=== PATIENT | male | born 1935 | race Caucasian/White ===

== ENCOUNTER 2016-04-10 18:32 | Emergency (ER) | payer OTHER ==
[~2016-04-10 18:32] MED LIST: ALBU1AER9 INH; ASPEC81 PO; CLR10 PO; CRG25 PO; FLUT0.15 NAE; GLC/500 PO; GLIP1TAB91 PO; ISOS30TA3 PO; LOSA1TAB38 PO; LPT/40 PO; LSX/40 PO; NTRGSL/4 UT; NXM/40 PO; SYMIN/8045 INH; TERA1CAP63 PO
[2016-04-10 18:41] VITALS: TEMP 36.8; Ht 167.6 cm
[2016-04-10] MEDS ORDERED: IBUP-1050 PO (19:49)
--- NOTE | 2016-04-10 20:19 | DIAGNOSTIC IMAGING REPORT ---
CT SCAN OF THE BRAIN WITHOUT IV CONTRAST CLINICAL HISTORY: Fall with head injury. COMPARISON STUDY: No priors TECHNIQUE: Unenhanced axial CT scan of the brain is performed from the vertex to the skull base. CT DOSE: 1112.23 mGy.cm FINDINGS: Brain parenchyma: There are age-related involutional changes noting mild subcortical and periventricular microangiopathic change. There is no hemorrhage, mass effect, or evidence of acute territorial ischemia by CT criteria. Brar-white matter is preserved. No extra-axial fluid collection is seen. Ventricles, sulci, cisterns: Prominent secondary to involutional change. Intracranial vasculature: There is atherosclerotic calcification of the cavernous carotid and vertebral arteries. Calvarium: The skeletal structures are osteopenic. There is no depressed calvarial fracture. Sinuses and mastoids: The visualized paranasal sinuses are clear. The mastoid air cells are well pneumatized. Orbits: The bony orbits are grossly intact. IMPRESSION: There is no hemorrhage, mass effect, or evidence of acute territorial ischemia by CT criteria. Electronically signed by: Johny Barton M.D. 04/10/2016 8:17 PM
--- NOTE | 2016-04-10 20:22 | DIAGNOSTIC IMAGING REPORT ---
CT SCAN OF THE CERVICAL SPINE CLINICAL HISTORY: Trauma. Fall. COMPARISON STUDY: No priors. TECHNIQUE: CT scan of the cervical spine is performed from the skull base to the upper thoracic spine. Images are reviewed in the axial, sagittal, and coronal planes. IV contrast was not administered for this examination. CT DOSE: Reported separately and the concurrently performed CT scan of the brain. FINDINGS: Skeletal structures: The skeletal structures are osteopenic. There is no evidence of fracture or subluxation involving the cervical spine. Vertebral body height and alignment are maintained. There is straightening of cervical lordosis. The odontoid process and lateral masses are intact. The atlantoaxial articulation is preserved noting advanced productive degenerative change with bony overgrowth, sclerosis, narrowing of the interval. The spinous processes appear intact. Anterior osteophytes are seen throughout. There is advanced multilevel cervical spondylosis. Uncovertebral and facet arthropathy contribute to neural foraminal stenosis at most levels. Intervertebral discs: There is moderate degenerative disc space narrowing at C6-C7 and C7-T1. Mild narrowing is seen at the remaining cervical levels. Central canal: Posterior disc osteophyte complexes at C6-C7 and C7-T1 likely contribute to mild acquired compromise of the central canal. Soft tissues: The prevertebral and paraspinous soft tissues are within normal limits. There is atherosclerotic calcification of the carotid bulbs. Calvarium: The visualized calvarium at the skull base appears intact. Brain parenchyma: Partially visualized brain parenchyma the skull base is within normal limits. Sinuses and mastoids: Trace mucosal thickening is seen within the sphenoid sinuses. There is a small right mastoid effusion. The left mastoid air cells are well pneumatized. Lung apices: Clear as visualized. IMPRESSION: 1. There is no evidence of fracture or subluxation involving the cervical spine. 2. Osteopenia and multilevel cervical spondylosis as detailed above. Electronically signed by: Johny Barton M.D. 04/10/2016 8:20 PM
--- NOTE | 2016-04-10 21:26 | DIAGNOSTIC IMAGING REPORT ---
RIGHT HIP 2 VIEWS CLINICAL HISTORY: Fall with right hip pain. FINDINGS: AP and frog-leg views of the right hip are compared to study dated 12/06/2014. The skeletal structures are osteopenic. No fracture is seen in the right hip or the visualized right hemipelvis. Minimal arthritic change is noted in the hip. The overlying soft tissues are within normal limits. IMPRESSION: Osteopenia with no radiographic evidence of right hip fracture. Electronically signed by: Johny Barton M.D. 04/10/2016 9:24 PM
--- NOTE | 2016-04-10 21:28 | DIAGNOSTIC IMAGING REPORT ---
RIGHT TIBIA AND FIBULA 2 VIEWS CLINICAL HISTORY: Fall with right leg pain. FINDINGS: AP and lateral views of the right tibia and fibula are obtained. No prior studies are available for comparison at the time of dictation. The skeletal structures are osteopenic. No tibial or fibular fracture is seen. The knee and ankle joints appear maintained noting arthritic change. There are large dorsal and plantar calcaneal enthesophytes. There is mild pretibial soft tissue swelling. IMPRESSION: Mild pretibial soft tissue edema. No fracture is identified in the right tibia or fibula. Electronically signed by: Johny Barton M.D. 04/10/2016 9:26 PM
--- NOTE | 2016-04-10 21:29 | DIAGNOSTIC IMAGING REPORT ---
RIGHT KNEE 3 VIEWS CLINICAL HISTORY: Fall with right knee pain. FINDINGS: AP, crosstable lateral, and sunrise views of the right knee are obtained. No prior studies are available for comparison at the time of dictation. The skeletal structures are osteopenic. No fracture is seen. There is advanced degenerative joint space narrowing in the medial and patellofemoral compartments. Mild narrowing is seen in the lateral compartment. There are large marginal osteophytes and patellar enthesophytes. Chondrocalcinosis is seen in the medial and lateral compartments. There is mild prepatellar soft tissue edema. A small joint effusion is suspected. IMPRESSION: 1. Small joint effusion and overlying soft tissue edema. No fracture is seen. 2. Osteopenia with arthritic change and chondrocalcinosis as above. Electronically signed by: Johny Barton M.D. 04/10/2016 9:27 PM
--- NOTE | 2016-04-10 21:38 | EMERGENCY ROOM VISIT NOTE ---
ED Visit Note First contact with patient: 19:11 The patient was seen and examined with Aditya Barragan PA-C. I agree with the history, physical and findings. Please see the note for disposition and details.
--- NOTE | 2016-04-10 21:59 | EMERGENCY ROOM VISIT NOTE ---
History First contact with patient: 19:11 Chief Complaint: HIP PAIN Stated Complaint: FELL OUTSIDE HOME, HIP, KNEE, HEAD RIGHT SIDE History of Present Illness The patient is a 81 year old male who presents to the Emergency Room via private vehicle accompanied by 2 daughters with complaints of "fell outside home , hip, knee, head right side". Patient states that he fell earlier today around 5:15 PM while at home. He notes that he went out of his house to go talk with somebody near the cars outside and when he was near the first car he stepped on ice and then fell back against the car and slid to the ground. He points to the right temporal region, his right hip and right knee as a locations of the pain. He states that he struck his head off of the car when he fell down. The daughter states it was witnessed and appeared that he fell backwards into the car slightly and slid down the edge of the car. He did not strike his head off the ground. He states that his right hip is just sore and denies any pain. He feels that his right knee is stiff. At baseline he relates with a cane. He denies any headache, nausea, vomiting, chest pain, shortness of breath, vision changes, striking his face, loss of consciousness, back pain. The patient did ambulate after the event. He is on aspirin. Review of Systems A complete 10-point Review of Systems was discussed with the patient, with pertinent positives and negatives listed in the History of Present Illness. All remaining Review of Systems questions can be considered negative unless otherwise specified. Past Medical/Surgical History Medical Problems: (1) CHF (congestive heart failure) (2) Coronary artery bypass grafts x 3 (3) Diabetes (4) Heart disease (5) Hypersomnia with sleep apnea Family History Cancer Diabetes mellitus Gallbladder disease Heart disease Hypertension Social History Smoking Status: Never Smoker Alcohol Use: none Drug Use: none Marital Status: Housing Status: lives with family Occupation Status: retired Current/Historical Medications Scheduled Aspirin (Aspirin EC Low Dose), 81 MG PO QAM Atorvastatin (Lipitor), 40 MG PO QPM Budesonide/Formoterol Fumarate (Symbicort 80/4.5 Inhaler), 2 PUFFS INH BID Carvedilol (Carvedilol), 25 MG PO BID Fluticasone Propionate (Nasal) (Flonase Allergy Relief), 1 SPRAY ANDRAE QAM Furosemide (Lasix), 40 MG PO QAM Glipizide Xl (Glucotrol Xl), 5 MG PO QAM Ibuprofen (Advil), 400 MG PO DAILY Isosorbide Mononitrate Ext Rel (Imdur Ext Rel), 30 MG PO QAM Loratadine (Claritin), 10 MG PO QAM Losartan Potassium (Cozaar), 100 MG PO QAM Metformin Hcl (Glucophage), 500 MG PO QAM Terazosin Hcl (Hytrin), 10 MG PO QPM Scheduled PRN Albuterol (Proair Hfa), 1-2 PUFFS INH Q4 PRN for Shortness of Breath Esomeprazole Magnesium (Nexium), 40 MG PO DAILY PRN for Indigestion Nitroglycerin (Nitrostat), 0.4 MG UT UD PRN for Chest Pain Allergies Coded Allergies: Lisinopril (Verified Adverse Reaction, Unknown, cough, 04/10/16) Physical Exam Vital Signs Date Time Temp Pulse Resp B/P Pulse Ox O2 Delivery O2 Flow Rate FiO2 04/10/16 22:11 72 20 145/80 99 04/10/16 18:41 36.8 71 16 148/64 95 Room Air Physical Exam VITAL SIGNS - Vital signs and nursing notes were reviewed. Patient is afebrile , slightly hypertensive at 148/64, he is not tachycardic, respiratory rate is normal, and he is saturating well on room air 95%. GENERAL -81-year-old male appearing his stated age who is in no acute distress. Communicates well with provider and answers questions appropriately. SKIN - Without rashes. No evidence of trauma to the skin. The skin is intact. HEAD - NC/AT. No palpable step-off deformities. There are no lacerations or abrasions or contusions noted. EYES - PERRL with EOMI bilaterally. Sclera anicteric. Palpebral conjunctiva pink and moist with no injection noted. EARS - No deformities of external structures noted on gross examination bilaterally. No hemotympanum External auditory canals without discharge or otorrhea. Tympanic membranes pearly brar without retraction or bulging. No fluid or purulent material visualized behind the TM. Handle of malleus, umbo, cone of light, pars tensa/flaccid all easily visualized. NOSE - Midline and without cyanosis. No epistaxis or purulent drainage noted. Septum midline without deviation or septal hematoma noted. MOUTH/OROPHARYNX - Without perioral cyanosis. Buccal mucosa pink and moist and without leukoplakia. Tongue midline with equal elevation of palate bilaterally. No tonsillar hypertrophy, erythema, or exudates noted. Good dentition noted. NECK - Neck with FROM. Supple to palpation. No lymphadenopathy noted. No nuchal rigidity. No C-spine tenderness. There is no tenderness to the thoracic or lumbar spine. LUNGS - Chest wall symmetric without accessory muscle use, intercostals retractions, or central cyanosis. Normal vesicular breath sounds CTA B/L. No wheezes, rales, or rhonchi appreciated. CARDIAC - RRR with S1/S2. No murmur, rubs, or gallops appreciated. ABDOMEN - Abdominal contour without pulsations or visible masses. BS normoactive all four quadrants. No tenderness, palpable masses, hepatosplenomegaly, or ascites noted. MUSCULOSKELETAL: There is minimal tenderness of the right hip, right knee and right joiner region. Patient with near full range of motion of these regions. No leg shortening or over rotation. EXTREMITIES - No clubbing or peripheral cyanosis. No pretibial edema present. + 5/5 strength noted in UE/LE bilaterally. NEUROLOGIC - Cranial nerves II through XII grossly intact. Sensory intact to light touch throughout. PSYCH - A&Ox3 and cooperates fully with examiner. Pt is very pleasant and interacts well with examiner. Medical Decision & Procedures ER Provider Diagnostic Interpretation: CT SCAN OF THE BRAIN WITHOUT IV CONTRAST CLINICAL HISTORY: Fall with head injury. COMPARISON STUDY: No priors TECHNIQUE: Unenhanced axial CT scan of the brain is performed from the vertex to the skull base. CT DOSE: 1112.23 mGy.cm FINDINGS: Brain parenchyma: There are age-related involutional changes noting mild subcortical and periventricular microangiopathic change. There is no hemorrhage, mass effect, or evidence of acute territorial ischemia by CT criteria. Brar-white matter is preserved. No extra-axial fluid collection is seen. Ventricles, sulci, cisterns: Prominent secondary to involutional change. Intracranial vasculature: There is atherosclerotic calcification of the cavernous carotid and vertebral arteries. Calvarium: The skeletal structures are osteopenic. There is no depressed calvarial fracture. Sinuses and mastoids: The visualized paranasal sinuses are clear. The mastoid air cells are well pneumatized. Orbits: The bony orbits are grossly intact. IMPRESSION: There is no hemorrhage, mass effect, or evidence of acute territorial ischemia by CT criteria. Electronically signed by: Johny Barton M.D. 04/10/2016 8:[address] SCAN OF THE CERVICAL SPINE CLINICAL HISTORY: Trauma. Fall. COMPARISON STUDY: No priors. TECHNIQUE: CT scan of the cervical spine is performed from the skull base to the upper thoracic spine. Images are reviewed in the axial, sagittal, and coronal planes. IV contrast was not administered for this examination. CT DOSE: Reported separately and the concurrently performed CT scan of the brain. FINDINGS: Skeletal structures: The skeletal structures are osteopenic. There is no evidence of fracture or subluxation involving the cervical spine. Vertebral body height and alignment are maintained. There is straightening of cervical lordosis. The odontoid process and lateral masses are intact. The atlantoaxial articulation is preserved noting advanced productive degenerative change with bony overgrowth, sclerosis, narrowing of the interval. The spinous processes appear intact. Anterior osteophytes are seen throughout. There is advanced multilevel cervical spondylosis. Uncovertebral and facet arthropathy contribute to neural foraminal stenosis at most levels. Intervertebral discs: There is moderate degenerative disc space narrowing at C6-C7 and C7-T1. Mild narrowing is seen at the remaining cervical levels. Central canal: Posterior disc osteophyte complexes at C6-C7 and C7-T1 likely contribute to mild acquired compromise of the central canal. Soft tissues: The prevertebral and paraspinous soft tissues are within normal limits. There is atherosclerotic calcification of the carotid bulbs. Calvarium: The visualized calvarium at the skull base appears intact. Brain parenchyma: Partially visualized brain parenchyma the skull base is within normal limits. Sinuses and mastoids: Trace mucosal thickening is seen within the sphenoid sinuses. There is a small right mastoid effusion. The left mastoid air cells are well pneumatized. Lung apices: Clear as visualized. IMPRESSION: 1. There is no evidence of fracture or subluxation involving the cervical spine. 2. Osteopenia and multilevel cervical spondylosis as detailed above. Electronically signed by: Johny Barton M.D. 04/10/2016 8:20 PM RIGHT HIP 2 VIEWS CLINICAL HISTORY: Fall with right hip pain. FINDINGS: AP and frog-leg views of the right hip are compared to study dated 12/06/2014. The skeletal structures are osteopenic. No fracture is seen in the right hip or the visualized right hemipelvis. Minimal arthritic change is noted in the hip. The overlying soft tissues are within normal limits. IMPRESSION: Osteopenia with no radiographic evidence of right hip fracture. Electronically signed by: Johny Barton M.D. 04/10/2016 9:24 PM RIGHT KNEE 3 VIEWS CLINICAL HISTORY: Fall with right knee pain. FINDINGS: AP, crosstable lateral, and sunrise views of the right knee are obtained. No prior studies are available for comparison at the time of dictation. The skeletal structures are osteopenic. No fracture is seen. There is advanced degenerative joint space narrowing in the medial and patellofemoral compartments. Mild narrowing is seen in the lateral compartment. There are large marginal osteophytes and patellar enthesophytes. Chondrocalcinosis is seen in the medial and lateral compartments. There is mild prepatellar soft tissue edema. A small joint effusion is suspected. IMPRESSION: 1. Small joint effusion and overlying soft tissue edema. No fracture is seen. 2. Osteopenia with arthritic change and chondrocalcinosis as above. Electronically signed by: Johny Barton M.D. 04/10/2016 9:27 PM RIGHT TIBIA AND FIBULA 2 VIEWS CLINICAL HISTORY: Fall with right leg pain. FINDINGS: AP and lateral views of the right tibia and fibula are obtained. No prior studies are available for comparison at the time of dictation. The skeletal structures are osteopenic. No tibial or fibular fracture is seen. The knee and ankle joints appear maintained noting arthritic change. There are large dorsal and plantar calcaneal enthesophytes. There is mild pretibial soft tissue swelling. IMPRESSION: Mild pretibial soft tissue edema. No fracture is identified in the right tibia or fibula. Electronically signed by: Johny Barton M.D. 04/10/2016 9:26 PM Medical Decision Patient was seen and evaluated as above. The patient looks well and nontoxic upon my exam. I do not suspect any fractures however did elect to perform the above workup. Results of all the imaging were discussed with the patient denied with radiologist's finding. There are no acute abnormalities noted other than the slight knee effusion. Patient was informed upon the atherosclerotic plaque. He does not want any for pain. He has a known history of spinal stenosis. The patient ambulates with a cane at baseline, therefore I felt that additional crutches or knee immobilizer would be a hindrance. Family was in agreement that the cane would be beneficial and that the crutches may be a problem. He was fitted with a Angel wrap on the right knee and instructed to follow-up with his orthopedic doctor regarding today's fall. He is also to follow up with his family doctor regarding atherosclerotic plaque identified on CT scan of the head and neck. His family indicated that he has a follow-up appointment regarding the carotids in the near future. I do not suspect any emergent or surgical nature to the patient's symptoms at this time. I be the patient can be managed in the outpatient setting with close follow-up. They were educated up on worrisome symptoms in which to return, had questions answered prior to discharge and was discharged home in good condition. In the evaluation and treatment of this patient, the following differential diagnoses were considered: Concussion, Contrecoup Injury, Brain Tumor, Depression, Encephalitis, Hypothyroidism, Meningitis, CVA, TIA, Migraine, Cluster Headache, Intracranial Abnormality, Intracranial Hemorrhage, Subdural Hematoma, Subarachnoid Hemorrhage, Hydrocephalus, skull fracture, neck fracture , hip fracture, knee fracture, knee sprain, contusion all sites, among others. Impression Primary Impression: Fall Additional Impressions: Contusion of multiple sites, Right hip pain, Right knee pain Departure Information Dispostion Home / Self-Care Condition GOOD Referrals Ben Blanco M.D. (PCP) Sergey Chaves M.D. Patient Instructions A Signature Page, My [facility] Additional Instructions You have been treated in the Emergency Department for a Closed Head Injury and fall with right lower extremity pain. CT Scan of your head/brain demonstrated no acute bleeding. This does not completely rule out the risk for future damage to the brain. As we discussed there is atherosclerotic plaque within the carotid and vertebral arteries of the neck and head. Please discuss this with the family doctor as soon as possible. For pain control, you can use the following [id number]-twaterl medicines (if >12 yo): - Regular strength (325mg/tab) Tylenol (acetaminophen) 2 tabs every 4-6 hours as needed. Do not exceed 12 tablets in a 24 hour period. Avoid taking more than 4 grams (4000 mg) of Tylenol per day. This includes any other sources of acetaminophen you may take on a regular basis. You should relax in a quiet, dark place for the rest of the day. Avoid any possible triggers including: cigarette smoke, caffeine, nicotine, chocolate, wine, beer, loud noises or music, or bright lights. Please call your established orthopedic doctor, Dr. Chaves, to schedule follow- up from today's visit as soon as possible. Please use your cane for ambulation assistance to help keep a little bit of the weight off of your right leg. Please wear the Angel wrap for support. Return to the Emergency Department if your current symptoms worsen despite treatment course outlined above, or if you develop any of the following symptoms : intractable pain despite aforementioned treatment course, visual disturbances , loss of vision, unilateral weakness or facial drooping, slurring of speech, loss of coordination, or loss of consciousness. Please return to emergency department with any new/concerning symptoms.
[2016-04-10 22:11] VITALS: BP 145/80; PULSE 72; O2SAT 99
== END 2016-04-10 22:12 | disposition home or self-care (01) ==
LOC: C.EDB 18:37 → C.EDD 22:12
DX: T14.8 Other injury of unspecified body region (principal); M25.561 Pain in right knee; W19.XXXA Unspecified fall, initial encounter; Z95.1 Presence of aortocoronary bypass graft; E11.9 Type 2 diabetes mellitus without complications; I51.9 Heart disease, unspecified; Z79.82 Long term (current) use of aspirin

== ENCOUNTER 2016-06-19 09:16 | Emergency (ER) | payer OTHER ==
[~2016-06-19] VITALS: Ht 167.6 cm; Wt 85.4 kg
[~2016-06-19 09:16] MED LIST changes: +IBUP-1050 PO
[2016-06-19 09:23] VITALS: TEMP 36.5; Ht 167.6 cm; Wt 85.4 kg
[2016-06-19] MEDS ORDERED: ALBUT/IPRATROP 3MG/0.5MG NEB 3 ML VIAL INH STA (09:45)
[2016-06-19 10:03] VITALS: O2SAT 94
[2016-06-19 10:22] LABS: BASO % 0.2 %; BASO ABS # 0.02 K/uL (0-0.2); COMPLETE YES; EOS % 6.9 %; HEMATOCRIT 38.3 % (42-52); IG% 0.1 %; LYMPH % 26.5 %; LYMPH ABS # 2.14 K/uL (1.2-3.4); MEAN CORPUSCULAR HEMOGLOBIN 29.4 pg (25-34); MEAN CORPUSCULAR HGB CONC 33.4 g/dl (32-36); MEAN PLATELET VOLUME 10.1 fL (7.4-10.4); MONO % 8.5 %; NEUT % 57.8 %; PLATELET COUNT 157 K/uL (130-400); RED BLOOD COUNT 4.35 M/uL (4.7-6.1); WHITE BLOOD COUNT 8.09 K/uL (4.8-10.8)
--- NOTE | 2016-06-19 10:22 | DIAGNOSTIC IMAGING REPORT ---
TWO VIEW CHEST CLINICAL HISTORY: Cough. FINDINGS: PA and lateral chest radiographs are compared to study dated 07/17/2014. The patient is status post midline sternotomy. The heart is enlarged and there is atherosclerotic calcification of the thoracic aorta. The pulmonary vasculature is noncongested. Chronic interstitial thickening is unchanged. There is bibasilar atelectasis. No airspace consolidation or large pleural effusion is identified. Apical scarring is observed. There is no pneumothorax. The skeletal structures are osteopenic. Degenerative change is noted in the left shoulder and thoracic spine. Cholecystectomy clips are noted. IMPRESSION: Cardiomegaly with no active disease in the chest. Electronically signed by: Johny Barton M.D. 06/19/2016 10:21 AM Dictated Date/Time: 06/19/2016 10:20 AM
[2016-06-19] MEDS ORDERED: ALBU18002 INH (10:35)
[2016-06-19 10:38] LABS: BUN/CREATININE RATIO 15.8 (10-20); CALCIUM 8.7 mg/dl (8.5-10.1); CREATININE 1.2 mg/dl (0.60-1.40)
--- NOTE | 2016-06-19 10:43 | EMERGENCY ROOM VISIT NOTE ---
ED Visit Note First contact with patient: 09:33 I have personally seen and evaluated the patient with the physician accounting manager assistant controller. I agree with the diagnostic/management decisions and have personally been involved in these decisions and agree with the diagnosis.
[2016-06-19] MEDS ORDERED: AZITTAB PO (10:51)
--- NOTE | 2016-06-19 10:53 | EMERGENCY ROOM VISIT NOTE ---
History First contact with patient: 09:33 Chief Complaint: SHORTNESS OF BREATH Stated Complaint: CONGESTION,SOB Nursing Triage Summary: Triage Note: pt reports shortness of breath, cough with yellow sputum, sinus congestion. pt denies any pain. pt daughter reports pt was seen by pcp last week and started on cough medication. History of Present Illness The patient is a 81 year old male who presents to the Emergency Room with complaints of head congestion and pressure for one week. He states over the past few days he thinks it is going into his chest. He is coughing up some yellow sputum. He denies any chest pain or shortness of breath. He denies any fever, ear pain or sore throat. The patient was seen at his PCP on Monday and was given Tussen DM for the cough which she has been taking every 6 hours. The patient also has a history of COPD for which she is on spell review of twice daily and has albuterol to use on an as-needed basis. The patient states he used it twice yesterday. He took his previously yesterday but has not taken it yet this morning. Review of Systems 10 system review was performed and was negative unless stated otherwise history of present illness. Past Medical/Surgical History Medical Problems: (1) CHF (congestive heart failure) (2) Coronary artery bypass grafts x 3 (3) Diabetes (4) Heart disease (5) Hypersomnia with sleep apnea Family History Cancer Diabetes mellitus Gallbladder disease Heart disease Hypertension Social History Smoking Status: Never Smoker Alcohol Use: none Drug Use: none Marital Status: Housing Status: lives with family Occupation Status: retired Current/Historical Medications Scheduled Aspirin (Aspirin EC Low Dose), 81 MG PO QAM Atorvastatin (Lipitor), 40 MG PO QPM Budesonide/Formoterol Fumarate (Symbicort 80/4.5 Inhaler), 1 PUFFS INH BID Carvedilol (Carvedilol), 25 MG PO BID Fluticasone Propionate (Nasal) (Flonase Allergy Relief), 1 SPRAY ANDRAE QAM Furosemide (Lasix), 40 MG PO QAM Glipizide Xl (Glucotrol Xl), 5 MG PO QAM Ibuprofen (Advil), 400 MG PO DAILY Isosorbide Mononitrate Ext Rel (Imdur Ext Rel), 30 MG PO QAM Loratadine (Claritin), 10 MG PO QAM Losartan Potassium (Cozaar), 100 MG PO QAM Metformin Hcl (Glucophage), 500 MG PO QAM Terazosin Hcl (Hytrin), 10 MG PO QPM Scheduled PRN Albuterol Sulfate (Proair Respiclick), 1-2 PUFFS INH Q4 PRN for SOB/Wheezing Esomeprazole Magnesium (Nexium), 40 MG PO DAILY PRN for Indigestion Nitroglycerin (Nitrostat), 0.4 MG UT UD PRN for Chest Pain Allergies Coded Allergies: Lisinopril (Verified Adverse Reaction, Unknown, cough, 06/19/16) Physical Exam Vital Signs Date Time Temp Pulse Resp B/P Pulse Ox O2 Delivery O2 Flow Rate FiO2 06/19/16 10:04 60 20 124/66 94 Room Air 06/19/16 10:03 94 Room Air 06/19/16 09:33 63 06/19/16 09:24 93 Room Air 06/19/16 09:23 36.5 91 20 132/69 93 Room Air Physical Exam PHYSICAL EXAM: Vital Signs were reviewed: Temperature 36.5, blood pressure 132/ 69 pulse rate 91 respirations 20 Reviewed Nurse's notes and agree. Oxygen saturation is 93 % on room air which is normal . GENERAL: 81-year-old male appears in no acute distress. MENTAL STATUS: Alert, oriented, coherent. EARS: Canals clear. TMs good light reflex, no erythema or fluid level noted. NOSE: Nasal mucosa with moderate erythema engorgement. PHARYNX: No erythema, no edema noted. No exudate noted. Airway is adequate. SINUSES: Both maxillary and frontal sinuses are tender to percussion. NECK: Supple, non-tender. No lymphadenopathy noted. LUNGS: Fair air exchange noted. The patient has scattered rhonchi throughout both lung kessler with only partial clearing with cough. No wheezing noted.. CARDIAC: Regular rate and rhythm with occasional missed beats. No murmur. SKIN: No rashes noted. LOWER EXTREMITIES: Calves nontender. No cyanosis or edema noted. Medical Decision & Procedures ER Provider Diagnostic Interpretation: TWO VIEW CHEST CLINICAL HISTORY: Cough. FINDINGS: PA and lateral chest radiographs are compared to study dated 07/17/2014. The patient is status post midline sternotomy. The heart is enlarged and there is atherosclerotic calcification of the thoracic aorta. The pulmonary vasculature is noncongested. Chronic interstitial thickening is unchanged. There is bibasilar atelectasis. No airspace consolidation or large pleural effusion is identified. Apical scarring is observed. There is no pneumothorax. The skeletal structures are osteopenic. Degenerative change is noted in the left shoulder and thoracic spine. Cholecystectomy clips are noted. IMPRESSION: Cardiomegaly with no active disease in the chest. Electronically signed by: Johny Barton M.D. 06/19/2016 10:21 AM Laboratory Results 06/19/16 09:40 Red Blood Count 4.35, Mean Corpuscular Volume 88.0, Mean Corpuscular Hemoglobin 29.4, Mean Corpuscular Hemoglobin Concent 33.4, Mean Platelet Volume 10.1, Neutrophils (%) (Auto) 57.8, Lymphocytes (%) (Auto) 26.5, Monocytes (%) (Auto) 8.5, Eosinophils (%) (Auto) 6.9, Basophils (%) (Auto) 0.2, Neutrophils # (Auto) 4.67, Lymphocytes # (Auto) 2.14, Monocytes # (Auto) 0.69, Eosinophils # (Auto) 0.56, Basophils # (Auto) 0.02 06/19/16 09:40 Test 06/19/16 09:40 White Blood Count 8.09 K/uL (4.8-10.8) Red Blood Count 4.35 M/uL (4.7-6.1) Hemoglobin 12.8 g/dL (14.0-18.0) Hematocrit 38.3 % (42-52) Mean Corpuscular Volume 88.0 fL (80-100) Mean Corpuscular Hemoglobin 29.4 pg (25-34) Mean Corpuscular Hemoglobin Concent 33.4 g/dl (32-36) Platelet Count 157 K/uL (130-400) Mean Platelet Volume 10.1 fL (7.4-10.4) Neutrophils (%) (Auto) 57.8 % Lymphocytes (%) (Auto) 26.5 % Monocytes (%) (Auto) 8.5 % Eosinophils (%) (Auto) 6.9 % Basophils (%) (Auto) 0.2 % Neutrophils # (Auto) 4.67 K/uL (1.4-6.5) Lymphocytes # (Auto) 2.14 K/uL (1.2-3.4) Monocytes # (Auto) 0.69 K/uL (0.11-0.59) Eosinophils # (Auto) 0.56 K/uL (0-0.5) Basophils # (Auto) 0.02 K/uL (0-0.2) RDW Standard Deviation 41.7 fL (36.4-46.3) RDW Coefficient of Variation 12.9 % (11.5-14.5) Immature Granulocyte % (Auto) 0.1 % Immature Granulocyte # (Auto) 0.01 K/uL (0.00-0.02) Anion Gap 8.0 mmol/L (3-11) Est Creatinine Clear Calc Drug Dose 50.3 ml/min Estimated GFR () 65.8 Estimated GFR (Non- 56.8 BUN/Creatinine Ratio 15.8 (10-20) Calcium Level 8.7 mg/dl (8.5-10.1) Medications Administered Medications (Trade) Dose Ordered Sig/Spike Route Start Time Stop Time Status Last Admin Dose Admin Albuterol/ Ipratropium (Duoneb) 3 ml NOW STAT INH 06/19/16 09:45 06/19/16 09:46 DC 06/19/16 09:49 3 ML ED Course The patient was evaluated. Chest x-ray was ordered and interpreted by the radiologist and myself as above without any evidence of pneumonia. Did reveal some atelectasis. CBC and differential, renal profile was ordered. The patient was given a DuoNeb. After the DuoNeb the patient states that he felt much better. Labs are reviewed and were unremarkable. The patient's white count was normal. The patient's BUN was elevated but actually is lower than baseline. The patient was informed of all findings. The patient was independently evaluated by Dr. Silva who agrees with treatment plan. Medical Decision Differential diagnosis include pneumonia, bronchitis, URI Impression Primary Impression: Acute bronchitis Additional Impression: Acute sinusitis Departure Information Dispostion Home / Self-Care Condition GOOD Prescriptions Azithromycin (ZITHROMAX Z-CHANDLER) 250 Mg Tab 0 PO UD, #1 PKT Prov: Estela Waggoner PA-C 06/19/16 Referrals Ben Blanco M.D. (PCP) Forms HOME CARE DOCUMENTATION FORM, IMPORTANT VISIT INFORMATION Patient Instructions ED Sinusitis Abx Tx, My [facility] Additional Instructions Take Z-Chandler as prescribed. Recommend using your pro-air 2 puffs every 4 hours for 5 days. Use your spirometer 4 times a day for 5 days. Also recommend over- the-counter Mucinex( guaifenesin) as directed on the label for 5 days. Only use the cough suppressant that was prescribed to you at bedtime. Sleep with your head elevated. If symptoms persist or worsen, follow-up with your family doctor. Problem Qualifiers Primary Impression: Acute bronchitis Bronchitis organism: unspecified organism Qualified Codes: J20.9 - Acute bronchitis, unspecified Additional Impression: Acute sinusitis Sinusitis location: pansinusitis Recurrence: not specified as recurrent Qualified Codes: J01.40 - Acute pansinusitis, unspecified
[2016-06-19 11:01] VITALS: BP 124/75; PULSE 57; O2SAT 95
== END 2016-06-19 11:12 | disposition home or self-care (01) ==
LOC: C.EDB 09:17
DX: J20.9 Acute bronchitis, unspecified (principal); J01.90 Acute sinusitis, unspecified; R06.02 Shortness of breath; E11.9 Type 2 diabetes mellitus without complications; I10 Essential (primary) hypertension; I50.9 Heart failure, unspecified; G47.30 Sleep apnea, unspecified

== ENCOUNTER 2016-06-22 12:20 | Inpatient (IN) | payer OTHER ==
[2016-06-22] VITALS (10 sets, daily range): BP systolic 153–190; BP diastolic 64–86; PULSE 61–78; TEMP 36.7–37; O2SAT 91–99; Ht 167.6 cm; Wt 83.0 kg
[~2016-06-22] VITALS: Ht 167.6 cm; Wt 83.0 kg
[~2016-06-22 12:20] MED LIST changes: +ALBU18002 INH; -ALBU1AER9 INH; +AZITTAB PO
[2016-06-22] MEDS ORDERED: PSEU60TA80 PO (12:36)
[2016-06-22] MEDS ORDERED: DEXTLIQ PO (12:36)
[2016-06-22] MEDS ORDERED: VNTHFA/IN INH (12:37)
[2016-06-22] MEDS ORDERED: GUAI1TAB75 PO (12:38)
[2016-06-22 12:57] LABS: BASO % 0.1 %; BASO ABS # 0.01 K/uL (0-0.2); COMPLETE YES; EOS % 5.1 %; IG% 0.3 %; LYMPH % 34.5 %; LYMPH ABS # 2.37 K/uL (1.2-3.4); MEAN CELL VOLUME 85.7 fL (80-100); MEAN CORPUSCULAR HEMOGLOBIN 29.5 pg (25-34); MEAN CORPUSCULAR HGB CONC 34.4 g/dl (32-36); MEAN PLATELET VOLUME 9.7 fL (7.4-10.4); MONO % 10.8 %; NEUT % 49.2 %; PLATELET COUNT 158 K/uL (130-400); WHITE BLOOD COUNT 6.87 K/uL (4.8-10.8)
--- NOTE | 2016-06-22 13:07 | DIAGNOSTIC IMAGING REPORT ---
CHEST ONE VIEW PORTABLE CLINICAL HISTORY: a03 shortness of breath dyspnea COMPARISON STUDY: 06/19/2016 FINDINGS: Mild stable cardiomegaly. Findings of a prior median sternotomy. Diaphragms smooth. Lungs are clear. IMPRESSION: Mild stable cardiomegaly. No acute process. Electronically signed by: Anshu Waggoner M.D. 06/22/2016 1:06 PM Dictated Date/Time: 06/22/2016 1:05 PM
[2016-06-22] MEDS ORDERED: PIPERACILLIN/TAZOBACTAM 4.5 GM/100ML D5W IV STA (13:08)
[2016-06-22 13:13] LABS: PROTHROMBIN TIME (PATIENT) 11.2 SECONDS (9.0-12.0)
[2016-06-22 13:17] LABS: BUN/CREATININE RATIO 18.6 (10-20); CALCIUM 8.7 mg/dl (8.5-10.1); CREATININE 1.2 mg/dl (0.60-1.40); POTASSIUM 3.8 mmol/L (3.5-5.1)
[2016-06-22 13:20] LABS: ALB/GLOB RATIO 1.1 (0.9-2)
[2016-06-22] MEDS ORDERED: BUDESONIDE 0.5 MG/2 ML VIAL (PULMICORT) INH ONE (13:43)
[2016-06-22] MEDS ORDERED: ZOLPIDEM TARTRATE 5 MG TAB PO PRN (13:45)
[2016-06-22] MEDS ORDERED: ONDANSETRON INJ 2 MG/ML 2 ML VIAL IV PRN (13:45)
[2016-06-22] MEDS ORDERED: ACETAMINOPHEN 325 MG TAB PO PRN (13:45)
[2016-06-22] MEDS ORDERED: NITROGLYCERIN 0.4 MG SL PER TAB CHARGE SL PRN (13:45)
[2016-06-22] MEDS ORDERED: GLUCOSE 40% GEL 15 GM TUBE PO PRN (14:00)
[2016-06-22] MEDS ORDERED: DEXTROSE 50% 50 ML SYR IV PRN (14:00)
[2016-06-22] MEDS ORDERED: GLUCAGON FOR INJ 1 MG VIAL SQ PRN (14:00)
[2016-06-22] MEDS ORDERED: GLUCOSE 10 TABS/TUBE PO PRN (14:00)
[2016-06-22] MEDS ORDERED: PIPERACILL/TAZOBAC CONSULT ACTIVE PRN (14:15)
[2016-06-22 14:20] LABS: MAGNESIUM 1.9 mg/dl (1.8-2.4)
--- NOTE | 2016-06-22 14:30 | EMERGENCY ROOM VISIT NOTE ---
History Report prepared by Bonita: Delores Otto Under the Supervision of: Dr. Johny Solis M.D. First contact with patient: 13:02 Chief Complaint: SHORTNESS OF BREATH Stated Complaint: RESPIRATORY Nursing Triage Summary: Pt presents to room A03 via ALS. Pt reports he is having increased shortness of breath since approx 0700 today. pt has cough with green sputum. EMS reports pt was found to have initial pulse ox of 83% on room air. Pt recieved 125mg solumedrol and duo neb in route to emergency department. Pt denies any pain. pt reports he was seen in ed on monday. pt reports he is currently on a z-pack. pt reports hx of copd. History of Present Illness The patient is a 81 year old male who presents to the Emergency Room via ambulance with complaints of worsened shortness of breath that began this morning about 6 hours ago. The patient notes that he has had cold-like symptoms including sinus drainage and a productive cough for about a week. He was in the emergency room 3 days ago for these symptoms and was diagnosed with acute bronchitis. He was discharged feeling much better after a DuoNeb treatment. He was also put on a Z-Chandler and Mucinex. Since then, he has been coughing up clear sputum. This morning, he started to develop some difficulty breathing. En route , his saturations were in the low 80s. He was given 125 mg of Solu-Medrol and 2 DuoNeb treatments and is now feeling better. He has been using his inhaler without relief. He has not been on any steroids. Past medical history includes asthma and COPD. He had a flu shot this year. He has a history of CABG. Denies fever, chest pain, vomiting, diarrhea, or other complaints. Source of History: patient Onset: 6 hours ago Position: other (respiratory) Symptom Intensity: O2 saturation low 80s on room air Timing: worsening Modifying Factors (Relieving): other (solu-medrol, DuoNeb) Associated Symptoms: + cough, No chest pain, No diarrhea, No fevers, No vomiting Review of Systems See HPI for pertinent positives & negatives. A total of 10 systems reviewed and were otherwise negative. Past Medical & Surgical Medical Problems: (1) Asthma (2) CHF (congestive heart failure) (3) COPD (chronic obstructive pulmonary disease) (4) Coronary artery bypass grafts x 3 (5) Diabetes (6) Heart disease (7) Hypersomnia with sleep apnea Family History Cancer Diabetes mellitus Gallbladder disease Heart disease Hypertension Social History Smoking Status: Never Smoker Alcohol Use: none Drug Use: none Marital Status: Housing Status: lives with family Occupation Status: retired Current/Historical Medications Scheduled Albuterol Hfa (Ventolin Hfa), 2 PUFFS INH Q4H Aspirin (Aspirin EC Low Dose), 81 MG PO QAM Atorvastatin (Lipitor), 40 MG PO QPM Azithromycin (Zithromax Z-Chanlder), 0 PO UD Budesonide/Formoterol Fumarate (Symbicort 80/4.5 Inhaler), 1 PUFFS INH BID Carvedilol (Carvedilol), 25 MG PO BID Dextromethorphan-Guaifenesin (Tussin Dm), 10 ML PO QPM Fluticasone Propionate (Nasal) (Flonase Allergy Relief), 1 SPRAY ANDRAE QAM Furosemide (Lasix), 40 MG PO QAM Glipizide Xl (Glucotrol Xl), 5 MG PO QAM Guaifenesin La (Guaifenesin Er), 600 MG PO DAILY Ibuprofen (Advil), 400 MG PO DAILY Isosorbide Mononitrate Ext Rel (Imdur Ext Rel), 30 MG PO QAM Loratadine (Claritin), 10 MG PO QAM Losartan Potassium (Cozaar), 100 MG PO QAM Metformin Hcl (Glucophage), 500 MG PO QAM Terazosin Hcl (Hytrin), 10 MG PO QPM Scheduled PRN Esomeprazole Magnesium (Nexium), 40 MG PO DAILY PRN for Indigestion Nitroglycerin (Nitrostat), 0.4 MG UT UD PRN for Chest Pain Allergies Coded Allergies: Lisinopril (Verified Adverse Reaction, Unknown, cough, 06/19/16) Physical Exam Vital Signs Date Time Temp Pulse Resp B/P Pulse Ox O2 Delivery O2 Flow Rate FiO2 06/22/16 12:35 68 06/22/16 12:33 94 Room Air 06/22/16 12:33 37.0 60 20 169/60 93 Room Air 06/22/16 12:33 94 Room Air Physical Exam GENERAL: Patient is in no acute distress. HEENT: No acute trauma, normocephalic atraumatic, mucous membranes moist, no nasal congestion, no scleral icterus. NECK: No stridor, no adenopathy, no meningismus, trachea is midline. LUNGS: Moist cough noted, decreased breath sounds bilaterally, breath sounds are equal, wheezing and rhonchi bilaterally. HEART: Irregular with no murmurs and a normal rate. . ABDOMEN: Soft, nontender, bowel sounds positive, no hernias, no peritonitis. EXTREMITIES: No cyanosis, mild bilateral pedal edema, full range of motion of all the joints without pain or difficulty, no signs for acute trauma. NEUROLOGIC: Oriented x 3, no acute motor or sensory deficits, no focal weakness. SKIN: No rash, no jaundice, no diaphoresis. Medical Decision & Procedures ER Provider Diagnostic Interpretation: Radiology results and stated below per my review and radiologist interpretation: CHEST ONE VIEW PORTABLE CLINICAL HISTORY: a03 shortness of breath dyspnea COMPARISON STUDY: 06/19/2016 FINDINGS: Mild stable cardiomegaly. Findings of a prior median sternotomy. Diaphragms smooth. Lungs are clear. IMPRESSION: Mild stable cardiomegaly. No acute process. Electronically signed by: nAshu Waggoner M.D. 06/22/2016 1:06 PM Dictated Date/Time: 06/22/2016 1:05 PM Laboratory Results 06/22/16 11:30 Red Blood Count 4.20, Mean Corpuscular Volume 85.7, Mean Corpuscular Hemoglobin 29.5, Mean Corpuscular Hemoglobin Concent 34.4, Mean Platelet Volume 9.7, Neutrophils (%) (Auto) 49.2, Lymphocytes (%) (Auto) 34.5, Monocytes (%) (Auto) 10.8, Eosinophils (%) (Auto) 5.1, Basophils (%) (Auto) 0.1, Neutrophils # (Auto ) 3.38, Lymphocytes # (Auto) 2.37, Monocytes # (Auto) 0.74, Eosinophils # (Auto ) 0.35, Basophils # (Auto) 0.01 06/22/16 11:30 Test 06/22/16 11:30 White Blood Count 6.87 K/uL (4.8-10.8) Red Blood Count 4.20 M/uL (4.7-6.1) Hemoglobin 12.4 g/dL (14.0-18.0) Hematocrit 36.0 % (42-52) Mean Corpuscular Volume 85.7 fL (80-100) Mean Corpuscular Hemoglobin 29.5 pg (25-34) Mean Corpuscular Hemoglobin Concent 34.4 g/dl (32-36) Platelet Count 158 K/uL (130-400) Mean Platelet Volume 9.7 fL (7.4-10.4) Neutrophils (%) (Auto) 49.2 % Lymphocytes (%) (Auto) 34.5 % Monocytes (%) (Auto) 10.8 % Eosinophils (%) (Auto) 5.1 % Basophils (%) (Auto) 0.1 % Neutrophils # (Auto) 3.38 K/uL (1.4-6.5) Lymphocytes # (Auto) 2.37 K/uL (1.2-3.4) Monocytes # (Auto) 0.74 K/uL (0.11-0.59) Eosinophils # (Auto) 0.35 K/uL (0-0.5) Basophils # (Auto) 0.01 K/uL (0-0.2) RDW Standard Deviation 40.3 fL (36.4-46.3) RDW Coefficient of Variation 12.9 % (11.5-14.5) Immature Granulocyte % (Auto) 0.3 % Immature Granulocyte # (Auto) 0.02 K/uL (0.00-0.02) Prothrombin Time 11.2 SECONDS (9.0-12.0) Prothromb Time International Ratio 1.0 (0.9-1.1) Activated Partial Thromboplast Time 26.3 SECONDS (21.0-31.0) Partial Thromboplastin Ratio 1.0 Anion Gap 7.0 mmol/L (3-11) Est Creatinine Clear Calc Drug Dose 50.8 ml/min Estimated GFR () 65.8 Estimated GFR (Non- 56.8 BUN/Creatinine Ratio 18.6 (10-20) Calcium Level 8.7 mg/dl (8.5-10.1) Magnesium Level 1.9 mg/dl (1.8-2.4) Total Bilirubin 0.6 mg/dl (0.2-1) Aspartate Amino Transf (AST/SGOT) 16 U/L (15-37) Alanine Aminotransferase (ALT/SGPT) 25 U/L (12-78) Alkaline Phosphatase 154 U/L (45-117) Troponin I 0.038 ng/ml (0-0.045) Total Protein 6.4 gm/dl (6.4-8.2) Albumin 3.4 gm/dl (3.4-5.0) Globulin 3.0 gm/dl (2.5-4.0) Albumin/Globulin Ratio 1.1 (0.9-2) Laboratory results reviewed by me. ECG Indication: SOB/dyspnea Rate (beats per minute): 59 Rhythm: sinus bradycardia Findings: 1st degree AV block, PAC, PVC, RBBB, no acute ischemic change, other (LVH) ED Course 1306: The patient was evaluated in room A3. A complete history and physical exam was performed. 1308: Ordered Zosyn 4.5 gm IV. 1327: I discussed the case with Dr. Gipson - [facility] [place] Hospitalist. The patient will be evaluated for further management. 1340: Upon reexamination the patient is resting comfortably. I discussed results and treatment plan with the patient. He verbalizes agreement and understanding. The patient will be evaluated for further management. Medical Decision Differential includes but is not limited to bronchitis, pneumonia, CHF , influenza, exacerbation of COPD, failed outpatient treatment , anemia, cardiac ischemia. There is no leukocytosis or concerning anemia. No significant electrolyte abnormality, kidney failure or hepatitis. There was no coagulopathy. EKG shows a sinus bradycardia with PACs and PVCs, a right bundle branch block was present. No acute ischemia. Cardiac enzyme testing 1 is not suggestive of acute cardiac injury. Chest x-ray does not show pneumonia or CHF. The patient presents with increasing dyspnea despite inhalers. He was in the ER once already and given Zithromax. Things are not better at home and he was recorded hypoxic earlier today by the paramedics. The patient received 2 DuoNeb 's and IV Solu-Medrol in route to the ER and he feels somewhat improved. He still was wheezing with rhonchi on exam. The patient has an acute bronchitis which has failed outpatient treatment. He is suffering also from an exacerbation of COPD. With the hypoxia, admission/ observation is warranted. The patient was given IV Zosyn. He is currently resting comfortably. I did speak with the patient and with the patient's family. I spoke with case management. The on-call hospitalist was consulted. Consults Time Called: 1316 Consulting Physician: Dr. Gipson - [facility] [place] Hospitalist Returned Call: [phone] I discussed the case with her. The patient will be evaluated for further management. Impression Primary Impression: Hypoxia Additional Impressions: Acute bronchitis COPD exacerbation Failure of outpatient treatment Scribe Attestation The scribe's documentation has been prepared under my direction and personally reviewed by me in its entirety. I confirm that the note above accurately reflects all work, treatment, procedures, and medical decision making performed by me. Departure Information Dispostion Being Evaluated By Hospitalist Referrals Ben Blanco M.D. (PCP) Patient Instructions [facility] Problem Qualifiers
[2016-06-22] MEDS ORDERED: LEVALBUTEROL/IPRATROPIUM NEB INH SCH (15:00)
[2016-06-22] MEDS ORDERED: PIPERACILL/TAZOBAC IV 4.5 GM in DEXTROSE 5% 100ML IV ONE (15:30)
[2016-06-22] MEDS: INSULIN ASPART 100 UNITS/ML 3 ML PEN SC SCH ×3 (16:30→21:32)
[2016-06-22] MEDS: IPRATROPIUM BROMIDE NEB SOLN 0.02% 2.5 ML VIAL INH SCH ×2 (16:34→20:05)
[2016-06-22] MEDS: LEVALBUTEROL 1.25MG/0.5ML NEB INH SCH ×2 (16:34→20:05)
[2016-06-22] MEDS: LEVOFLOXACIN / D5W 500 MG in PREMIXED IN D5W 100 ML IV SCH (18:52)
[2016-06-22] MEDS: BUDESONIDE 0.5 MG/2 ML VIAL (PULMICORT) INH SCH (20:05)
--- NOTE | 2016-06-22 20:58 | History and Physical ---
History & Physical Date & Time of Service: Jun 22, 2016 at 20:44 Chief Complaint: Copd Exacerbation, Hypoxia Primary Care Physician: Ben Blanco M.D. History of Present Illness Source: patient, family The patient is an 81-year-old male who is seen 2 days ago in the emergency department and started on azithromycin orally for a lung infection. Since that time he's been having increased shortness of breath with a cough productive of green sputum and when seen by EMS today he had a pulse ox of 83% on room air at home. He was given methylprednisolone 125 milligrams IV and a DuoNeb en route to the emergency department, which he reports has helped a little bit. Past Medical/Surgical History Medical Problems: (1) Asthma Status: Chronic (2) CHF (congestive heart failure) Status: Chronic (3) COPD (chronic obstructive pulmonary disease) Status: Chronic (4) Coronary artery bypass grafts x 3 Status: Resolved (5) Diabetes Status: Chronic (6) Heart disease Status: Chronic (7) Hypersomnia with sleep apnea Status: Chronic Family History Cancer Diabetes mellitus Gallbladder disease Heart disease Hypertension Social History Smoking Status: Never Smoker Smokeless Tobacco Use: No Alcohol Use: none Drug Use: none Marital Status: Housing status: lives with family Occupational Status: retired Immunizations History of Influenza Vaccine: Yes Influenza Vaccine Date: Jan 08, 2010 History of Tetanus Vaccine?: No History of Pneumococcal: Yes Pneumococcal Date: Nov 04, 2010 History of Hepatitis B Vaccine: No Multi-Drug Resistant Organisms History of MDRO: No Allergies Coded Allergies: Lisinopril (Verified Adverse Reaction, Unknown, cough, 06/19/16) Home Medications Scheduled Albuterol Hfa (Ventolin Hfa), 2 PUFFS INH Q4H Aspirin (Aspirin EC Low Dose), 81 MG PO QAM Atorvastatin (Lipitor), 40 MG PO QPM Azithromycin (Zithromax Z-Chandler), 0 PO UD Budesonide/Formoterol Fumarate (Symbicort 80/4.5 Inhaler), 1 PUFFS INH BID Carvedilol (Carvedilol), 25 MG PO BID Dextromethorphan-Guaifenesin (Tussin Dm), 10 ML PO QPM Fluticasone Propionate (Nasal) (Flonase Allergy Relief), 1 SPRAY ANDRAE QAM Furosemide (Lasix), 40 MG PO QAM Glipizide Xl (Glucotrol Xl), 5 MG PO QAM Guaifenesin La (Guaifenesin Er), 600 MG PO DAILY Ibuprofen (Advil), 400 MG PO DAILY Isosorbide Mononitrate Ext Rel (Imdur Ext Rel), 30 MG PO QAM Loratadine (Claritin), 10 MG PO QAM Losartan Potassium (Cozaar), 100 MG PO QAM Metformin Hcl (Glucophage), 500 MG PO QAM Terazosin Hcl (Hytrin), 10 MG PO QPM Scheduled PRN Esomeprazole Magnesium (Nexium), 40 MG PO DAILY PRN for Indigestion Nitroglycerin (Nitrostat), 0.4 MG UT UD PRN for Chest Pain Review of Systems The patient denies lower extremity swelling, vision change, hearing change, sore throat, fevers, chills, sweats, nausea, vomiting, abdominal pain, pelvic pain, blood in urine or stool, dysuria, urinary frequency or urgency, lightheadedness, dizziness, headache, rash, abnormal bruising or bleeding, imbalance, focal or generalized weakness, numbness or tingling in arms or legs, arthralgias or myalgias, back or neck pain, night sweats. The review of systems is otherwise negative other than for that already noted above, and at least 10 systems have been reviewed. Physical Exam Vital Signs Date Time Temp Pulse Resp B/P Pulse Ox O2 Delivery O2 Flow Rate FiO2 06/22/16 20:05 78 16 99 Room Air 06/22/16 19:39 36.7 65 18 179/71 94 Room Air 06/22/16 19:01 165/67 06/22/16 17:10 94 Room Air 06/22/16 16:30 36.7 71 20 185/72 94 Room Air 06/22/16 16:13 67 23 158/71 94 06/22/16 16:00 37.0 67 20 153/64 91 Room Air 06/22/16 13:48 60 20 153/64 91 Room Air 06/22/16 12:35 68 06/22/16 12:33 94 Room Air 06/22/16 12:33 37.0 60 20 169/60 93 Room Air 06/22/16 12:33 94 Room Air The patient is awake, well-developed and adequately nourished, alert and oriented 3, normocephalic and atraumatic, lying in bed and in no acute distress. HEENT--PERRL, EOMI, mucous membranes and oropharynx moist. Neck--supple, no JVD or bruits, thyroid normal, trachea midline, no adenopathy. Heart--normal S1 and S2, no extra beats, no murmurs, rubs or gallops. Lungs--scattered rhonchi and wheezes bilaterally, no respiratory distress, no accessory muscle use. Abdomen--normal bowel sounds and soft, nontender and nondistended, no hernias or masses, no organomegaly. Extremities--no cyanosis, clubbing or edema. There are good distal pulses b/l. Dermatologic--normal skin turgor, normal color, warm and dry, no abnormal lymph nodes, no rash. Neurologic--cranial nerves II through XII grossly intact, motor and sensory examination normal. Rheumatologic--normal range of motion, nontender, muscles and joints. Psychiatric--normal affect. Diagnostics Laboratory Results Results Past 24 Hours Test 06/22/16 11:30 06/22/16 17:56 06/22/16 19:55 Range/Units White Blood Count 6.87 4.8-10.8 K/uL Red Blood Count 4.20 4.7-6.1 M/uL Hemoglobin 12.4 14.0-18.0 g/dL Hematocrit 36.0 42-52 % Mean Corpuscular Volume 85.7 80-100 fL Mean Corpuscular Hemoglobin 29.5 25-34 pg Mean Corpuscular Hemoglobin Concent 34.4 32-36 g/dl Platelet Count 158 130-400 K/uL Mean Platelet Volume 9.7 7.4-10.4 fL Neutrophils (%) (Auto) 49.2 % Lymphocytes (%) (Auto) 34.5 % Monocytes (%) (Auto) 10.8 % Eosinophils (%) (Auto) 5.1 % Basophils (%) (Auto) 0.1 % Neutrophils # (Auto) 3.38 1.4-6.5 K/uL Lymphocytes # (Auto) 2.37 1.2-3.4 K/uL Monocytes # (Auto) 0.74 0.11-0.59 K/uL Eosinophils # (Auto) 0.35 0-0.5 K/uL Basophils # (Auto) 0.01 0-0.2 K/uL RDW Standard Deviation 40.3 36.4-46.3 fL RDW Coefficient of Variation 12.9 11.5-14.5 % Immature Granulocyte % (Auto) 0.3 % Immature Granulocyte # (Auto) 0.02 0.00-0.02 K/uL Prothrombin Time 11.2 9.0-12.0 SECONDS Prothromb Time International Ratio 1.0 0.9-1.1 Activated Partial Thromboplast Time 26.3 21.0-31.0 SECONDS Partial Thromboplastin Ratio 1.0 Sodium Level 139 136-145 mmol/L Potassium Level 3.8 3.5-5.1 mmol/L Chloride Level 101 98-107 mmol/L Carbon Dioxide Level 31 21-32 mmol/L Anion Gap 7.0 3-11 mmol/L Blood Urea Nitrogen 22 7-18 mg/dl Creatinine 1.20 0.60-1.40 mg/dl Est Creatinine Clear Calc Drug Dose 50.8 ml/min Estimated GFR () 65.8 Estimated GFR (Non- 56.8 BUN/Creatinine Ratio 18.6 10-20 Random Glucose 92 70-99 mg/dl Calcium Level 8.7 8.5-10.1 mg/dl Magnesium Level 1.9 1.8-2.4 mg/dl Total Bilirubin 0.6 0.2-1 mg/dl Aspartate Amino Transf (AST/SGOT) 16 15-37 U/L Alanine Aminotransferase (ALT/SGPT) 25 12-78 U/L Alkaline Phosphatase 154 45-117 U/L Troponin I 0.038 0-0.045 ng/ml Total Protein 6.4 6.4-8.2 gm/dl Albumin 3.4 3.4-5.0 gm/dl Globulin 3.0 2.5-4.0 gm/dl Albumin/Globulin Ratio 1.1 0.9-2 Bedside Glucose 268 271 70-99 mg/dl Microbiology Results 06/22/16 Blood Culture, Received Pending 06/22/16 Blood Culture, Received Pending Diagnostic Radiology Patient Name: HESHAM MEANS Unit Number: [id number] Dictated: 06/22/16 1305 Transcribed: 06/22/16 1305 MS Printed Date/Time: [~ rep prt dt]/[~ rep prt tm] [~ rep ct labl] - [~ rep ct ivnm] [facility] [place] [address] Dictated: 06/22/16 1305 Transcribed: 06/22/16 1305 MS Printed Date/Time: [~ rep prt dt]/[~ rep prt tm] [~ rep ct labl] - [~ rep ct ivnm] CHEST ONE VIEW PORTABLE CLINICAL HISTORY: a03 shortness of breath dyspnea COMPARISON STUDY: 06/19/2016 FINDINGS: Mild stable cardiomegaly. Findings of a prior median sternotomy. Diaphragms smooth. Lungs are clear. IMPRESSION: Mild stable cardiomegaly. No acute process. Electronically signed by: Anshu Waggoner M.D. 06/22/2016 1:06 PM Dictated Date/Time: 06/22/2016 1:05 PM The status of this report is Signed. Draft = Not yet reviewed or approved by Radiologist. Signed = Reviewed and approved by Radiologist. <AttendingPhy></AttendingPhy> <FamilyPhy>Ben Blanco M.D.</FamilyPhy> < PrimaryPhy>Ben Blanco M.D.</PrimaryPhy> <UnitNumber>[id number]</UnitNumber > <VisitNumber>[id number]</VisitNumber> <PatientName>MEANS,HESHAM Schmitt</ PatientName> <DateOfBirth>1935</DateOfBirth> <Location>[facility]</Location> < ServiceDate>06/22/16</ServiceDate> <MNE>ESINDI</MNE> <OrderingPhy>ED, PROTOCOL</ OrderingPhy> <OrderingPhyMNE>f rep ord dr pimentel</OrderingPhyMNE> <DictatingPhyMNE> f rep dict dr pimentel</DictatingPhyMNE> <CCListMNE>f rep ct margarito</CCListMNE> < AdmittingPhyMNE>f pt admit dr pimentel</AdmittingPhyMNE> <AttendingPhyMNE>f pt attend dr pimentel</AttendingPhyMNE> <ConsultingPhyMNE>f pt consult dr pimentel</ConsultingPhyMNE> <FamilyPhyMNE>f pt fam dr pimentel</FamilyPhyMNE> <OtherPhyMNE>f pt other dr pimentel</OtherPhyMNE> < PrimaryPhyMNE>f pt prim care dr pimentel</PrimaryPhyMNE> <ReferringPhyMNE>f pt referring dr pimentel</ReferringPhyMNE> EKG EKG shows sinus bradycardia at 59 bpm, PVCs, PACs, left axis deviation, right bundle branch block. Impression Assessment and Plan COPD exacerbation with hypoxia--admit to telemetry unit. Placed on Zosyn 3.375 mg IV every 12 hours, levofloxacin 500 mg IV every 24 hours, Pulmicort respules 0.5 mg inhaled twice a day, Xopenex with Atrovent nebulizers to use every 6 hours while awake and every 2 hours when necessary, and nasal cannula 2 L O2, to titrate and keep pulse ox greater than or equal to 92%. CAD/hypertension/CHF/status post status post CABG 3--continue aspirin 81 mg by mouth every morning, carvedilol 25 mg by mouth twice a day, furosemide 40 mg by mouth every morning, losartan 100 mg by mouth every morning, Imdur extended release 30 mg by mouth every morning. Follow on telemetry for cardiac rhythm monitoring. Diabetes mellitus--hold metformin 500 mg by mouth every morning and glipizide 5 mg by mouth every morning. Place on Accu-Cheks before meals and at bedtime with NovoLog coverage. Hypercholesterolemia--continue atorvastatin 40 mg by mouth every afternoon. BPH --continue terazosin 10 mg by mouth every afternoon. GERD--change Nexium 40 mg by mouth daily when necessary to pantoprazole 40 mg by mouth daily. Level of Care Telemetry Advanced Directives Existing Advance Directive: No Existing Living Will: No Existing Power of Loan Reviewer: No Resuscitation Status FULL RESUSCITATION VTE Prophylaxis VTE Risk Assessment Done? Y/N: Yes Risk Level: Moderate Given or contraindicated: SCD's
[2016-06-22] MEDS: GUAIFENESIN/DEXTROM SYRUP 200MG/20MG 10ML UDC PO SCH (21:28)
[2016-06-22] MEDS: CARVEDILOL 25 MG TAB PO SCH (21:29)
[2016-06-22] MEDS: ATORVASTATIN 40 MG TAB PO SCH (21:29)
[2016-06-22] MEDS: GUAIFENESIN 600 MG TABCR PO SCH (21:30)
[2016-06-22] MEDS: PIPERACILL/TAZOBAC IV 3.375 GM in DEXTROSE 5% 100ML 100 ML IV SCH (21:32)
[2016-06-23] VITALS (13 sets, daily range): BP systolic 124–186; BP diastolic 62–88; PULSE 63–80; TEMP 36.2–36.8; O2SAT 92–99
[2016-06-23 00:16] LABS: INFLUENZA A PCR Neg for Influ A (NEG)
[2016-06-23 00:17] LABS: INFLUENZA B PCR POS for Influ B (NEG)
[2016-06-23] MEDS ORDERED: OSELTAMIVIR PHOSPHATE 75 MG CAP PO STA (00:41)
[2016-06-23] MEDS: IPRATROPIUM BROMIDE NEB SOLN 0.02% 2.5 ML VIAL INH SCH ×4 (01:51→20:20)
[2016-06-23] MEDS: LEVALBUTEROL 1.25MG/0.5ML NEB INH SCH ×4 (01:51→20:20)
[2016-06-23] MEDS: PIPERACILL/TAZOBAC IV 3.375 GM in DEXTROSE 5% 100ML 100 ML IV SCH (05:46)
[2016-06-23] MEDS: INSULIN ASPART 100 UNITS/ML 3 ML PEN SC SCH ×4 (06:30→20:48)
[2016-06-23 07:01] LABS: COMPLETE YES; HEMATOCRIT 36.4 % (42-52); IG% 0.2 %; LYMPH % 14.2 %; LYMPH ABS # 1.27 K/uL (1.2-3.4); MEAN CELL VOLUME 84.3 fL (80-100); MEAN CORPUSCULAR HEMOGLOBIN 28.9 pg (25-34); MEAN CORPUSCULAR HGB CONC 34.3 g/dl (32-36); MEAN PLATELET VOLUME 9.4 fL (7.4-10.4); MONO % 3.3 %; NEUT % 82.3 %; PLATELET COUNT 157 K/uL (130-400); RED BLOOD COUNT 4.32 M/uL (4.7-6.1); WHITE BLOOD COUNT 8.92 K/uL (4.8-10.8)
[2016-06-23 07:32] LABS: BUN/CREATININE RATIO 17.3 (10-20); CREATININE 1.3 mg/dl (0.60-1.40); MAGNESIUM 2.1 mg/dl (1.8-2.4); POTASSIUM 3.8 mmol/L (3.5-5.1)
[2016-06-23] MEDS: BUDESONIDE 0.5 MG/2 ML VIAL (PULMICORT) INH SCH ×2 (07:35→20:20)
--- NOTE | 2016-06-23 07:44 | Clinical Documentation Query ---
MARSHA Mejia : CLINICAL DOCUMENTATION QUERY Patient is an 81 year old male admitted for the evaluation and treatment of a COPD exacerbation. Documentation includes CHF, not otherwise specified. He is treated with Carvedilol, Lasix, Losartan, and Imdur. Currently being monitored on telemetry with I/O, daily weights. Most recent echocardiogram (07/18/14) demonstrated "mildly reduced systolic function. EF 50%. Base to mid inferior and inferolateral darby appear hypokinetic. No LVH. Normal RV size with mildly reduced RV systolic function. The left atrium is mildly dilated. Trace AR". Please clarify as clinically able as this directly impacts DRG assignment. Thank you. In your clinical opinion is this patient being managed for: (x ) possible Chronic systolic congestive heart failure ( ) Other explanation of clinical findings (Please Explain) ( ) Unable to determine (Please Define) ( ) Need to Discuss ( ) Not Agree The medical record reflects the following clinical findings, treatment, and risk factors. Clinical Indicators: As above Treatment:He is treated with Carvedilol, Lasix, Losartan, and Imdur. Currently being monitored on telemetry with I/O, daily weights. Risk Factors: CAD, age, gender, DM, obesity. Please clarify and document your clinical opinion in the progress notes and discharge summary. Terms such as "probable", "suspected", "likely", "questionable", "possible", or "still to be ruled out" are acceptable. IF IN AGREEMENT, YOU MUST DOCUMENT ABOVE DIAGNOSTIC STATEMENT IN DAILY PROGRESS NOTES AND DISCHARGE SUMMARY. This document is not part of the patient's record. Thank You, Paul Davey RN [phone]
--- NOTE | 2016-06-23 07:59 | Hospitalist Progress Note ---
Hospitalist Progress Note Date of Service Jun 23, 2016. Subjective Pt evaluation today including: conversation w/ patient, physical exam, chart review, lab review, review of studies, review of inpatient medication list Voiding: no voiding problems, no incontinence Patient states he is feeling much improved since admission. +nonproductive cough. He is eating and drinking OK. SOB has improved. Patient denies any fever , chills, sweats, lightheadedness, dizziness, vision changes, CP, palpitations, edema, wheezing, abdominal pain, nausea, vomiting, diarrhea, urinary symptoms, melena, numbness/tingling, weakness, muscle/joint pain, anxiety/depression, active bleeding, or new skin discoloration/changes. Medications Current Inpatient Medications Medications (Trade) Dose Ordered Sig/Spike Route Start Time Stop Time Status Last Admin Dose Admin Acetaminophen (Tylenol Tab) 650 mg Q4H PRN PO 06/22/16 13:45 07/22/16 13:44 Zolpidem Tartrate (Ambien Tab) 5 mg HSZ PRN PO 06/22/16 13:45 07/22/16 13:44 Nitroglycerin (Nitrostat Tab) 0.4 mg UD PRN SL 06/22/16 13:45 07/22/16 13:44 Aspirin (Ecotrin Tab) 81 mg QAM PO 06/23/16 09:00 07/23/16 08:59 06/23/16 08:24 81 MG Atorvastatin Calcium (Lipitor Tab) 40 mg QPM PO 06/22/16 21:00 07/22/16 20:59 06/22/16 21:29 40 MG Carvedilol (Coreg Tab) 25 mg BID PO 06/22/16 21:00 07/22/16 20:59 06/23/16 08:25 25 MG Fluticasone Propionate (Flonase Nasal [place]) 1 sprays QAM ANDRAE 06/23/16 09:00 07/23/16 08:59 06/23/16 08:24 1 SPRAYS Furosemide (Lasix Tab) 40 mg QAM PO 06/23/16 09:00 07/23/16 08:59 06/23/16 08:25 40 MG Guaifenesin (Mucinex Contr Rel Tab) 600 mg BID PO 06/22/16 21:00 07/22/16 20:59 06/23/16 08:25 600 MG Isosorbide Mononitrate (Imdur Ext Rel Tab) 30 mg QAM PO 06/23/16 09:00 07/23/16 08:59 06/23/16 08:25 30 MG Loratadine (Claritin Tab) 10 mg QAM PO 06/23/16 09:00 07/23/16 08:59 06/23/16 08:24 10 MG Losartan Potassium (coZAAR TAB) 100 mg QAM PO 06/23/16 09:00 07/23/16 08:59 06/23/16 08:25 100 MG Terazosin HCl (Hytrin Cap) 10 mg QPM PO 06/22/16 21:00 07/22/16 20:59 06/22/16 21:29 10 MG Guaifenesin/ Dextromethorphan (Robitussin-Dm Syrup) 10 ml QPM PO 06/22/16 21:00 07/22/16 20:59 06/22/16 21:28 10 ML Pantoprazole Sodium (Protonix Tab) 40 mg QAM PO 06/23/16 09:00 07/23/16 08:59 06/23/16 08:26 40 MG Ondansetron HCl 4 mg 4 mg Q6H PRN IV 06/22/16 13:45 07/22/16 13:44 Piperacillin Sod/ Tazobactam Sod 3.375 gm/Dextrose 115 ml @ 28.75 mls/ hr Q8H IV 06/22/16 22:00 06/29/16 13:59 06/23/16 05:46 28.75 MLS/HR Levofloxacin/Prmx (Levaquin / D5W/ Premixed D5W) 100 ml @ 100 mls/hr Q24H IV 06/22/16 17:00 06/29/16 13:44 06/22/16 18:52 100 MLS/HR Budesonide (Pulmicort Respules 0.5MG/ 2ML Neb Soln) 0.5 mg BIDR INH 06/22/16 20:00 07/22/16 19:59 06/23/16 07:35 0.5 MG Insulin Aspart (novoLOG ASPART) SLIDING SCALE If C... ACHS SC 06/22/16 16:00 07/22/16 15:59 06/23/16 06:30 7 UNITS Glucose (Glucose 40% Gel) UD PRN PO 06/22/16 14:00 07/22/16 13:59 Glucose (Glucose Chew Tab) 1 tabs UD PRN PO 06/22/16 14:00 07/22/16 13:59 Dextrose (Dextrose 50% 50ML Syringe) 50 ml UD PRN IV 06/22/16 14:00 07/22/16 13:59 Glucagon (Glucagon Inj) 1 mg UD PRN SQ 06/22/16 14:00 07/22/16 13:59 Ipratropium [place] (Atrovent 0.02% 0.5MG/2.5ML Neb) 0.5 mg Q6R INH 06/22/16 15:00 07/22/16 14:59 06/23/16 07:35 0.5 MG Levalbuterol (Xopenex 1.25MG/ 0.5ML Neb) 1.25 mg Q6R INH 06/22/16 15:00 07/22/16 14:59 06/23/16 07:35 1.25 MG Piperacillin Sod/ Tazobactam Sod (Consult) 1 ea UD PRN N/A 06/22/16 14:15 07/22/16 14:14 Oseltamivir Phosphate (Tamiflu Cap) 75 mg BID PO 06/23/16 09:00 06/28/16 08:59 06/23/16 08:26 75 MG Objective Vital Signs Date Time Temp Pulse Resp B/P Pulse Ox O2 Delivery O2 Flow Rate FiO2 06/23/16 07:36 80 16 97 Room Air 06/23/16 04:05 Room Air 06/23/16 03:37 36.8 72 18 178/88 92 Room Air 06/23/16 01:51 78 16 99 Room Air 06/23/16 00:00 Room Air 06/22/16 23:18 36.8 61 18 170/86 94 CPAP 06/22/16 23:17 99 06/22/16 21:26 78 190/76 06/22/16 20:05 78 16 99 Room Air 06/22/16 20:00 95 Room Air 06/22/16 19:39 36.7 65 18 179/71 94 Room Air 06/22/16 19:01 165/67 06/22/16 17:10 94 Room Air 06/22/16 16:30 36.7 71 20 185/72 94 Room Air 06/22/16 16:13 67 23 158/71 94 06/22/16 16:00 37.0 67 20 153/64 91 Room Air 06/22/16 13:48 60 20 153/64 91 Room Air 06/22/16 12:35 68 06/22/16 12:33 94 Room Air 06/22/16 12:33 37.0 60 20 169/60 93 Room Air 06/22/16 12:33 94 Room Air Physical Exam General Appearance: no apparent distress Eyes: normal inspection, PERRL ENT: hearing grossly normal Neck: supple Respiratory/Chest: no respiratory distress, no accessory muscle use, + decreased breath sounds (bilateral lung bases ), + wheezing (slight expiratory wheeze noted throughout all lung kessler ) Cardiovascular: regular rate, rhythm, + systolic murmur Abdomen: normal bowel sounds, non tender, soft Extremities: no pedal edema, no calf tenderness Neurologic/Psychiatric: alert, normal mood/affect, oriented x 3 Skin: normal color, warm/dry, no rash Laboratory Results Last 24 Hours Test 06/22/16 11:30 06/22/16 17:56 06/22/16 19:55 06/22/16 22:20 White Blood Count 6.87 K/uL Red Blood Count 4.20 M/uL Hemoglobin 12.4 g/dL Hematocrit 36.0 % Mean Corpuscular Volume 85.7 fL Mean Corpuscular Hemoglobin 29.5 pg Mean Corpuscular Hemoglobin Concent 34.4 g/dl Platelet Count 158 K/uL Mean Platelet Volume 9.7 fL Neutrophils (%) (Auto) 49.2 % Lymphocytes (%) (Auto) 34.5 % Monocytes (%) (Auto) 10.8 % Eosinophils (%) (Auto) 5.1 % Basophils (%) (Auto) 0.1 % Neutrophils # (Auto) 3.38 K/uL Lymphocytes # (Auto) 2.37 K/uL Monocytes # (Auto) 0.74 K/uL Eosinophils # (Auto) 0.35 K/uL Basophils # (Auto) 0.01 K/uL RDW Standard Deviation 40.3 fL RDW Coefficient of Variation 12.9 % Immature Granulocyte % (Auto) 0.3 % Immature Granulocyte # (Auto) 0.02 K/uL Prothrombin Time 11.2 SECONDS Prothromb Time International Ratio 1.0 Activated Partial Thromboplast Time 26.3 SECONDS Partial Thromboplastin Ratio 1.0 Sodium Level 139 mmol/L Potassium Level 3.8 mmol/L Chloride Level 101 mmol/L Carbon Dioxide Level 31 mmol/L Anion Gap 7.0 mmol/L Blood Urea Nitrogen 22 mg/dl Creatinine 1.20 mg/dl Est Creatinine Clear Calc Drug Dose 50.8 ml/min Estimated GFR () 65.8 Estimated GFR (Non- 56.8 BUN/Creatinine Ratio 18.6 Random Glucose 92 mg/dl Calcium Level 8.7 mg/dl Magnesium Level 1.9 mg/dl Total Bilirubin 0.6 mg/dl Aspartate Amino Transf (AST/SGOT) 16 U/L Alanine Aminotransferase (ALT/SGPT) 25 U/L Alkaline Phosphatase 154 U/L Troponin I 0.038 ng/ml Total Protein 6.4 gm/dl Albumin 3.4 gm/dl Globulin 3.0 gm/dl Albumin/Globulin Ratio 1.1 Bedside Glucose 268 mg/dl 271 mg/dl Influenza Type A (RT-PCR) Neg for Influ A Influenza Type B (RT-PCR) POS for Influ B Test 06/23/16 06:45 White Blood Count 8.92 K/uL Red Blood Count 4.32 M/uL Hemoglobin 12.5 g/dL Hematocrit 36.4 % Mean Corpuscular Volume 84.3 fL Mean Corpuscular Hemoglobin 28.9 pg Mean Corpuscular Hemoglobin Concent 34.3 g/dl Platelet Count 157 K/uL Mean Platelet Volume 9.4 fL Neutrophils (%) (Auto) 82.3 % Lymphocytes (%) (Auto) 14.2 % Monocytes (%) (Auto) 3.3 % Eosinophils (%) (Auto) 0.0 % Basophils (%) (Auto) 0.0 % Neutrophils # (Auto) 7.34 K/uL Lymphocytes # (Auto) 1.27 K/uL Monocytes # (Auto) 0.29 K/uL Eosinophils # (Auto) 0.00 K/uL Basophils # (Auto) 0.00 K/uL RDW Standard Deviation 38.7 fL RDW Coefficient of Variation 12.7 % Immature Granulocyte % (Auto) 0.2 % Immature Granulocyte # (Auto) 0.02 K/uL Sodium Level 137 mmol/L Potassium Level 3.8 mmol/L Chloride Level 100 mmol/L Carbon Dioxide Level 28 mmol/L Anion Gap 9.0 mmol/L Blood Urea Nitrogen 23 mg/dl Creatinine 1.30 mg/dl Est Creatinine Clear Calc Drug Dose 46.9 ml/min Estimated GFR () 59.7 Estimated GFR (Non- 51.5 BUN/Creatinine Ratio 17.3 Random Glucose 171 mg/dl Calcium Level 9.0 mg/dl Magnesium Level 2.1 mg/dl Assessment and Plan The patient is an 81-year-old male who is seen 2 days ago in the emergency department and started on Azithromycin orally for a lung infection. Since that time he's been having increased shortness of breath with a cough productive of green sputum and when seen by EMS today he had a pulse ox of 83% on room air at home. He was given methylprednisolone 125 milligrams IV and a DuoNeb en route to the emergency department, which he reports has helped a little bit. Acute on chronic COPD exacerbation with hypoxia: - Admit to telemetry unit for cardiac monitoring--> reviewed- SR, 1st degree AV block noted - Zosyn 3.375 mg IV BID x2 bags, Levofloxacin 500 mg IV q24 hrs (started 06/22) x7 days--> will convert to PO Levaquin at discharge - Pulmicort Respules 0.5 mg inhaled BID, Xopenex with Atrovent nebulizers QID and q2 hrs PRN - O2 protocol, wean as tolerated- does NOT wear O2 at home - Blood cultures pending Influenza B+: - Tamiflu 75 mg PO BID x10 days (started on 06/23) - Mucinex and Robitussin CHF/ CAD s/p CABG 3: - Continue ASA 81 mg PO daily, Carvedilol 25 mg PO BID, Furosemide 40 mg PO daily, Imdur extended release 30 mg PO QAM 1st degree AV block note on EKG: - Follows with Dr. Polk. Consult cardiology, appreciate recommendations HTN: Continue Losartan 100 mg PO daily Diabetes mellitus: - Hold Metformin 500 mg PO QAM and Glipizide 5 mg PO daily - BSG ACHS w/ sliding insulin scale Hypercholesterolemia-: Continue Atorvastatin 40 mg PO daily BPH: Continue Terazosin 10 mg PO daily Anemia, baseline hgb ~13.0- stable: Follow CBC GERD: Change Nexium 40 mg PO PRN to Pantoprazole 40 mg PO daily DVT prophylaxis: Lovenox 40 mg SQ q24 hrs, DOMINIK and SCDs Code Status: LEVEL I, FULL Dispo: From home, lives with daughter. No discharge needs anticipated
[2016-06-23] MEDS: ASPIRIN 81 MG ECTAB PO SCH (08:24)
[2016-06-23] MEDS: FLUTICASONE PROPIONATE NA SPR 16 GM BTL NAE SCH (08:24)
[2016-06-23] MEDS: LORATADINE 10 MG TAB PO SCH (08:24)
[2016-06-23] MEDS: CARVEDILOL 25 MG TAB PO SCH ×2 (08:25→20:51)
[2016-06-23] MEDS: GUAIFENESIN 600 MG TABCR PO SCH ×2 (08:25→20:50)
[2016-06-23] MEDS: ISOSORBIDE MONONITRATE 30 MG TABCR PO SCH (08:25)
[2016-06-23] MEDS: LOSARTAN POTASSIUM 50 MG TAB PO SCH (08:25)
[2016-06-23] MEDS: FUROSEMIDE 40 MG TAB PO SCH (08:25)
[2016-06-23] MEDS: OSELTAMIVIR PHOSPHATE 75 MG CAP PO SCH ×2 (08:26→20:49)
[2016-06-23] MEDS: PANTOprazole SOD 40 MG TAB PO SCH (08:26)
[2016-06-23] MEDS: LEVOFLOXACIN / D5W 500 MG in PREMIXED IN D5W 100 ML IV SCH (17:20)
--- NOTE | 2016-06-23 19:45 | CARDIOLOGY CONSULTATION ---
DATE OF CONSULTATION: 06/23/2016 DATE OF CONSULTATION: 06/23/2016. REFERRING PHYSICIAN: Dr. Juan A Gipson. CHIEF COMPLAINT: Dyspnea. HISTORY OF PRESENT ILLNESS: Mr. Patric Restrepo is an 81-year-old gentleman who is generally followed by Dr. Serge Polk in the cardiology department for an ischemic cardiomyopathy and coronary artery disease who reports the onset of some respiratory symptoms approximately 2 days ago. The patient was seen in the Emergency Room and at that time prescribed azithromycin for suspected upper respiratory infection; however, symptoms persisted and eventually returned to the Emergency Room today after being evaluated elsewhere. It appears that he had an element of hypoxemia and was admitted for presumed respiratory infection, possible congestive heart failure. The patient states that in general he had been performing his usual activity with the exception of the past few days. He is generally sedentary during the winter months, but does visit his local firehouse where he walks and goes up and down stairs without new or limiting symptoms. He appears to have done this approximately 1 week ago. In general, he does not describe significant orthopnea or paroxysmal nocturnal dyspnea. He has not noticed any weight gain recently and he has been taking his weights daily. He has not noticed the development of any palpitations or tachycardia. He measures his blood pressure at the local EMS facility and there he reports systolic pressures generally in the 130 range. He has not reporting any recent dietary indiscretion. He cooks for himself, has not eaten out in the recent past. At the time of the interview, the patient states that he feels much better. He states his breathing is almost back to normal and this is a big improvement from yesterday. PAST MEDICAL HISTORY: 1. Significant for reactive airway disease, ischemic cardiomyopathy with last ejection fraction in 2014 measured at 50%. Coronary artery disease status post coronary artery bypass grafting remotely, recent perfusion study in 2015 suggested an element of reversibility in the anterior wall. 2. Diabetes. 3. Obstructive sleep apnea. OUTPATIENT MEDICAL THERAPY: Includes aspirin, atorvastatin, Symbicort, carvedilol, Flonase, furosemide, glipizide, isosorbide mononitrate, losartan, metformin, and terazosin. MEDICAL ALLERGIES: INCLUDE LISINOPRIL WHICH PRODUCED A POSSIBLE COUGH. SOCIAL HISTORY: The patient is a lifelong nonsmoker. He denies significant alcohol use currently. 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 FAMILY HISTORY: Noncontributory based on his age. REVIEW OF SYSTEMS: A complete 10 system review of systems was performed and the pertinent positives are noted in the history of present illness. PHYSICAL EXAMINATION: GENERAL: The patient did appear to be in acute distress. He is a pleasant individual who is alert and oriented. His mood and affect appeared normal. VITAL SIGNS: Include blood pressure 124/74 with pulse of 73. Sclerae are anicteric. HEAD, EYES, EARS, NOSE, AND THROAT: Pupils equal, reactive to light and accommodation. Extraocular movements were intact. Palpation submandibular region did not reveal any significant lymphadenopathy. Carotids are palpable bilaterally. I did not appreciate any bruits on auscultation. There is no evidence of jugular venous distention. The thyroid is not enlarged. Auscultation both lungs kessler revealed some upper airway sounds and some mild expiratory wheezing but rare crackles at the bases bilaterally. He had normal respiratory effort without use of accessory muscles. CARDIAC EXAMINATION: Revealed him to be in regular rhythm with occasional ectopy. Cannot appreciate any murmurs on exam. S1, S2 appear to be normal. The PMI is not markedly displaced on palpation. ABDOMEN: Evaluation of his abdomen revealed it to be soft and nontender. EXTREMITIES: Evaluation of both wrists reveal radial pulses that were equal in intensity. There was no evidence of cyanosis or clubbing. Evaluation of lower extremities did not reveal any significant peripheral edema. There is no evidence of rashes on examination. Laboratory studies include a white cell count of 8.9, hemoglobin is 12.5, platelet count of 157. Sodium is 137, potassium is 3.8, BUN was 23, creatinine was 1.3. A 12-lead EKG was obtained at the time of admission which revealed the patient to be in normal sinus rhythm with first degree AV block, right bundle branch block and left anterior fascicular block. This was slightly different that that obtained as an outpatient in 2014. Single view chest x-ray was obtained at the time of admission which revealed mild cardiomegaly but no evidence of significant pulmonary vascular congestion or other parenchymal abnormality. ASSESSMENT AND PLAN: 1. Dyspnea. This is likely multifactorial. The patient does have some baseline pulmonary disease and perhaps even a pulmonary infection. He does have a known ischemic cardiomyopathy, but most recent evaluation of left ventricular function suggests only mild reduction in his ejection fraction. Curiously the patient did diurese a significant amount over the course of the evening and his symptoms have improved. He may have had an element of pulmonary vascular congestion; however, he did not affect a significant weight gain. He has been compliant with his medications and his x-ray did not suggest pulmonary vascular congestion. At this point, I think it would be most reasonable to simply continue his outpatient medical regimen for heart failure as this has been quite effective for him in the past. 2. 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 This represents significant cardiac conduction disease but currently does not seem to have produced any symptoms. He did not report symptoms of exertional intolerance to suggest chronotropic incompetence or development of higher third-degree heart block with exertion. He has not had any dizziness, lightheadedness or suffered a syncopal episode. There was some concern regarding continued beta lita therapy in this setting; however I think given his history of cardiomyopathy and ischemic heart disease in the absence of additional symptoms it would be reasonable to continue beta lita at this time.
[2016-06-23] MEDS: GUAIFENESIN/DEXTROM SYRUP 200MG/20MG 10ML UDC PO SCH (20:50)
[2016-06-23] MEDS: ATORVASTATIN 40 MG TAB PO SCH (20:50)
[2016-06-24] VITALS (8 sets, daily range): BP systolic 122–150; BP diastolic 61–72; PULSE 59–74; TEMP 36.4–36.9; O2SAT 94–96
[2016-06-24] MEDS: IPRATROPIUM BROMIDE NEB SOLN 0.02% 2.5 ML VIAL INH SCH ×2 (01:24→07:20)
[2016-06-24] MEDS: LEVALBUTEROL 1.25MG/0.5ML NEB INH SCH ×2 (01:24→07:20)
[2016-06-24 06:01] LABS: COMPLETE YES; EOS % 0.1 %; HEMATOCRIT 38.9 % (42-52); IG% 0.2 %; LYMPH % 21.7 %; LYMPH ABS # 2.02 K/uL (1.2-3.4); MEAN CELL VOLUME 86.4 fL (80-100); MEAN CORPUSCULAR HEMOGLOBIN 29.3 pg (25-34); MEAN CORPUSCULAR HGB CONC 33.9 g/dl (32-36); MEAN PLATELET VOLUME 9.7 fL (7.4-10.4); MONO % 11.1 %; NEUT % 66.9 %; PLATELET COUNT 152 K/uL (130-400); WHITE BLOOD COUNT 9.29 K/uL (4.8-10.8)
[2016-06-24] MEDS: INSULIN ASPART 100 UNITS/ML 3 ML PEN SC SCH ×2 (06:30→11:00)
[2016-06-24 06:32] LABS: ESTIMATED AVERAGE GLUCOSE 151 mg/dl; HA1C FLAG Normal (Normal)
[2016-06-24 06:37] LABS: BUN/CREATININE RATIO 22.6 (10-20); CALCIUM 8.8 mg/dl (8.5-10.1); CREATININE 1.3 mg/dl (0.60-1.40); MAGNESIUM 2.3 mg/dl (1.8-2.4); POTASSIUM 3.9 mmol/L (3.5-5.1)
[2016-06-24] MEDS: BUDESONIDE 0.5 MG/2 ML VIAL (PULMICORT) INH SCH (07:20)
[2016-06-24] MEDS: GUAIFENESIN 600 MG TABCR PO SCH (08:31)
[2016-06-24] MEDS: CARVEDILOL 25 MG TAB PO SCH (08:31)
[2016-06-24] MEDS: OSELTAMIVIR PHOSPHATE 75 MG CAP PO SCH (08:31)
[2016-06-24] MEDS: LORATADINE 10 MG TAB PO SCH (08:31)
[2016-06-24] MEDS: ISOSORBIDE MONONITRATE 30 MG TABCR PO SCH (08:31)
[2016-06-24] MEDS: FLUTICASONE PROPIONATE NA SPR 16 GM BTL NAE SCH (08:31)
[2016-06-24] MEDS: FUROSEMIDE 40 MG TAB PO SCH (08:32)
[2016-06-24] MEDS: LOSARTAN POTASSIUM 50 MG TAB PO SCH (08:32)
[2016-06-24] MEDS: ASPIRIN 81 MG ECTAB PO SCH (08:32)
[2016-06-24] MEDS: PANTOprazole SOD 40 MG TAB PO SCH (08:33)
[2016-06-24] MEDS ORDERED: LEVO-459 PO (08:50)
[2016-06-24] MEDS ORDERED: NF406 PO (08:50)
[2016-06-24] MEDS ORDERED: ENOXAPARIN 40 MG/0.4 ML SYR SQ SCH (09:00)
--- NOTE | 2016-06-24 09:40 | Discharge Instructions ---
Discharge Instructions Date of Service Jun 24, 2016. Admission Reason for Admission: Copd Exacerbation, Hypoxia Discharge Discharge Diagnosis / Problem: COPD exacerbation; Influenza B Discharge Goals Goal(s): Decrease discomfort, Improve function, Diagnostic testing, Therapeutic intervention, Prevent Disease Progression Activity Recommendations Activity Limitations: resume your previous activity . Instructions / Follow-Up Instructions / Follow-Up New/changed medications: 1. Tamiflu 75 mg by mouth twice per day until prescription is complete. BEGIN MEDICATION TONIGHT (06/24) This is to treat influenza (flu) 2. Levaquin 500 mg by mouth once daily until prescription is complete. BEGIN MEDICATION TODAY (06/24) This is to treat acute bronchitis Resume all other regular home mediations as prescribed to you Please log your blood pressures 1-2 times per day. Take this log to your next PCP appointment, they will further make adjustments to your medications as needed Please follow-up with your PCP within 5-7 days Please follow-up with Cardiology as instructed by them Please follow-up/keep all of your subspecialty appointments Current Hospital Diet Patient's current hospital diet: AHA Diet (Heart Healthy), Diabetes Type 2 Diet Discharge Diet Recommended Diet: AHA Diet (Heart Healthy), Diabetes Type 2 Diet Procedures Procedures Performed: 1. Chest x-ray Pending Studies Studies pending at discharge: no Laboratory Results Last 24 Hours Test 06/23/16 11:44 06/23/16 16:34 06/23/16 17:35 06/23/16 17:54 Bedside Glucose 263 mg/dl 71 mg/dl 73 mg/dl 120 mg/dl Test 06/23/16 20:33 06/24/16 05:38 06/24/16 07:28 Bedside Glucose 154 mg/dl 122 mg/dl White Blood Count 9.29 K/uL Red Blood Count 4.50 M/uL Hemoglobin 13.2 g/dL Hematocrit 38.9 % Mean Corpuscular Volume 86.4 fL Mean Corpuscular Hemoglobin 29.3 pg Mean Corpuscular Hemoglobin Concent 33.9 g/dl Platelet Count 152 K/uL Mean Platelet Volume 9.7 fL Neutrophils (%) (Auto) 66.9 % Lymphocytes (%) (Auto) 21.7 % Monocytes (%) (Auto) 11.1 % Eosinophils (%) (Auto) 0.1 % Basophils (%) (Auto) 0.0 % Neutrophils # (Auto) 6.21 K/uL Lymphocytes # (Auto) 2.02 K/uL Monocytes # (Auto) 1.03 K/uL Eosinophils # (Auto) 0.01 K/uL Basophils # (Auto) 0.00 K/uL RDW Standard Deviation 42.0 fL RDW Coefficient of Variation 13.2 % Immature Granulocyte % (Auto) 0.2 % Immature Granulocyte # (Auto) 0.02 K/uL Sodium Level 139 mmol/L Potassium Level 3.9 mmol/L Chloride Level 103 mmol/L Carbon Dioxide Level 30 mmol/L Anion Gap 6.0 mmol/L Blood Urea Nitrogen 29 mg/dl Creatinine 1.30 mg/dl Est Creatinine Clear Calc Drug Dose 45.8 ml/min Estimated GFR () 59.7 Estimated GFR (Non- 51.5 BUN/Creatinine Ratio 22.6 Random Glucose 129 mg/dl Estimated Average Glucose 151 mg/dl Hemoglobin A1c 6.9 % Calcium Level 8.8 mg/dl Magnesium Level 2.3 mg/dl Hemoglobin A1c Test 06/24/16 05:38 Range/Units Estimated Average Glucose 151 mg/dl Hemoglobin A1c 6.9 H 4.5-5.6 % Medical Emergencies . Who to Call and When: Medical Emergencies: If at any time you feel your situation is an emergency, please call 911 immediately. . Non-Emergent Contact Non-Emergency issues call your: Primary Care Provider . . "Provider Documentation" section prepared by Gypsy Mcdaniels. VTE Core Measure Inpt VTE Proph given/why not?: Enoxaparin (Lovenox)SQ, SCD's
--- NOTE | 2016-06-24 09:41 | Discharge Summary ---
Discharge Summary Date of Service Jun 24, 2016. Discharge Summary Admission Date: Jun 22, 2016 at 13:40 Discharge Date: Jun 24, 2016 Discharge Disposition: Home Principal Diagnosis: Influenza Problems/Secondary Diagnoses: 1. Acute on chronic COPD exacerbation with hypoxia 2. Acute bronchitis 3. Systolic CHF 4. CAD s/p CABG 3 5. 1st degree AV block 6. HTN 7. T2DM 8. Hypercholesterolemia 9. BPH 10. Anemia 11. GERD Immunizations: Have You Had Influenza Vaccine: Yes Influenza Vaccine Date: Jan 08, 2010 History of Tetanus Vaccine?: No History of Pneumococcal: Yes Pneumococcal Date: Nov 04, 2010 History of Hepatitis B Vaccine: No Procedures: CHEST ONE VIEW PORTABLE CLINICAL HISTORY: a03 shortness of breath dyspnea COMPARISON STUDY: 06/19/2016 FINDINGS: Mild stable cardiomegaly. Findings of a prior median sternotomy. Diaphragms smooth. Lungs are clear. IMPRESSION: Mild stable cardiomegaly. No acute process. Electronically signed by: Anshu Waggoner M.D. 06/22/2016 1:06 PM Dictated Date/Time: 06/22/2016 1:05 PM The status of this report is Signed. Draft = Not yet reviewed or approved by Radiologist. Signed = Reviewed and approved by Radiologist. Consultations: Cardiology- Dr. Elkins Medication Reconciliation New Medications: Levofloxacin (Levaquin) 500 Mg Tab 500 MG PO DAILY for 6 Days, #6 TABS Oseltamivir Phosphate (Tamiflu) 75 Mg Cap 75 MG PO BID for 4 Days, #8 CAP Continued Medications: Albuterol Hfa (Ventolin Hfa) 200 Puffs/10590 Mcg Aers 2 PUFFS INH Q4H Aspirin (Aspirin EC Low Dose) 81 Mg Ectab 81 MG PO QAM Atorvastatin (Lipitor) 40 Mg Tab 40 MG PO QPM Budesonide/Formoterol Fumarate (Symbicort 80/4.5 Inhaler) Aero 1 PUFFS INH BID, INHALER Carvedilol (Carvedilol) 25 Mg Tab 25 MG PO BID Dextromethorphan-Guaifenesin (Tussin Dm) 1 Liq Liq 10 ML PO QPM Esomeprazole Magnesium (Nexium) 40 Mg Capcr 40 MG PO DAILY PRN for Indigestion, CAP Fluticasone Propionate (Nasal) (Flonase Allergy Relief) 50 Mcg/Act Spr 1 SPRAY ANDRAE QAM Furosemide (Lasix) 40 Mg Tab 40 MG PO QAM Glipizide Xl (Glucotrol Xl) 5 Mg Tab 5 MG PO QAM Guaifenesin La (Guaifenesin Er) 600 Mg Tabcr 600 MG PO DAILY, TAB Ibuprofen (Advil) 200 Mg Tab 400 MG PO DAILY, TAB Isosorbide Mononitrate Ext Rel (Imdur Ext Rel) 30 Mg Ertab 30 MG PO QAM, 0 Refills Loratadine (Claritin) 10 Mg Tab 10 MG PO QAM, TAB Losartan Potassium (Cozaar) 100 Mg Tab 100 MG PO QAM Metformin Hcl (Glucophage) 500 Mg Tab 500 MG PO QAM Nitroglycerin (Nitrostat) 0.4 Mg Tab 0.4 MG UT UD PRN for Chest Pain NEEDED FOR CHEST PAIN : ONE TABLET UNDER THE TONGUE EVERY 5 MINUTES UP TO 3 DOSES. Terazosin Hcl (Hytrin) 10 Mg Cap 10 MG PO QPM, CAP Discontinued Medications: Azithromycin (Zithromax Z-Chandler) 250 Mg Tab 0 PO UD, #1 PKT Referrals At Discharge Follow up Referrals: Family Practice Referral - Within 1 Week with Ben Blanco M.D. Discharge Exam Review of Systems: Constitutional: No chills, No fatigue, No fever, No sweats, No weakness Respiratory: + cough, No hemoptysis, No shortness of breath, No sputum Cardiovascular: No chest pain, No edema, No palpitations Abdomen: No constipation, No diarrhea, No nausea, No pain, No vomiting Musculoskeletal: No calf pain, No joint pain, No muscle pain, No swelling Genitourinary - Male: No dysuria, No hematuria Neurologic: No numbness/tingling, No weakness Psychiatric: No anxiety, No depression symptoms Hematologic / Lymphatic: No abnormal bleeding/bruising Integumentary: No itch, No new/changing skin lesions, No rash Physical Exam: General Appearance: no apparent distress Eyes: normal inspection, PERRL ENT: hearing grossly normal Neck: supple Respiratory/Chest: + decreased breath sounds (bilateral lung bases ), + wheezing (slight expiratory wheeze throughout all lung kessler ) Cardiovascular: regular rate, rhythm, + systolic murmur Abdomen / GI: normal bowel sounds, non tender, soft Extremities: no calf tenderness, no pedal edema Neurologic/Psychiatric: alert, normal mood/affect, oriented x 3 Skin: normal color, warm/dry, no rash Hospital Course The patient is an 81-year-old male who is seen 2 days ago in the emergency department and started on Azithromycin orally for a lung infection. Since that time he's been having increased shortness of breath with a cough productive of green sputum and when seen by EMS today he had a pulse ox of 83% on room air at home. He was given methylprednisolone 125 milligrams IV and a DuoNeb en route to the emergency department, which he reports has helped a little bit. Acute on chronic COPD exacerbation with hypoxia/acute bronchitis: - Admit to telemetry unit for cardiac monitoring--> reviewed- SR, 1st degree AV block noted - Zosyn 3.375 mg IV BID x2 bags, Levofloxacin 500 mg IV q24 hrs (started 06/22) x7 days--> will convert to PO Levaquin at discharge - Pulmicort Respules 0.5 mg inhaled BID, Xopenex with Atrovent nebulizers QID and q2 hrs PRN - O2 protocol, wean as tolerated- does NOT wear O2 at home - Blood cultures NGTD * Discharged w/ Levaquin 500 mg PO daily to complete a 7 day course. Patient ambulated w/ nurse, O2 sats >90% --> not requiring O2 at rest/or with activity Influenza B+: - Tamiflu 75 mg PO BID x5 days (started on 06/23) - Mucinex and Robitussin * Discharged w/ Tamiflu 75 mg PO BID to complete 5 day course Systolic CHF/ CAD s/p CABG 3: - Continue ASA 81 mg PO daily, Carvedilol 25 mg PO BID, Furosemide 40 mg PO daily, Imdur extended release 30 mg PO QAM 1st degree AV block note on EKG: - Follows with Dr. Polk. Consult cardiology, appreciate recommendations * No adjustments--> f/u w/ cardiology as instructed by them HTN: - Continue Losartan 100 mg PO daily * Hypertensive episodes of SBPs 175-190. Recommended patient to log BPs 1-2x per day and f/u w/ PCP for additional medication adjustments as needed Diabetes mellitus: - Hold Metformin 500 mg PO QAM and Glipizide 5 mg PO daily - BSG ACHS w/ sliding insulin scale - Ha1c of 6.9% Hypercholesterolemia-: Continue Atorvastatin 40 mg PO daily BPH: Continue Terazosin 10 mg PO daily Anemia, baseline hgb ~13.0- stable: Follow CBC GERD: Change Nexium 40 mg PO PRN to Pantoprazole 40 mg PO daily * Resume Nexium at discharge DVT prophylaxis: Lovenox 40 mg SQ q24 hrs, DOMINIK and SCDs Code Status: LEVEL I, FULL Dispo: Discharge to home Total Time Spent: Greater than 30 minutes This includes examination of the patient, discharge planning, medication reconciliation, and communication with other providers. Discharge Instructions Please refer to the electronic Patient Visit Report (Discharge Instructions) for additional information. Follow-Up Please follow-up with your PCP within 5-7 days Please follow-up with Cardiology as instructed by them Please follow-up/keep all of your subspecialty appointments Additional Copies To Ben Blanco M.D.
== END 2016-06-24 12:36 | disposition home or self-care (01) | DRG 191 ==
LOC: ENRESERVTM → ENRESERVDT → EDBD 12:20 → C.EDA 12:21 → C.MED 13:40 → UNDOADMIN 13:40
PROVIDERS: ADMIT Hospitalist; ATTEND Hospitalist
DX: J44.1 Chronic obstructive pulmonary disease with (acute) exacerbation (principal); I50.22 Chronic systolic (congestive) heart failure; J44.0 Chronic obstructive pulmonary disease with (acute) lower respiratory infection; J11.1 Influenza due to unidentified influenza virus with other respiratory manifestations; J20.9 Acute bronchitis, unspecified; R09.02 Hypoxemia; I25.10 Atherosclerotic heart disease of native coronary artery without angina pectoris; N40.0 Benign prostatic hyperplasia without lower urinary tract symptoms; K21.9 Gastro-esophageal reflux disease without esophagitis; I25.5 Ischemic cardiomyopathy; E78.00 Pure hypercholesterolemia, unspecified; D64.9 Anemia, unspecified; G47.33 Obstructive sleep apnea (adult) (pediatric); J45.909 Unspecified asthma, uncomplicated; E11.9 Type 2 diabetes mellitus without complications; I11.0 Hypertensive heart disease with heart failure; I44.0 Atrioventricular block, first degree; G47.10 Hypersomnia, unspecified; Z79.82 Long term (current) use of aspirin; Z95.1 Presence of aortocoronary bypass graft; Z79.51 Long term (current) use of inhaled steroids; Z79.84 Long term (current) use of oral hypoglycemic drugs; Z79.1 Long term (current) use of non-steroidal anti-inflammatories (NSAID); R06.02 Shortness of breath

== ENCOUNTER → 2017-01-31 | Outpatient (CLI) | payer OTHER ==
[~2017-01-31] MED LIST changes: -ALBU18002 INH; -AZITTAB PO; +DEXTLIQ PO; +GUAI1TAB75 PO; +LEVO-459 PO; +VNTHFA/IN INH
[2017-01-31 12:21] LABS: BASO % 0.1 %; BASO ABS # 0.01 K/uL (0-0.2); COMPLETE YES; HEMATOCRIT 37.4 % (42-52); IG% 0.4 %; LYMPH % 25.6 %; LYMPH ABS # 1.89 K/uL (1.2-3.4); MEAN CELL VOLUME 87.6 fL (80-100); MEAN CORPUSCULAR HGB CONC 33.2 g/dl (32-36); MEAN PLATELET VOLUME 9.6 fL (7.4-10.4); MONO % 6.4 %; NEUT % 62.5 %; PLATELET COUNT 168 K/uL (130-400); RED BLOOD COUNT 4.27 M/uL (4.7-6.1); WHITE BLOOD COUNT 7.37 K/uL (4.8-10.8)
[2017-01-31 12:50] LABS: ALT/SGPT 25 U/L (12-78); AST/SGOT 16 U/L (15-37); BLOOD UREA NITROGEN 21 mg/dl (7-18); BUN/CREATININE RATIO 17.1 (10-20); CALCIUM 8.5 mg/dl (8.5-10.1); CARBON DIOXIDE 30 mmol/L (21-32); CHLORIDE 102 mmol/L (98-107); CREATININE 1.22 mg/dl (0.60-1.40); GLUCOSE 230 mg/dl (70-99); POTASSIUM 4.1 mmol/L (3.5-5.1); SODIUM 137 mmol/L (136-145)
[2017-01-31 13:01] LABS: ALB/GLOB RATIO 1.1 (0.9-2); ALKALINE PHOSPHATASE 140 U/L (45-117); CHOLESTEROL 82 mg/dl (0-200); CHOLESTEROL/HDL RATIO 2.6; HDL CHOLESTEROL 32 mg/dl; LDL CHOLESTEROL CALCULATED 23 mg/dl; TRIGLYCERIDES 135 mg/dl (0-150); VERY LOW DENSITY LIPOPROT CALC 27 mg/dl
[2017-01-31 13:44] LABS: ESTIMATED AVERAGE GLUCOSE 146 mg/dl; HA1C FLAG Normal (Normal)
== END | disposition home or self-care (01) ==
LOC: C.LABPBG 09:16
PROVIDERS: ATTEND Internal Medicine Geriatric Medicine
DX: I10 Essential (primary) hypertension (principal); E11.9 Type 2 diabetes mellitus without complications; E78.5 Hyperlipidemia, unspecified; G47.30 Sleep apnea, unspecified; D64.9 Anemia, unspecified; M48.00 Spinal stenosis, site unspecified; R74.8 Abnormal levels of other serum enzymes

== ENCOUNTER → 2017-05-03 | Outpatient (CLI) | payer OTHER ==
--- NOTE | 2017-05-03 18:39 | DIAGNOSTIC IMAGING REPORT ---
CHEST 2 VIEWS ROUTINE CLINICAL HISTORY: Abnormal lung sounds. Chest congestion. COMPARISON STUDY: Chest radiograph June 22, 2016. FINDINGS: Note is made of median sternotomy wires and clips from bypass grafting. Moderate cardiomegaly is unchanged. There is no evidence for pulmonary edema. No pneumothorax is noted. There may be trace bilateral pleural effusions. There is no consolidation to suggest pneumonia. Nipple shadows project over the lower chest. IMPRESSION: 1. Stable moderate cardiomegaly. No evidence of pulmonary edema. 2. Possible trace bilateral pleural effusions. 3. No consolidation to suggest pneumonia. Electronically signed by: Braulio Steve M.D. 05/03/2017 6:38 PM Dictated Date/Time: 05/03/2017 6:36 PM
== END | disposition home or self-care (01) ==
LOC: C.RAD 18:21
PROVIDERS: ATTEND Physician Assistant
DX: R09.89 Other specified symptoms and signs involving the circulatory and respiratory systems (principal); I51.7 Cardiomegaly

== ENCOUNTER → 2017-07-20 | Outpatient (CLI) | payer OTHER ==
[~2017-07-20] MED LIST changes: -ASPEC81 PO; +ASPI-320 PO
--- NOTE | 2017-07-20 15:25 | DIAGNOSTIC IMAGING REPORT ---
TWO VIEW CHEST CLINICAL HISTORY: Abnormal lung sounds on physical examination. FINDINGS: PA and lateral chest radiographs are compared to study dated 05/03/2017. The patient is status post midline sternotomy. The heart is enlarged and there is atherosclerotic calcification of the thoracic aorta. The pulmonary vasculature is noncongested. Chronic interstitial thickening is unchanged. There is mild bibasilar atelectasis. A trace left pleural effusion is suggested on the lateral projection. No airspace consolidation is identified. There is no pneumothorax. The skeletal structures are osteopenic. Degenerative change is noted in the left shoulder and thoracic spine. Cholecystectomy clips are noted. IMPRESSION: 1. Cardiomegaly without radiographic evidence of congestive failure. 2. A trace left pleural effusion is suggested on the lateral projection. No airspace consolidation is seen Electronically signed by: Johny Barton M.D. 07/20/2017 3:24 PM Dictated Date/Time: 07/20/2017 3:22 PM
== END | disposition home or self-care (01) ==
LOC: C.LABBC 15:10
PROVIDERS: ATTEND Nurse Practitioner Adult Health
DX: R09.89 Other specified symptoms and signs involving the circulatory and respiratory systems (principal); I51.7 Cardiomegaly; J90 Pleural effusion, not elsewhere classified

== ENCOUNTER → 2017-07-24 | Outpatient (CLI) | payer OTHER ==
[~2017-07-24] MED LIST changes: +IPRATROPIUM ALBUT INH
[2017-07-24 12:33] LABS: BASO % 0.1 %; BASO ABS # 0.01 K/uL (0-0.2); EOS % 0.5 %; EOS ABS # 0.06 K/uL (0-0.5); HEMATOCRIT 38.5 % (42-52); HEMOGLOBIN 12.8 g/dL (14.0-18.0); IG# 0.05 K/uL (0.00-0.02); LYMPH % 22.5 %; LYMPH ABS # 2.65 K/uL (1.2-3.4); MEAN CELL VOLUME 87.3 fL (80-100); MEAN CORPUSCULAR HGB CONC 33.2 g/dl (32-36); MEAN PLATELET VOLUME 9.8 fL (7.4-10.4); MONO % 9.9 %; MONO ABS # 1.17 K/uL (0.11-0.59); NEUT % 66.6 %; NEUT ABS # 7.84 K/uL (1.4-6.5); PLATELET COUNT 195 K/uL (130-400); RED CELL DISTRIBUTION WIDTH CV 13.6 % (11.5-14.5); RED CELL DISTRIBUTION WIDTH SD 43.4 fL (36.4-46.3); WHITE BLOOD COUNT 11.78 K/uL (4.8-10.8)
[2017-07-24 13:02] LABS: ALBUMIN 3.3 gm/dl (3.4-5.0); ALT/SGPT 25 U/L (12-78); AST/SGOT 13 U/L (15-37); BLOOD UREA NITROGEN 29 mg/dl (7-18); CALCIUM 8.5 mg/dl (8.5-10.1); CARBON DIOXIDE 30 mmol/L (21-32); CREATININE 1.21 mg/dl (0.60-1.40); GLUCOSE 227 mg/dl (70-99); POTASSIUM 3.7 mmol/L (3.5-5.1); SODIUM 138 mmol/L (136-145)
[2017-07-24 13:07] LABS: ALKALINE PHOSPHATASE 175 U/L (45-117)
== END | disposition home or self-care (01) ==
LOC: C.LABPBG 10:44
PROVIDERS: ATTEND Internal Medicine Geriatric Medicine
DX: I11.0 Hypertensive heart disease with heart failure (principal); E11.9 Type 2 diabetes mellitus without complications; G47.30 Sleep apnea, unspecified; E78.5 Hyperlipidemia, unspecified; D64.9 Anemia, unspecified; M48.00 Spinal stenosis, site unspecified; I25.10 Atherosclerotic heart disease of native coronary artery without angina pectoris; R74.8 Abnormal levels of other serum enzymes; I50.22 Chronic systolic (congestive) heart failure

== ENCOUNTER → 2017-08-30 | Day surgery (SDC) | payer OTHER ==
[2017-07-31 14:44] VITALS: Ht 167.6 cm; Wt 84.8 kg
--- NOTE | 2017-07-31 15:20 | PAT Medication Instructions ---
Service Date Jul 31, 2017. Current Home Medication List Albuterol Hfa (Ventolin Hfa), 2 PUFFS INH Q4H PRN for PRN Aspirin (Aspirin EC Low Dose), 81 MG PO QAM Atorvastatin (Lipitor), 40 MG PO QPM Budesonide/Formoterol Fumarate (Symbicort 80/4.5 Inhaler), 1 PUFFS INH BID Carvedilol (Carvedilol), 25 MG PO BID Esomeprazole Magnesium (Nexium), 40 MG PO DAILY PRN for Indigestion Fluticasone Propionate (Nasal) (Flonase Allergy Relief), 1 SPRAY ANDRAE QAM Furosemide (Lasix), 40 MG PO QAM Glipizide Xl (Glucotrol Xl), 5 MG PO QAM Ibuprofen (Advil), 200 MG PO DAILY PRN for PRN Isosorbide Mononitrate Ext Rel (Imdur Ext Rel), 30 MG PO QAM Loratadine (Claritin), 10 MG PO QPM Losartan Potassium (Cozaar), 100 MG PO QAM Metformin Hcl (Glucophage), 500 MG PO QAM Nitroglycerin (Nitrostat), 0.4 MG UT UD PRN for Chest Pain Terazosin Hcl (Hytrin), 10 MG PO QPM [Ipratropium Albut], 1 PUFF INH QID PRN for transverse abdominal muscle surgeon Instructions For Your Scheduled Surgery -Check with surgeon and avionics supervisor for instructions for: Aspirin (Aspirin EC Low Dose), 81 MG PO QAM -Check with surgeon for: Ibuprofen (Advil), 200 MG PO DAILY PRN for PRN -Continue as directed: Nitroglycerin (Nitrostat), 0.4 MG UT UD PRN for Chest Pain - Hold the following medications the morning of surgery: Furosemide (Lasix), 40 MG PO QAM Glipizide Xl (Glucotrol Xl), 5 MG PO QAM Metformin Hcl (Glucophage), 500 MG PO QAM - Take the following medications the morning of surgery with a sip of water: Albuterol Hfa (Ventolin Hfa), 2 PUFFS INH Q4H PRN for PRN (if needed, and bring it with you on the day of surgery) Budesonide/Formoterol Fumarate (Symbicort 80/4.5 Inhaler), 1 PUFFS INH BID Carvedilol (Carvedilol), 25 MG PO BID Esomeprazole Magnesium (Nexium), 40 MG PO DAILY PRN for Indigestion (if needed) Fluticasone Propionate (Nasal) (Flonase Allergy Relief), 1 SPRAY ANDRAE QAM Isosorbide Mononitrate Ext Rel (Imdur Ext Rel), 30 MG PO QAM Losartan Potassium (Cozaar), 100 MG PO QAM [Ipratropium Albut], 1 PUFF INH QID PRN (if needed) - Take the following medications as scheduled the night before surgery: Albuterol Hfa (Ventolin Hfa), 2 PUFFS INH Q4H PRN for PRN (if needed) Atorvastatin (Lipitor), 40 MG PO QPM Budesonide/Formoterol Fumarate (Symbicort 80/4.5 Inhaler), 1 PUFFS INH BID Carvedilol (Carvedilol), 25 MG PO BID Esomeprazole Magnesium (Nexium), 40 MG PO DAILY PRN for Indigestion (if needed) Loratadine (Claritin), 10 MG PO QPM Terazosin Hcl (Hytrin), 10 MG PO QPM [Ipratropium Albut], 1 PUFF INH QID PRN (if needed) If you have any questions please call us at [phone] or [phone] or [phone]
[2017-07-31 16:13] LABS: BASO % 0.1 %; BASO ABS # 0.01 K/uL (0-0.2); EOS % 4.7 %; EOS ABS # 0.38 K/uL (0-0.5); HEMATOCRIT 37.5 % (42-52); HEMOGLOBIN 12.3 g/dL (14.0-18.0); IG# 0.01 K/uL (0.00-0.02); LYMPH % 29.6 %; LYMPH ABS # 2.39 K/uL (1.2-3.4); MEAN CORPUSCULAR HEMOGLOBIN 28.9 pg (25-34); MEAN CORPUSCULAR HGB CONC 32.8 g/dl (32-36); MEAN PLATELET VOLUME 9.6 fL (7.4-10.4); MONO % 6.9 %; MONO ABS # 0.56 K/uL (0.11-0.59); NEUT % 58.6 %; NEUT ABS # 4.72 K/uL (1.4-6.5); PLATELET COUNT 149 K/uL (130-400); RED CELL DISTRIBUTION WIDTH CV 13.8 % (11.5-14.5); RED CELL DISTRIBUTION WIDTH SD 44.7 fL (36.4-46.3); WHITE BLOOD COUNT 8.07 K/uL (4.8-10.8)
[2017-07-31 16:34] LABS: CALCIUM 8.5 mg/dl (8.5-10.1); CREATININE 1.33 mg/dl (0.60-1.40); POTASSIUM 4.1 mmol/L (3.5-5.1)
[2017-08-01 06:23] LABS: HEMOGLOBIN A1C 7.9 % (4.5-5.6)
[~2017-08-30] VITALS: Ht 167.6 cm; Wt 84.8 kg
[~2017-08-30] MED LIST changes: +500ML BSS 0.3ML EPI 1:1000PF IRRIG ONE; +ACETAMINOPHEN 325 MG TAB PO PRN; +AMVISC PLUS 0.8ML SYRINGE INT OCU ONE; +ATROPINE SULFATE 0.1 MG/ML 5ML SYR IV PRN; +AcetaZOLAMIDE 250 MG TAB PO SCH; +BETAXOLOL HCL 0.25% OP SUSP PER DROP CHARGE OPL SCH; +BRIMONIDINE TART 0.2% OP SOLN PER DROP CHARGE ONE; +BSS FLUSH ONE; -DEXTLIQ PO; +ENDOCOAT 0.85ML SYRINGE INT OCU ONE; +EpHEDrine SULFATE INJ 50 MG/ML AMP IV PRN; +EpINEphrine INJ 1MG/ML AMP 1 MG/ML AMP ONE; -GUAI1TAB75 PO; +LACTATED RINGER'S 1000ML 500 ML IV SCH; -LEVO-459 PO; +LIDOCAINE 4% OP SOLN DROP CHARGE ONE; +LIDOCAINE 4% OP SOLN DROP CHARGE OPL SCH; +LIDOCAINE HCL 1% MPF 2 ML VIAL ONE; +MIDAZOLAM HCL 1 MG/ML 2ML VIAL ONE; +MIX: 4ML BSS 1ML EPI 1:1000 PF INSTIL ONE; +MOXIFLOXACIN OPH SOLN PER DROP CHARGE ONE; +OFLO0.3S OP; +POVIDONE-IODINE OP SOLN 30 ML BTL ONE; +PRED1SUS3 OPL; +PROPARACAINE 0.5% OP SOLN PER DROP CHARGE OPL SCH; +TOBRAMYCIN/DEXAMETHASONE OPH OINT PER APPLN CHARGE ONE
--- NOTE | 2017-08-30 08:25 | History & Physical Bridge - [place] ---
H&P Re-Evaluation Bridge Note: I have examined the patient, reviewed the History & Physical and in the interval since the performance of the History & Physical I have noted the following changes of clinical significance: No changes noted
[2017-08-30] MEDS: PHENYLEPHRINE HCL 2.5% OP SOLN PER DROP CHARGE OPL SCH ×2 (08:41→08:46)
[2017-08-30] MEDS: TROPICAMIDE 1% OP SOLN PER DROP CHARGE OPL SCH ×2 (08:42→08:47)
[2017-08-30] MEDS: CYCLOPENTOLATE HCL 1% OP SOLN PER DROP CHARGE OPL SCH ×2 (08:43→08:48)
[2017-08-30] MEDS: MOXIFLOXACIN OPH SOLN PER DROP CHARGE OPL SCH ×2 (08:45→08:57)
--- NOTE | 2017-08-30 09:34 | [facility] Operative Report ---
Operative Report Date of Service August 30, 2017. Operative Report 1. PREOPERATIVE DIAGNOSIS: Senile Cortical Cataract, left eye. 2. POSTOPERATIVE DIAGNOSIS: Senile Cortical Cataract, left eye. 3. PROCEDURE: Phacoemulsification of left cataract with posterior chamber lens implant, type [employer], model MX60E, power +20.5 diopters. ANESTHESIA: Local standby. SURGEON: Dr. Hernández. COMPLICATIONS: None. OPERATING TIME: 10 minutes. 4. OPERATION AND FINDINGS: DESCRIPTION OF PROCEDURE: The left pupil was dilated. The anesthetic was administered using a topical technique. The left eye was prepped and draped. A speculum was placed. A clear corneal incision was formed. The chamber was filled with Amvisc Plus and Endocoat. Epinephrine solution was used. A paracentesis was placed. A capsulorrhexis was performed. The nucleus was hydrodissected. The lens was removed with phacoemulsification. Time was 2.93 seconds. The aspiration unit was used to remove the cortex. The capsule was filled with Amvisc Plus. The lens implant was folded and placed into the capsule. The incision was hydrated. The Amvisc was aspirated. The wound was secure. The chamber was deep. The pupil was round. Brimonidine, TobraDex ointment and Vigamox solution were placed. The speculum was removed. The patient was returned to the Recovery Room in stable condition. I attest to the content of the Intraoperative Record and any orders documented therein. Any exceptions are noted below. The scribe's documentation has been prepared in my presence, under my direction and personally reviewed by me in its entirety. I confirm that the note above accurately reflects all work, treatment, procedures, and medical decision making performed by me. I personally scribed for Romero Hernández M.D. ([email or web address]) on 08/30/17 at 09:34. Electronically submitted by Mariela Morales ([email or web address]).
--- NOTE | 2017-08-30 09:36 | Discharge Instructions-SurgCtr ---
Discharge Instructions Date of Service August 30, 2017. Visit Reason for Visit: Left Cataract #827 Discharge Discharge Diagnosis / Problem: lens implant left eye Discharge Goals Goal(s): Improve function Medications Stopped Medications Name(s): 141 Activity Recommendations Activity Limitations: resume your previous activity Lifting Limitations: no more than 10 pounds Exercise/Sports Limitations: gradually increase as tolerated May Resume Sexual Activity: when tolerated Shower/Bathe: tomorrow Driving or Machine Use: resume 1 day after discharge Anesthesia . Post Anesthesia Instructions: If you have had General Anesthesia or IV Sedation: * Do not drive today. * Resume driving when surgeon permits. * Do not make important decisions or sign legal documents today. * Call surgeon for: 1. Temperature elevations greater than 101 degrees F. 2. Uncontrollable pain. 3. Excessive bleeding. 4. Persistent nausea and vomiting. 5. Medication intolerance (nausea, vomiting or rash). * For nausea and vomiting use only clear liquids such as: tea, soda, bouillon until nausea subsides, then gradually increase diet as tolerated. * If you have any concerns or questions, call your surgeon's office. If physician is unavailable and it is an emergency, call 911 or go to the nearest emergency room. . Instructions / Follow-Up Instructions / Follow-Up ACTIVITY RECOMMENDATIONS: * Light activities. * Mild irritation and blurred vision are common for the first few days. * You may walk outside, read, watch television. * Redness around the white part of the eye is common. MEDICATIONS: Resume previous medications unless instructed otherwise by your surgeon. * Take white Diamox (Acetazolamide) tablet at 1 pm today. Start all eye drops at 1 pm today: * Eye drops (today and tomorrow): Prednisone - one drop in operative eye every 3 hours while awake Ofloxacin - one drop in operative eye every 3 hours while awake SPECIAL CARE INSTRUCTIONS: * Tape plastic shield over eye to sleep at night. Call your doctor at with any concerns or problems. FOLLOW UP VISIT: Follow-up with Dr Hernández at [facility] office as scheduled. Diet Recommendations Home Diet: no limitations Procedures Procedures Performed: Left Cataract Phacoemulsification With Intraocular Lens Implant Pending Studies Studies pending at discharge: no Medical Emergencies . Who to Call and When: Medical Emergencies: If at any time you feel your situation is an emergency, please call 911 immediately. . Non-Emergent Contact Non-Emergency issues call your: Steward/Stewardess Call Non-Emergent contact if: your pain is not controlled [phone] . . "Provider Documentation" section prepared by Romero Hernández. .
[2017-08-30 09:38] VITALS: TEMP 36.5
[2017-08-30 09:58] VITALS: BP 154/81; PULSE 57; O2SAT 97
--- NOTE | 2017-08-30 10:11 | Anesthesiology Progress Note ---
Anesthesia Post Op Note Date & Time August 30, 2017 at 10:11 Vital Signs Pain Intensity: 0 Vital Signs Past 12 Hours Date Time Temp Pulse Resp B/P (MAP) Pulse Ox O2 Delivery O2 Flow Rate FiO2 08/30/17 09:58 57 16 154/81 (105) 97 Room Air 08/30/17 09:38 36.5 58 16 160/68 (98) 99 Room Air 08/30/17 08:30 36.4 58 16 183/66 (105) 96 Room Air Notes Mental Status: alert / awake / arousable, participated in evaluation Nausea / Vomiting: adequately controlled Pain: adequately controlled Airway Patency, RR, SpO2: stable & adequate BP & HR: stable & adequate Hydration State: stable & adequate Anesthetic Complications: no major complications apparent
== END | disposition home or self-care (01) ==
LOC: X.SURG 07:59
PROVIDERS: ATTEND Specialist
DX: H25.012 Cortical age-related cataract, left eye (principal); I11.0 Hypertensive heart disease with heart failure; I50.22 Chronic systolic (congestive) heart failure; I51.9 Heart disease, unspecified; J44.9 Chronic obstructive pulmonary disease, unspecified; D64.9 Anemia, unspecified; N40.0 Benign prostatic hyperplasia without lower urinary tract symptoms; E66.9 Obesity, unspecified; G47.33 Obstructive sleep apnea (adult) (pediatric); E11.9 Type 2 diabetes mellitus without complications; I25.10 Atherosclerotic heart disease of native coronary artery without angina pectoris; E78.5 Hyperlipidemia, unspecified; Z79.82 Long term (current) use of aspirin; Z79.899 Other long term (current) drug therapy; Z88.8 Allergy status to other drugs, medicaments and biological substances

== ENCOUNTER → 2017-11-24 | Outpatient (CLI) | payer OTHER ==
[~2017-11-24] MED LIST changes: -500ML BSS 0.3ML EPI 1:1000PF IRRIG ONE; -ACETAMINOPHEN 325 MG TAB PO PRN; +ALBU18002 INH; -AMVISC PLUS 0.8ML SYRINGE INT OCU ONE; -ATROPINE SULFATE 0.1 MG/ML 5ML SYR IV PRN; -AcetaZOLAMIDE 250 MG TAB PO SCH; -BETAXOLOL HCL 0.25% OP SUSP PER DROP CHARGE OPL SCH; -BRIMONIDINE TART 0.2% OP SOLN PER DROP CHARGE ONE; -BSS FLUSH ONE; +CLOB-77 TOP; -ENDOCOAT 0.85ML SYRINGE INT OCU ONE; -EpHEDrine SULFATE INJ 50 MG/ML AMP IV PRN; -EpINEphrine INJ 1MG/ML AMP 1 MG/ML AMP ONE; -IBUP-1050 PO; +IPRA-64 INH; +IPRA0.03 NAE; -IPRATROPIUM ALBUT INH; -LACTATED RINGER'S 1000ML 500 ML IV SCH; -LIDOCAINE 4% OP SOLN DROP CHARGE ONE; -LIDOCAINE 4% OP SOLN DROP CHARGE OPL SCH; -LIDOCAINE HCL 1% MPF 2 ML VIAL ONE; -MIDAZOLAM HCL 1 MG/ML 2ML VIAL ONE; -MIX: 4ML BSS 1ML EPI 1:1000 PF INSTIL ONE; -MOXIFLOXACIN OPH SOLN PER DROP CHARGE ONE; -OFLO0.3S OP; -POVIDONE-IODINE OP SOLN 30 ML BTL ONE; -PRED1SUS3 OPL; -PROPARACAINE 0.5% OP SOLN PER DROP CHARGE OPL SCH; +SORB70SO6 PO; -SYMIN/8045 INH; +SYMIN160 INH; -TOBRAMYCIN/DEXAMETHASONE OPH OINT PER APPLN CHARGE ONE; -VNTHFA/IN INH
== END | disposition home or self-care (01) ==
LOC: C.LABPBG 09:12
PROVIDERS: ATTEND Physician Assistant
DX: R06.02 Shortness of breath (principal)

== ENCOUNTER 2021-08-31 18:28 | Inpatient (IN) ==
[2021-08-31] MEDS ORDERED: ALBUT/IPRATROP 3MG/0.5MG NEB 3 ML VIAL INH STA (18:37)
[2021-08-31] MEDS ORDERED: dexAMETHasone**PF** 10 MG/ML VIAL IV ONE (18:37)
--- NOTE | 2021-08-31 18:42 | Emergency Department Note ---
Impression & Plan Hypoxia, SOB (shortness of breath), COPD exacerbation, COVID-19, Acute hyponatremia ED Provider Note NAME: HESHAM MEANS AGE: 86 SEX: M : 1935 ARRIVES VIA: Ambulance INFORMANT: [Patient][nursing] ED PROVIDER(S): [Johny Solis MD] CHIEF COMPLAINT: Short of breath HISTORY OF PRESENT ILLNESS: The patient is an 86-year-old male who presents to the ER with 2 days of shortness of breath. The patient does have underlying COPD. The patient coughs all the time, no increased cough. No fever or chills. No chest pain. No vomiting or diarrhea. The patient states that he was tested today for COVID and it came back positive. As the patient was short of breath, EMS was summoned. His O2 saturation was in the low 80s. He does not wear oxygen except for at nighttime. He needed supplemental O2 to increase his saturation. The patient believes he may have caught COVID from his granddaughter. She was recently ill. He lives with his daughter and granddaughter. Of note, the patient is vaccinated for COVID-19. REVIEW OF SYSTEMS: See HPI for pertinent positives and negatives. A total of ten systems were reviewed and were otherwise negative. PMHx/PSHx: See Below SOCIAL HISTORY: See Below. PHYSICAL EXAM: GENERAL: Patient is in mild respiratory distress. HEENT: No acute trauma, normocephalic atraumatic, mucous membranes dry, no nasal congestion, no scleral icterus. NECK: No stridor, no adenopathy, no meningismus, trachea is midline. LUNGS: Markedly diminished breath sounds bilaterally, increased respiratory rate, some very mild accessory muscle use noted. Scattered wheezes heard. Mild respiratory distress noted. HEART: Without murmurs gallops or rubs, regular rate and rhythm. ABDOMEN: Soft, nontender, bowel sounds positive, no hernias, no peritonitis. EXTREMITIES: No cyanosis, mild bilateral pedal edema, full range of motion of all the joints without pain or difficulty, no signs for acute trauma. NEUROLOGIC: Oriented x 3, no acute motor or sensory deficits, no focal weakness. SKIN: No rash, no jaundice, no diaphoresis. DIFFERENTIAL DIAGNOSIS: Reactive airway disease, COVID-19, influenza, pneumonia, pneumothorax, COPD, CHF, infection, cardiac ischemia, pulmonary embolism, bronchitis, musculo skeletal, gastrointestinal, as well as other pathologies. EMERGENCY DEPARTMENT COURSE/PROCEDURES: ECG: Indication was shortness of breath. The ECG shows what appears to be atrial fibrillation with significant baseline artifact. The rate is 82. There appears to be a right bundle branch block. No ST elevation. No PVCs. The QTc is 441. Compared to an ECG from 25 July 2021, I see no significant change. Continuous Cardiac Monitoring: An order was placed for continuous cardiac monitoring. The monitor shows a rate of 80 with atrial fibrillation. Critical Care Note: I have personally spent 52 minutes of critical care time in the direct management of this patient. This includes bedside care, interpretat ion of diagnostic studies, and testing, discussion with consultants, patient, and family members, and other required patient management activities. This 52 minutes is in excess of all separately billable procedures. MEDICAL DECISION MAKING: There is no leukocytosis. The patient is anemic but this appears baseline when looking back at previous testing. There is a normal platelet count. No worrisome coagulopathy. ABG does not show acidosis, CO2 retention or hypoxia. Sodium was low at 127. There was some dehydration suspected with a slight elevation to the creatinine. Lactic acid level was not elevated making severe sepsis less likely. Alk phos was mildly elevated, the remaining liver enzymes were unremarkable. Procalcitonin level was not elevated. COVID test returned positive. Influenza and RSV test returned negative. Chest x-ray shows some chronic change, no focal infiltrate, no CHF, no pneumothorax. On exam, the patient appeared short of breath, he had markedly diminished breath sounds. The patient received a DuoNeb, IV Decadron and IV saline, he is improved. The patient presents hypoxic. He has COVID-19 and this infection has flared up his underlying lung disease. He is hyponatremic and appears somewhat dehydrated. Hospitalization is warranted. I spoke with the patient and case management. The on-call hospitalist was consulted. 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) Hypertension Mitral valve insufficiency and aortic valve insufficiency Normocytic anemia Obstructive lung disease Obstructive sleep apnea Reactive airway disease Spinal stenosis Tubular adenoma of colon Surgical History S/P CABG (coronary artery bypass graft) S/P cardiac catheterization S/P cholecystectomy S/P shoulder surgery Family History Sister Hypertension Colon cancer Other Prostate cancer Stroke Denies family history of Osteoporosis Myocardial infarction Breast cancer Social History Smoking Status: Unknown if ever smoked Second Hand Exposure: No; Hx Alcohol Use: No Hx Substance Use: No Preferred Language: Mongolian Communication Ability: Effective Visual Impairment: No Limitations Hearing Ability: Normal Telecommunications Support Required: No Beliefs That Will Affect Care: None marital status: / Current Living Situation: Family current occupational status: retired Feels Safe at Home: Yes Childhood Exposure to Second-Hand Smoke: No caffeine: Yes (Tea and soda.) during the past year weight has: remained stable Dental Care, Regularly: No Physical Activity Frequency: Daily Seatbelt Use: always Sunscreen Use: No Allergies Allergies Allergy/AdvReac Type Severity Reaction Status Date / Time lisinopril AdvReac Intermediate cough Verified 08/31/21 21:18 Home Meds Home Medications Medication Instructions Recorded Confirmed esomeprazole magnesium 40 mg 40 mg PO DAILY PRN 07/15/18 08/31/21 capsule,delayed release (Nexium) loratadine 10 mg tablet (Claritin) 10 mg PO DAILY 07/15/18 08/31/21 fluticasone propionate 50 2 spray INTRANASAL DAILY PRN 11/16/18 08/31/21 mcg/actuation nasal spray,suspension nitroglycerin 0.4 mg sublingual 0.4 mg SL Q5M PRN #25 tab 11/16/18 08/31/21 tablet Previous Rx's Medication Instructions Recorded ipratropium bromide 21 mcg (0.03 2 spray INTRANASAL QAM #30 ml 01/08/19 %) nasal spray blood sugar diagnostic (OneTouch #100 ea 05/30/19 Ultra Blue Test Strip) nebulizer accessories #1 ea 08/16/19 betamethasone dipropionate 0.05 % 1 applic TOPICAL DAILY PRN #15 g 12/25/19 topical cream ipratropium 0.5 mg-albuterol 3 mg 3 ml INHALATION QID #120 vial 12/07/20 (2.5 mg base)/3 mL nebulization soln albuterol sulfate 90 mcg/actuation 1 - 2 puff INHALATION Q4H PRN #25 12/08/20 aerosol inhaler (ProAir HFA) gm aspirin 81 mg tablet,delayed 81 mg PO DAILY #90 tab 03/08/21 release atorvastatin 40 mg tablet 40 mg PO DAILY #90 tab 03/08/21 carvedilol 25 mg tablet 25 mg PO BID #180 tab 03/08/21 glipizide 5 mg tablet, extended 10 mg PO DAILY #180 tab 03/08/21 release 24 hr isosorbide mononitrate 30 mg 30 mg PO DAILY #90 tab 03/08/21 tablet,extended release 24 hr losartan 100 mg tablet 100 mg PO DAILY #90 tab 03/08/21 metformin 500 mg tablet,extended 500 mg PO DAILY #90 tab 03/08/21 release 24 hr terazosin 10 mg capsule 10 mg PO DAILY #90 cap 03/08/21 apixaban 5 mg tablet (Eliquis) 5 mg PO BID #180 tab 05/24/21 budesonide-formoterol HFA 160 2 puff INHALATION BID #10.2 gm 06/16/21 mcg-4.5 mcg/actuation aerosol inhaler (Symbicort) bumetanide 2 mg tablet 4 mg PO DAILY #60 tab 07/12/21 spironolactone 25 mg tablet 25 mg PO DAILY #30 tab 07/22/21 Results & Data (ED) Vital Signs Vital Signs - 24 hr 08/31/21 18:37 08/31/21 18:46 08/31/21 19:00 Temperature 36.9 C Temperature Source Oral Pulse Rate 80 96 H Pulse Rate from SpO2 Sensor 77 Respiratory Rate 22 21 Respiratory Effort / Characteristics Non-Labored Non-Labored Spontaneous Respiratory Depth Normal Normal Respiratory Pattern Regular Regular Blood Pressure 119/67 119/67 Blood Pressure Mean 84 84 Blood Pressure Position Lying Pulse Oximetry 98 99 Oxygen Delivery Method Nasal Cannula Oxygen Flow Rate 1 Sepsis Recent Fever Within 48 Hours No Sepsis New/Unexplained Change in Mental Status No Sepsis Action Taken by Nursing No Action Required Oxygen Flow Rate - Titration 1 Pulse Oximetry Post Tiitration 98 05/24/22 20:00 08/31/21 21:00 Temperature Temperature Source Pulse Rate 103 H 153 H Pulse Rate from SpO2 Sensor 84 85 Respiratory Rate 20 17 Respiratory Effort / Characteristics Respiratory Depth Respiratory Pattern Blood Pressure 119/67 119/67 Blood Pressure Mean 84 84 Blood Pressure Position Pulse Oximetry 99 99 Oxygen Delivery Method Oxygen Flow Rate Sepsis Recent Fever Within 48 Hours Sepsis New/Unexplained Change in Mental Status Sepsis Action Taken by Nursing Oxygen Flow Rate - Titration Pulse Oximetry Post Tiitration Home Medications Current Medication List: was personally reviewed by me Laboratory Data Attestation: I reviewed the patient's lab results. Result diagrams: 08/31/21 18:55 08/31/21 18:55 Lab Results 08/31/21 08/31/21 08/31/21 Range/Units 18:55 18:55 18:55 WBC 8.93 (4.8-10.8) K/uL RBC 3.90 L (4.7-6.1) M/uL Hgb 11.2 L (14.0-18.0) g/dL Hct 33.0 L (42-52) % MCV 84.6 (80-100) fL MCH 28.7 (25-34) pg MCHC 33.9 (32-36) g/dL RDW Std Deviation 40.7 (36.4-46.3) fL RDW Coeff of Roseann 13.3 (11.5-14.5) % Plt Count 202 (130-400) K/uL MPV 8.9 (7.4-10.4) fL Immature Gran % (Auto) 0.2 % Neut % (Auto) 68.1 % Lymph % (Auto) 14.3 % Mitchell % (Auto) 11.9 % Eos % (Auto) 5.4 % Baso % (Auto) 0.1 % Neut # (Auto) 6.08 (1.4-6.5) K/uL Lymph # (Auto) 1.28 (1.2-3.4) K/uL Mitchell # (Auto) 1.06 H (0.11-0.59) K/uL Eos # (Auto) 0.48 (0-0.5) K/uL Baso # (Auto) 0.01 (0-0.2) K/uL Immature Gran # (Auto) 0.02 (0.00-0.02) K/uL PT 11.8 (9.0-12.0) Seconds INR 1.1 (0.9-1.1) APTT 32.1 H (21.0-31.0) Seconds PTT Ratio 1.2 ABG pH (7.35-7.45) ABG pCO2 (35-46) mmHg ABG pO2 (80-95) mmHg ABG HCO3 (19-24) mmol/L ABG O2 Saturation (90-95) % ABG Base Excess (-9-1.8) mEq/L Willi Test (Pos) Barometric Pressure mm/Hg Oxygen Given Sodium 127 L (136-145) mmol/L Potassium 5.2 H (3.5-5.1) mmol/L Chloride 89 L (98-107) mmol/L Carbon Dioxide 31 (21-32) mmol/L Anion Gap 7 (3-11) BUN 53 H (6-23) mg/dl Creatinine 1.81 H (0.6-1.4) mg/dl Est Cr Clr Drug Dosing 31.3 ml/min Est GFR ( Amer) 38.6 ml/min Est GFR (Non-Af Amer) 33.3 ml/min BUN/Creatinine Ratio 29.3 H (10-20) Glucose 190 H (70-99(Fasting)) mg/dl Lactate (0.4-2.0) mmol/L Calcium 9.4 (8.5-10.1) mg/dl Magnesium 1.9 (1.7-2.4) mg/dl Total Bilirubin 0.7 (0.2-1.0) mg/dl AST 12 L (13-39) U/L ALT 13 (7-52) U/L Alkaline Phosphatase 146 H (34-104) U/L Troponin I High Sens 11.5 (0-20) pg/ml Total Protein 6.5 (6.0-8.3) gm/dl Albumin 3.7 (3.4-5.0) gm/dl Globulin 2.8 (2.5-4.0) gm/dl Albumin/Globulin Ratio 1.3 (0.9-2) Procalcitonin (0-0.5) ng/ml SARS-CoV-2 (PCR) (Negative) Influenza Type A (PCR) (Neg) Influenza Type B (PCR) (Neg) RSV (RT-PCR) (Neg) 08/31/21 08/31/21 08/31/21 Range/Units 18:55 18:55 19:30 WBC (4.8-10.8) K/uL RBC (4.7-6.1) M/uL Hgb (14.0-18.0) g/dL Hct (42-52) % MCV (80-100) fL MCH (25-34) pg MCHC (32-36) g/dL RDW Std Deviation (36.4-46.3) fL RDW Coeff of Roseann (11.5-14.5) % Plt Count (130-400) K/uL MPV (7.4-10.4) fL Immature Gran % (Auto) % Neut % (Auto) % Lymph % (Auto) % Mitchell % (Auto) % Eos % (Auto) % Baso % (Auto) % Neut # (Auto) (1.4-6.5) K/uL Lymph # (Auto) (1.2-3.4) K/uL Mitchell # (Auto) (0.11-0.59) K/uL Eos # (Auto) (0-0.5) K/uL Baso # (Auto) (0-0.2) K/uL Immature Gran # (Auto) (0.00-0.02) K/uL PT (9.0-12.0) Seconds INR (0.9-1.1) APTT (21.0-31.0) Seconds PTT Ratio ABG pH (7.35-7.45) ABG pCO2 (35-46) mmHg ABG pO2 (80-95) mmHg ABG HCO3 (19-24) mmol/L ABG O2 Saturation (90-95) % ABG Base Excess (-9-1.8) mEq/L Willi Test (Pos) Barometric Pressure mm/Hg Oxygen Given Sodium (136-145) mmol/L Potassium (3.5-5.1) mmol/L Chloride (98-107) mmol/L Carbon Dioxide (21-32) mmol/L Anion Gap (3-11) BUN (6-23) mg/dl Creatinine (0.6-1.4) mg/dl Est Cr Clr Drug Dosing ml/min Est GFR ( Amer) ml/min Est GFR (Non-Af Amer) ml/min BUN/Creatinine Ratio (10-20) Glucose (70-99(Fasting)) mg/dl Lactate 0.9 (0.4-2.0) mmol/L Calcium (8.5-10.1) mg/dl Magnesium (1.7-2.4) mg/dl Total Bilirubin (0.2-1.0) mg/dl AST (13-39) U/L ALT (7-52) U/L Alkaline Phosphatase (34-104) U/L Troponin I High Sens (0-20) pg/ml Total Protein (6.0-8.3) gm/dl Albumin (3.4-5.0) gm/dl Globulin (2.5-4.0) gm/dl Albumin/Globulin Ratio (0.9-2) Procalcitonin 0.05 (0-0.5) ng/ml SARS-CoV-2 (PCR) POSITIVE A* (Negative) Influenza Type A (PCR) Negative (Neg) Influenza Type B (PCR) Negative (Neg) RSV (RT-PCR) Negative (Neg) 08/31/21 Range/Units 19:37 WBC (4.8-10.8) K/uL RBC (4.7-6.1) M/uL Hgb (14.0-18.0) g/dL Hct (42-52) % MCV (80-100) fL MCH (25-34) pg MCHC (32-36) g/dL RDW Std Deviation (36.4-46.3) fL RDW Coeff of Roseann (11.5-14.5) % Plt Count (130-400) K/uL MPV (7.4-10.4) fL Immature Gran % (Auto) % Neut % (Auto) % Lymph % (Auto) % Mitchell % (Auto) % Eos % (Auto) % Baso % (Auto) % Neut # (Auto) (1.4-6.5) K/uL Lymph # (Auto) (1.2-3.4) K/uL Mitchell # (Auto) (0.11-0.59) K/uL Eos # (Auto) (0-0.5) K/uL Baso # (Auto) (0-0.2) K/uL Immature Gran # (Auto) (0.00-0.02) K/uL PT (9.0-12.0) Seconds INR (0.9-1.1) APTT (21.0-31.0) Seconds PTT Ratio ABG pH 7.43 (7.35-7.45) ABG pCO2 45 (35-46) mmHg ABG pO2 91 (80-95) mmHg ABG HCO3 29 H (19-24) mmol/L ABG O2 Saturation 97.2 H (90-95) % ABG Base Excess 4.0 H (-9-1.8) mEq/L Willi Test POS (Pos) Barometric Pressure 737.9 mm/Hg Oxygen Given 1L O2 Sodium (136-145) mmol/L Potassium (3.5-5.1) mmol/L Chloride (98-107) mmol/L Carbon Dioxide (21-32) mmol/L Anion Gap (3-11) BUN (6-23) mg/dl Creatinine (0.6-1.4) mg/dl Est Cr Clr Drug Dosing ml/min Est GFR ( Amer) ml/min Est GFR (Non-Af Amer) ml/min BUN/Creatinine Ratio (10-20) Glucose (70-99(Fasting)) mg/dl Lactate (0.4-2.0) mmol/L Calcium (8.5-10.1) mg/dl Magnesium (1.7-2.4) mg/dl Total Bilirubin (0.2-1.0) mg/dl AST (13-39) U/L ALT (7-52) U/L Alkaline Phosphatase (34-104) U/L Troponin I High Sens (0-20) pg/ml Total Protein (6.0-8.3) gm/dl Albumin (3.4-5.0) gm/dl Globulin (2.5-4.0) gm/dl Albumin/Globulin Ratio (0.9-2) Procalcitonin (0-0.5) ng/ml SARS-CoV-2 (PCR) (Negative) Influenza Type A (PCR) (Neg) Influenza Type B (PCR) (Neg) RSV (RT-PCR) (Neg) Administered Medications Discontinued Medications Albuterol (Albut/Ipratrop 3mg/0.5mg Neb 3 Ml Vial) 3 ml INH NOW STA Stop: 08/31/21 18:38 Last Admin: 08/31/21 19:42 Dose: 3 ml Documented by: [id number] Dexamethasone Sodium Phosphate (DexamethasonePf 10 Mg/Ml Vial) 6 mg IV NOW ONE Stop: 08/31/21 18:38 Last Admin: 08/31/21 19:42 Dose: 6 mg Documented by: [id number] Sodium Chloride (Nss 1000ml) 500 mls @ 999 mls/hr IV .Q31M ONE Stop: 08/31/21 20:19 Last Infusion: 08/31/21 20:42 Dose: 0 mls/hr Documented by: [id number] Admin: 08/31/21 20:11 Dose: 999 mls/hr Documented by: [id number] Imaging Data Radiologist's Impression: Chest X-Ray 08/31/21 18:37 XR chest 1V portable CLINICAL HISTORY: SOB. COMPARISON STUDY: 07/25/2021 TECHNIQUE: 1 view of the chest FINDINGS: Single frontal view of the chest demonstrates the heart to again be enlarged. The lungs are clear of alveolar opacities. There is no evidence for pleural effusion. There is no evidence for vascular congestion. There is no acute osseous pathology. IMPRESSION: 1. No acute cardiopulmonary disease. ACT 112: Negative or not required by law. Electronically signed by: Franklin Tobar M.D. 08/31/2021 7:16 PM Discharge Plan Visit Data Chief Complaint: Shortness of Breath/Dyspnea Stated Complaint: covid positive ED Provider: Johny Solis Discharge Problem: Hypoxia, SOB (shortness of breath), COPD exacerbation, COVID-19, Acute hyponatremia Patient Disposition: Admitted As Inpatient Condition: Fair Forms Stand Alone Forms: My [facility] [employer] Prescriptions Prescriptions: No Action ipratropium bromide 0.03 % spray,non-aerosol 2 spray INTRANASAL QAM Qty: 30 RF: 11 (DME) OneTouch Ultra Blue Test Strip Strip See Dose Instructions .ROUTE .MEDSUPPLY Qty: 100 RF: 6 (DME) nebulizer accessories Misc See Rx Instructions .ROUTE .MEDSUPPLY Qty: 1 RF: 0 ipratropium-albuterol 0.5 mg-3 mg(2.5 mg base)/3 mL solution for nebulization 3 ml INHALATION QID Qty: 120 RF: 5 albuterol sulfate [ProAir HFA] 90 mcg/actuation HFA aerosol inhaler 1 - 2 puff INHALATION Q4H PRN (Reason: Shortness Of Breath) Qty: 25 RF: 5 atorvastatin 40 mg tablet 40 mg PO DAILY Qty: 90 RF: 1 glipizide 5 mg tablet extended release 24hr 10 mg PO DAILY Qty: 180 RF: 1 aspirin 81 mg tablet,delayed release (DR/EC) 81 mg PO DAILY Qty: 90 RF: 1 metformin 500 mg tablet extended release 24 hr 500 mg PO DAILY Qty: 90 RF: 1 isosorbide mononitrate 30 mg tablet extended release 24 hr 30 mg PO DAILY Qty: 90 RF: 1 carvedilol 25 mg tablet 25 mg PO BID Qty: 180 RF: 1 terazosin 10 mg capsule 10 mg PO DAILY Qty: 90 RF: 1 losartan 100 mg tablet 100 mg PO DAILY Qty: 90 RF: 1 Eliquis 5 mg tablet 5 mg PO BID Qty: 180 RF: 1 Symbicort 160-4.5 mcg/actuation HFA aerosol inhaler 2 puff INHALATION BID Qty: 10.2 RF: 5 spironolactone 25 mg tablet 25 mg PO DAILY Qty: 30 RF: 2 betamethasone dipropionate 0.05 % cream 1 applic topical DAILY PRN (Reason: skin irritation) Qty: 15 RF: 5 bumetanide 2 mg tablet 4 mg PO DAILY Qty: 60 RF: 2 nitroglycerin 0.4 mg tablet, sublingual 0.4 mg SL Q5M PRN (Reason: Chest Pain) Qty: 25 RF: 0 esomeprazole magnesium [Nexium] 40 mg Capsule,Delayed Release(Dr/Ec) 40 mg PO DAILY PRN (Reason: Gi Upset) RF: 0 loratadine [Claritin] 10 mg Tablet 10 mg PO DAILY RF: 0 fluticasone propionate 50 mcg/actuation spray,suspension 2 spray INTRANASAL DAILY PRN (Reason: Congestion) RF: 0 Referrals Referrals: Ayo Lopez CRNP [Primary Care Provider] -
[2021-08-31 19:14] LABS: Basophils # (auto) 0.01 K/uL (0-0.2); Basophils % (auto) 0.1 %; Eosinophils # (auto) 0.48 K/uL (0-0.5); Eosinophils % (auto) 5.4 %; Hemoglobin 11.2 g/dL (14.0-18.0); Immature Granulocytes # (auto) 0.02 K/uL (0.00-0.02); Immature Granulocytes % (auto) 0.2 %; Lymphocytes # (auto) 1.28 K/uL (1.2-3.4); Lymphocytes % (auto) 14.3 %; Mean Corpuscular Hemoglobin 28.7 pg (25-34); Mean Corpuscular Hgb Conc 33.9 g/dL (32-36); Mean Corpuscular Volume 84.6 fL (80-100); Mean Platelet Volume 8.9 fL (7.4-10.4); Monocytes # (auto) 1.06 K/uL (0.11-0.59); Monocytes % (auto) 11.9 %; Neutrophils # (auto) 6.08 K/uL (1.4-6.5); Neutrophils % (auto) 68.1 %; Platelet Count 202 K/uL (130-400); RDW Coefficient of Variation 13.3 % (11.5-14.5); RDW Standard Deviation 40.7 fL (36.4-46.3); White Blood Count 8.93 K/uL (4.8-10.8)
--- NOTE | 2021-08-31 19:18 | XRay Report ---
XR chest 1V portable CLINICAL HISTORY: SOB. COMPARISON STUDY: 07/25/2021 TECHNIQUE: 1 view of the chest FINDINGS: Single frontal view of the chest demonstrates the heart to again be enlarged. The lungs are clear of alveolar opacities. There is no evidence for pleural effusion. There is no evidence for vascular bucky estion. There is no acute osseous pathology. IMPRESSION: 1. No acute cardiopulmonary disease. ACT 112: Negative or not required by law. Electronically signed by: Franklin Tobar M.D. 08/31/2021 7:16 PM
[2021-08-31 19:27] LABS: INR 1.1 (0.9-1.1); Partial Thromboplastin Ratio 1.2; Partial Thromboplastin Time 32.1 Seconds (21.0-31.0); Prothrombin Time 11.8 Seconds (9.0-12.0)
[2021-08-31 19:41] LABS: Albumin Globulin Ratio 1.3 (0.9-2); Albumin Level 3.7 gm/dl (3.4-5.0); BUN Creatinine Ratio 29.3 (10-20); Bilirubin,Total 0.7 mg/dl (0.2-1.0); Calcium 9.4 mg/dl (8.5-10.1); Creatinine Clr Calc Pharmacy 31.3 ml/min; Est GFR (African American) 38.6 ml/min; Est GFR (Non-African American) 33.3 ml/min; Globulin 2.8 gm/dl (2.5-4.0); Magnesium 1.9 mg/dl (1.7-2.4); Potassium 5.2 mmol/L (3.5-5.1); Total Protein 6.5 gm/dl (6.0-8.3)
[2021-08-31 19:43] LABS: Troponin I High Sensitivity 11.5 pg/ml (0-20)
[2021-08-31] MEDS ORDERED: SODIUM CHLORIDE 0.9% 1000ML 500 ML IV ONE (19:49)
[2021-08-31 19:59] LABS: Allen Test POS (Pos); HCO3 ABG 29 mmol/L (19-24); Oxygen Saturation ABG 97.2 % (90-95); PCO2 ABG 45 mmHg (35-46); PO2 ABG 91 mmHg (80-95); pH ABG 7.43 (7.35-7.45)
[2021-08-31 20:48] LABS: Influenza A virus by PCR Negative (Neg); Influenza B virus by PCR Negative (Neg); RSV by PCR Negative (Neg)
[2021-08-31 20:58] LABS: SARS CoV2 RNA(COVID-19) InHosp POSITIVE (Negative)
--- NOTE | 2021-08-31 21:39 | History & Physical Report ---
Date of Service August 31, 2021 Assessment & Plan (1) COVID-19: Plan: Patric Restrepo is an 86yo male with CAD s/p CABG, chronic HFpEF (EF 50-55% in 11/2018), a-fib (on Eliquis), T2DM (A1c 7.5 in 10/2020), COPD, YUE on CPAP, HTN, HLD, normocytic anemia, and GERD who presented to [facility] ED on 08/31 for cough, congestion and SOB x1 day - COVID-19 positive per home testing and PCR testing in ED. COVID-19; Shortness of Breath Reportedly hypoxic to low 80s in the field, although SpO2 has remained in high 90s without supplemental O2 while patient in ED. No wheezes or crackles on exam and no PNA per exam or imaging. Reassuring overall. - admit to med/tele, maintain isolation precautions - patient is not candidate for Remdesivir given lack of hypoxia - s/p Decadron 6mg in ED - will defer on further doses for now given no PNA or hypoxia - PRN Duonebs, scheduled Mucinex - note: patient is currently on day 1-2 of symptoms and may qualify for outpatient Paxlovid if he is discharged before day 5 of symptoms SUKI Cr 1.81 (normal baseline), BUN:Cr ratio >20:1. Suspect pre-renal injury in context of recent increase in Bumex as well as COVID-19 illness. - s/p NSS 500cc bolus - continue with NSS @100cc/hr x1L - cautious IVFs in this patient with HFpEF - hold home nephrotoxic medications - trend in AM Hyponatremia Serum osmols 286, although patient appears somewhat dry on exam. Suspect that in crease in Bumex has led to hyponatremia. - IVFs as stated above - trend in AM Obstructive Lung Disease; YUE Reportedly has been diagnosed with COPD but is a never smoker and reportedly never had spirometry or PFTs. - continue home CPAP QHS - continue home inhalers - recommend outpatient PFTs if not done already - defer to PCP Other Chronic Medical Conditions: Chronic HFpEF: EF 50-55% in 2019, will repeat TTE now. Hold home Bumex and Spironolactone. Continue home Carvedilol, Imdur. HTN/HLD: hold home Losartan. Continue Terazosin and statin. T2DM: A1c 7.5 in 10/2020. Repeat A1c in AM. Hold home meds, SSI while hospitalized A-fib; CAD: continue home Eliquis and baby Aspirin GERD: continue home Esomeprazole FEN/GI: heart-healthy/DM2 diet; NSS @100cc/hr x1L DVT Prophylaxis: Eliquis Code Status: full code Disposition: med/tele (2) SOB (shortness of breath): (3) SUKI (acute kidney injury): (4) Acute hyponatremia: (5) Atrial fibrillation, permanent: (6) S/P CABG (coronary artery bypass graft): (7) Chronic diastolic CHF (congestive heart failure): (8) Obstructive sleep apnea: (9) CAD (coronary artery disease): (10) Normocytic anemia: (11) Hyperlipidemia: (12) Diabetes mellitus, type II: (13) GERD (gastroesophageal reflux disease): (14) Hypertension: (15) Dyslipidemia: (16) Obstructive lung disease: History of Present Illness Chief Complaint: shortness of breath Primary Care Provider: AGNES Alvarez Patric Restrepo is an 86yo male with CAD s/p CABG, chronic HFpEF (EF 50-55% in 11/2018), a-fib (on Eliquis), T2DM (A1c 7.5 in 10/2020), COPD, YUE on CPAP, HTN, HLD, normocytic anemia, and GERD who presented to [facility] ED on 08/31 for cough, congestion and SOB x1 day, with positive home COVID-19 test yesterday. Patient is vaccinated for COVID-19 although he does report recent known COVID-19 positive family contacts. Of note patient had home Bumex dose doubled several weeks ago for increased LE edema - he has an upcoming appointment with [facility] clinic for further management of Bumex. He does report he was diagnosed with COPD but is a never smoker and reports that he never had PFT testing done before. Reportedly patient had hypoxia to low 80s when picked up by EMS although was not hypoxic in the ED - SpO2 has remained 98-99% on room air. Hemodynamically stable - of note there is a HR of 153 in chart although patient remained with HR 70s- 80s during my entire interview with him; unclear if he was truly tachycardic. Lab work-up significant for Hgb 11.2 (~baseline), ABG 7.43/45/91/29, Na 127, K 5.2, Cl 89, BUN 53/Cr 1.81. Procalcitonin negative. COVID-19 positive (PCR). CXR unremarkable. Patient was given Duoneb x1, Decadron 6mg IV x1, and NSS 500cc bolus. Allergies Allergy/AdvReac Type Severity Reaction Status Date / Time lisinopril AdvReac Intermediate cough Verified 08/31/21 21:18 Home Medications Medication Instructions Recorded Confirmed Type esomeprazole magnesium 40 mg 40 mg PO DAILY PRN 07/15/18 08/31/21 History capsule,delayed release (Nexium) loratadine 10 mg tablet (Claritin) 10 mg PO DAILY 07/15/18 08/31/21 History fluticasone propionate 50 2 spray INTRANASAL DAILY PRN 11/16/18 08/31/21 History mcg/actuation nasal spray,suspension nitroglycerin 0.4 mg sublingual 0.4 mg SL Q5M PRN #25 tab 11/16/18 08/31/21 History tablet ipratropium bromide 21 mcg (0.03 2 spray INTRANASAL QAM #30 ml 01/08/19 08/31/21 Rx %) nasal spray blood sugar diagnostic (OneTouch #100 ea 05/30/19 07/22/21 Rx Ultra Blue Test Strip) nebulizer accessories #1 ea 08/16/19 07/22/21 Rx betamethasone dipropionate 0.05 % 1 applic TOPICAL DAILY PRN #15 g 12/25/19 08/31/21 Rx topical cream albuterol sulfate 90 mcg/actuation 1 - 2 puff INHALATION Q4H PRN #25 12/08/20 08/31/21 Rx aerosol inhaler (ProAir HFA) gm aspirin 81 mg tablet,delayed 81 mg PO DAILY #90 tab 03/08/21 08/31/21 Rx release atorvastatin 40 mg tablet 40 mg PO DAILY #90 tab 03/08/21 08/31/21 Rx carvedilol 25 mg tablet 25 mg PO BID #180 tab 03/08/21 08/31/21 Rx glipizide 5 mg tablet, extended 10 mg PO DAILY #180 tab 03/08/21 08/31/21 Rx release 24 hr isosorbide mononitrate 30 mg 30 mg PO DAILY #90 tab 03/08/21 08/31/21 Rx tablet,extended release 24 hr losartan 100 mg tablet 100 mg PO DAILY #90 tab 03/08/21 08/31/21 Rx metformin 500 mg tablet,extended 500 mg PO DAILY #90 tab 03/08/21 08/31/21 Rx release 24 hr terazosin 10 mg capsule 10 mg PO DAILY #90 cap 03/08/21 08/31/21 Rx apixaban 5 mg tablet (Eliquis) 5 mg PO BID #180 tab 05/24/21 08/31/21 Rx budesonide-formoterol HFA 160 2 puff INHALATION BID #10.2 gm 06/16/21 08/31/21 Rx mcg-4.5 mcg/actuation aerosol inhaler (Symbicort) bumetanide 2 mg tablet 4 mg PO DAILY #60 tab 07/12/21 08/31/21 Rx spironolactone 25 mg tablet 25 mg PO DAILY #30 tab 07/22/21 08/31/21 Rx ipratropium 0.5 mg-albuterol 3 mg 3 ml INHALATION BID 08/31/21 08/31/21 History (2.5 mg base)/3 mL nebulization soln 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) Hypertension Mitral valve insufficiency and aortic valve insufficiency Normocytic anemia Obstructive lung disease Obstructive sleep apnea Reactive airway disease Spinal stenosis Tubular adenoma of colon Surgical History S/P CABG (coronary artery bypass graft) S/P cardiac catheterization S/P cholecystectomy S/P shoulder surgery Family History Sister Hypertension Colon cancer Other Prostate cancer Stroke Denies family history of Osteoporosis Myocardial infarction Breast cancer Social History Smoking Status: Never smoker Second Hand Exposure: No; Hx Alcohol Use: No Hx Substance Use: No Preferred Language: Mongolian Communication Ability: Effective Visual Impairment: No Limitations Hearing Ability: Normal Trousseau Consultant Required: No Beliefs That Will Affect Care: None marital status: / Current Living Situation: Family Current Living Situation Comment: Daughter and granddaughter current occupational status: retired Feels Safe at Home: Yes Safety Concerns: Feels Safe At This Time Childhood Exposure to Second-Hand Smoke: No caffeine: Yes (Tea and soda.) during the past year weight has: remained stable Dental Care, Regularly: No Physical Activity Frequency: Daily Seatbelt Use: always Sunscreen Use: No Assistive Devices: Cane, CPAP, Denture - Upper, Denture - Lower and Glasses Review of Systems Review of Systems: All systems reviewed & are unremarkable except as noted in HPI & below Physical Exam Physical Exam: General: A&Ox3. NAD. Cooperative. HEENT: Atraumatic, normocephalic. Pulm: CTAB A&P. -wheezes, -rales, -rhonchi. Symmetrical chest rise. No increase work of breathing. No respiratory distress. Cardiac: RRR, -mrg. Radial pulses intact and symmetrical. No JVD. Trace pedal edema bilaterally - chronic per patient. Abdominal: soft, non-tender, non-distended, BS x 4 Skin: warm, dry, no rash Results & Data Results & Data ([facility]) Vital Signs (Past 12 Hours) Vital Signs Temp Pulse Resp BP Pulse Ox 08/31/21 21:00 153 H 17 119/67 99 08/31/21 20:00 103 H 20 119/67 99 08/31/21 19:00 96 H 21 119/67 99 08/31/21 18:46 98 08/31/21 18:37 36.9 C 80 22 119/67 Code Status & VTE Plan Code Status full code - discussed with patient Supervising Physician Co-Signing Physician Notes Attending addendum: I have physically seen this patient, have supervised the medical residents activities, and agree with the H&P unless as otherwise noted. Assessment and Plan: Acute respiratory failure with hypoxia- Pulse ox reported to be in the low 80s in the prehospital setting Admit to monitored bed COVID-19 positivity, for which she received dexamethasone 6 mg IV from the ED Oxygenation significantly improved in ED, does not qualify for remdesivir Duonebs every 4 hours while awake and every 2 hours when necessary. Guaifenesin extended release 12 mg p.o. twice daily Vitamin D 5000 international units p.o. daily Zinc sulfate 200 mg p.o. daily Acute kidney injury/hyponatremia Creatinine 1.81 upon admission, with base 1.13 Holding Bumex, spironolactone and losartan for now Status post 500 cc normal saline in the ED. NSS@100 mils per hour x1 L Recheck laboratories in a.m. Remaining orders and notations as noted Resident Activity Tracking Resident Involvement: Resident Care Provided Care Provided: Adult Hospital Medicine
[2021-08-31] MEDS ORDERED: SODIUM CHLORIDE 0.9% 1000ML 1,000 ML IV SCH (22:45)
[2021-09-01] MEDS ORDERED: GLUCOSE 40% GEL 15 GM TUBE PO PRN (01:00)
[2021-09-01] MEDS ORDERED: CARBOHYDRATES FOR HYPOGLYCEMIA PO PRN (01:00)
[2021-09-01] MEDS ORDERED: GLUCOSE 10 TABS/TUBE PO PRN (01:00)
[2021-09-01] MEDS ORDERED: DEXTROSE 50% 50 ML SYRINGE IV PRN (01:00)
[2021-09-01] MEDS ORDERED: GLUCAGON FOR INJ 1 MG VIAL SQ PRN (01:00)
[2021-09-01] MEDS ORDERED: FLUTICASONE PROPIONATE NA SPR 16 GM BTL PRN (01:00)
[2021-09-01] MEDS ORDERED: ACETAMINOPHEN 325 MG TAB PO PRN (01:00)
[2021-09-01 07:01] LABS: Hematocrit (blood only) 31.5 % (42-52); Hemoglobin 10.6 g/dL (14.0-18.0); Immature Granulocytes # (auto) 0.01 K/uL (0.00-0.02); Immature Granulocytes % (auto) 0.2 %; Lymphocytes # (auto) 0.47 K/uL (1.2-3.4); Lymphocytes % (auto) 8.3 %; Mean Corpuscular Hemoglobin 28.6 pg (25-34); Mean Corpuscular Hgb Conc 33.7 g/dL (32-36); Mean Corpuscular Volume 85.1 fL (80-100); Monocytes # (auto) 0.14 K/uL (0.11-0.59); Monocytes % (auto) 2.5 %; Neutrophils # (auto) 5.03 K/uL (1.4-6.5); Platelet Count 194 K/uL (130-400); RDW Coefficient of Variation 13.4 % (11.5-14.5); RDW Standard Deviation 41.9 fL (36.4-46.3); White Blood Count 5.65 K/uL (4.8-10.8)
[2021-09-01 07:25] LABS: Estimated Average Glucose 214 mg/dl; Hemoglobin A1C 9.1 % (4.5-5.6)
[2021-09-01 07:27] LABS: BUN Creatinine Ratio 30.7 (10-20); Calcium 8.9 mg/dl (8.5-10.1); Creatinine Clr Calc Pharmacy 38.7 ml/min; Est GFR (African American) 47.4 ml/min; Est GFR (Non-African American) 40.9 ml/min; Magnesium 1.9 mg/dl (1.7-2.4); Phosphorus 3.8 mg/dl (2.5-4.9); Potassium 5.1 mmol/L (3.5-5.1)
[2021-09-01] MEDS: TERAZOSIN HCL 5 MG CAP PO SCH (08:23)
[2021-09-01] MEDS: carvediloL 25 MG TAB PO SCH ×2 (08:23→21:51)
[2021-09-01] MEDS: ISOSORBIDE MONO EXTENDED REL 30 MG TABCR PO SCH (08:23)
[2021-09-01] MEDS: APIXABAN 5 MG TABLET PO SCH ×2 (08:23→21:50)
[2021-09-01] MEDS: PANTOprazole 40 MG TAB PO PRN (08:23)
[2021-09-01] MEDS: ATORVASTATIN 40 MG TAB PO SCH (08:23)
[2021-09-01] MEDS: guaiFENesin 600 MG TABCR PO SCH ×2 (08:24→21:50)
[2021-09-01] MEDS: FLUTICASONE/VILANTEROL 200/25MCG 14 PUFFS/INHALER INH SCH (08:24)
[2021-09-01] MEDS: ASPIRIN 81 MG ECTAB PO SCH (08:24)
[2021-09-01] MEDS: INSULIN ASPART PER UNIT SC SCH ×4 (09:28→20:36)
--- NOTE | 2021-09-01 11:59 | Hospitalist Progress Note ---
Date of Service September 01, 2021 Assessment & Plan (1) COVID-19: Plan: Tested Positive for COVID 19 Currently saturating well on room air Not a candidate for Remdesivir Currently on Decadron 6mg daily (2) SUKI (acute kidney injury): Plan: No evidence of CKD, his kidney function was normal in July 2021 This is most likely pre renal due to dehydration will recheck BMP tomorrow (3) Atrial fibrillation, permanent: Plan: Rate controlled On Apixaban at home, will continue (4) S/P CABG (coronary artery bypass graft): Plan: On ASA and Statin (5) Chronic diastolic CHF (congestive heart failure): Plan: Appears compensated Continue home medications (6) Diabetes mellitus, type II: Plan: Blood glucose is under good control Continue insulin and sliding scale Plan: likely d/c home in the next 24 hrs Admission and Anticipated Discharge Date Admission Date: August 31, 2021 Results & Data Results & Data ([facility]) Vital Signs (Past 12 Hours) Vital Signs Temp Pulse Pulse Resp BP BP Pulse Ox 09/01/21 07:14 81 09/01/21 02:24 83 22 96 09/01/21 02:07 82 09/01/21 01:21 98.8 F 71 20 133/70 98 09/01/21 00:34 98.6 F 83 20 130/55 L 98 PG Care Time/CCT Total # of Minutes Spent Total Time Spent with Patient: Total time spent is greater than 50% in coordination of care (as documented) at patient's floor/unit and/or counseling patient: Coding Level of Care Code 93997 Subseq Hosp Care Lvl 2 Diagnoses SUKI (acute kidney injury) N17.9 COVID-19 U07.1 Atrial fibrillation, permanent I48.21 S/P CABG (coronary artery bypass graft) Z95.1 Chronic diastolic CHF (congestive heart failure) I50.32 Diabetes mellitus, type II E11.9 Time Spent (min) 35
--- NOTE | 2021-09-01 13:35 | Electrocardiogram Report ---
Test Reason : Blood Pressure : / mmHG Vent. Rate : 082 BPM Atrial Rate : 082 BPM P-R Int : 080 ms QRS Dur : 120 ms QT Int : 378 ms P-R-T Axes : 000 -66 120 degrees QTc Int : 441 ms Poor data quality, interpretation may be adversely affected Sinus rhythm with Premature supraventricular complexes Left axis deviation RSR' or QR pattern in V1 suggests right ventricular conduction delay Anterolateral infarct , age undetermined Abnormal ECG When compared with ECG of 25-JUL-2021 13:47, Significant changes have occurred Confirmed by Romero Boyd ([id number]) on 09/01/2021 1:35:07 PM Referred By: REFERRED SELF Confirmed By:Romero Boyd
--- NOTE | 2021-09-01 13:46 | Electrocardiogram Report ---
Test Reason : Blood Pressure : / mmHG Vent. Rate : 091 BPM Atrial Rate : 097 BPM P-R Int : 000 ms QRS Dur : 150 ms QT Int : 408 ms P-R-T Axes : 000 -62 093 degrees QTc Int : 501 ms Poor data quality, interpretation may be adversely affected Atrial fibrillation Right bundle branch block Left anterior fascicular block Bifascicular block Possible Lateral infarct (cited on or before 31-AUG-2021) Abnormal ECG When compared with ECG of 31-AUG-2021 19:41, (unconfirmed) (RBBB and left anterior fascicular block) is now Present Criteria for Inferior-posterior infarct are no longer Present Questionable change in initial forces of Anterolateral leads Confirmed by Romero Boyd ([id number]) on 09/01/2021 1:46:20 PM Referred By: REFERRED SELF Confirmed By:Romero Boyd
[2021-09-01] MEDS ORDERED: PHARMACY GLYCEMIC MGMT CONSULT PRN (18:20)
[2021-09-01] MEDS ORDERED: INSULIN GLARGINE SOLOSTAR 100 UNITS/ML 3 ML PEN SC ONE (19:00)
--- NOTE | 2021-09-01 20:03 | Pharmacy Report ---
Pharmacy Glycemic Short Note 2 - Date of Service September 01, 2021 - Glycemic Short BSG Results (Last 24 hours): 09/01/21 09/01/21 09/01/21 01:10 05:59 07:50 Glucose 296 H POC Glucose 287 H 296 H 09/01/21 09/01/21 12:15 16:57 Glucose POC Glucose 271 H 234 H OUTPATIENT ANTIDIABETIC REGIMEN: * Metformin 500 mg Daily, glipizide 10 mg daily * A1c 9.1% ASSESSMENT: * Patient admitted with COVID-19 infection, received a dose of dexamethasone yesterday PM but is not currently ordered additional doses, per provider note suspected discharge in 24 hours * Hyperglycemic, suspect steroid is playing a role but A1c is elevated outpatient. Will tighten current novolog parameters to weight based stress of 2 and correction factor between weight based stress of 2 and 3. Will give 1x lantus dose, suspect steroid will be wearing off and patients tend to trend down overnight. PLAN FOR INPATIENT GLYCEMIC CONTROL: * Hold outpatient oral diabetes medications * Basal insulin * Lantus 14 units SQ x1 * Bolus insulin * NovoLog per scale ACHS or Q6hrs while NPO * Goal Range: Low 110 mg/dL - High 140 mg/dL * Correction Factor: 25 mg/dL/unit * Nutritional / Prandial insulin per carb ratio of 1 unit per 10 grams CHO consumed
[2021-09-01] MEDS: ALBUT/IPRATROP 3MG/0.5MG NEB 3 ML VIAL NEB PRN (22:51)
--- NOTE | 2021-09-02 00:02 | Billing Data ---
Date of Service September 02, 2021 Coding Level of Care Code 79500 Initial Inpt Care Lvl 3
[2021-09-02] MEDS: INSULIN ASPART PER UNIT SC SCH ×6 (01:39→21:55)
[2021-09-02] MEDS: ALBUT/IPRATROP 3MG/0.5MG NEB 3 ML VIAL NEB PRN (07:41)
[2021-09-02] MEDS: guaiFENesin 600 MG TABCR PO SCH ×2 (08:34→21:53)
[2021-09-02] MEDS: PANTOprazole 40 MG TAB PO PRN (08:34)
[2021-09-02] MEDS: ISOSORBIDE MONO EXTENDED REL 30 MG TABCR PO SCH (08:35)
[2021-09-02] MEDS: APIXABAN 5 MG TABLET PO SCH ×2 (08:35→21:53)
[2021-09-02] MEDS: TERAZOSIN HCL 5 MG CAP PO SCH (08:35)
[2021-09-02] MEDS: ATORVASTATIN 40 MG TAB PO SCH (08:35)
[2021-09-02] MEDS: ASPIRIN 81 MG ECTAB PO SCH (08:35)
[2021-09-02] MEDS: FLUTICASONE/VILANTEROL 200/25MCG 14 PUFFS/INHALER INH SCH (08:36)
[2021-09-02] MEDS: carvediloL 25 MG TAB PO SCH ×2 (08:36→21:55)
[2021-09-02 11:23] LABS: BUN Creatinine Ratio 31.3 (10-20); Est GFR (African American) 44.9 ml/min; Est GFR (Non-African American) 38.7 ml/min; Potassium 5.1 mmol/L (3.5-5.1)
[2021-09-02] MEDS: SODIUM CHLORIDE 0.9% 500 ML IV SCH ×3 (12:14→23:26)
--- NOTE | 2021-09-02 13:20 | Hospitalist Progress Note ---
Date of Service September 02, 2021 Assessment & Plan (1) COVID-19: Plan: (1) COVID-19: Plan: Tested Positive for COVID 19 Currently saturating well on room air Not a candidate for Remdesivir Currently on Decadron 6mg daily (2) SUKI (acute kidney injury) on CKD 3: (2) SUKI (acute kidney injury): Plan: GFR hovering around 50-58 over the past several months SUKI is most likely pre renal due to recent diuretics, which have been held will start low gentle hydration recheck bmp tomorrow (3) Chronic diastolic CHF (congestive heart failure): Plan: (5) Chronic diastolic CHF (congestive heart failure): Plan: Appears compensated Last ECHO 2018 showed EF 55-60% Continue home medications (4) Atrial fibrillation, permanent: Plan: (3) Atrial fibrillation, permanent: Plan: Rate controlled On Apixaban at home, will continue (5) Diabetes mellitus, type II: Plan: (6) Diabetes mellitus, type II: Plan: Blood glucose is under good control Continue insulin and sliding scale Will need testing supplies at home (One touch Verio test strips, one touch delica lancets) Plan: likely d/c home in the next 24 hrs Admission and Anticipated Discharge Date Admission Date: August 31, 2021 Subjective patient seen and examined, denies SOB Review of Systems Review of Systems: All systems reviewed are negative, apart from the ones contained in the history. Physical Exam Physical Exam: The patient is awake, alert and oriented 3, well developed and well nourished, normocephalic and atraumatic, lying in bed and in no acute di stress. HEENT--PERRL, EOMI, mucous membranes and oropharynx mildly dry Neck--supple. No JVD. No bruits. Thyroid normal, trachea midline, no adenopathy. Heart--normal S1 and S2. No murmurs, rubs or gallops. Lungs--clear bilaterally, no respiratory distress, no accessory muscle use. Abdomen--normal bowel sounds and soft. Mild epigastric and left sided abdominal pain Extremities--no cyanosis or clubbing. No edema. Dermatologic--normal skin turgor, normal color, no abnormal lymph nodes, no rash. Neurologic--cranial nerves II through XII grossly intact. Rheumatologic--normal range of motion. Psychiatric--normal affect. Results & Data Results & Data ([facility]) Vital Signs (Past 12 Hours) Vital Signs Temp Pulse Resp BP Pulse Ox 09/02/21 07:41 78 16 96 09/02/21 06:06 98.4 F 63 18 146/69 H 95 09/02/21 04:00 98.1 F 61 18 125/74 91 PG Care Time/CCT Total # of Minutes Spent Total Time Spent with Patient: Total time spent is greater than 50% in coordination of care (as documented) at patient's floor/unit and/or counseling patient: Coding Level of Care Code 88330 Subseq Hosp Care Lvl 2 Medical Decision Making Moderate Complexity Diagnoses COVID-19 U07.1 SUKI (acute kidney injury) N17.9 Chronic diastolic CHF (congestive heart failure) I50.32 Atrial fibrillation, permanent I48.21 Diabetes mellitus, type II E11.9 Time Spent (min) 35
[2021-09-02] MEDS ORDERED: INSULIN GLARGINE SOLOSTAR 100 UNITS/ML 3 ML PEN SC SCH (21:00)
[2021-09-03] MEDS: ALBUT/IPRATROP 3MG/0.5MG NEB 3 ML VIAL NEB PRN ×2 (06:33→20:49)
[2021-09-03] MEDS: SODIUM CHLORIDE 0.9% 500 ML IV SCH ×3 (07:11→19:22)
[2021-09-03] MEDS: carvediloL 25 MG TAB PO SCH ×2 (08:08→20:34)
[2021-09-03] MEDS: ISOSORBIDE MONO EXTENDED REL 30 MG TABCR PO SCH (08:09)
[2021-09-03] MEDS: PANTOprazole 40 MG TAB PO PRN (08:09)
[2021-09-03] MEDS: APIXABAN 5 MG TABLET PO SCH ×2 (08:09→20:35)
[2021-09-03] MEDS: ASPIRIN 81 MG ECTAB PO SCH (08:09)
[2021-09-03] MEDS: TERAZOSIN HCL 5 MG CAP PO SCH (08:09)
[2021-09-03] MEDS: FLUTICASONE/VILANTEROL 200/25MCG 14 PUFFS/INHALER INH SCH (08:10)
[2021-09-03] MEDS: ATORVASTATIN 40 MG TAB PO SCH (08:10)
[2021-09-03] MEDS: guaiFENesin 600 MG TABCR PO SCH ×2 (08:10→20:34)
[2021-09-03] MEDS: INSULIN ASPART PER UNIT SC SCH ×4 (08:11→21:15)
[2021-09-03 10:05] LABS: BUN Creatinine Ratio 30.7 (10-20); Calcium 8.4 mg/dl (8.5-10.1); Creatinine Clr Calc Pharmacy 38.7 ml/min; Est GFR (African American) 47.4 ml/min; Est GFR (Non-African American) 40.9 ml/min; Potassium 5.1 mmol/L (3.5-5.1)
--- NOTE | 2021-09-03 11:15 | Hospitalist Progress Note ---
Date of Service September 03, 2021 Assessment & Plan (1) COVID-19: Plan: (1) COVID-19: Plan: Tested Positive for COVID 19 Currently saturating well on room air Not a candidate for Remdesivir Currently on Decadron 6mg daily (2) SUKI (acute kidney injury): Plan: SUKI (acute kidney injury) on CKD 3: GFR hovering around 50-58 over the past several months, although serum Cr has been wnl SUKI is most likely pre renal due to recent diuretics, which have been held Some improvement in renal function will continue gentle hydration in view of hx of CHF (he is currently compensated) recheck bmp tomorrow (3) Chronic diastolic CHF (congestive heart failure): Plan: (5) Chronic diastolic CHF (congestive heart failure): Plan: Appears compensated Last ECHO 2018 showed EF 55-60% chest x ray did not show evidence of vascular congestion Continue home medications (4) Atrial fibrillation, permanent: Plan: (3) Atrial fibrillation, permanent: Plan: Rate controlled On Apixaban at home, will continue (5) Diabetes mellitus, type II: Plan: (6) Diabetes mellitus, type II: Plan: Blood glucose is under good control Continue insulin and sliding scale Will need testing supplies at home (One touch Verio test strips, one touch delica lancets) Plan: likely d/c home in the next 24 hrs Admission and Anticipated Discharge Date Admission Date: August 31, 2021 Subjective patient seen and examined, denies SOB, sitting up in the chair Review of Systems Review of Systems: All systems reviewed are negative, apart from the ones contained in the history. Physical Exam Physical Exam: The patient is awake, alert and oriented 3, well developed and well nourished, normocephalic and atraumatic, lying in bed and in no acute distress. HEENT--PERRL, EOMI, mucous membranes and oropharynx mildly dry Neck--supple. No JVD. No bruits. Thyroid normal, trachea midline, no adenopathy. Heart--normal S1 and S2. No murmurs, rubs or gallops. Lungs--clear bilaterally, no respiratory distress, no accessory muscle use. Abdomen--normal bowel sounds and soft. Mild epigastric and left sided abdominal pain Extremities--no cyanosis or clubbing. No edema. Dermatologic--normal skin turgor, normal color, no abnormal lymph nodes, no rash. Neurologic--cranial nerves II through XII grossly intact. Rheumatologic--normal range of motion. Psychiatric--normal affect. Results & Data Results & Data ([facility]) Vital Signs (Past 12 Hours) Vital Signs Temp Pulse Resp BP Pulse Ox 09/03/21 06:34 16 95 09/03/21 04:20 98.1 F 87 20 116/65 94 PG Care Time/CCT Total # of Minutes Spent Total Time Spent with Patient: Total time spent is greater than 50% in coordination of care (as documented) at patient's floor/unit and/or counseling patient: Coding Level of Care Code 06680 Subseq Hosp Care Lvl 2 Diagnoses COVID-19 U07.1 SUKI (acute kidney injury) N17.9 Chronic diastolic CHF (congestive heart failure) I50.32 Atrial fibrillation, permanent I48.21 Diabetes mellitus, type II E11.9 Time Spent (min) 35
[2021-09-03] MEDS ORDERED: ONDANSETRON INJ 2 MG/ML 2 ML VIAL IV PRN (18:42)
[2021-09-04] MEDS: SODIUM CHLORIDE 0.9% 500 ML IV SCH ×4 (01:35→22:09)
[2021-09-04 08:08] LABS: Urea Nitrogen, Random Urine 735 mg/dL
[2021-09-04] MEDS: INSULIN ASPART PER UNIT SC SCH ×4 (08:37→21:18)
[2021-09-04] MEDS: guaiFENesin 600 MG TABCR PO SCH ×2 (08:38→20:37)
[2021-09-04] MEDS: carvediloL 25 MG TAB PO SCH ×2 (08:38→20:37)
[2021-09-04] MEDS: ATORVASTATIN 40 MG TAB PO SCH (08:38)
[2021-09-04] MEDS: PANTOprazole 40 MG TAB PO PRN (08:39)
[2021-09-04] MEDS: TERAZOSIN HCL 5 MG CAP PO SCH (08:39)
[2021-09-04] MEDS: ISOSORBIDE MONO EXTENDED REL 30 MG TABCR PO SCH (08:39)
[2021-09-04] MEDS: ASPIRIN 81 MG ECTAB PO SCH (08:39)
[2021-09-04] MEDS: APIXABAN 5 MG TABLET PO SCH ×2 (08:39→20:37)
[2021-09-04] MEDS: FLUTICASONE/VILANTEROL 200/25MCG 14 PUFFS/INHALER INH SCH (08:40)
[2021-09-04 10:13] LABS: BUN Creatinine Ratio 28.1 (10-20); Creatinine Clr Calc Pharmacy 46.3 ml/min; Est GFR (African American) 58.8 ml/min; Est GFR (Non-African American) 50.7 ml/min; Potassium 4.5 mmol/L (3.5-5.1)
[2021-09-04] MEDS: ALBUT/IPRATROP 3MG/0.5MG NEB 3 ML VIAL NEB PRN (12:27)
--- NOTE | 2021-09-04 13:14 | Hospitalist Progress Note ---
Date of Service September 04, 2021 Assessment & Plan (1) COVID-19: Plan: +COVID 19 diagnosis on 08/31/21 leading to hospital admission. CXR on day of admission was negative. Has remained afebrile >48 hours (last fever on 09/02) He was not a candidate for Remdesivir due to lack of hypoxia Received Decadron in the ER, held further doses. Mucinex 1200 mg BID; Duonebs q4hr prn. He remains stable on room air; does report mild increase in dypsnea at rest during exam this morning. (2) SUKI (acute kidney injury): Plan: Acute on chronic kidney disease, stage III. Cr level 1.8 at admission, now improved to 1.28. Holding home Bumex and Spironolactone. On IV fluids at 80 cc/hr. Does have slight increase in hyponatremia today (Na level 127) - will monitor urine osmo and sodium levels. (3) Acute hyponatremia: Plan: Has been hyponatremic, decreased to 127. Monitor urine sodium and urine osmo; consider serum osmo if necessary. NS at 80 cc/hr. (4) Chronic diastolic CHF (congestive heart failure): Plan: Most recent ECHO in 2019 showed EF of 55-60%. CXR neg for vascular congestion on admission. Monitor I/Os and daily weights - stable overall. Receiving NS at 80 cc/hr, monitor volume status closely. Continue home Imdur, Coreg as prescribed. Holding Bumex and Spironolactone. (5) Atrial fibrillation, permanent: Plan: Rate controlled, 60's on classroom monitor. Continue home Eliquis 5 mg BID. Of note, Metoprolol is listed on home medication listed but currently held as inpatient. (6) CAD (coronary artery disease): Plan: Continue home meds. (7) Hyperlipidemia: Plan: Continue home statin agent. (8) Diabetes mellitus, type II: Plan: A1C level 9.1 on 09/01/21. SSI ac/hs with gluc checks. Holding home Metformin and Glipizide. Will need testing supplies at home (One touch Verio test strips, one touch delica lancets) (9) Normocytic anemia: Plan: Baseline Hgb ~12 to 12.5 over the last 2 years. Decreased to 10.6 during this hospitalization, likely dilutional. Likely anemia of renal insufficiency but does not qualify for Retacrit injections. Plan: DVT ppx: Eliquis BID. PT/OT recommended return to home with his daughter at discharge. He can likely be discharged on 09/05 if Na level stable along with no evidence of worsening dypsnea. Admission and Anticipated Discharge Date Admission Date: August 31, 2021 Supervising Physician Co-Signing Physician Notes Attending Attestation - Chart reviewed in detail, care plan d/w PA Mariela Benjamin. I agree w/ the edwards components of her documentation. Juarez Mendoza MD Subjective Mr. Thurston is stable overall, does report slight increase in SOB this morning. He is attributing SOB to his room being warmer than usual. O2 saturation has been stable on room air. He does have a nonproductive cough. Na level decreased to 127, will obtain urine studies for further evaluation. Remains on NS at 80 cc/hr. Per PT/OT recs, he can be discharged to home with his daughter once he is medically stable. Review of Systems Review of Systems: Constitutional: Negative for weight loss, night sweats, or fever Eyes: Negative for event change of vision ENT: Negative for epistaxis, nasal discharge, sore throat, or deafness Cardiovascular: Negative for anginal type chest pain, palpitations, dizziness, diaphoresis Respiratory: +SOB at rest;Negative for new shortness of breath,hemoptysis, or purulent cough Gastrointestinal: Negative for diarrhea, hematemesis, melena, nausea, vomiting, or dyspepsia Integumentary (skin): Negative for rash or jaundice discoloration Genitourinary: Negative for urinary frequency, hematuria, or dysuria Neurological: Negative for weakness, seizure activity, headache, or dizziness Lymphatic/Hematologic: Negative for petechiae, bleeding or new adenopathy Musculoskeletal: Negative for new joint or back pain Allergic/Immunologic: Negative for unusual rash or pruritis Physical Exam Physical Exam: Constitutional: Pleasant male, no acute distress Respiratory: Lung sounds were generally clear bilaterally. Cardiovascular: Heart was RRR without significant murmur, gallops or rubs. Musculoskeletal System: The musculoskeletal system seemed concordant with age. Skin: +Ecchymosis noted on right hand due to prior IV site. Extremities: Negative for edema or erythema Results & Data Results & Data ([facility]) Vital Signs (Past 12 Hours) Vital Signs Temp Pulse Resp BP BP Pulse Ox 09/04/21 12:45 36.6 C 69 16 131/67 92 09/04/21 12:27 79 20 92 09/04/21 04:00 37.1 C 70 20 123/64 92 Laboratory Results 09/04/21 09/04/21 09/04/21 Range/Units 12:25 09:02 08:34 Sodium 127 L (136-145) mmol/L Potassium 4.5 (3.5-5.1) mmol/L Chloride 99 (98-107) mmol/L Carbon Dioxide 24 (21-32) mmol/L Anion Gap 4 (3-11) BUN 36 H (6-23) mg/dl Creatinine 1.28 (0.6-1.4) mg/dl Est Cr Clr Drug Dosing 46.3 ml/min Est GFR ( Amer) 58.8 ml/min Est GFR (Non-Af Amer) 50.7 ml/min BUN/Creatinine Ratio 28.1 H (10-20) Glucose 97 (70-99(Fasting)) mg/dl POC Glucose 191 H 98 (70-99) mg/dl Calcium 8.0 L (8.5-10.1) mg/dl Ur Random Urea Nitrogn mg/dL 09/03/21 09/03/21 09/02/21 Range/Units 20:33 17:00 21:45 Sodium (136-145) mmol/L Potassium (3.5-5.1) mmol/L Chloride (98-107) mmol/L Carbon Dioxide (21-32) mmol/L Anion Gap (3-11) BUN (6-23) mg/dl Creatinine (0.6-1.4) mg/dl Est Cr Clr Drug Dosing ml/min Est GFR ( Amer) ml/min Est GFR (Non-Af Amer) ml/min BUN/Creatinine Ratio (10-20) Glucose (70-99(Fasting)) mg/dl POC Glucose 145 H 148 H (70-99) mg/dl Calcium (8.5-10.1) mg/dl Ur Random Urea Nitrogn 735 mg/dL PG Care Time/CCT Total # of Minutes Spent Total Time Spent with Patient: Total time spent is greater than 50% in coordination of care (as documented) at patient's floor/unit and/or counseling patient: [place] [address] Subseq Hosp Care Lvl 2 Patient Type Established Diagnoses COVID-19 U07.1 SUKI (acute kidney injury) N17.9 Chronic diastolic CHF (congestive heart failure) I50.32 Atrial fibrillation, permanent I48.21 Diabetes mellitus, type II E11.9 Acute hyponatremia E87.1 CAD (coronary artery disease) I25.10 Normocytic anemia D64.9 Hyperlipidemia E78.5
[2021-09-04] MEDS ORDERED: SODIUM CHLORIDE 0.9% 1000ML 1,000 ML IV SCH (22:00)
[2021-09-05] MEDS: ALBUT/IPRATROP 3MG/0.5MG NEB 3 ML VIAL NEB PRN ×2 (03:29→19:17)
[2021-09-05] MEDS: TERAZOSIN HCL 5 MG CAP PO SCH (08:31)
[2021-09-05] MEDS: ATORVASTATIN 40 MG TAB PO SCH (08:32)
[2021-09-05] MEDS: ASPIRIN 81 MG ECTAB PO SCH (08:32)
[2021-09-05] MEDS: APIXABAN 5 MG TABLET PO SCH ×2 (08:32→21:30)
[2021-09-05] MEDS: guaiFENesin 600 MG TABCR PO SCH ×2 (08:32→21:30)
[2021-09-05] MEDS: ISOSORBIDE MONO EXTENDED REL 30 MG TABCR PO SCH (08:32)
[2021-09-05] MEDS: carvediloL 25 MG TAB PO SCH ×2 (08:32→21:30)
[2021-09-05] MEDS: PANTOprazole 40 MG TAB PO PRN (08:32)
[2021-09-05] MEDS: INSULIN ASPART PER UNIT SC SCH ×5 (08:33→20:48)
[2021-09-05] MEDS: FLUTICASONE/VILANTEROL 200/25MCG 14 PUFFS/INHALER INH SCH (08:33)
[2021-09-05 08:36] LABS: Hematocrit (blood only) 30.2 % (42-52); Hemoglobin 10.1 g/dL (14.0-18.0); Mean Corpuscular Hgb Conc 33.4 g/dL (32-36); Mean Corpuscular Volume 86.8 fL (80-100); Mean Platelet Volume 8.8 fL (7.4-10.4); Platelet Count 140 K/uL (130-400); RDW Coefficient of Variation 14.2 % (11.5-14.5); Red Blood Count 3.48 M/uL (4.7-6.1); White Blood Count 5.21 K/uL (4.8-10.8)
[2021-09-05 08:51] LABS: BUN Creatinine Ratio 22.5 (10-20); Calcium 7.9 mg/dl (8.5-10.1); Creatinine Clr Calc Pharmacy 49.4 ml/min; Est GFR (African American) 63.5 ml/min; Est GFR (Non-African American) 54.8 ml/min; Potassium 4.7 mmol/L (3.5-5.1)
[2021-09-05] MEDS ORDERED: CALCIUM CARBONATE 500 MG CHEWABLE TAB PO STA (08:54)
--- NOTE | 2021-09-05 09:11 | XCELERA ---
[id number]
--- NOTE | 2021-09-05 09:21 | XRay Report ---
SINGLE VIEW CHEST CLINICAL HISTORY: Covid. FINDINGS: An AP, portable, upright chest radiograph is compared to study dated 08/31/2021. The patient is status post midline sternotomy. The heart is enlarged noting atherosclerotic calcification of the thoracic aorta. The pulmonary vasculature is noncongested. Chronic interstitial thickening is simila r to previous. Linear opacities are present at both lung bases. No large pleural effusion or pneumoth orax is seen. The skeletal structures are osteopenic. The bony thorax is grossly intact. Advanced deg enerative change is noted in the shoulders and spine. IMPRESSION: 1. Cardiomegaly without radiographic evidence of congestive failure. 2. Linear opacities at both lung bases likely represent scarring/atelectasis. An infectious/inflammat ory pneumonitis is considered less likely and clinical correlation will be required. ACT 112: Negative or not required by law. Electronically signed by: Johny Barton M.D. 09/05/2021 9:20 AM
--- NOTE | 2021-09-05 14:10 | Pharmacy Report ---
Pharmacy Glycemic Short Note 2 - Date of Service September 05, 2021 - Glycemic Short BSG Results (Last 24 hours): 09/04/21 09/04/21 09/05/21 16:56 20:08 07:18 Glucose 149 H POC Glucose 145 H 232 H 09/05/21 09/05/21 08:01 12:01 Glucose POC Glucose 158 H 191 H OUTPATIENT ANTIDIABETIC REGIMEN: * Metformin 500 mg Daily * Glipizide 10 mg daily * A1c 9.1% ASSESSMENT: * BSGs have been stable with very little insulin use. * Patient received 4 units of insulin yesterday and none the day prior. * Carb ratio added to Novolog this morning, as BSGs appeared to trend up a bit yesterday. PLAN FOR INPATIENT GLYCEMIC CONTROL: * Hold outpatient oral diabetes medications * Basal insulin * none * Bolus insulin * NovoLog per scale ACHS or Q6hrs while NPO * Goal Range: Low 120 mg/dL - High 160 mg/dL * Correction Factor: 30 mg/dL/unit * Nutritional / Prandial insulin per carb ratio of 1 unit per 15 grams CHO consumed
[2021-09-05] MEDS ORDERED: FUROSEMIDE 40 MG/4 ML VIAL IV ONE (18:00)
--- NOTE | 2021-09-05 21:26 | Hospitalist Progress Note ---
Date of Service September 05, 2021 Assessment & Plan (1) COVID-19: Plan: +COVID 19 diagnosis on 08/31/21 leading to hospital admission. CXR today appears to show some evidence of congestive change. Particularly at the bases patient seems to have some edema. Patient is afebrile (last fever on 09/02) Patient is saturating well on room air. Not a candidate for remdesivir or systemic steroids Goal should be to maintain a negative fluid balance. Patient currently has 7 L positive Will hold IV fluids and began diuresis with 40 mg of furosemide tonight. We will then resume budesonide and Aldactone at home doses starting tomorrow morning Mucinex 1200 mg BID; Duonebs q4hr prn. Repeat chest x-ray in the morning to rule out developing multifocal infiltrates secondary to COVID-19 Check CRP with a.m. labs (2) SUKI (acute kidney injury): Plan: Acute on chronic kidney disease, stage III. Cr level has resolved and is now at baseline Resume home Bumex and Spironolactone tomorrow. Discontinue IV fluids. Does have slight increase in hyponatremia today (Na level 127 yesterday and now 128). Continue to monitor sodium levels. (3) Acute hyponatremia: Plan: Has been hyponatremic, decreased to 127. Slight improvement to 128 today Hold normal saline and begin diuresis Check repeat labs tomorrow (4) Chronic diastolic CHF (congestive heart failure): Plan: Most recent ECHO in 2019 showed EF of 55-60%. Patient with coarse crackles bilaterally 7 L positive so far this admission Continue home Imdur, Coreg as prescribed. Resume home doses of Bumex and Spironolactone. (5) Atrial fibrillation, permanent: Plan: Rate controlled, 60's on case monitor. Continue home Eliquis 5 mg BID. Of note, Metoprolol is listed on home medication listed but currently held as inpatient. (6) CAD (coronary artery disease): Plan: Continue home meds. (7) Hyperlipidemia: Plan: Continue home statin agent. (8) Diabetes mellitus, type II: Plan: A1C level 9.1 on 09/01/21. SSI ac/hs with gluc checks. Holding home Metformin and Glipizide. Will need testing supplies at home (One touch Verio test strips, one touch delica lancets) (9) Normocytic anemia: Plan: Baseline Hgb ~12 to 12.5 over the last 2 years. Decreased to 10.6 during this hospitalization, likely dilutional. Likely anemia of renal insufficiency but does not qualify for Retacrit injections. Plan: DVT ppx: Eliquis BID. PT/OT recommended return to home with his daughter at discharge. Continue inpatient stay for now. Reevaluate in the morning. Admission and Anticipated Discharge Date Admission Date: August 31, 2021 Supervising Physician Co-Signing Physician Notes Attending Attestation - Chart reviewed in detail, care plan d/w PA Johny Guy. I agree w/ the edwards components of his documentation. Juarez Mendoza MD Subjective Attending: Dr. Mendoza Patient seen and examined in room 251. He is sitting in bedside chair. He does have a what appears to be some labored breathing. Saturation is 95% on room air. He is borderline tachypneic with a respiratory rate between 17 and 18 breaths/min. Patient states that he feels better but still has some shortness of breath. He denies any fever or chills. No significant sputum production. He denies any chest pain. He denies any lower extremity pain. Discussed options regarding discharge planning. Although patient is anxious to be discharged home, he is agreeable to stay and continue to be treated. He reports that he lives with his family who have also been found to be positive for COVID. Chest x-ray findings discussed with the patient and he agrees to diuretics as well as positive air pressure treatment overnight tonight. Review of Systems Review of Systems: A total of 10 systems was reviewed and is negative other than as listed in the HPI Physical Exam Physical Exam: GENERAL : No acute distress although patient does appear to have some labored breathing and is borderline tachypneic EYES: No icterus, gaze conjugate NOSE: No evidence of epistaxis MOUTH: No lesions or candidiasis. Mucosa is moist NECK: Supple LUNGS: Patient with coarse Rales at bilateral bases HEART: Regular, rate controlled ABDOMEN: Soft, NT, ND, BS Present EXTREMITIES: Positive bilateral LE edema, pedal pulses intact and equal bilaterally NEURO: A&OX3 Results & Data Results & Data ([facility]) Vital Signs (Past 12 Hours) Vital Signs Temp Pulse Pulse Resp BP Pulse Ox 09/05/21 20:09 36.7 C 72 18 117/65 96 09/05/21 19:23 62 18 97 09/05/21 19:22 64 18 97 09/05/21 15:12 62 09/05/21 10:43 36.7 C 62 15 112/63 98 Critical Care Results & Data Vital Signs (Past 12 Hours) Vital Signs Temp Pulse Pulse Resp BP Pulse Ox 09/05/21 20:09 36.7 C 72 18 117/65 96 09/05/21 19:23 62 18 97 09/05/21 19:22 64 18 97 09/05/21 15:12 62 09/05/21 10:43 36.7 C 62 15 112/63 98 Lab & Micro Results (Past 24 Hours) No Data to Display No Data to Display No Data to Display Diagnostic Findings (Past 24 Hours) Chest X-Ray 09/05/21 08:47 SINGLE VIEW CHEST CLINICAL HISTORY: Covid. FINDINGS: An AP, portable, upright chest radiograph is compared to study dated 08/31/2021. The patient is status post midline sternotomy. The heart is enlarged noting atherosclerotic calcification of the thoracic aorta. The pulmonary vasculature is noncongested. Chronic interstitial thickening is similar to previous. Linear opacities are present at both lung bases. No large pleural effusion or pneumothorax is seen. The skeletal structures are osteopenic. The bony thorax is grossly intact. Advanced degenerative change is noted in the shoulders and spine. IMPRESSION: 1. Cardiomegaly without radiographic evidence of congestive failure. 2. Linear opacities at both lung bases likely represent scarring/atelectasis. An infectious/inflammatory pneumonitis is considered less likely and clinical correlation will be required. ACT 112: Negative or not required by law. Electronically signed by: Johny Barton M.D. 09/05/2021 9:20 AM I & O Totals 24 Hours 09/04/21 09/05/21 09/06/21 06:59 06:59 06:59 Intake Total 2254.000 / 2254.000 1740 / 1740 1000 / 1000 Output Total 700 / 700 Balance 2254.000 / 2254.000 1040 / 1040 1000 / 1000 Cumulative 08/31/21 18:17 thru 09/05/21 19:30 Intake Total 8366.000 Output Total 1300 Balance 7066.000 RT Ventilator Mngmt (Last Documented) Ventilator Ordered Settings Respiratory Rate 18 09/05/21 20:09 Fraction of Inspired Oxygen 09/01/21 02:24 Ventilator - PT Measurements Respiratory Rate 18 PG Care Time/CCT Total # of Minutes Spent Total Time Spent with Patient: Total time spent is greater than 50% in coordination of care (as documented) at patient's floor/unit and/or counseling patient: Coding Level of Care Code 91271 Subseq Hosp Care Lvl 3 Diagnoses COVID-19 U07.1 SUKI (acute kidney injury) N17.9 Acute hyponatremia E87.1 Chronic diastolic CHF (congestive heart failure) I50.32 Atrial fibrillation, permanent I48.21 CAD (coronary artery disease) I25.10 Hyperlipidemia E78.5 Diabetes mellitus, type II E11.9 Normocytic anemia D64.9 Time Spent (min) 30
[2021-09-06 07:17] LABS: Anion Gap 5 (3-11); BUN Creatinine Ratio 18.6 (10-20); Blood Urea Nitrogen 24 mg/dl (6-23); C Reactive Protein < 0.50 mg/dl (0-0.5); Calcium 8.3 mg/dl (8.5-10.1); Carbon Dioxide 26 mmol/L (21-32); Chloride 98 mmol/L (98-107); Est GFR (African American) 58.2 ml/min; Est GFR (Non-African American) 50.2 ml/min; Glucose 182 mg/dl (70-99(Fasting)); Potassium 4.5 mmol/L (3.5-5.1); Sodium 129 mmol/L (136-145)
--- NOTE | 2021-09-06 08:12 | XRay Report ---
XR chest 1V portable CLINICAL HISTORY: COVID-19 TECHNIQUE: Single frontal radiograph of the chest was obtained. Comparison: Comparison is made to chest radiograph 09/05/2021 FINDINGS: Median sternotomy wires are unchanged. Cardiomegaly is noted. The lungs are clear. No evidence of ple ural effusion or pneumothorax. IMPRESSION: Cardiomegaly without evidence of edema or pneumonia. ACT 112: Negative or not required by law. Electronically signed by: Bebeto Sosa M.D. 09/06/2021 8:11 AM
[2021-09-06] MEDS: INSULIN ASPART PER UNIT SC SCH ×4 (08:21→20:37)
[2021-09-06] MEDS: APIXABAN 5 MG TABLET PO SCH ×2 (08:34→21:27)
[2021-09-06] MEDS: guaiFENesin 600 MG TABCR PO SCH ×2 (08:35→21:27)
[2021-09-06] MEDS: ISOSORBIDE MONO EXTENDED REL 30 MG TABCR PO SCH (08:35)
[2021-09-06] MEDS: SPIRONOLACTONE 25 MG TAB PO SCH (08:36)
[2021-09-06] MEDS: carvediloL 25 MG TAB PO SCH ×2 (08:36→21:27)
[2021-09-06] MEDS: TERAZOSIN HCL 5 MG CAP PO SCH (08:36)
[2021-09-06] MEDS: BUMETANIDE 1 MG TAB PO SCH (08:36)
[2021-09-06] MEDS: FLUTICASONE/VILANTEROL 200/25MCG 14 PUFFS/INHALER INH SCH (08:37)
[2021-09-06] MEDS: ATORVASTATIN 40 MG TAB PO SCH (08:37)
[2021-09-06] MEDS: ASPIRIN 81 MG ECTAB PO SCH (08:38)
--- NOTE | 2021-09-06 09:59 | Hospitalist Progress Note ---
Date of Service September 06, 2021 Assessment & Plan (1) COVID-19: Plan: +COVID 19 diagnosis on 08/31/21 leading to hospital admission. Repeat CXR today shows clearing of the pulmonary edema. Diuresed 700 ml overnight Patient is afebrile (last fever on 09/02) Patient is saturating well on room air. Not a candidate for remdesivir or systemic steroids Goal should be to maintain a negative fluid balance. Patient currently has 7 L positive Held IV fluids yesterday and gave a single dose of IV Lasix last night Resume home dose of budesonide and Aldactone at home doses today Continue Mucinex 1200 mg BID; Duonebs q4hr prn. Repeat chest x-ray in the morning CRP <0.5 Hopeful that the patient can be discharged home tomorrow (2) SUKI (acute kidney injury): Plan: Acute on chronic kidney disease, stage III. Cr level has resolved and is now at baseline Resume home Bumex and Spironolactone today Strict I&Os Strict standing weights daily Does have slight increase in hyponatremia today (Na level 127 yesterday and now 128). Continue to monitor sodium levels. (3) Acute hyponatremia: Plan: Has been hyponatremic, decreased to 127. 129 today Follow serial labs as IV fluids have been held and we began diuresis. (4) Chronic diastolic CHF (congestive heart failure): Plan: Most recent ECHO in 2019 showed EF of 55-60%. Patient with coarse crackles bilaterally 7 L positive so far this admission Continue home Imdur, Coreg as prescribed. Resume home doses of Bumex and Spironolactone. Usual home dose of Bumex is 2 mg daily. Patient was started on 4 mg by the CHF clinic. We will keep patient on 4 mg for now and watch daily weights. Family to maintain daily log and when patient reaches dry weight they are to call the CHF clinic for further instructions on reducing dosage to avoid dehydration. We will continue patient's usual dose of 25 mg daily of spironolactone. (5) Atrial fibrillation, permanent: Plan: Rate controlled, 60's on court monitor. Continue home Eliquis 5 mg BID. Of note, Metoprolol was listed in the progress notes as a home medication listed but currently held as inpatient. I reviewed outpatient notes and it appears that the patient was on Carvidolol 25mg PO BID. Will continue Carvidolol as an inpatient and discharge on same. (6) CAD (coronary artery disease): Plan: Continue home meds. (7) Hyperlipidemia: Plan: Continue home statin agent. (8) Diabetes mellitus, type II: Plan: A1C level 9.1 on 09/01/21. SSI ac/hs with gluc checks. Holding home Metformin and Glipizide. Resume on discharge Will need testing supplies at home (One touch Verio test strips, one touch delica lancets) (9) Normocytic anemia: Plan: Baseline Hgb ~12 to 12.5 over the last 2 years. Decreased to 10.6 during this hospitalization, likely dilutional. Likely anemia of renal insufficiency but does not qualify for Retacrit injections. Plan: DVT ppx: Eliquis BID. PT/OT recommended return to home with his daughter at discharge. Discharge tomorrow Admission and Anticipated Discharge Date Admission Date: August 31, 2021 Supervising Physician Co-Signing Physician Notes Attending Attestation - Chart reviewed in detail, care plan d/w CELESTINO Guy. I agree w/ the edwards components of his documentation. Juarez Mendoza MD Subjective Dr. Mendoza Patient seen and examined in room 351. He is sitting in bedside chair. He is comfortable with no evidence of respiratory distress. He has no audible wheezes or evidence of any acute distress. Patient states that he diuresed well last night. He was given 40 mg of IV Lasix. This morning his lungs are clear but he is still 7 kg above dry weight at 87.4 kg. Patient is agreeable to 1 more day of admission for diuresis. Chest x-ray looks improved. Probable discharge tomorrow. Denies any fever, chills, sweats, rigors. He has no significant cough or sputum production. He does report persistent lower extremity edema. He states that left lower extremity is always more swollen than the right and that this is gone on for years. He has no calf pain, pleuritic pain, or awareness of tachyarrhythmia. He has no acute complaints. Review of Systems Review of Systems: A total of 10 systems was reviewed and is negative other than as listed in the HPI Physical Exam Physical Exam: GENERAL : No acute distress EYES: No icterus, gaze conjugate NOSE: No evidence of epistaxis MOUTH: No lesions or candidiasis NECK: Supple LUNGS: Lungs are now clear to auscultation. Inspirational effort is adequate. No cough with deep inspiration. HEART: Regular, rate controlled ABDOMEN: Soft, NT, ND, BS Present EXTREMITIES: Positive bilateral LE edema (left greater than right) pedal pulses intact and equal bilaterally. Red safety socks in place NEURO: A&OX3 Results & Data Results & Data ([facility]) Vital Signs (Past 12 Hours) Vital Signs Temp Pulse Pulse Resp BP Pulse Ox 09/06/21 07:22 81 09/06/21 07:16 36.9 C 76 18 129/72 97 09/06/21 03:03 36.8 C 71 18 149/67 H 95 09/05/21 23:18 84 09/05/21 23:13 36.3 C L 76 18 134/67 98 Critical Care Results & Data Vital Signs (Past 12 Hours) Vital Signs Temp Pulse Pulse Resp BP Pulse Ox 09/06/21 07:22 81 09/06/21 07:16 36.9 C 76 18 129/72 97 09/06/21 03:03 36.8 C 71 18 149/67 H 95 09/05/21 23:18 84 09/05/21 23:13 36.3 C L 76 18 134/67 98 Lab & Micro Results (Past 24 Hours) No Data to Display No Data to Display No Data to Display Microbiology 08/31/21 19:37 Aerobic Blood Culture - Final Blood No growth in Aerobic bottle after 5 days. Anaerobic Blood Culture - Final 08/31/21 18:55 Aerobic Blood Culture - Final Blood No growth in Aerobic bottle after 5 days. Anaerobic Blood Culture - Final No growth in Anaerobic bottle after 5 days. Diagnostic Findings (Past 24 Hours) Chest X-Ray 09/06/21 07:00 XR chest 1V portable CLINICAL HISTORY: COVID-19 TECHNIQUE: Single frontal radiograph of the chest was obtained. Comparison: Comparison is made to chest radiograph 09/05/2021 FINDINGS: Median sternotomy wires are unchanged. Cardiomegaly is noted. The lungs are clear. No evidence of pleural effusion or pneumothorax. IMPRESSION: Cardiomegaly without evidence of edema or pneumonia. ACT 112: Negative or not required by law. Electronically signed by: Bebeto Sosa M.D. 09/06/2021 8:11 AM I & O Totals 24 Hours 09/05/21 09/06/21 09/07/21 06:59 06:59 06:59 Intake Total 1740 / 1740 1480 / 1480 Output Total 700 / 700 Balance 1040 / 1040 1480 / 1480 Cumulative 08/31/21 18:17 thru 09/06/21 09:37 Intake Total 8846.000 Output Total 1300 Balance 7546.000 RT Ventilator Mngmt (Last Documented) Ventilator Ordered Settings Respiratory Rate 18 09/06/21 07:16 Fraction of Inspired Oxygen 21 09/01/21 02:24 Ventilator - PT Measurements Respiratory Rate 18 PG Care Time/CCT Total # of Minutes Spent Total Time Spent with Patient: Total time spent is greater than 50% in coordination of care (as documented) at patient's floor/unit and/or counseling patient: Prolonged Care Time 60 minutes was spent with this patient. 20 minutes was [id number]. The additional 40 minutes was spent doing medication reconciliation and with family discussion with the daughter Funmi Restrepo at [phone] Coding Level of Care Code 12812 Subseq Hosp Care Lvl 2 (25 - SIGNIFICANT, SEPARATELY IDENTIFIABLE ) Diagnoses COVID-19 U07.1 SUKI (acute kidney injury) N17.9 Acute hyponatremia E87.1 Chronic diastolic CHF (congestive heart failure) I50.32 Atrial fibrillation, permanent I48.21 CAD (coronary artery disease) I25.10 Hyperlipidemia E78.5 Diabetes mellitus, type II E11.9 Normocytic anemia D64.9 Time Spent (min) 60
[2021-09-06] MEDS: NYSTATIN POWDER 15GM BTL EXT SCH (23:55)
[2021-09-07] MEDS: INSULIN ASPART PER UNIT SC SCH ×4 (08:14→20:53)
[2021-09-07] MEDS: carvediloL 25 MG TAB PO SCH ×2 (08:19→20:51)
[2021-09-07] MEDS: APIXABAN 5 MG TABLET PO SCH ×2 (08:19→20:52)
[2021-09-07] MEDS: guaiFENesin 600 MG TABCR PO SCH ×2 (08:19→20:50)
[2021-09-07] MEDS: ATORVASTATIN 40 MG TAB PO SCH (08:21)
[2021-09-07] MEDS: ASPIRIN 81 MG ECTAB PO SCH (08:21)
[2021-09-07] MEDS: NYSTATIN POWDER 15GM BTL EXT SCH ×3 (08:21→20:53)
[2021-09-07] MEDS: FLUTICASONE/VILANTEROL 200/25MCG 14 PUFFS/INHALER INH SCH (08:21)
[2021-09-07] MEDS: BUMETANIDE 1 MG TAB PO SCH (08:21)
[2021-09-07] MEDS: TERAZOSIN HCL 5 MG CAP PO SCH (08:21)
[2021-09-07] MEDS: SPIRONOLACTONE 25 MG TAB PO SCH (08:21)
[2021-09-07] MEDS: ISOSORBIDE MONO EXTENDED REL 30 MG TABCR PO SCH (08:22)
[2021-09-07 09:44] LABS: Calcium 8.5 mg/dl (8.5-10.1); Creatinine Clr Calc Pharmacy 44.6 ml/min; Est GFR (African American) 56.1 ml/min; Est GFR (Non-African American) 48.4 ml/min; Potassium 4.7 mmol/L (3.5-5.1)
--- NOTE | 2021-09-07 11:57 | Hospitalist Progress Note ---
Date of Service September 07, 2021 Assessment & Plan (1) COVID-19: Plan: Although chest x-rays do not show obvious pneumonia, he has multiple pulmonary symptoms and on exam he is wheezing with rales. Some of his symptoms/signs could be from CHF, and some could be from COVID-19 pneumonia. Continue to diurese. Given his known asthma/COPD will start dexamethasone 6mg daily. This will help his pulmonary symptoms but may improve his appetite/fatigue. Flutter valve/incentive ordered. Add combivent 1 puff q6h. (2) SUKI (acute kidney injury): Plan: Peak Cr 1.8 Baseline Cr 1.2 Today 1.3 BMP in am given the ongoing diuresis (3) Acute hyponatremia: Plan: Has had such since admission. Lowest Na level 127. 129 today. Weights, exam, etc all suggest ongoing volume overload. Cont AM bumex 4mg daily. Give additional bumex 2mg x 1 late this afternoon. (4) Chronic diastolic CHF (congestive heart failure): Plan: ACUTE ON CHRONIC. Continues to examine volume overloaded. Receiving 4mg qam. Will give additional 2mg x 1 this afternoon. Continue aldactone 25mg daily. BMP in am. (5) Atrial fibrillation, permanent: Plan: Controlled. Cont coreg 25mg BID. Cont Eliquis 5mg BID. (6) CAD (coronary artery disease): Plan: Continue asa, statin, beta lita. No ischemic symptoms at this time. (7) Hyperlipidemia: Plan: Continue home statin agent. (8) Diabetes mellitus, type II: Plan: A1C level 9.1 on 09/01/21. Holding oral agents. With starting dexamethasone he will need additional insulin. Add lantus 10 units HS. Cont novolog SSI. Will need testing supplies at home (One touch Verio test strips, one touch delica lancets) (9) Normocytic anemia: Plan: Baseline Hgb ~12 to 12.5 over the last 2 years. Repeat cbc in am for stability. (10) Candidal diaper rash: Plan: Severe. Increase nystatin powder to TID dosing. (11) COPD exacerbation: Plan: uncertain if patient has asthma or COPD. he was not a smoker based on records. either way he has wheezing. wheezing could be due to obstructive lung disease or from pulmonary edema (or both). adding steroids. diuresing. (12) Chronic renal failure, stage 3a: Plan: CrCl mid 40s BMP am for stability Plan: DVT prophylaxis - Eliquis BID. Patient has not worked with PT in several days - will need to work with them again given his fatigue. Consult OT. Updated pt's daughter Funmi by phone today Discussed that due to low Na, ongoing fatigue/weakness, etc he would benefit from ongoing hospitalization Admission and Anticipated Discharge Date Admission Date: August 31, 2021 Subjective tele overnight with jenise during the visit he was sitting in the chair by the window he endorsed feeling tired and fatigued energy is poor appetite is poor he continues with cough, and does get short of breath with moving about in the room no dyspnea at rest he denies chest pain Review of Systems Review of Systems: gen - no fevers or chills cv - orthopnea but it is chronic; he sleeps in recliner at home, and is sleeping in the chair here pulm - cough/wheezing/dyspnea GI - no abd pain, no nausea or emesis skin - c/o uncomfortable, itchy rash in groin Physical Exam Physical Exam: gen - NAD, sitting in chair, looks very tired and weak neck - no JVD sitting at 90 degrees mouth - MMM heart - irregular, s1 s2 lungs - end-exp wheezes b/l, rales b/l bases, no increased work of breathing abd - soft NT ND BS+ ext - 1+ edema b/l, pulses 2+ b/l psych - a/o x 3 skin - candidal rash b/l groin - severe Results & Data Results & Data ([facility]) Vital Signs (Past 12 Hours) Vital Signs Temp Pulse Pulse Resp BP BP Pulse Ox 09/07/21 07:58 36.7 C 73 20 151/54 H 94 09/07/21 05:38 66 09/07/21 03:07 36.7 C 75 18 113/62 94 Laboratory Results Laboratory Results - last 24 hr 09/02/21 09/06/21 09/06/21 21:45 12:02 16:38 Sodium Potassium Chloride Carbon Dioxide Anion Gap BUN Creatinine Est Cr Clr Drug Dosing Est GFR ( Amer) Est GFR (Non-Af Amer) BUN/Creatinine Ratio Glucose POC Glucose 188 H 91 Calcium Miscellaneous Test REPORT 09/06/21 09/07/21 09/07/21 20:15 07:29 07:51 Sodium 129 L Potassium 4.7 Chloride 95 L Carbon Dioxide 26 Anion Gap 8 BUN 24 H Creatinine 1.33 Est Cr Clr Drug Dosing 44.6 Est GFR ( Amer) 56.1 Est GFR (Non-Af Amer) 48.4 BUN/Creatinine Ratio 18.0 Glucose 131 H POC Glucose 89 131 H Calcium 8.5 Miscellaneous Test PG Care Time/CCT Total # of Minutes Spent Total Time Spent with Patient: Total time spent is greater than 50% in coordination of care (as documented) at patient's floor/unit and/or counseling patient: Coding Level of Care Code 48024 Subseq Hosp Care Lvl 3 Diagnoses COVID-19 U07.1 SUKI (acute kidney injury) N17.9 Acute hyponatremia E87.1 Chronic diastolic CHF (congestive heart failure) I50.32 Atrial fibrillation, permanent I48.21 CAD (coronary artery disease) I25.10 Hyperlipidemia E78.5 Diabetes mellitus, type II E11.9 Normocytic anemia D64.9 Candidal diaper rash B37.2; L22 COPD exacerbation J44.1 Chronic renal failure, stage 3a N18.31
[2021-09-07] MEDS: dexAMETHasone 1 MG TAB PO SCH (12:55)
[2021-09-07] MEDS ORDERED: IPRATROPIUM BROMIDE/ALBUTEROL respimat INH INH SCH (13:00)
[2021-09-07] MEDS: IPRATROPIUM BROMIDE HFA INHALER INH SCH ×2 (15:15→20:00)
[2021-09-07] MEDS: ALBUTEROL HFA 8 GM INHALER INH SCH ×2 (15:15→20:00)
[2021-09-07] MEDS ORDERED: BUMETANIDE 2 MG in SYRINGE 0 ML IV ONE (16:00)
[2021-09-07] MEDS ORDERED: INSULIN GLARGINE SOLOSTAR 100 UNITS/ML 3 ML PEN SC SCH (22:10)
[2021-09-08 07:07] LABS: Hemoglobin 10.8 g/dL (14.0-18.0); Immature Granulocytes # (auto) 0.01 K/uL (0.00-0.02); Immature Granulocytes % (auto) 0.2 %; Lymphocytes % (auto) 17.8 %; Mean Corpuscular Hemoglobin 29.3 pg (25-34); Mean Corpuscular Hgb Conc 34.8 g/dL (32-36); Mean Platelet Volume 8.8 fL (7.4-10.4); Monocytes # (auto) 0.19 K/uL (0.11-0.59); Monocytes % (auto) 3.8 %; Neutrophils # (auto) 3.96 K/uL (1.4-6.5); Neutrophils % (auto) 78.2 %; Platelet Count 154 K/uL (130-400); RDW Coefficient of Variation 13.8 % (11.5-14.5); RDW Standard Deviation 42.4 fL (36.4-46.3); Red Blood Count 3.69 M/uL (4.7-6.1); White Blood Count 5.06 K/uL (4.8-10.8)
[2021-09-08] MEDS: ALBUTEROL HFA 8 GM INHALER INH SCH ×4 (07:29→19:37)
[2021-09-08] MEDS: IPRATROPIUM BROMIDE HFA INHALER INH SCH ×4 (07:29→19:37)
[2021-09-08 07:32] LABS: BUN Creatinine Ratio 18.9 (10-20); Calcium 8.5 mg/dl (8.5-10.1); Creatinine Clr Calc Pharmacy 41.5 ml/min; Est GFR (African American) 51.4 ml/min; Est GFR (Non-African American) 44.3 ml/min; Magnesium 1.7 mg/dl (1.7-2.4); Potassium 4.6 mmol/L (3.5-5.1)
[2021-09-08] MEDS ORDERED: INSULIN GLARGINE SOLOSTAR 100 UNITS/ML 3 ML PEN SC SCH (07:45)
[2021-09-08] MEDS: INSULIN ASPART PER UNIT SC SCH ×4 (09:20→23:04)
[2021-09-08] MEDS: APIXABAN 5 MG TABLET PO SCH ×2 (09:28→22:40)
[2021-09-08] MEDS: guaiFENesin 600 MG TABCR PO SCH ×2 (09:29→22:41)
[2021-09-08] MEDS: TERAZOSIN HCL 5 MG CAP PO SCH (09:29)
[2021-09-08] MEDS: SPIRONOLACTONE 25 MG TAB PO SCH (09:29)
[2021-09-08] MEDS: carvediloL 25 MG TAB PO SCH ×2 (09:29→22:41)
[2021-09-08] MEDS: ISOSORBIDE MONO EXTENDED REL 30 MG TABCR PO SCH (09:30)
[2021-09-08] MEDS: dexAMETHasone 1 MG TAB PO SCH (09:30)
[2021-09-08] MEDS: ATORVASTATIN 40 MG TAB PO SCH (09:30)
[2021-09-08] MEDS: BUMETANIDE 1 MG TAB PO SCH (09:30)
[2021-09-08] MEDS: FLUTICASONE/VILANTEROL 200/25MCG 14 PUFFS/INHALER INH SCH (09:30)
[2021-09-08] MEDS: ASPIRIN 81 MG ECTAB PO SCH (09:30)
[2021-09-08] MEDS: NYSTATIN POWDER 15GM BTL EXT SCH ×3 (09:31→23:05)
--- NOTE | 2021-09-08 09:45 | Hospitalist Progress Note ---
Date of Service September 08, 2021 Assessment & Plan (1) COVID-19: Plan: Chest x-rays does not show obvious pneumonia, he has clinical pulmonary symptoms with wheezing with rales. Given his known asthma/COPD dexamethasone 6mg daily. diuresis also Flutter valve/incentive ordered. combivent 1 puff q6h. (2) SUKI (acute kidney injury): Plan: Peak Cr 1.8 now resolved Baseline Cr 1.2 (3) Acute hyponatremia: Plan: maybe influenced by hyperglycemia, check urine sodium but will be influenced by diuretics fluid restrict maybe influenced by diuresis (4) Chronic diastolic CHF (congestive heart failure): Plan: ACUTE ON CHRONIC. Bumes 4mg qam. additional dosing is symptom based Continue aldactone 25mg daily. (5) Atrial fibrillation, permanent: Plan: rate Controlled. Cont coreg 25mg BID. Cont Eliquis 5mg BID. (6) CAD (coronary artery disease): Plan: Continue asa, statin, beta lita. No ischemic symptoms at this time. (7) Diabetes mellitus, type II: Plan: A1C level 9.1 on 09/01/21. Holding oral agents. With dexamethasone poor glucose control Added lantus 10 units HS. added nph 0.4 units per kg daily while on dexamethasone Cont novolog SSI. Will need testing supplies at home (One touch Verio test strips, one touch delica lancets) (8) Normocytic anemia: Plan: Baseline Hgb ~12 to 12.5 over the last 2 years. Repeat cbc in am for stability. (9) Candidal diaper rash: Plan: Severe. Increase nystatin powder to TID dosing. (10) COPD exacerbation: Plan: uncertain if patient has asthma or COPD. he was not a smoker based on records. either way he has wheezing. wheezing could be due to obstructive lung disease or from pulmonary edema (or both). adding steroids. diuresing. (11) Chronic renal failure, stage 3a: Plan: CrCl mid 40s BMP am for stability Plan: DVT prophylaxis - Eliquis BID. Patient has not worked with PT in several days - will need to work with them again given his fatigue. Consult OT. Discussed that due to low Na, ongoing fatigue/weakness, etc he would benefit from ongoing hospitalization Admission and Anticipated Discharge Date Admission Date: August 31, 2021 Subjective Patient states he feels improved from when he came in but not near his baseline. Biggest complaints are peripheral edema decreased energy and dyspnea on exertion Has had some improvement in appetite Review of Systems Review of Systems: Moderate distress and fatigue no headache, no visual changes no speech or swallowing issues no chest pain, pressure or palpitations Dyspnea on exertion no coughing no abdominal pain, nausea or vomiting, diarrhea or constipation no dysuria, hematuria or frequency no focal joint pain significant smelling swelling of bilateral lower extremities and also right hand the right hand might be traumatic from blood draw no back pain, CVA tenderness or radicular pain no bruising, bleeding or rashes no focal signs of weakness or numbness or altered sensation Physical Exam Physical Exam: The patient appeared chronically ill and moderately fluid overloaded third space fluid Vital signs as documented. Head exam is normocephalic atraumatic Neck is without significant JVD, thyromegaly, or carotid bruits. Lungs are diminished at the bases but clear Cardiac exam, Rhythm is regular.. No murmurs, rubs or gallops. Abdominal exam reveals normal bowel sounds, soft non tender, no masses Extremities are 1-2+ edematous and both dorsal feet are swollen Neurologic exam is alert and oriented, no focal loss of strength or sensation Skin is with just to his right hand Psychologically is without concerns for anxiety or depression.. Results & Data Results & Data ([facility]) Vital Signs (Past 12 Hours) Vital Signs Temp Pulse Pulse Resp BP Pulse Ox 09/08/21 07:48 63 09/08/21 07:34 71 18 94 09/08/21 06:35 97.5 F L 73 20 150/76 H 95 09/08/21 03:28 97.5 F L 68 20 125/63 93 09/08/21 00:00 78 09/07/21 22:10 98.1 F 84 20 113/67 94 PG Care Time/CCT Total # of Minutes Spent Total Time Spent with Patient: Total time spent is greater than 50% in coordination of care (as documented) at patient's floor/unit and/or counseling patient: Coding Level of Care Code 27104 Subseq Hosp Care Lvl 2 Diagnoses COVID-19 U07.1 SUKI (acute kidney injury) N17.9 Acute hyponatremia E87.1 Chronic diastolic CHF (congestive heart failure) I50.32 Atrial fibrillation, permanent I48.21 CAD (coronary artery disease) I25.10 Diabetes mellitus, type II E11.9 Normocytic anemia D64.9 Candidal diaper rash B37.2; L22 COPD exacerbation J44.1 Chronic renal failure, stage 3a N18.31
[2021-09-08] MEDS ORDERED: INSULIN HUMAN NPH SC SCH (10:00)
--- NOTE | 2021-09-08 14:39 | Pharmacy Report ---
Pharmacy Glycemic Short Note 2 - Date of Service September 08, 2021 - Glycemic Short BSG Results (Last 24 hours): 09/07/21 09/07/21 09/07/21 16:47 20:40 20:43 Glucose POC Glucose 193 H 244 H 261 H 09/08/21 09/08/21 09/08/21 06:52 08:02 08:04 Glucose 301 H* POC Glucose 312 H* 304 H* 09/08/21 11:27 Glucose POC Glucose 272 H OUTPATIENT ANTIDIABETIC REGIMEN: * Metformin 500 mg Daily * Glipizide 10 mg daily * A1c 9.1% ASSESSMENT: * Mr Restrepo was started on PO dexamethasone yesterday. Predictably, this has caused significant steroid-induced hyperglycemia. * Pt was re-initiated on basal insulin. Will dose cautiously as pt was very sensitive to Lantus earlier in admission and experienced some hypoglycemia. * Novolog parameters were tightened this morning as well. * Will continue to follow and adjust as indicated. PLAN FOR INPATIENT GLYCEMIC CONTROL: * Hold outpatient oral diabetes medications * Basal insulin * Lantus 10 units SQ BID * Bolus insulin * NovoLog per scale ACHS or Q6hrs while NPO * Goal Range: Low 120 mg/dL - High 160 mg/dL * Correction Factor: 30 mg/dL/unit * Nutritional / Prandial insulin per carb ratio of 1 unit per 9 grams CHO consumed
[2021-09-08] MEDS: INSULIN GLARGINE SOLOSTAR 100 UNITS/ML 3 ML PEN SC SCH (23:05)
[2021-09-09] MEDS: IPRATROPIUM BROMIDE HFA INHALER INH SCH ×4 (07:58→19:44)
[2021-09-09] MEDS: ALBUTEROL HFA 8 GM INHALER INH SCH ×4 (07:58→19:45)
[2021-09-09] MEDS: INSULIN ASPART PER UNIT SC SCH ×3 (08:52→17:24)
[2021-09-09] MEDS: INSULIN GLARGINE SOLOSTAR 100 UNITS/ML 3 ML PEN SC SCH (08:52)
[2021-09-09] MEDS: PANTOprazole 40 MG TAB PO PRN (09:01)
[2021-09-09] MEDS: guaiFENesin 600 MG TABCR PO SCH ×2 (09:01→21:12)
[2021-09-09] MEDS: TORSEMIDE 100 MG TAB PO SCH (09:01)
[2021-09-09] MEDS: ISOSORBIDE MONO EXTENDED REL 30 MG TABCR PO SCH (09:01)
[2021-09-09] MEDS: ATORVASTATIN 40 MG TAB PO SCH (09:02)
[2021-09-09] MEDS: carvediloL 25 MG TAB PO SCH ×2 (09:02→21:12)
[2021-09-09] MEDS: SPIRONOLACTONE 25 MG TAB PO SCH (09:02)
[2021-09-09] MEDS: TERAZOSIN HCL 5 MG CAP PO SCH (09:02)
[2021-09-09] MEDS: ASPIRIN 81 MG ECTAB PO SCH (09:02)
[2021-09-09] MEDS: FLUTICASONE/VILANTEROL 200/25MCG 14 PUFFS/INHALER INH SCH (09:02)
[2021-09-09] MEDS: dexAMETHasone 1 MG TAB PO SCH (09:02)
[2021-09-09] MEDS: APIXABAN 5 MG TABLET PO SCH ×2 (09:02→21:11)
[2021-09-09] MEDS: NYSTATIN POWDER 15GM BTL EXT SCH ×3 (09:03→21:11)
[2021-09-09 10:38] LABS: BUN Creatinine Ratio 25.9 (10-20); Calcium 8.4 mg/dl (8.5-10.1); Creatinine Clr Calc Pharmacy 41.5 ml/min; Est GFR (African American) 51.4 ml/min; Est GFR (Non-African American) 44.3 ml/min; Potassium 4.5 mmol/L (3.5-5.1)
--- NOTE | 2021-09-09 13:25 | Pharmacy Report ---
Pharmacy Glycemic Short Note 2 - Date of Service September 09, 2021 - Glycemic Short BSG Results (Last 24 hours): 09/08/21 09/08/21 09/08/21 16:40 20:17 20:19 Glucose POC Glucose 227 H 426 H* 296 H 09/08/21 09/09/21 09/09/21 20:46 07:29 09:50 Glucose 249 H POC Glucose 324 H* 218 H 09/09/21 11:28 Glucose POC Glucose 254 H OUTPATIENT ANTIDIABETIC REGIMEN: * Metformin 500 mg Daily * Glipizide 10 mg daily * A1c 9.1% ASSESSMENT: * BSGs yesterday were [phone] mg/dL. Fasting this morning was 218 mg/dL. * Patient received 48 units of insulin (20 units of basal and 28 units of bolus). * Continue Lantus 10 units BID with dexamethasone 6 mg PO daily. Fasting has decreased by almost 100 points which is appropriate. * Tighten CR with steroids. Background * Mr Restrepo was started on PO dexamethasone yesterday. Predictably, this has caused significant steroid-induced hyperglycemia. * Pt was re-initiated on basal insulin. Will dose cautiously as pt was very sensitive to Lantus earlier in admission and experienced some hypoglycemia. * Novolog parameters were tightened this morning as well. * Will continue to follow and adjust as indicated. PLAN FOR INPATIENT GLYCEMIC CONTROL: * Hold outpatient oral diabetes medications * Basal insulin * Lantus 10 units SQ BID * Bolus insulin * NovoLog per scale ACHS or Q6hrs while NPO * Goal Range: Low 110 mg/dL - High 140 mg/dL * Correction Factor: 30 mg/dL/unit * Nutritional / Prandial insulin per carb ratio of 1 unit per 7 grams CHO consumed
--- NOTE | 2021-09-09 15:43 | Hospitalist Progress Note ---
Date of Service September 09, 2021 Assessment & Plan (1) COVID-19: Plan: Chest x-rays does not show obvious pneumonia, he has clinical pulmonary symptoms with wheezing with rales. Given his known asthma/COPD dexamethasone 6mg daily. diuresis also Flutter valve/incentive ordered. combivent 1 puff q6h respiratory status is stable at this time . (2) SUKI (acute kidney injury): Plan: Peak Cr 1.8 now resolved Cr is 1.4 and will be followed (3) Acute hyponatremia: Plan: maybe influenced by hyperglycemia, eleated urine sodium secondary to diuretics fluid restrict maybe influenced by diuresis (4) Chronic diastolic CHF (congestive heart failure): Plan: ACUTE ON CHRONIC. will try toresemide and elevate legs (5) Atrial fibrillation, permanent: Plan: remains rate Controlled. Cont coreg 25mg BID. Cont Eliquis 5mg BID. (6) CAD (coronary artery disease): Plan: Continue asa, statin, beta lita. No ischemic symptoms at this time. (7) Diabetes mellitus, type II: Plan: A1C level 9.1 on 09/01/21. Holding oral agents. With dexamethasone poor glucose control Added lantus 10 units HS. added nph 0.4 units per kg daily while on dexamethasone Cont novolog SSI. Will need testing supplies at home (One touch Verio test strips, one touch delica lancets) (8) Normocytic anemia: Plan: Baseline Hgb ~12 to 12.5 over the last 2 years. Repeat cbc in am for stability. (9) Candidal diaper rash: Plan: Severe. Increase nystatin powder to TID dosing. (10) COPD exacerbation: Plan: uncertain if patient has asthma or COPD. he was not a smoker based on records. either way he has wheezing. wheezing could be due to obstructive lung disease or from pulmonary edema (or both). adding steroids. diuresing. (11) Chronic renal failure, stage 3a: Plan: CrCl mid 40s BMP am for stability Plan: DVT prophylaxis - Eliquis BID. Patient has not worked with PT in several days - will need to work with them again given his fatigue. Consult OT. Discussed that due to low Na, ongoing fatigue/weakness, etc he would benefit from ongoing hospitalization Admission and Anticipated Discharge Date Admission Date: August 31, 2021 Subjective Patient states he feels improved from when he came in but not near his baseline. Biggest complaints are peripheral edema decreased energy and dyspnea on exertion Has had some improvement in appetite Review of Systems Review of Systems: Moderate distress and fatigue no headache, no visual changes no speech or swallowing issues no chest pain, pressure or palpitations Dyspnea on exertion no coughing no abdominal pain, nausea or vomiting, diarrhea or constipation no dysuria, hematuria or frequency no focal joint pain significant smelling swelling of bilateral lower extremities no back pain, CVA tenderness or radicular pain no bruising, bleeding or rashes no focal signs of weakness or numbness or altered sensation Physical Exam Physical Exam: The patient appeared chronically ill and moderately fluid overloaded third space fluid Vital signs as documented. Head exam is normocephalic atraumatic Neck is without significant JVD, thyromegaly, or carotid bruits. Lungs are diminished at the bases but clear Cardiac exam, Rhythm is regular.. No murmurs, rubs or gallops. Abdominal exam reveals normal bowel sounds, soft non tender, no masses Extremities are 1-2+ edematous and both dorsal feet are swollen Neurologic exam is alert and oriented, no focal loss of strength or sensation Skin is with just to his right hand Psychologically is without concerns for anxiety or depression.. Results & Data Results & Data ([facility]) Vital Signs (Past 12 Hours) Vital Signs Temp Pulse Pulse Resp BP Pulse Ox 09/09/21 15:22 62 18 95 09/09/21 11:35 97.3 F L 59 L 18 108/62 92 09/09/21 11:14 65 18 92 09/09/21 07:58 64 18 94 09/09/21 07:38 98.1 F 56 L 16 145/79 H 94 09/09/21 07:16 60 09/09/21 03:46 64 PG Care Time/CCT Total # of Minutes Spent Total Time Spent with Patient: Total time spent is greater than 50% in coordination of care (as documented) at patient's floor/unit and/or counseling patient: Coding Diagnoses COVID-19 U07.1 SUKI (acute kidney injury) N17.9 Acute hyponatremia E87.1 Chronic diastolic CHF (congestive heart failure) I50.32 Atrial fibrillation, permanent I48.21 CAD (coronary artery disease) I25.10 Diabetes mellitus, type II E11.9 Normocytic anemia D64.9 Candidal diaper rash B37.2; L22 COPD exacerbation J44.1 Chronic renal failure, stage 3a N18.31
[2021-09-09] MEDS ORDERED: INSULIN HUMAN NPH SC ONE (15:50)
[2021-09-09] MEDS ORDERED: NovoLIN-N (NPH) PER UNIT CHARGE SQ ONE ×2 (16:15→16:30)
[2021-09-10] MEDS: INSULIN ASPART PER UNIT SC SCH ×5 (00:55→22:03)
[2021-09-10] MEDS: INSULIN GLARGINE SOLOSTAR 100 UNITS/ML 3 ML PEN SC SCH ×3 (00:56→22:03)
[2021-09-10] MEDS: ALBUTEROL HFA 8 GM INHALER INH SCH ×3 (07:30→16:15)
[2021-09-10] MEDS: IPRATROPIUM BROMIDE HFA INHALER INH SCH ×3 (07:30→16:15)
[2021-09-10] MEDS ORDERED: INSULIN HUMAN NPH SC SCH (09:00)
[2021-09-10] MEDS: TORSEMIDE 100 MG TAB PO SCH (09:03)
[2021-09-10] MEDS: PANTOprazole 40 MG TAB PO PRN (09:03)
[2021-09-10 09:04] LABS: BUN Creatinine Ratio 28.7 (10-20); Calcium 8.9 mg/dl (8.5-10.1); Creatinine Clr Calc Pharmacy 39.5 ml/min; Est GFR (African American) 48.5 ml/min; Est GFR (Non-African American) 41.9 ml/min; Potassium 4.3 mmol/L (3.5-5.1)
[2021-09-10] MEDS: ASPIRIN 81 MG ECTAB PO SCH (09:04)
[2021-09-10] MEDS: APIXABAN 5 MG TABLET PO SCH ×2 (09:04→21:32)
[2021-09-10] MEDS: SPIRONOLACTONE 25 MG TAB PO SCH (09:04)
[2021-09-10] MEDS: dexAMETHasone 1 MG TAB PO SCH (09:04)
[2021-09-10] MEDS: ATORVASTATIN 40 MG TAB PO SCH (09:04)
[2021-09-10] MEDS: TERAZOSIN HCL 5 MG CAP PO SCH (09:04)
[2021-09-10] MEDS: carvediloL 25 MG TAB PO SCH ×2 (09:04→21:32)
[2021-09-10] MEDS: ISOSORBIDE MONO EXTENDED REL 30 MG TABCR PO SCH (09:05)
[2021-09-10] MEDS: guaiFENesin 600 MG TABCR PO SCH ×2 (09:05→21:32)
[2021-09-10] MEDS: FLUTICASONE/VILANTEROL 200/25MCG 14 PUFFS/INHALER INH SCH (09:06)
[2021-09-10] MEDS: NYSTATIN POWDER 15GM BTL EXT SCH ×3 (09:06→21:35)
--- NOTE | 2021-09-10 13:30 | Pharmacy Report ---
Pharmacy Glycemic Short Note 2 - Date of Service September 10, 2021 - Glycemic Short BSG Results (Last 24 hours): 09/09/21 09/09/21 09/10/21 16:33 20:37 07:36 Glucose POC Glucose 234 H 174 H 203 H 09/10/21 09/10/21 07:54 11:27 Glucose 173 H POC Glucose 169 H OUTPATIENT ANTIDIABETIC REGIMEN: * Metformin 500 mg Daily * Glipizide 10 mg daily * A1c 9.1% ASSESSMENT: 09/10/21 * BSGs yesterday were [phone] mg/dL which was improved compared to the day previously. * Patient continues on dexamethasone 6 mg PO daily. * Patient received 53 units of insulin yesterday (20 units basal plus 33 units bolus). * Since BSGs remain > 200 mg/dL for much of the day, initiate NPH 26 units (0.2 units/kg). Will hold off on titrating Lantus since NPH ordered. * Continue tightened Novolog. 09/09/21 * BSGs yesterday were [phone] mg/dL. Fasting this morning was 218 mg/dL. * Patient received 48 units of insulin (20 units of basal and 28 units of bolus). * Continue Lantus 10 units BID with dexamethasone 6 mg PO daily. Fasting has decreased by almost 100 points which is appropriate. * Tighten CR with steroids. Background * Mr Restrepo was started on PO dexamethasone yesterday. Predictably, this has caused significant steroid-induced hyperglycemia. * Pt was re-initiated on basal insulin. Will dose cautiously as pt was very sensitive to Lantus earlier in admission and experienced some hypoglycemia. * Novolog parameters were tightened this morning as well. * Will continue to follow and adjust as indicated. PLAN FOR INPATIENT GLYCEMIC CONTROL: * Hold outpatient oral diabetes medications * Basal insulin * Lantus 10 units SQ BID * NPH 26 units daily with dexamethasone * Bolus insulin * NovoLog per scale ACHS or Q6hrs while NPO * Goal Range: Low 110 mg/dL - High 140 mg/dL * Correction Factor: 25 mg/dL/unit * Nutritional / Prandial insulin per carb ratio of 1 unit per 7 grams CHO consumed
[2021-09-10] MEDS ORDERED: ALBUTEROL HFA 8 GM INHALER INH PRN (15:32)
[2021-09-10] MEDS ORDERED: IPRATROPIUM BROMIDE HFA INHALER INH PRN (15:33)
--- NOTE | 2021-09-10 16:50 | Hospitalist Progress Note ---
Date of Service September 10, 2021 Assessment & Plan (1) COVID-19: Plan: Chest x-rays does not show obvious pneumonia, he has clinical pulmonary symptoms with wheezing with rales. Given his known asthma/COPD dexamethasone 6mg daily. diuresis also Flutter valve/incentive ordered. Combivent 1 puff q6h is stable will move to prn respiratory status is stable at this time . (2) USKI (acute kidney injury): Plan: Peak Cr 1.8 now resolved Cr is 1.4 and will be followed (3) Acute hyponatremia: Plan: maybe influenced by hyperglycemia, eleated urine sodium secondary to diuretics fluid restrict maybe influenced by diuresis (4) Chronic diastolic CHF (congestive heart failure): Plan: ACUTE ON CHRONIC. will try toresemide and elevate legs (5) Atrial fibrillation, permanent: Plan: remains rate Controlled. Cont coreg 25mg BID. Cont Eliquis 5mg BID. (6) CAD (coronary artery disease): Plan: Continue asa, statin, beta lita. No ischemic symptoms at this time. (7) Diabetes mellitus, type II: Plan: A1C level 9.1 on 09/01/21. Holding oral agents. With dexamethasone poor glucose control Added lantus 10 units HS. added nph 0.4 units per kg daily while on dexamethasone Cont novolog SSI. Will need testing supplies at home (One touch Verio test strips, one touch delica lancets) (8) Normocytic anemia: Plan: Baseline Hgb ~12 to 12.5 over the last 2 years. (9) Candidal diaper rash: Plan: Increase nystatin powder to TID dosing. (10) COPD exacerbation: Plan: uncertain if patient has asthma or COPD. improved as covid has resolved, and diuretic used inhalers moved to prn (11) Chronic renal failure, stage 3a: Plan: CrCl mid 40s BMP am for stability Plan: DVT prophylaxis - Eliquis BID. Admission and Anticipated Discharge Date Admission Date: August 31, 2021 Subjective pt is in much better spirits today, still with some swelling but is much better. did have some renal distress due is not significant no sob no cough no chest pain Review of Systems Review of Systems: Mild distress and fatigue no headache, no visual changes no speech or swallowing issues no chest pain, pressure or palpitations no shortness of breath, cough or wheezes no abdominal pain, nausea or vomiting, diarrhea or constipation no dysuria, hematuria or frequency does have b/l lower leg swelling, left > right no back pain, CVA tenderness or radicular pain no bruising, bleeding or rashes no focal signs of weakness or numbness or altered sensation no complaints of anxiety or depression.. Physical Exam Physical Exam: The patient appeared well nourished and normally developed. Vital signs as documented. Head exam is normocephalic atraumatic Neck is without JVD, thyromegaly, or carotid bruits. Lungs are clear to auscultation, no focal loss of breath sounds Cardiac exam, Rhythm is regular.. No murmurs, rubs or gallops. Abdominal exam reveals normal bowel sounds, soft non tender, no masses Extremities are nonedematous and both pedal pulses are present Neurologic exam is alert and oriented, no focal loss of strength or sensation Skin is without bruises or rashes Psychologically is without concerns for anxiety or depression.. Results & Data Results & Data ([facility]) Vital Signs (Past 12 Hours) Vital Signs Temp Pulse Pulse Resp BP Pulse Ox 09/10/21 11:44 76 18 95 09/10/21 10:41 54 L 09/10/21 08:21 97.5 F L 66 18 175/71 H 96 09/10/21 07:31 75 16 93 PG Care Time/CCT Total # of Minutes Spent Total Time Spent with Patient: Total time spent is greater than 50% in coordination of care (as documented) at patient's floor/unit and/or counseling patient: Coding Level of Care Code 79088 Subseq Hosp Care Lvl 2 Diagnoses COVID-19 U07.1 SUKI (acute kidney injury) N17.9 Acute hyponatremia E87.1 Chronic diastolic CHF (congestive heart failure) I50.32 Atrial fibrillation, permanent I48.21 CAD (coronary artery disease) I25.10 Diabetes mellitus, type II E11.9 Normocytic anemia D64.9 Candidal diaper rash B37.2; L22 COPD exacerbation J44.1 Chronic renal failure, stage 3a N18.31
[2021-09-11 06:13] LABS: Creatinine Clr Calc Pharmacy 35.1 ml/min; Est GFR (Non-African American) 36.2 ml/min; Potassium 4.7 mmol/L (3.5-5.1)
[2021-09-11] MEDS: INSULIN ASPART PER UNIT SC SCH ×2 (08:25→12:21)
[2021-09-11] MEDS: guaiFENesin 600 MG TABCR PO SCH (08:31)
[2021-09-11] MEDS: carvediloL 25 MG TAB PO SCH (08:31)
[2021-09-11] MEDS: TERAZOSIN HCL 5 MG CAP PO SCH (08:32)
[2021-09-11] MEDS: ISOSORBIDE MONO EXTENDED REL 30 MG TABCR PO SCH (08:32)
[2021-09-11] MEDS: ASPIRIN 81 MG ECTAB PO SCH (08:32)
[2021-09-11] MEDS: NYSTATIN POWDER 15GM BTL EXT SCH (08:33)
[2021-09-11] MEDS: ATORVASTATIN 40 MG TAB PO SCH (08:33)
[2021-09-11] MEDS: APIXABAN 5 MG TABLET PO SCH (08:33)
[2021-09-11] MEDS: INSULIN GLARGINE SOLOSTAR 100 UNITS/ML 3 ML PEN SC SCH (08:52)
[2021-09-11] MEDS: FLUTICASONE/VILANTEROL 200/25MCG 14 PUFFS/INHALER INH SCH (08:52)
[2021-09-11] MEDS ORDERED: TORSEMIDE 10 MG TAB PO SCH (09:00)
--- NOTE | 2021-09-11 11:54 | Discharge Summary ---
Date of Service September 11, 2021 Admission HPI Per Admitting Provider Patric Restrepo is an 86yo male with CAD s/p CABG, chronic HFpEF (EF 50-55% in 11/2018), a-fib (on Eliquis), T2DM (A1c 7.5 in 10/2020), COPD, YUE on CPAP, HTN, HLD, normocytic anemia, and GERD who presented to [facility] ED on 08/31 for cough, congestion and SOB x1 day, with positive home COVID-19 test yesterday. Patient is vaccinated for COVID-19 although he does report recent known COVID-19 positive family contacts. Of note patient had home Bumex dose doubled several weeks ago for increased LE edema - he has an upcoming appointment with [facility] for further management of Bumex. He does report he was diagnosed with COPD but is a never smoker and reports that he never had PFT testing done before. Reportedly patient had hypoxia to low 80s when picked up by EMS although was not hypoxic in the ED - SpO2 has remained 98-99% on room air. Hemodynamically stable - of note there is a HR of 153 in chart although patient remained with HR 70s- 80s during my entire interview with him; unclear if he was truly tachycardic. Lab work-up significant for Hgb 11.2 (~baseline), ABG 7.43/45/91/29, Na 127, K 5.2, Cl 89, BUN 53/Cr 1.81. Procalcitonin negative. COVID-19 positive (PCR). CXR unremarkable. Patient was given Duoneb x1, Decadron 6mg IV x1, and NSS 500cc bolus. Principal Diagnosis covid infection uncontrolled diabetes secondary to corticosteroids acute kidney injury with h/o CKD 3 chronic diastolic heart failure Discharge Exam The patient appeared stable Vital signs as documented. Lungs are managed bilaterally without rales Cardiac exam, Rhythm is regular.. No murmurs, rubs or gallops. Abdominal exam reveals normal bowel sounds, soft non tender, no masses Extremities are trace to 1+ edematous this is his chronic state Neurologic exam is alert and oriented, no focal loss of strength or sensation Discharge Data Allergies Allergy/AdvReac Type Severity Reaction Status Date / Time lisinopril AdvReac Intermediate cough Verified 08/31/21 21:18 Consultations 08/31/21 21:11 ED Decision to Admit Stat Hospital Course (1) COVID-19: Chest x-rays does not show obvious pneumonia, he has clinical pulmonary symptoms with wheezing with rales. Given his known asthma/COPD dexamethasone 6mg daily. diuresis also Flutter valve/incentive ordered. Combivent 1 puff Felman twice daily in addition to Symbicort respiratory status is stable at this time . (2) SUKI (acute kidney injury): Peak Cr 1.8 now resolved . It is risen with transition to torsemide will reduce dose of torsemide on 09/12 and hold dose on 09/11 this information was transferred to his family Will have outpatient chemistry checked with results to heart failure clinic Holding ARB at time of discharge (3) Acute hyponatremia: maybe influenced by hyperglycemia, eleated urine sodium secondary to diuretics Outpatient laboratory surveillance (4) Chronic diastolic CHF (congestive heart failure): ACUTE ON CHRONIC. Discharge on toresemide and elevate legs (5) Atrial fibrillation, permanent: remains rate Controlled. Cont coreg 25mg BID. Cont Eliquis 5mg BID. (6) CAD (coronary artery disease): Continue asa, statin, beta lita. No ischemic symptoms at this time. (7) Diabetes mellitus, type II: A1C level 9.1 on 09/01/21. Resume oral agents at time of discharge follow-up with PCP for further advice and consideration. One thought would be to use it SGLT agent to help both his diabetes and his heart failure (8) Normocytic anemia: Baseline Hgb ~12 to 12.5 over the last 2 years. (9) Candidal diaper rash: Increase nystatin powder to TID dosing. (10) COPD exacerbation: uncertain if patient has asthma or COPD. improved as covid has resolved, and diuretic used (11) Chronic renal failure, stage 3a: Total Time Total Time Spent Total Time Spent (In Minutes): It required greater than 30 minutes to prepare this patient for discharge Discharge Plan Discharge Items Patient Disposition: Home - Home Health Services Reason For Visit: SHORTNESS OF BREATH Discharge Diagnosis: COVID 19 Infection Condition on Discharge: Fair Activity: Resume your previous activity Non-emergency contact: Primary Care Provider Call non-emergency contact if: you have any medication questions Follow-up/Referrals: Ayo Lopez CRNP [Primary Care Provider] - 09/15/21 8:20 am Diet: Regular Ambulatory Orders: Basic Metabolic Panel (Routine) Timeframe: 3 Days Location: Determined by Patient Ordered By: Jorge Bailon Attending Provider Instructions: please make appointment to follow up with your regular PCP and Palak Swain in [facility] heart clinic. many medications have been adjusted during your discharge needs include some blood pressure medications that could affect her kidney function, your diuretics, and there was surveillance of your diabetes that may need further tight control. There is a medication that can be useful for both diabetes and heart failure this can be discussed with your PCP and also at heart failure clinic. Rest and recover watch her salt and fluid intake weigh her self daily as instructed below Call 911 and go to the Emergency Room if: * You have tightness or pain in your chest that does not go away with rest or Nitroglycerin * You are very short of breath even with rest Call your doctor if any of the following symptoms or problems start or get worse: * Shortness of breath or difficulty breathing * Wake up at night short of breath * Chest pain * Cough * Swelling of your hands, fee, or legs * More fatigued or tired with your normal activity * Palpitations - sudden fast heart beats WEIGHT * Weigh yourself every morning after using the bathroom. * Use the same scale. * Wear the same amount of clothing. * Write your weight down on your chart. * Call your doctor if you gain more than 2-3 pounds in 1-2 days. MEDICATIONS * Use this discharge instruction sheet for instructions. * Take your medications at the time your doctor ordered. * Do not skip a dose of your medicines. * If you miss a dose of medicine, take as soon as possible, but DO NOT DOUBLE A DOSE. * Read your medicine information when you get home. * Know all of the side effects of your medicine. * Call your doctor's office if you have any side effects. * Be sure all of your doctors know what medicine and herbs you take (including cold, flu, and herbal medicine). * Pain Medicine: If you do not get relief from your pain, please call your doctor for help. Take the following with you to your follow-up doctor appointments: * Weight Chart * Medication List * List of questions Do not drink excessive alcohol, beer or wine. Pending Studies at Discharge: No Stand-Alone Forms: [facility] [place] [place] [employer], Smoking Cessation Medications and DC Order Prescriptions: New Combivent Respimat 20-100 mcg/actuation mist 1 puff inhalation BID Qty: 4 RF: 0 torsemide 20 mg tablet 60 mg PO DAILY Qty: 90 RF: 0 Continued ipratropium bromide 0.03 % spray,non-aerosol 2 spray INTRANASAL QAM Qty: 30 RF: 11 (DME) OneTouch Ultra Blue Test Strip Strip See Dose Instructions .ROUTE .MEDSUPPLY Qty: 100 RF: 6 (DME) nebulizer accessories Misc See Rx Instructions .ROUTE .MEDSUPPLY Qty: 1 RF: 0 albuterol sulfate [ProAir HFA] 90 mcg/actuation HFA aerosol inhaler 1 - 2 puff INHALATION Q4H PRN (Reason: Shortness Of Breath) Qty: 25 RF: 5 Eliquis 5 mg tablet 5 mg PO BID Qty: 180 RF: 1 Symbicort 160-4.5 mcg/actuation HFA aerosol inhaler 2 puff INHALATION BID Qty: 10.2 RF: 5 aspirin 81 mg tablet,delayed release (DR/EC) 81 mg PO DAILY Qty: 90 RF: 1 metformin 500 mg tablet extended release 24 hr 500 mg PO DAILY Qty: 90 RF: 1 isosorbide mononitrate 30 mg tablet extended release 24 hr 30 mg PO DAILY Qty: 90 RF: 1 atorvastatin 40 mg tablet 40 mg PO DAILY Qty: 90 RF: 1 glipizide 5 mg tablet extended release 24 hr 10 mg PO DAILY Qty: 180 RF: 1 carvedilol 25 mg tablet 25 mg PO BID Qty: 180 RF: 1 betamethasone dipropionate 0.05 % cream 1 applic topical DAILY PRN (Reason: skin irritation) Qty: 15 RF: 5 nitroglycerin 0.4 mg tablet, sublingual 0.4 mg SL Q5M PRN (Reason: Chest Pain) Qty: 25 RF: 0 esomeprazole magnesium [Nexium] 40 mg Capsule,Delayed Release(Dr/Ec) 40 mg PO DAILY PRN (Reason: Gi Upset) RF: 0 loratadine [Claritin] 10 mg Tablet 10 mg PO DAILY RF: 0 fluticasone propionate 50 mcg/actuation spray,suspension 2 spray INTRANASAL DAILY PRN (Reason: Congestion) RF: 0 ipratropium-albuterol 0.5 mg-3 mg(2.5 mg base)/3 mL solution for nebulization 3 ml INHALATION BID RF: 0 Discontinued losartan 100 mg tablet 100 mg PO DAILY Qty: 90 RF: 1 terazosin 10 mg capsule 10 mg PO DAILY Qty: 90 RF: 1 spironolactone 25 mg tablet 25 mg PO DAILY Qty: 30 RF: 2 bumetanide 2 mg tablet 4 mg PO DAILY Qty: 60 RF: 2 Discharge Orders: Discharge Order (Routine); Ordered 09/11/21 Ordered By: Jorge Suresh/Other Patient Handouts: Managing Type 2 Diabetes Admission Data Admit Date/Time: 08/31/21 22:37 Attending Provider: Jorge Giron Admit Provider: Julian Valentine Primary Care Provider: Ayo Lopez Other Providers: [facility] Other Interventions: Discharge Summary Assessment (RN) Last Done: 09/11/21 12:02 Coding Level of Care Code D/C DAY MANAGEMENT >30 MINS Diagnoses COVID-19 U07.1 SUKI (acute kidney injury) N17.9 Acute hyponatremia E87.1 Chronic diastolic CHF (congestive heart failure) I50.32 Atrial fibrillation, permanent I48.21 CAD (coronary artery disease) I25.10 Diabetes mellitus, type II E11.9 Normocytic anemia D64.9 Candidal diaper rash B37.2; L22 COPD exacerbation J44.1 Chronic renal failure, stage 3a N18.31
== END 2021-09-11 14:21 | disposition home health service (06) | DRG 177 ==
LOC: ED 18:28 → 2W 22:37 → SUATTDRO 22:37 → 2W 09-01 00:34 → 2N 09-10 19:32

== ENCOUNTER 2021-09-14 15:08 | Inpatient (IN) ==
[2021-09-14] MEDS ORDERED: methylPREDNISolone 125 MG/2 ML VIAL IV STA (15:41)
[2021-09-14] MEDS ORDERED: ALBUT/IPRATROP 3MG/0.5MG NEB 3 ML VIAL NEB STA (15:41)
[2021-09-14 16:07] LABS: Eosinophils # (auto) 0.13 K/uL (0-0.5); Eosinophils % (auto) 1.1 %; Hematocrit (blood only) 32.6 % (42-52); Hemoglobin 11.1 g/dL (14.0-18.0); Immature Granulocytes # (auto) 0.03 K/uL (0.00-0.02); Immature Granulocytes % (auto) 0.3 %; Lymphocytes # (auto) 1.16 K/uL (1.2-3.4); Mean Corpuscular Hemoglobin 28.8 pg (25-34); Mean Corpuscular Volume 84.5 fL (80-100); Mean Platelet Volume 9.9 fL (7.4-10.4); Monocytes # (auto) 1.01 K/uL (0.11-0.59); Monocytes % (auto) 8.7 %; Neutrophils # (auto) 9.32 K/uL (1.4-6.5); Neutrophils % (auto) 79.9 %; Platelet Count 206 K/uL (130-400); RDW Coefficient of Variation 14.3 % (11.5-14.5); RDW Standard Deviation 43.7 fL (36.4-46.3); Red Blood Count 3.86 M/uL (4.7-6.1); White Blood Count 11.65 K/uL (4.8-10.8)
[2021-09-14 16:15] LABS: Allen Test POS (Pos); Base Excess ABG 4.7 mEq/L (-9-1.8); HCO3 ABG 29 mmol/L (19-24); Oxygen Saturation ABG 91.6 % (90-95); PCO2 ABG 41 mmHg (35-46); PO2 ABG 58 mmHg (80-95); pH ABG 7.47 (7.35-7.45)
--- NOTE | 2021-09-14 16:24 | Emergency Department Note ---
History of Present Illness General Chief Complaint: Respiratory Distress Time Seen by Provider: 09/14/21 15:32 History of Present Illness Provider Complaint: shortness of breath and cough Onset (ago): day(s) (3) Severity: severe Consistency/Duration: + progressively worsening Relieved By: + oxygen and + upright position Exacerbated By: + lying flat, + exertion and + coughing Context: + recent illness (admitted from August 31 to September 11, 2021 for COVID-19) Known history of: COPD and congestive heart failure Associated symptoms: + cough, + wheezing, + sputum production, + orthopnea and + chest congestion; no palpitations, no hemoptysis, no nausea/vomiting, no syncope, no abdominal pain or no rash Treatment prior to arrival: oxygen and diuretics HPI Narrative: Per EMS the patient was tripoding had an oxygen saturation of 85% on room air. They try to apply BiPAP to the patient but the patient would not tolerate it. The patient was started on a nonrebreather and then given Lasix 40 mg IV by EMS which seemed to improve his symptoms. Related Data Home oxygen amount: none Home Medications Medication Instructions Recorded Confirmed Type esomeprazole magnesium 40 mg 40 mg PO DAILY PRN 07/15/18 09/14/21 History capsule,delayed release (Nexium) loratadine 10 mg tablet (Claritin) 10 mg PO DAILY 07/15/18 09/14/21 History fluticasone propionate 50 2 spray INTRANASAL DAILY PRN 11/16/18 09/14/21 History mcg/actuation nasal spray,suspension nitroglycerin 0.4 mg sublingual 0.4 mg SL Q5M PRN #25 tab 11/16/18 09/14/21 History tablet ipratropium bromide 21 mcg (0.03 2 spray INTRANASAL QAM #30 ml 01/08/19 09/14/21 Rx %) nasal spray blood sugar diagnostic (OneTouch #100 ea 05/30/19 07/22/21 Rx Ultra Blue Test Strip) nebulizer accessories #1 ea 08/16/19 07/22/21 Rx betamethasone dipropionate 0.05 % 1 applic TOPICAL DAILY PRN #15 g 12/25/19 09/14/21 Rx topical cream albuterol sulfate 90 mcg/actuation 1 - 2 puff INHALATION Q4H PRN #25 12/08/20 09/14/21 Rx aerosol inhaler (ProAir HFA) gm apixaban 5 mg tablet (Eliquis) 5 mg PO BID #180 tab 05/24/21 09/14/21 Rx budesonide-formoterol HFA 160 2 puff INHALATION BID #10.2 gm 06/16/21 09/14/21 Rx mcg-4.5 mcg/actuation aerosol inhaler (Symbicort) ipratropium 0.5 mg-albuterol 3 mg 3 ml INHALATION BID 08/31/21 09/14/21 History (2.5 mg base)/3 mL nebulization soln aspirin 81 mg tablet,delayed 81 mg PO DAILY #90 tab 09/03/21 09/14/21 Rx release atorvastatin 40 mg tablet 40 mg PO DAILY #90 tab 09/03/21 09/14/21 Rx carvedilol 25 mg tablet 25 mg PO BID #180 tab 09/03/21 09/14/21 Rx glipizide 5 mg tablet, extended 10 mg PO DAILY #180 tab 09/03/21 09/14/21 Rx release 24 hr isosorbide mononitrate 30 mg 30 mg PO DAILY #90 tab 09/03/21 09/14/21 Rx tablet,extended release 24 hr metformin 500 mg tablet,extended 500 mg PO DAILY #90 tab 09/03/21 09/14/21 Rx release 24 hr ipratropium 20 mcg-albuterol 100 1 puff INHALATION BID #4 g 09/11/21 09/14/21 Rx mcg/actuation mist for inhalation (Combivent Respimat) torsemide 20 mg tablet 60 mg PO DAILY #90 tab 09/11/21 09/14/21 Rx Allergies Allergy/AdvReac Type Severity Reaction Status Date / Time lisinopril AdvReac Intermediate cough Verified 09/14/21 16:49 Past Med/Surg History Medical History Anemia Asthma Atrial fibrillation, permanent CAD (coronary artery disease) Carotid atherosclerosis Chronic diastolic CHF (congestive heart failure) COVID-19 Diabetes mellitus, type II Dyslipidemia GERD (gastroesophageal reflux disease) Hematuria (07/03/13) 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) Hypertension Mitral valve insufficiency and aortic valve insufficiency Normocytic anemia Obstructive lung disease Obstructive sleep apnea Reactive airway disease Spinal stenosis Tubular adenoma of colon Surgical History S/P CABG (coronary artery bypass graft) S/P cardiac catheterization S/P cholecystectomy S/P shoulder surgery Family History Sister Hypertension Colon cancer Other Prostate cancer Stroke Denies family history of Osteoporosis Myocardial infarction Breast cancer Social History Smoking Status: Unknown if ever smoked Second Hand Exposure: No; Hx Alcohol Use: No Hx Substance Use: No Preferred Language: Gu[place]ian Communication Ability: Effective Visual Impairment: No Limitations Hearing Ability: Normal Linen Checker Required: No Beliefs That Will Affect Care: None marital status: / Current Living Situation: Family Current Living Situation Comment: Daughter and granddaughter current occupational status: retired Feels Safe at Home: Yes Childhood Exposure to Second-Hand Smoke: No caffeine: Yes (Tea and soda.) during the past year weight has: remained stable Dental Care, Regularly: No Physical Activity Frequency: Daily Seatbelt Use: always Sunscreen Use: No Assistive Devices: Cane and Walker Review of Systems A total of 10 systems reviewed and were otherwise negative Physical Exam Vital Signs: Vital Signs - 24 hr 09/14/21 15:20 09/14/21 17:15 Temperature 36.9 C Temperature Source Oral Pulse Rate 90 Pulse Rate [Apical ] 70 Pulse Rhythm Irregular Pulse Rhythm [Apic al] Irregular Pulse Strength [Ap ical] Normal Respiratory Rate 26 H 24 Respiratory Effort / Characteristics Short of Breath Spontaneous Respiratory Patter n Regular Regular Blood Pressure 129/66 Blood Pressure [Ri ght Arm] 135/48 L Blood Pressure Johanna n 87 Blood Pressure Johanna n [Right Arm] 77 Blood Pressure Pos ition Sitting Blood Pressure Pos ition [Right Arm] Lying Pulse Oximetry 95 92 Oxygen Delivery Me thod Room Air Room Air Sepsis Recent Feve r Within 48 Hours No Sepsis New/Unexpla ined Change in Men yovani Status No Sepsis Action Take n by Nursing No Action Required Physical Exam: Physical Exam GENERAL: He is oriented to person, place, and time. He appears well-developed and well-nourished. He does not appear distressed. HENT: Exam performed. - Head: Normocephalic and atraumatic. - Right Ear: External ear normal. No mastoid tenderness. - Left Ear: External ear normal. No mastoid tenderness. - Mouth/Throat: The oropharynx is clear and moist. No trismus in the jaw. No dental abscesses or uvula swelling. No oropharyngeal exudate or tonsillar abscesses. EYES: Conjunctivae and EOM are normal. Pupils are equal, round, and reactive to light. Right eye exhibits no discharge. Left eye exhibits no discharge. No scleral icterus. NECK: Normal range of motion. Neck supple. No JVD present. No spinous process tenderness present. No carotid bruit present. No rigidity. No tracheal deviation and normal range of motion present. No Brudzinski's sign and no Kernig's sign n oted. CV: Normal rate, regular rhythm, normal heart sounds and intact distal pulses. Palpable radial pulses bue. PULM/CHEST: Rhonchi bilaterally. Expiratory wheezes bilaterally. Inspiratory rales at the bases bilaterally. - Chest Wall: He exhibits no tenderness. ABD: The abdomen is soft. Bowel sounds are normal. He has no distension. No mass is present. There is no tenderness. There is no rebound, no guarding, no Silvestre's sign and no tenderness at McBurney's point. Rovsig negative. MUSC/SKEL: Normal range of motion. There is no tenderness or deformity. LYMPH: No cervical adenopathy. NEURO: He is alert and oriented to person, place, and time. He has normal strength. No cranial nerve deficit or sensory deficit. Coordination and gait normal. GCS eye subscore is 4. GCS verbal subscore is 5. GCS motor subscore is 6. Cerebellar tests wnl. SKIN: Skin is warm and dry. He is not diaphoretic. PSYCH: He has a normal mood and affect. Behavior is normal. Judgment and thought content normal. Course Course 153: The patient was evaluated in room B7. A complete history and physical exam was performed Cardiac monitoring: An order was placed for continuous cardiac monitoring. The monitor shows a rate of 80 with atrial fibrilation rhythm 1715: Vital signs stable. Labs are at patient's baseline with a creatinine at his baseline. ABG is thought to be a VBG. Chest x-ray is negative. Patient is tolerating room air well status post 1 DuoNeb treatment and Solu-Medrol. Initial plan after talking to daughter at bedside was to discharge patient back home with follow-up patientFor his regular scheduled appointment tomorrow with his PCP. The patient's sister then called me and stated she did not feel comfortable with the patient being discharged home and is requesting that the patient be evaluated by the hospitalist team for admission. Spoke with Am[facility] Benavides hospitalist working with Dr. Croft will evaluate the patient for admission. Administered Medications Discontinued Medications Albuterol (Albut/Ipratrop 3mg/0.5mg Neb 3 Ml Vial) 3 ml NEB NOW STA; Protocol Stop: 09/14/21 15:42 Last Admin: 09/14/21 16:08 Dose: 3 ml Documented by: [id number] Methylprednisolone (Methylprednisolone 125 Mg/2 Ml Vial) 125 mg IV NOW STA Stop: 09/14/21 15:42 Last Admin: 09/14/21 16:07 Dose: 125 mg Documented by: [id number] Medical Decision Making Laboratory Data Result diagrams: 09/14/21 15:40 09/14/21 15:40 Lab Results 09/14/21 09/14/21 09/14/21 Range/Units 15:40 15:40 15:40 WBC 11.65 H (4.8-10.8) K/uL RBC 3.86 L (4.7-6.1) M/uL Hgb 11.1 L (14.0-18.0) g/dL Hct 32.6 L (42-52) % MCV 84.5 (80-100) fL MCH 28.8 (25-34) pg MCHC 34.0 (32-36) g/dL RDW Std Deviation 43.7 (36.4-46.3) fL RDW Coeff of Roseann 14.3 (11.5-14.5) % Plt Count 206 (130-400) K/uL MPV 9.9 (7.4-10.4) fL Immature Gran % (Auto) 0.3 % Neut % (Auto) 79.9 % Lymph % (Auto) 10.0 % [place] % (Auto) 8.7 % Eos % (Auto) 1.1 % Baso % (Auto) 0.0 % Neut # (Auto) 9.32 H (1.4-6.5) K/uL Lymph # (Auto) 1.16 L (1.2-3.4) K/uL [place] # (Auto) 1.01 H (0.11-0.59) K/uL Eos # (Auto) 0.13 (0-0.5) K/uL Baso # (Auto) 0.00 (0-0.2) K/uL Immature Gran # (Auto) 0.03 H (0.00-0.02) K/uL PT 12.4 H (9.0-12.0) Seconds INR 1.2 H (0.9-1.1) APTT 31.7 H (21.0-31.0) Seconds PTT Ratio 1.2 ABG pH (7.35-7.45) ABG pCO2 (35-46) mmHg ABG pO2 (80-95) mmHg ABG HCO3 (19-24) mmol/L ABG O2 Saturation (90-95) % ABG Base Excess (-9-1.8) mEq/L Willi Test (Pos) Barometric Pressure mm/Hg Oxygen Given Sodium 131 L (136-145) mmol/L Potassium 3.9 (3.5-5.1) mmol/L Chloride 93 L (98-107) mmol/L Carbon Dioxide 31 (21-32) mmol/L Anion Gap 7 (3-11) BUN 46 H (6-23) mg/dl Creatinine 1.67 H (0.6-1.4) mg/dl Est Cr Clr Drug Dosing Not Reportable Est GFR ( Amer) 42.6 ml/min Est GFR (Non-Af Amer) 36.8 ml/min BUN/Creatinine Ratio 27.5 H (10-20) Glucose 166 H (70-99(Fasting)) mg/dl Calcium 8.4 L (8.5-10.1) mg/dl Magnesium 1.8 (1.7-2.4) mg/dl Troponin I High Sens 15.0 (0-20) pg/ml B-Natriuretic Peptide (0-100) pg/ml Lipase 161 H (11-82) U/L 09/14/21 09/14/21 Range/Units 15:40 15:48 WBC (4.8-10.8) K/uL RBC (4.7-6.1) M/uL Hgb (14.0-18.0) g/dL Hct (42-52) % MCV (80-100) fL MCH (25-34) pg MCHC (32-36) g/dL RDW Std Deviation (36.4-46.3) fL RDW Coeff of Roseann (11.5-14.5) % Plt Count (130-400) K/uL MPV (7.4-10.4) fL Immature Gran % (Auto) % Neut % (Auto) % Lymph % (Auto) % [place] % (Auto) % Eos % (Auto) % Baso % (Auto) % Neut # (Auto) (1.4-6.5) K/uL Lymph # (Auto) (1.2-3.4) K/uL [place] # (Auto) (0.11-0.59) K/uL Eos # (Auto) (0-0.5) K/uL Baso # (Auto) (0-0.2) K/uL Immature Gran # (Auto) (0.00-0.02) K/uL PT (9.0-12.0) Seconds INR (0.9-1.1) APTT (21.0-31.0) Seconds PTT Ratio ABG pH 7.47 H (7.35-7.45) ABG pCO2 41 (35-46) mmHg ABG pO2 58 L (80-95) mmHg ABG HCO3 29 H (19-24) mmol/L ABG O2 Saturation 91.6 (90-95) % ABG Base Excess 4.7 H (-9-1.8) mEq/L Willi Test POS (Pos) Barometric Pressure 728.5 mm/Hg Oxygen Given ROOM AIR Sodium (136-145) mmol/L Potassium (3.5-5.1) mmol/L Chloride (98-107) mmol/L Carbon Dioxide (21-32) mmol/L Anion Gap (3-11) BUN (6-23) mg/dl Creatinine (0.6-1.4) mg/dl Est Cr Clr Drug Dosing Est GFR ( Amer) ml/min Est GFR (Non-Af Amer) ml/min BUN/Creatinine Ratio (10-20) Glucose (70-99(Fasting)) mg/dl Calcium (8.5-10.1) mg/dl Magnesium (1.7-2.4) mg/dl Troponin I High Sens (0-20) pg/ml B-Natriuretic Peptide 91 (0-100) pg/ml Lipase (11-82) U/L Imaging Data Radiologist's Impression: Chest X-Ray 09/14/21 15:33 XR chest 1V portable CLINICAL HISTORY: Chest Pain. COMPARISON STUDY: 09/06/2021 TECHNIQUE: 1 view of the chest FINDINGS: Single frontal view of the chest demonstrates the cardiomediastinal silhouette to be within normal limits. The patient is status post previous cardiothoracic surgery. The lungs are clear of alveolar opacities. There is no evidence for pleural effusion. There is no evidence for vascular congestion. There is no acute osseous pathology. IMPRESSION: 1. No acute cardiopulmonary disease. ACT 112: Negative or not required by law. Electronically signed by: Franklin Tobar M.D. 09/14/2021 4:34 PM ECG Data Interpretation: Atrial fibrillation with rate of 78. QRS 158 QTC 492 right bundle branch block present. [facility] Narrative 1532: The patient was evaluated in room B7. A complete history and physical exam was performed Cardiac monitoring: An order was placed for continuous cardiac monitoring. The monitor shows a rate of 80 with atrial fibrilation rhythm 1715: Vital signs stable. Labs are at patient's baseline with a creatinine at his baseline. ABG is thought to be a VBG. Chest x-ray is negative. Patient is tolerating room air well status post 1 DuoNeb treatment and Solu-Medrol. Initial plan after talking to daughter at bedside was to discharge patient back home with follow-up patientFor his regular scheduled appointment tomorrow with his PCP. The patient's sister then called me and stated she did not feel comfortable with the patient being discharged home and is requesting that the patient be evaluated by the hospitalist team for admission. Spoke with [facility] hospitalist working with Dr. Croft will evaluate the patient for admission. Impression & Plan Chronic diastolic CHF (congestive heart failure), COPD exacerbation Discharge Plan Visit Data Chief Complaint: Respiratory Distress ED Provider: Joe Cantrell Discharge Problem: Chronic diastolic CHF (congestive heart failure), COPD exacerbation Patient Disposition: Being Evaluated by Hospitalist Forms Stand Alone Forms: [facility], Virtual Emergency Department, Important Visit Information Prescriptions Prescriptions: No Action ipratropium bromide 0.03 % spray,non-aerosol 2 spray INTRANASAL QAM Qty: 30 RF: 11 (DME) [employer] Ultra Blue Test Strip Strip See Dose Instructions .ROUTE .MEDSUPPLY Qty: 100 RF: 6 (DME) nebulizer accessories Misc See Rx Instructions .ROUTE .MEDSUPPLY Qty: 1 RF: 0 albuterol sulfate [ProAir HFA] 90 mcg/actuation HFA aerosol inhaler 1 - 2 puff INHALATION Q4H PRN (Reason: Shortness Of Breath) Qty: 25 RF: 5 Eliquis 5 mg tablet 5 mg PO BID Qty: 180 RF: 1 Symbicort 160-4.5 mcg/actuation HFA aerosol inhaler 2 puff INHALATION BID Qty: 10.2 RF: 5 aspirin 81 mg tablet,delayed release (DR/EC) 81 mg PO DAILY Qty: 90 RF: 1 metformin 500 mg tablet extended release 24 hr 500 mg PO DAILY Qty: 90 RF: 1 isosorbide mononitrate 30 mg tablet extended release 24 hr 30 mg PO DAILY Qty: 90 RF: 1 atorvastatin 40 mg tablet 40 mg PO DAILY Qty: 90 RF: 1 glipizide 5 mg tablet extended release 24 hr 10 mg PO DAILY Qty: 180 RF: 1 carvedilol 25 mg tablet 25 mg PO BID Qty: 180 RF: 1 betamethasone dipropionate 0.05 % cream 1 applic topical DAILY PRN (Reason: skin irritation) Qty: 15 RF: 5 nitroglycerin 0.4 mg tablet, sublingual 0.4 mg SL Q5M PRN (Reason: Chest Pain) Qty: 25 RF: 0 esomeprazole magnesium [Nexium] 40 mg Capsule,Delayed Release(Dr/Ec) 40 mg PO DAILY PRN (Reason: Gi Upset) RF: 0 loratadine [Claritin] 10 mg Tablet 10 mg PO DAILY RF: 0 fluticasone propionate 50 mcg/actuation spray,suspension 2 spray INTRANASAL DAILY PRN (Reason: Congestion) RF: 0 ipratropium-albuterol 0.5 mg-3 mg(2.5 mg base)/3 mL solution for nebulization 3 ml INHALATION BID RF: 0 Combivent Respimat 20-100 mcg/actuation mist 1 puff inhalation BID Qty: 4 RF: 0 torsemide 20 mg tablet 60 mg PO DAILY Qty: 90 RF: 0 Referrals Referrals: Ayo Lopez CRNP [Primary Care Provider] -
[2021-09-14 16:26] LABS: INR 1.2 (0.9-1.1); Partial Thromboplastin Ratio 1.2; Partial Thromboplastin Time 31.7 Seconds (21.0-31.0); Prothrombin Time 12.4 Seconds (9.0-12.0)
[2021-09-14 16:31] LABS: Anion Gap 7 (3-11); BUN Creatinine Ratio 27.5 (10-20); Blood Urea Nitrogen 46 mg/dl (6-23); Calcium 8.4 mg/dl (8.5-10.1); Carbon Dioxide 31 mmol/L (21-32); Chloride 93 mmol/L (98-107); Est GFR (African American) 42.6 ml/min; Est GFR (Non-African American) 36.8 ml/min; Glucose 166 mg/dl (70-99(Fasting)); Lipase 161 U/L (11-82); Magnesium 1.8 mg/dl (1.7-2.4); Potassium 3.9 mmol/L (3.5-5.1); Sodium 131 mmol/L (136-145)
--- NOTE | 2021-09-14 16:36 | XRay Report ---
XR chest 1V portable CLINICAL HISTORY: Chest Pain. COMPARISON STUDY: 09/06/2021 TECHNIQUE: 1 view of the chest FINDINGS: Single frontal view of the chest demonstrates the cardiomediastinal silhouette to be within normal li mits. The patient is status post previous cardiothoracic surgery. The lungs are clear of alveolar opa cities. There is no evidence for pleural effusion. There is no evidence for vascular congestion. Ther e is no acute osseous pathology. IMPRESSION: 1. No acute cardiopulmonary disease. ACT 112: Negative or not required by law. Electronically signed by: Franklin Tobar M.D. 09/14/2021 4:34 PM
--- NOTE | 2021-09-14 21:07 | CT Scan Report ---
CT chest diagnostic wo con CT DOSE: 595.95 mGy.cm CLINICAL HISTORY: 86 years-old Male with covid-19, severe cough/hypoxia. Acute cough with congestion . COVID Positive. TECHNIQUE: Multiaxial CT images of the chest were performed without contrast. A dose lowering techni que was utilized adhering to the principles of ALARA. COMPARISON: Chest radiograph of same day, CTA chest 12/04/2012 FINDINGS: Heterogeneous thyroid. No lymphadenopathy. Moderate cardiomegaly. Prior median sternotomy w ith CABG. Extensive [place] coronary artery calcifications. Atherosclerosis of the thoracic aorta with out aneurysm. No pneumothorax, pleural effusion or overt pulmonary edema. Tracheobronchial secretions with bibasilar mucous plugging and subsegmental bibasilar linear consolidation. There are no suspici ous pulmonary nodules or masses. 3 mm subpleural solid nodule of the right upper lobe on image 92 is unchanged compatible with benign etiology. Cholecystectomy. No acute process of the imaged upper abdomen. Tiny hiatal hernia. Moderate fecal ret ention. Unremarkable soft tissues. Degenerative changes of the shoulders and spine. Healed chronic ri ght-sided anterior rib fractures. IMPRESSION: 1. Tracheobronchial secretions with mucous plugging and subsegmental consolidation within the basal l ower lobes suggestive of atelectasis. Pneumonia or aspiration pneumonitis could appear similarly. 2. Cardiomegaly without pulmonary edema. 3. Prior median sternotomy and CABG. ACT 112: Negative or not required by law. Electronically signed by: Diaz Chavez M.D. 09/14/2021 9:04 PM
--- NOTE | 2021-09-14 21:22 | History & Physical Report ---
Date of Service September 14, 2021 Assessment & Plan (1) Acute respiratory distress: Plan: Patient had documented respiratory distress upon EMS arrival to his home today with O2 sats in the 80s. He received lasix, steroids, and bronchodilators. By the time of my admission assessment his distress was fully resolved. He has had a severe bronchial cough. Thus, at minimum, he has a COPD exacerbation in the face of his recent COVID-19 infection. I obtained chest CT after my bedside evaluation and this showed b/l basilar infiltrates. This could represent pneumonia - perhaps even aspiration. Plan - * cont steroids - switch to dexamethasone 6mg daily starting in am * cont bronchodilators - duonebs q6h * add mucinex, flutter valve, and incentive spirometry * given the copious secretions & mucous plugging seen in the tracheobronchial tree will perform chest PT twice daily * for possible pneumonia process - start unasyn IV q6h * speech therapy eval - check swallow function, r/o aspiration I don't see evidence of any volume overload at this time. Hold torsemide for now. (2) COVID-19: Plan: Recent admission for such (08/31 to 09/11). 08/31 was the first day of his illness. Thus, he is about 14 days into the illness. Although afebrile, he clearly is unwell and has worsened in the last 24 hours. Thus, will keep in airborne isolation. Procal checked and was 0. CRP mildly elevated. BNP negative. Chest CT without typical findings of classic COVID pneumonia but can't rule it out. I do believe he will benefit from steroids and antibiotics as above. (3) Chronic renal failure, stage 3a: Plan: baseline Cr is ~1.3 today - 1.6 hold diuretics and repeat BMP am (4) COPD exacerbation: Plan: Steroids, bronchodilators, mucolytics, etc. See above. Cont home inhalers. (5) Acute hyponatremia: Plan: Na level 130 at time of hospital discharge on 09/11. 131 today. 2nd to recent volume overload issues, diuretics, etc. Repeat BMP am. (6) Candidal diaper rash: Plan: nystatin powder TID (7) Obstructive sleep apnea: Plan: During the prior hospital stay he was encouraged to use BIPAP and he refused on multiple occasions. (8) Atrial fibrillation, permanent: Plan: BPs were low-normal at time of presentation. Will lower his coreg dose to 12.5mg BID. Resume 25mg BID if BPs will allow. Cont eliquis. (9) Chronic diastolic CHF (congestive heart failure): Plan: Although he has LE edema, he otherwise does not examine as decompensated CHF. Cont BB. He received IV lasix earlier today - will hold on additional diuretics this evening. (10) CAD (coronary artery disease): Plan: No evidence of ACS at this time. cont coreg. cont asa. cont statin. (11) Diabetes mellitus, type II: Plan: uncontrolled, 2nd to steroids. lantus BID ordered. novolog SSI. BSGs ac/hs. hold oral agents from home. (12) GERD (gastroesophageal reflux disease): Plan: PPI daily (13) Hypertension: Plan: Cont coreg Cont imdur (14) DVT prophylaxis: Plan: Eliquis BID (15) Decubitus ulcer, buttock: Plan: wound care consultation requested has considerable candidal component - nystatin powder TID await further recommendations from wound care Plan: daughters updated during the visit will need PT/OT evals Admission and Anticipated Discharge Date Admission Date: September 14, 2021 History of Present Illness Chief Complaint: shortness of breath, severe fatigue, recent hospital stay for COVID-19 Primary Care Provider: AGNES Alvarez 86yo male with permanent a.fib, CKD stage 3a, ?COPD, CAD with prior CABG, chronic diastolic CHF, and T2DM - with recent hospitalization from 08/31 to 09/11 for COVID-19 infection/volume overload - presents from home due to ongoing fatigue, poor appetite, difficulty ambulating, cough, sputum production, nasal congestion, constipation, and dyspnea on exertion. Patient was d/c home with his family on Monday and his family reports he had severe weakness the day he got home. On Monday he was modestly improved but still not near his usual baseline. No fevers or chills during his time at home. On Monday he had worsening cough and this ultimately became quite productive of white sputum. He was using his albuterol nebs at home at least twice daily for his symptoms. Over the last few nights he has had to sleep in the chair due to his pulmonary symptoms. Today EMS was ultimately summoned to his home because of the worsening pulmonary symptoms. O2 sats were mid 80s in room air when EMS arrived. O2 was applied (by report 100% nonrebreather) and was given lasix IV by EMS. Upon ER arrival he was given additional treatments including albuterol x 1 and solumedrol 125mg IV x 1. During my bedside assessment he states that the coughing/dyspnea along with fatigue are the most distressing symptoms to him. Allergies Allergy/AdvReac Type Severity Reaction Status Date / Time lisinopril AdvReac Intermediate cough Verified 09/14/21 16:49 Home Medications Medication Instructions Recorded Confirmed Type esomeprazole magnesium 40 mg 40 mg PO DAILY PRN 07/15/18 09/14/21 History capsule,delayed release (Nexium) loratadine 10 mg tablet (Claritin) 10 mg PO DAILY 07/15/18 09/14/21 History fluticasone propionate 50 2 spray INTRANASAL DAILY PRN 11/16/18 09/14/21 History mcg/actuation nasal spray,suspension nitroglycerin 0.4 mg sublingual 0.4 mg SL Q5M PRN #25 tab 11/16/18 09/14/21 History tablet ipratropium bromide 21 mcg (0.03 2 spray INTRANASAL QAM #30 ml 01/08/19 09/14/21 Rx %) nasal spray blood sugar diagnostic (OneTouch #100 ea 05/30/19 07/22/21 Rx Ultra Blue Test Strip) nebulizer accessories #1 ea 08/16/19 07/22/21 Rx betamethasone dipropionate 0.05 % 1 applic TOPICAL DAILY PRN #15 g 12/25/19 09/14/21 Rx topical cream albuterol sulfate 90 mcg/actuation 1 - 2 puff INHALATION Q4H PRN #25 12/08/20 09/14/21 Rx aerosol inhaler (ProAir HFA) gm apixaban 5 mg tablet (Eliquis) 5 mg PO BID #180 tab 05/24/21 09/14/21 Rx budesonide-formoterol HFA 160 2 puff INHALATION BID #10.2 gm 06/16/21 09/14/21 Rx mcg-4.5 mcg/actuation aerosol inhaler (Symbicort) ipratropium 0.5 mg-albuterol 3 mg 3 ml INHALATION BID 08/31/21 09/14/21 History (2.5 mg base)/3 mL nebulization soln aspirin 81 mg tablet,delayed 81 mg PO DAILY #90 tab 09/03/21 09/14/21 Rx release atorvastatin 40 mg tablet 40 mg PO DAILY #90 tab 09/03/21 09/14/21 Rx carvedilol 25 mg tablet 25 mg PO BID #180 tab 09/03/21 09/14/21 Rx glipizide 5 mg tablet, extended 10 mg PO DAILY #180 tab 09/03/21 09/14/21 Rx release 24 hr isosorbide mononitrate 30 mg 30 mg PO DAILY #90 tab 09/03/21 09/14/21 Rx tablet,extended release 24 hr metformin 500 mg tablet,extended 500 mg PO DAILY #90 tab 09/03/21 09/14/21 Rx release 24 hr ipratropium 20 mcg-albuterol 100 1 puff INHALATION BID #4 g 09/11/21 09/14/21 Rx mcg/actuation mist for inhalation (Combivent Respimat) torsemide 20 mg tablet 60 mg PO DAILY #90 tab 09/11/21 09/14/21 Rx Past Med/Surg History Medical History (Updated 09/14/21 @ 21:52 by Juarez Mendoza) Anemia Asthma Atrial fibrillation, permanent CAD (coronary artery disease) Carotid atherosclerosis Chronic diastolic CHF (congestive heart failure) COVID-19 Diabetes mellitus, type II Dyslipidemia GERD (gastroesophageal reflux disease) Hematuria (07/03/13) 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) Hypertension Mitral valve insufficiency and aortic valve insufficiency Normocytic anemia Obstructive lung disease Obstructive sleep apnea Reactive airway disease Spinal stenosis Tubular adenoma of colon Surgical History S/P CABG (coronary artery bypass graft) S/P cardiac catheterization S/P cholecystectomy S/P shoulder surgery Family History Sister Hypertension Colon cancer Other Prostate cancer Stroke Denies family history of Osteoporosis Myocardial infarction Breast cancer Social History (Updated 09/14/21 @ 21:35 by Juarez Mendoza) Smoking Status: Never smoker Second Hand Exposure: No; Hx Alcohol Use: No Hx Substance Use: No Preferred Language: Hungarian Communication Ability: Effective Visual Impairment: No Limitations Hearing Ability: Normal Pipe Changer Required: No Beliefs That Will Affect Care: None marital status: / Current Living Situation: Family Current Living Situation Comment: Daughter and granddaughter current occupational status: 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[employer] How many Children do You have: 2 Other Information That Helps Us Care for You: No Feels Safe at Home: Yes Safety Concerns: Feels Safe At This Time Childhood Exposure to Second-Hand Smoke: No caffeine: Yes (Tea and soda.) during the past year weight has: remained stable Dental Care, Regularly: No Physical Activity Frequency: Daily Seatbelt Use: always Sunscreen Use: No Assistive Devices: Cane, CPAP, Denture - Upper, Denture - Lower and Glasses Review of Systems Review of Systems: gen - no fevers or chills; ongoing weakness & anorexia eyes - no visual changes HENT - no dysphagia; mild mouth soreness; nasal congestion; no sore throat CV - no chest pain pulm - dyspnea on exertion, cough, sputum production, wheezing GI - no nausea or emesis; +constipation; no blood per rectum - decreased UOP per daughter musculo - no myalgias or arthralgias skin - irritated skin on buttocks/sacrum/groin neuro - no headache; generalized weakness (no focal weakness) endo - BSGs have not been checked since recent hospital discharge psych - denies any confusion (daughters have noted only slight confusion) Physical Exam Physical Exam: gen - severe bronchial cough; no acute distress; awake/alert eyes - PERRL HENT - irritated lips; no obvious thrush plaques; MM slightly dry; sinuses appear congested/boggy neck - no JVD heart - irregular, s1 s2, 1/6 NAKIA LSB lungs - decreased BS bases, no rales or wheeze; cough is very bronchial in quality abd - mildly distended, BS+, NT, no HSM ext - 2-3+ edema on left (with appearance of lymphedema); 1-2+ edema on right; pulses 2+ b/l skin - candidal rash groin, perineal region, buttocks; stage 1 ulcer left buttock; ecchymoses left flank; mild stasis changes b/l shins neuro - no focal motor weakness; strength 5/5 x 4 exts; no facial droop; DTRs 2+ b/l musculo - no deformities psych - a/o x 3 lymph - no cervical lymph nodes b/l Results & Data Results & Data ([facility]) Vital Signs (Past 12 Hours) Vital Signs Temp Pulse Pulse Resp BP BP Pulse Ox 09/14/21 21:02 36.6 C 73 18 150/66 H 95 09/14/21 19:30 66 15 144/77 H 94 09/14/21 18:03 81 21 141/71 H 94 09/14/21 17:30 67 18 135/48 L 94 09/14/21 17:23 73 22 126/77 94 09/14/21 17:15 70 24 135/48 L 92 09/14/21 15:20 36.9 C 90 26 H 129/66 95 Laboratory Results Laboratory Results - last 24 hr 09/14/21 09/14/21 09/14/21 15:40 15:40 15:40 WBC 11.65 H RBC 3.86 L Hgb 11.1 L Hct 32.6 L MCV 84.5 MCH 28.8 MCHC 34.0 RDW Std Deviation 43.7 RDW Coeff of Roseann 14.3 Plt Count 206 MPV 9.9 Immature Gran % (Auto) 0.3 Neut % (Auto) 79.9 Lymph % (Auto) 10.0 [place] % (Auto) 8.7 Eos % (Auto) 1.1 Baso % (Auto) 0.0 Neut # (Auto) 9.32 H Lymph # (Auto) 1.16 L [place] # (Auto) 1.01 H Eos # (Auto) 0.13 Baso # (Auto) 0.00 Immature Gran # (Auto) 0.03 H PT 12.4 H INR 1.2 H APTT 31.7 H PTT Ratio 1.2 ABG pH ABG pCO2 ABG pO2 ABG HCO3 ABG O2 Saturation ABG Base Excess Willi Test Barometric Pressure Oxygen Given Sodium 131 L Potassium 3.9 Chloride 93 L Carbon Dioxide 31 Anion Gap 7 BUN 46 H Creatinine 1.67 H Est Cr Clr Drug Dosing Not Reportable Est GFR ( Amer) 42.6 Est GFR (Non-Af Amer) 36.8 BUN/Creatinine Ratio 27.5 H Glucose 166 H POC Glucose Calcium 8.4 L Magnesium 1.8 Troponin I High Sens 15.0 C-Reactive Protein B-Natriuretic Peptide Lipase 161 H Procalcitonin 09/14/21 09/14/21 09/14/21 15:40 15:40 15:40 WBC RBC Hgb Hct MCV MCH MCHC RDW Std Deviation RDW Coeff of Roseann Plt Count MPV Immature Gran % (Auto) Neut % (Auto) Lymph % (Auto) [place] % (Auto) Eos % (Auto) Baso % (Auto) Neut # (Auto) Lymph # (Auto) [place] # (Auto) Eos # (Auto) Baso # (Auto) Immature Gran # (Auto) PT INR APTT PTT Ratio ABG pH ABG pCO2 ABG pO2 ABG HCO3 ABG O2 Saturation ABG Base Excess Willi Test Barometric Pressure Oxygen Given Sodium Potassium Chloride Carbon Dioxide Anion Gap BUN Creatinine Est Cr Clr Drug Dosing Est GFR ( Amer) Est GFR (Non-Af Amer) BUN/Creatinine Ratio Glucose POC Glucose Calcium Magnesium Troponin I High Sens C-Reactive Protein 2.81 H B-Natriuretic Peptide 91 Lipase Procalcitonin < 0.05 09/14/21 09/14/21 15:48 21:24 WBC RBC Hgb Hct MCV MCH MCHC RDW Std Deviation RDW Coeff of Roseann Plt Count MPV Immature Gran % (Auto) Neut % (Auto) Lymph % (Auto) [place] % (Auto) Eos % (Auto) Baso % (Auto) Neut # (Auto) Lymph # (Auto) [place] # (Auto) Eos # (Auto) Baso # (Auto) Immature Gran # (Auto) PT INR APTT PTT Ratio ABG pH 7.47 H ABG pCO2 41 ABG pO2 58 L ABG HCO3 29 H ABG O2 Saturation 91.6 ABG Base Excess 4.7 H Willi Test POS Barometric Pressure 728.5 Oxygen Given ROOM AIR Sodium Potassium Chloride Carbon Dioxide Anion Gap BUN Creatinine Est Cr Clr Drug Dosing Est GFR ( Amer) Est GFR (Non-Af Amer) BUN/Creatinine Ratio Glucose POC Glucose 326 H* Calcium Magnesium Troponin I High Sens C-Reactive Protein B-Natriuretic Peptide Lipase Procalcitonin Diagnostic Findings Chest X-Ray 09/14/21 15:33 XR chest 1V portable CLINICAL HISTORY: Chest Pain. COMPARISON STUDY: 09/06/2021 TECHNIQUE: 1 view of the chest FINDINGS: Single frontal view of the chest demonstrates the cardiomediastinal silhouette to be within normal limits. The patient is status post previous cardiothoracic surgery. The lungs are clear of alveolar opacities. There is no evidence for pleural effusion. There is no evidence for vascular congestion. There is no acute osseous pathology. IMPRESSION: 1. No acute cardiopulmonary disease. ACT 112: Negative or not required by law. Electronically signed by: Franklin Tobar M.D. 09/14/2021 4:[address] 09/14/21 18:29 CT chest diagnostic wo con CT DOSE: 595.95 mGy.cm CLINICAL HISTORY: 86 years-old Male with covid-19, severe cough/hypoxia. Acute cough with congestion. COVID Positive. TECHNIQUE: Multiaxial CT images of the chest were performed without contrast. A dose lowering technique was utilized adhering to the principles of ALARA. COMPARISON: Chest radiograph of same day, CTA chest 12/04/2012 FINDINGS: Heterogeneous thyroid. No lymphadenopathy. Moderate cardiomegaly. Prior median sternotomy with CABG. Extensive [place] coronary artery calcifications. Atherosclerosis of the thoracic aorta without aneurysm. No pneumothorax, pleural effusion or overt pulmonary edema. Tracheobronchial secretions with bibasilar mucous plugging and subsegmental bibasilar linear consolidation. There are no suspicious pulmonary nodules or masses. 3 mm subpleural solid nodule of the right upper lobe on image 92 is unchanged compatible with benign etiology. Cholecystectomy. No acute process of the imaged upper abdomen. Tiny hiatal hernia. Moderate fecal retention. Unremarkable soft tissues. Degenerative changes of the shoulders and spine. Healed chronic right-sided anterior rib fractures. IMPRESSION: 1. Tracheobronchial secretions with mucous plugging and subsegmental consolidation within the basal lower lobes suggestive of atelectasis. Pneumonia or aspiration pneumonitis could appear similarly. 2. Cardiomegaly without pulmonary edema. 3. Prior median sternotomy and CABG. ACT 112: Negative or not required by law. Electronically signed by: Diaz Chavez M.D. 09/14/2021 9:04 PM EKG - my reading - artifact (severe); probable a.fib Code Status & VTE Plan Code Status full code VTE Prophylaxis Plan VTE Prophylaxis will be ordered: Yes PG Care Time/CCT Total # of Minutes Spent Total Time Spent with Patient: Total time spent is greater than 50% in coordination of care (as documented) at patient's floor/unit and/or counseling patient: Coding Level of Care Code 17894 Initial Inpt Care Lvl 3 Diagnoses Acute respiratory distress R06.03 COVID-19 U07.1 Chronic renal failure, stage 3a N18.31 Candidal diaper rash B37.2; L22 COPD exacerbation J44.1 Acute hyponatremia E87.1 Obstructive sleep apnea G47.33 Atrial fibrillation, permanent I48.21 Chronic diastolic CHF (congestive heart failure) I50.32 CAD (coronary artery disease) I25.10 Diabetes mellitus, type II E11.9 GERD (gastroesophageal reflux disease) K21.9 Hypertension I10 DVT prophylaxis Z29.9 Decubitus ulcer, buttock L89.309
[2021-09-14] MEDS ORDERED: NITROGLYCERIN SL 0.4 MG/TAB TAB SL PRN (21:29)
[2021-09-14] MEDS ORDERED: ONDANSETRON INJ 2 MG/ML 2 ML VIAL IV PRN (21:29)
[2021-09-14] MEDS ORDERED: ACETAMINOPHEN 325 MG TAB PO PRN (21:29)
[2021-09-14] MEDS ORDERED: ALBUT/IPRATROP 3MG/0.5MG NEB 3 ML VIAL ONE (21:38)
[2021-09-14] MEDS: ALBUT/IPRATROP 3MG/0.5MG NEB 3 ML VIAL INH SCH (22:02)
[2021-09-14] MEDS ORDERED: DEXTROSE 50% 50 ML SYRINGE IV PRN (22:15)
[2021-09-14] MEDS ORDERED: GLUCOSE 10 TABS/TUBE PO PRN (22:15)
[2021-09-14] MEDS ORDERED: GLUCAGON FOR INJ 1 MG VIAL IM PRN (22:15)
[2021-09-14] MEDS ORDERED: GLUCOSE 40% GEL 15 GM TUBE PO PRN (22:15)
[2021-09-14] MEDS: INSULIN ASPART PER UNIT SC SCH (22:55)
[2021-09-14] MEDS: INSULIN GLARGINE SOLOSTAR 100 UNITS/ML 3 ML PEN SC SCH (22:55)
[2021-09-14] MEDS: carvediloL 12.5 MG TAB PO SCH (23:10)
[2021-09-14] MEDS: APIXABAN 5 MG TABLET PO SCH (23:10)
[2021-09-14] MEDS: guaiFENesin 600 MG TABCR PO SCH (23:11)
[2021-09-14] MEDS: NYSTATIN POWDER 15GM BTL EXT SCH (23:11)
[2021-09-14] MEDS: NYSTATIN SUSP 500,000 U/5 ML UDC PO SCH (23:11)
[2021-09-14] MEDS: AMPICILLIN/SULBACTAM SOD 3,000 MG in 0.9 % SODIUM CHLORIDE 100 ML IV SCH (23:11)
[2021-09-15] MEDS: AMPICILLIN/SULBACTAM SOD 3,000 MG in 0.9 % SODIUM CHLORIDE 100 ML IV SCH ×4 (04:06→21:27)
[2021-09-15] MEDS: ALBUT/IPRATROP 3MG/0.5MG NEB 3 ML VIAL INH SCH ×4 (07:44→23:53)
[2021-09-15 08:07] LABS: BUN Creatinine Ratio 28.8 (10-20); Calcium 8.8 mg/dl (8.5-10.1); Creatinine Clr Calc Pharmacy 42.6 ml/min; Est GFR (African American) 53.2 ml/min; Est GFR (Non-African American) 45.9 ml/min; Potassium 4.4 mmol/L (3.5-5.1)
[2021-09-15] MEDS: dexAMETHasone 6 MG in SYRINGE 0 ML IV SCH (08:31)
[2021-09-15] MEDS: PANTOprazole 40 MG TAB PO SCH (08:32)
[2021-09-15] MEDS: guaiFENesin 600 MG TABCR PO SCH ×2 (08:32→21:27)
[2021-09-15] MEDS: LORATADINE 10 MG TAB PO SCH (08:33)
[2021-09-15] MEDS: carvediloL 12.5 MG TAB PO SCH ×2 (08:33→21:27)
[2021-09-15] MEDS: APIXABAN 5 MG TABLET PO SCH ×2 (08:33→21:26)
[2021-09-15] MEDS: ADVANCED PROBIOTIC 1250 MG CAPSULE PO SCH (08:33)
[2021-09-15] MEDS: ISOSORBIDE MONO EXTENDED REL 30 MG TABCR PO SCH (08:34)
[2021-09-15] MEDS: ASPIRIN 81 MG ECTAB PO SCH (08:34)
[2021-09-15] MEDS: ATORVASTATIN 40 MG TAB PO SCH (08:34)
[2021-09-15] MEDS: NYSTATIN POWDER 15GM BTL EXT SCH ×3 (08:35→21:27)
[2021-09-15] MEDS: IPRATROPIUM BROMIDE NASAL SPRAY 0.06% 15ML NAE SCH (08:35)
[2021-09-15] MEDS: FLUTICASONE PROPIONATE NA SPR 16 GM BTL SCH (08:35)
[2021-09-15] MEDS: NYSTATIN SUSP 500,000 U/5 ML UDC PO SCH ×4 (08:35→21:27)
[2021-09-15] MEDS: FLUTICASONE/VILANTEROL 200/25MCG 14 PUFFS/INHALER INH SCH (08:36)
[2021-09-15] MEDS ORDERED: INSULIN GLARGINE SOLOSTAR 100 UNITS/ML 3 ML PEN SC ONE (09:18)
[2021-09-15] MEDS ORDERED: INSULIN GLARGINE SOLOSTAR 100 UNITS/ML 3 ML PEN SC SCH (09:30)
[2021-09-15] MEDS ORDERED: BUMETANIDE 1 MG in SYRINGE 0 ML IV ONE (09:30)
[2021-09-15] MEDS: INSULIN ASPART PER UNIT SC SCH ×4 (09:43→21:16)
[2021-09-15] MEDS: INSULIN GLARGINE SOLOSTAR 100 UNITS/ML 3 ML PEN SC SCH ×2 (09:43→21:16)
--- NOTE | 2021-09-15 20:11 | Hospitalist Progress Note ---
Date of Service September 15, 2021 Assessment & Plan (1) Acute respiratory distress: Plan: 2nd to bronchitis/mucous plugging/bilateral lower lobe pneumonia - resolved. O2 sats stable in RA since admission. No further distress or increased work of breathing. (2) COVID-19: Plan: Recent admission for such (08/31 to 09/11). 08/31 was the first day of his illness. Thus, he is about 15 days into the illness. He is significantly improved today - respiratory status is stable, remains afebrile, and overall just looks better. CT chest yesterday with b/l lower lobe infiltrates - could be COVID-19 pneumonia vs bacterial. Covering both - steroids for COVID, Unasyn IV to cover bacterial process. Will speak with infection control tomorrow to see if airborne precautions can be d/c. (3) Chronic renal failure, stage 3a: Plan: baseline Cr is ~1.3 Cr at admission 1.6 now 1.3 repeat BMP am (4) COPD exacerbation: Plan: Cont Steroids, bronchodilators, mucolytics, chest PT vest twice daily, flutter valve. See above. Cont home inhalers. (5) Acute hyponatremia: Plan: Na level 130 at time of hospital discharge on 09/11. 131 today, but corrected for the hyperglycemia is 133. Repeat BMP am. (6) Candidal diaper rash: Plan: cont nystatin powder TID (7) Obstructive sleep apnea: Plan: During the prior hospital stay he was encouraged to use BIPAP and he refused on multiple occasions. (8) Atrial fibrillation, permanent: Plan: Cont coreg BID. Cont eliquis. Controlled. (9) Chronic diastolic CHF (congestive heart failure): Plan: Despite LE edema he otherwise does not appear to have decompensated CHF. With that said cont diuretics for his edema. Give bumex 1mg iV x 1 today. BMP am. (10) CAD (coronary artery disease): Plan: No evidence of ACS at this time. cont coreg. cont asa. cont statin. (11) Diabetes mellitus, type II: Plan: uncontrolled, 2nd to steroids. lantus -- increase to 20 units BID. novolog SSI - tighten correction & carb coverage. BSGs ac/hs. hold oral agents from home. (12) GERD (gastroesophageal reflux disease): Plan: PPI daily (13) Hypertension: Plan: Cont coreg Cont imdur (14) DVT prophylaxis: Plan: Eliquis BID (15) Decubitus ulcer, buttock: Plan: wound care consultation requested has considerable candidal component - nystatin powder TID await further recommendations from wound care Plan: daughter updated by phone this evening PT, NONA molina family would like for him to go to rehab following this admission change observation status to full admission Admission and Anticipated Discharge Date Admission Date: September 14, 2021 Subjective tele - a.fib pt feels better today he is tolerating the chest PT vest he is coughing - some sputum production not as much dyspnea today appetite still not normal, but food looked more appealing today denies pain in any location he is agreeable to rehab Review of Systems Review of Systems: gen - no fever, no chills; fatigue modestly better cv - no chest pain; edema of legs improved pulm - coughing, some sputum, some mild dyspnea on exertion GI - no abd pain or nausea skin - c/o discomfort over buttocks from skin issues/rash Physical Exam Physical Exam: gen - sitting at side of bed; looks better today neck - no JVD sitting upright at 90 degrees mouth - not as much irritation today heart - irregular, s1 s2 lungs - decreased BS bases, no wheeze, no increased work of breathing abd - soft NT ND BS+ ext - 2+ edema left foot, 1+ right foot, pulses 2+ b/l psych - more energetic today, a/o x 3 Results & Data Results & Data ([facility]) Vital Signs (Past 12 Hours) Vital Signs Temp Pulse Pulse Resp BP Pulse Ox 09/15/21 19:44 36.6 C 84 16 119/71 94 09/15/21 19:30 74 16 96 09/15/21 16:48 81 09/15/21 16:15 36.6 C 73 20 146/83 H 97 09/15/21 13:14 68 16 95 09/15/21 11:56 36.7 C 78 18 112/55 L 91 09/15/21 08:30 36.6 C 69 19 122/60 97 Laboratory Results Laboratory Results - last 24 hr 09/14/21 09/15/21 09/15/21 21:24 07:31 07:52 Sodium 131 L Potassium 4.4 Chloride 92 L Carbon Dioxide 32 Anion Gap 7 BUN 40 H Creatinine 1.39 Est Cr Clr Drug Dosing 42.6 Est GFR ( Amer) 53.2 Est GFR (Non-Af Amer) 45.9 BUN/Creatinine Ratio 28.8 H Glucose 221 H POC Glucose 326 H* 253 H Calcium 8.8 09/15/21 09/15/21 09/15/21 11:52 16:12 16:18 Sodium Potassium Chloride Carbon Dioxide Anion Gap BUN Creatinine Est Cr Clr Drug Dosing Est GFR ( Amer) Est GFR (Non-Af Amer) BUN/Creatinine Ratio Glucose POC Glucose 283 H 356 H* 309 H* Calcium PG Care Time/CCT Total # of Minutes Spent Total Time Spent with Patient: Total time spent is greater than 50% in coordination of care (as documented) at patient's floor/unit and/or counseling patient: Coding Level of Care Code 11717 Subseq Hosp Care Lvl 3 Diagnoses Acute respiratory distress R06.03 COVID-19 U07.1 Chronic renal failure, stage 3a N18.31 COPD exacerbation J44.1 Acute hyponatremia E87.1 Candidal diaper rash B37.2; L22 Obstructive sleep apnea G47.33 Atrial fibrillation, permanent I48.21 Chronic diastolic CHF (congestive heart failure) I50.32 CAD (coronary artery disease) I25.10 Diabetes mellitus, type II E11.9 GERD (gastroesophageal reflux disease) K21.9 Hypertension I10 DVT prophylaxis Z29.9 Decubitus ulcer, buttock L89.309
--- NOTE | 2021-09-15 21:53 | Electrocardiogram Report ---
Test Reason : Blood Pressure : / mmHG Vent. Rate : 078 BPM Atrial Rate : 064 BPM P-R Int : 000 ms QRS Dur : 158 ms QT Int : 432 ms P-R-T Axes : 000 -41 146 degrees QTc Int : 492 ms Poor data quality, interpretation may be adversely affected Atrial fibrillation Left axis deviation Right bundle branch block Minimal voltage criteria for LVH, may be normal variant Nonspecific T wave abnormality Abnormal ECG When compared with ECG of 31-AUG-2021 23:25, T wave inversion more evident in Anterolateral leads Confirmed by Power Polk ([id number]) on 09/15/2021 9:52:59 PM Referred By: Confirmed By:Power Polk
[2021-09-16] MEDS: AMPICILLIN/SULBACTAM SOD 3,000 MG in 0.9 % SODIUM CHLORIDE 100 ML IV SCH ×4 (03:08→22:22)
[2021-09-16 07:16] LABS: Hematocrit (blood only) 32.3 % (42-52); Hemoglobin 10.9 g/dL (14.0-18.0); Mean Corpuscular Hgb Conc 33.7 g/dL (32-36); Mean Corpuscular Volume 85.9 fL (80-100); Mean Platelet Volume 9.7 fL (7.4-10.4); Platelet Count 205 K/uL (130-400); RDW Coefficient of Variation 14.3 % (11.5-14.5); RDW Standard Deviation 44.7 fL (36.4-46.3); Red Blood Count 3.76 M/uL (4.7-6.1)
[2021-09-16] MEDS: ALBUT/IPRATROP 3MG/0.5MG NEB 3 ML VIAL INH SCH ×3 (07:20→19:36)
[2021-09-16 07:30] LABS: BUN Creatinine Ratio 33.8 (10-20); Calcium 8.5 mg/dl (8.5-10.1); Creatinine Clr Calc Pharmacy 40.8 ml/min; Est GFR (African American) 56.1 ml/min; Est GFR (Non-African American) 48.4 ml/min; Potassium 3.8 mmol/L (3.5-5.1)
[2021-09-16] MEDS: INSULIN ASPART PER UNIT SC SCH ×4 (08:55→22:00)
[2021-09-16] MEDS: INSULIN GLARGINE SOLOSTAR 100 UNITS/ML 3 ML PEN SC SCH ×2 (08:55→22:00)
[2021-09-16] MEDS: ATORVASTATIN 40 MG TAB PO SCH (09:02)
[2021-09-16] MEDS: NYSTATIN SUSP 500,000 U/5 ML UDC PO SCH ×4 (09:02→22:10)
[2021-09-16] MEDS: carvediloL 12.5 MG TAB PO SCH ×2 (09:02→22:08)
[2021-09-16] MEDS: ASPIRIN 81 MG ECTAB PO SCH (09:02)
[2021-09-16] MEDS: APIXABAN 5 MG TABLET PO SCH ×2 (09:02→22:08)
[2021-09-16] MEDS: LORATADINE 10 MG TAB PO SCH (09:02)
[2021-09-16] MEDS: ISOSORBIDE MONO EXTENDED REL 30 MG TABCR PO SCH (09:02)
[2021-09-16] MEDS: PANTOprazole 40 MG TAB PO SCH (09:02)
[2021-09-16] MEDS: ADVANCED PROBIOTIC 1250 MG CAPSULE PO SCH (09:02)
[2021-09-16] MEDS: guaiFENesin 600 MG TABCR PO SCH ×2 (09:03→22:09)
[2021-09-16] MEDS: FLUTICASONE PROPIONATE NA SPR 16 GM BTL SCH (09:03)
[2021-09-16] MEDS: IPRATROPIUM BROMIDE NASAL SPRAY 0.06% 15ML NAE SCH (09:03)
[2021-09-16] MEDS: FLUTICASONE/VILANTEROL 200/25MCG 14 PUFFS/INHALER INH SCH (09:03)
[2021-09-16] MEDS: NYSTATIN POWDER 15GM BTL EXT SCH ×3 (09:04→22:10)
[2021-09-16] MEDS: dexAMETHasone 6 MG in SYRINGE 0 ML IV SCH (09:27)
[2021-09-16] MEDS: dexAMETHasone 4 MG in SYRINGE 0 ML IV SCH (10:35)
[2021-09-16] MEDS ORDERED: BUMETANIDE 1 MG in SYRINGE 0 ML IV ONE (13:30)
--- NOTE | 2021-09-16 13:31 | Hospitalist Progress Note ---
Date of Service September 16, 2021 Assessment & Plan (1) Acute respiratory distress: Plan: Present at admission -- 2nd to bronchitis/mucous plugging/bilateral lower lobe pneumonia - resolved. O2 sats stable in RA since admission. No further distress or increased work of breathing. (2) COVID-19: Plan: Recent admission for such (08/31 to 09/11). ~08/31 was the first day of his illness. Thus, he is well past 15 days into the illness. He continues to improve nicely. CT chest hospital day #1 with b/l lower lobe infiltrates - could be COVID-19 pneumonia vs bacterial. Covering both - steroids for COVID, Unasyn IV to cover bacterial process. Can likely transition to PO abx tomorrow if stable. I spoke with infection control today Dr Franny Valencia - laura d/c airborne precautions 09/17/21. (3) Mucus plugging of bronchi: Plan: SEVERE on CT chest at admission. HE HAS HAD SIGNIFICANT IMPROVEMENT WITH THIS BY USING THE CHEST PT VIBRATION VEST TWICE DAILY. AT HOME HE WAS UNABLE TO RESOLVE THIS ISSUE WITH MUCOLYTICS AND NEBS ALONE. THUS, HE WOULD BENEFIT SIGNIFICANTLY BY CONTINUING WITH THE VIBRATION VEST WHILE HERE AND OUTSIDE THE HOSPITAL. The mucous plugging likely contributed heavily to his re-admission. Not having the vest would be detrimental to his health & recovery from COVID. (4) Chronic renal failure, stage 3a: Plan: baseline Cr is ~1.3 Cr at admission 1.6 now 1.3 repeat BMP am in light of diuresis (5) COPD exacerbation: Plan: Cont Steroids, bronchodilators, mucolytics, chest PT vest twice daily, flutter valve. See above. Cont home inhalers. IMPROVED. (6) Acute hyponatremia: Plan: Na level 130 at time of hospital discharge on 09/11. 131 once again today. Repeat BMP am. (7) Candidal diaper rash: Plan: cont nystatin powder TID (8) Obstructive sleep apnea: Plan: During the prior hospital stay he was encouraged to use BIPAP and he refused on multiple occasions. (9) Atrial fibrillation, permanent: Plan: Cont coreg BID. Cont eliquis. Controlled. (10) Chronic diastolic CHF (congestive heart failure): Plan: Despite LE edema he otherwise does not appear to have decompensated CHF. With that said cont diuretics for his edema. Give bumex 1mg iV x 1 again today. BMP am. (11) CAD (coronary artery disease): Plan: No evidence of ACS at this time. cont coreg. cont asa. cont statin. (12) Diabetes mellitus, type II: Plan: had been uncontrolled 2nd to steroids but now control is tight. loosen the novolog parameters. cont lantus 20 units BID. BSGs ac/hs. hold oral agents from home. (13) GERD (gastroesophageal reflux disease): Plan: PPI daily (14) Hypertension: Plan: Cont coreg Cont imdur (15) DVT prophylaxis: Plan: Eliquis BID (16) Decubitus ulcer, buttock: Plan: wound care consultation requested has considerable candidal component - nystatin powder TID await further recommendations from wound care Plan: daughter updated by phone this evening once again PT, OT jesse family would like for him to go to rehab following this admission Admission and Anticipated Discharge Date Admission Date: September 14, 2021 Subjective tele - remains rate-controlled a.fib sitting in chair eating lunch during the visit "I feel good" slept ok last pm still with cough and mild sputum production but denies ANY DYSPNEA or OJEDA energy is better overall he simply feels better Review of Systems Review of Systems: gen - no fevers or chills; appetite much improved cv - no chest pain pulm - no dyspnea GI - no abd pain; moving bowels Physical Exam Physical Exam: gen - sitting in chair, looks great today neck - no JVD sitting upright at 90 degrees heart - irregular, s1 s2, 1/6 NAKIA LLSB lungs - decreased BS bases, otherwise CTA b/l; no wheezing, no rales, no increased work of breathing abd - soft NT ND BS+ ext - 1-2+ edema left foot, <1+ right foot, pulses 2+ b/l psych - good spirits, a/o x 3 Results & Data Results & Data ([facility]) Vital Signs (Past 12 Hours) Vital Signs Temp Pulse Pulse Resp BP Pulse Ox 09/16/21 11:26 36.6 C 74 19 104/61 93 09/16/21 11:18 59 L 09/16/21 08:43 36.8 C 77 18 119/66 95 09/16/21 07:22 71 16 96 09/16/21 03:22 36.6 C 65 18 138/62 93 Laboratory Results Laboratory Results - last 24 hr 09/15/21 09/15/21 09/15/21 16:12 16:18 20:16 WBC RBC Hgb Hct MCV MCH MCHC RDW Std Deviation RDW Coeff of Roseann Plt Count MPV Sodium Potassium Chloride Carbon Dioxide Anion Gap BUN Creatinine Est Cr Clr Drug Dosing Est GFR ( Amer) Est GFR (Non-Af Amer) BUN/Creatinine Ratio Glucose POC Glucose 356 H* 309 H* 243 H Calcium 09/16/21 09/16/21 09/16/21 06:20 06:20 08:41 WBC 13.80 H RBC 3.76 L Hgb 10.9 L Hct 32.3 L MCV 85.9 MCH 29.0 MCHC 33.7 RDW Std Deviation 44.7 RDW Coeff of Roseann 14.3 Plt Count 205 MPV 9.7 Sodium 131 L Potassium 3.8 Chloride 94 L Carbon Dioxide 26 Anion Gap 11 BUN 45 H Creatinine 1.33 Est Cr Clr Drug Dosing 40.8 Est GFR ( Amer) 56.1 Est GFR (Non-Af Amer) 48.4 BUN/Creatinine Ratio 33.8 H Glucose 111 H POC Glucose 192 H Calcium 8.5 09/16/21 11:23 WBC RBC Hgb Hct MCV MCH MCHC RDW Std Deviation RDW Coeff of Roseann Plt Count MPV Sodium Potassium Chloride Carbon Dioxide Anion Gap BUN Creatinine Est Cr Clr Drug Dosing Est GFR ( Amer) Est GFR (Non-Af Amer) BUN/Creatinine Ratio Glucose POC Glucose 141 H Calcium PG Care Time/CCT Total # of Minutes Spent Total Time Spent with Patient: Total time spent is greater than 50% in coordination of care (as documented) at patient's floor/unit and/or counseling patient: Coding Level of Care Code 40451 Subseq Hosp Care Lvl 3 Diagnoses Acute respiratory distress R06.03 COVID-19 U07.1 Chronic renal failure, stage 3a N18.31 COPD exacerbation J44.1 Acute hyponatremia E87.1 Candidal diaper rash B37.2; L22 Obstructive sleep apnea G47.33 Atrial fibrillation, permanent I48.21 Chronic diastolic CHF (congestive heart failure) I50.32 CAD (coronary artery disease) I25.10 Diabetes mellitus, type II E11.9 GERD (gastroesophageal reflux disease) K21.9 Hypertension I10 DVT prophylaxis Z29.9 Decubitus ulcer, buttock L89.309 Mucus plugging of bronchi T17.500A
[2021-09-16] MEDS: CARBOHYDRATES FOR HYPOGLYCEMIA PO PRN (16:39)
[2021-09-17] MEDS: AMPICILLIN/SULBACTAM SOD 3,000 MG in 0.9 % SODIUM CHLORIDE 100 ML IV SCH ×3 (05:18→15:06)
[2021-09-17 06:40] LABS: BUN Creatinine Ratio 32.8 (10-20); Calcium 8.3 mg/dl (8.5-10.1); Creatinine Clr Calc Pharmacy 41.8 ml/min; Est GFR (African American) 57.1 ml/min; Est GFR (Non-African American) 49.3 ml/min; Potassium 4.1 mmol/L (3.5-5.1)
[2021-09-17] MEDS: ALBUT/IPRATROP 3MG/0.5MG NEB 3 ML VIAL INH SCH ×2 (07:17→19:17)
[2021-09-17 07:34] LABS: Appearance Urine Clear (Clear); Bilirubin Urine Negative (Negative); Blood Urine Negative (Negative); Color Urine Yellow; Glucose Urine UA 1+ (Negative); Ketones Urine Negative (Negative); Leukocyte Esterase Urine Negative (Negative); Nitrite Urine Negative (Negative); Protein Urine Negative (Negative); Specific Gravity Urine 1.018 (1.000-1.030); Urobilinogen Urine Negative (Negative)
[2021-09-17] MEDS ORDERED: BUMETANIDE 2 MG in SYRINGE 0 ML IV STA (08:24)
[2021-09-17] MEDS: INSULIN GLARGINE SOLOSTAR 100 UNITS/ML 3 ML PEN SC SCH ×2 (08:46→21:45)
[2021-09-17] MEDS: INSULIN ASPART PER UNIT SC SCH ×4 (08:47→21:24)
[2021-09-17] MEDS: FLUTICASONE PROPIONATE NA SPR 16 GM BTL SCH (08:49)
[2021-09-17] MEDS: IPRATROPIUM BROMIDE NASAL SPRAY 0.06% 15ML NAE SCH (08:50)
[2021-09-17] MEDS: LORATADINE 10 MG TAB PO SCH (08:50)
[2021-09-17] MEDS: guaiFENesin 600 MG TABCR PO SCH ×2 (08:50→21:47)
[2021-09-17] MEDS: ATORVASTATIN 40 MG TAB PO SCH (08:50)
[2021-09-17] MEDS: NYSTATIN SUSP 500,000 U/5 ML UDC PO SCH ×4 (08:50→21:47)
[2021-09-17] MEDS: ASPIRIN 81 MG ECTAB PO SCH (08:50)
[2021-09-17] MEDS: ISOSORBIDE MONO EXTENDED REL 30 MG TABCR PO SCH (08:50)
[2021-09-17] MEDS: PANTOprazole 40 MG TAB PO SCH (08:50)
[2021-09-17] MEDS: FLUTICASONE/VILANTEROL 200/25MCG 14 PUFFS/INHALER INH SCH (08:51)
[2021-09-17] MEDS: carvediloL 12.5 MG TAB PO SCH ×2 (08:51→21:46)
[2021-09-17] MEDS: APIXABAN 5 MG TABLET PO SCH ×2 (08:51→21:46)
[2021-09-17] MEDS: ADVANCED PROBIOTIC 1250 MG CAPSULE PO SCH (08:51)
[2021-09-17] MEDS: dexAMETHasone 4 MG in SYRINGE 0 ML IV SCH (08:52)
[2021-09-17] MEDS: NYSTATIN POWDER 15GM BTL EXT SCH ×3 (08:52→21:47)
--- NOTE | 2021-09-17 20:34 | Hospitalist Progress Note ---
Date of Service September 17, 2021 Assessment & Plan (1) Acute respiratory distress: Plan: Present at admission -- resolved. Was 2nd to bronchitis/mucous plugging/bilateral lower lobe pneumonia. O2 sats stable in RA since admission. No further distress or increased work of breathing. (2) COVID-19: Plan: Recent admission for such (08/31 to 09/11). ~08/31 was the first day of his illness. Thus, he is well past 15 days into the illness. Airborne precautions stopped today. Infection control office aware & supportive of such. He continues to make a nice recovery. CT chest hospital day #1 with b/l lower lobe infiltrates - could be COVID-19 pneumonia vs bacterial. Covering both - steroids for COVID, Unasyn IV to cover bacterial process. Can transition to PO augmentin in am tomorrow; stop unasyn. Cont to wean steroids. (3) Mucus plugging of bronchi: Plan: SEVERE on CT chest at admission. HE HAS HAD SIGNIFICANT IMPROVEMENT WITH THIS BY USING THE CHEST PT VIBRATION VEST TWICE DAILY. AT HOME HE WAS UNABLE TO RESOLVE THIS ISSUE WITH MUCOLYTICS AND NEBS ALONE. THUS, HE WOULD BENEFIT SIGNIFICANTLY BY CONTINUING WITH THE VIBRATION VEST WHILE HERE AND OUTSIDE THE HOSPITAL. The mucous plugging likely contributed heavily to his re-admission. Not having the vest would be detrimental to his health & recovery from COVID. (4) Chronic renal failure, stage 3a: Plan: baseline Cr is ~1.3 Cr at admission 1.6 remains 1.3 daily AM bmp (5) COPD exacerbation: Plan: Cont Steroids, bronchodilators, mucolytics, chest PT vest twice daily, flutter valve. See above. Cont home inhalers. Improving very nicely. Cont steroid wean. 4mg daily today/tomorrow, then wean on Monday. (6) Acute hyponatremia: Plan: Na level 130 at time of hospital discharge on 09/11. 132 today. Repeat BMP stability. (7) Candidal diaper rash: Plan: cont nystatin powder TID (8) Obstructive sleep apnea: Plan: During the prior hospital stay he was encouraged to use BIPAP and he refused on multiple occasions. (9) Atrial fibrillation, permanent: Plan: Cont coreg BID. Cont eliquis. Controlled. (10) Chronic diastolic CHF (congestive heart failure): Plan: Despite LE edema he otherwise does not appear to have decompensated CHF. With that said cont diuretics for his edema. Give bumex today - try 2mg x 1. BMP am. (11) CAD (coronary artery disease): Plan: No evidence of ACS at this time. cont coreg. cont asa. cont statin. (12) Diabetes mellitus, type II: Plan: had been uncontrolled 2nd to steroids but now control is tight. I loosened the novolog parameters - lows have resolved. cont lantus 20 units BID. BSGs ac/hs. hold oral agents from home. (13) GERD (gastroesophageal reflux disease): Plan: PPI daily (14) Hypertension: Plan: Cont coreg Cont imdur Controlled (15) DVT prophylaxis: Plan: Eliquis BID (16) Decubitus ulcer, buttock: Plan: wound care consultation appreciated has considerable candidal component - nystatin powder TID Plan: daughter updated by phone this evening once again PT, OT jesse appreciated family would like for him to go to rehab following this admission [facility] Swing Bed medically ready this weekend Admission and Anticipated Discharge Date Admission Date: September 14, 2021 Subjective overall a very good day today for Mr Restrepo energy/fatigue better ate well today ambulation is improved cough improved less congestion and less sputum no dyspnea at rest or with exertion tele - a.fib, rates <100 no new complaints still agreeable to rehab Review of Systems Review of Systems: gen - no fevers or chills cv - no cp, no orthopnea, ongoing edema but stable pulm - no dyspnea or pleuritic pain GI - no abd pain, nausea, emesis or diarrhea - voiding ok Physical Exam Physical Exam: gen - sitting in chair, looks great once again today, good spirits mouth - MMM, no thrush neck - no JVD sitting upright at 90 degrees heart - irregular, s1 s2, 1/6 NAKIA LLSB lungs - decreased BS bases, otherwise CTA b/l; no wheezing, no rales, no increased work of breathing abd - soft NT ND BS+ ext - 1-2+ edema left foot, 1+ right foot, pulses 2+ b/l psych - a/o x 3 Results & Data Results & Data ([facility]) Vital Signs (Past 12 Hours) Vital Signs Temp Pulse Pulse Resp BP BP Pulse Ox 09/17/21 19:21 76 18 94 09/17/21 18:59 36.5 C 83 20 146/69 H 95 09/17/21 16:16 96 H 09/17/21 15:36 36.7 C 86 19 134/70 94 09/17/21 11:49 36.5 C 86 20 151/76 H 96 09/17/21 10:08 70 Laboratory Results Laboratory Results - last 24 hr 09/16/21 09/17/21 09/17/21 22:06 05:41 07:17 Sodium 132 L Potassium 4.1 Chloride 93 L Carbon Dioxide 32 Anion Gap 7 BUN 43 H Creatinine 1.31 Est Cr Clr Drug Dosing 41.8 Est GFR ( Amer) 57.1 Est GFR (Non-Af Amer) 49.3 BUN/Creatinine Ratio 32.8 H Glucose 168 H POC Glucose 197 H 140 H Calcium 8.3 L Urine Color Urine Appearance Urine pH Ur Specific Foreman Urine Protein Urine Glucose (UA) Urine Ketones Urine Blood Urine Nitrite Urine Bilirubin Urine Urobilinogen Ur Leukocyte Esterase Urine Osmolality Ur Random Sodium 09/17/21 09/17/21 09/17/21 07:25 07:25 07:25 Sodium Potassium Chloride Carbon Dioxide Anion Gap BUN Creatinine Est Cr Clr Drug Dosing Est GFR ( Amer) Est GFR (Non-Af Amer) BUN/Creatinine Ratio Glucose POC Glucose Calcium Urine Color Yellow Urine Appearance Clear Urine pH 5.0 Ur Specific Foreman 1.018 Urine Protein Negative Urine Glucose (UA) 1+ H Urine Ketones Negative Urine Blood Negative Urine Nitrite Negative Urine Bilirubin Negative Urine Urobilinogen Negative Ur Leukocyte Esterase Negative Urine Osmolality 431 L Ur Random Sodium 33 09/17/21 09/17/21 09/17/21 11:32 16:12 20:07 Sodium Potassium Chloride Carbon Dioxide Anion Gap BUN Creatinine Est Cr Clr Drug Dosing Est GFR ( Amer) Est GFR (Non-Af Amer) BUN/Creatinine Ratio Glucose POC Glucose 104 H 72 89 Calcium Urine Color Urine Appearance Urine pH Ur Specific Foreman Urine Protein Urine Glucose (UA) Urine Ketones Urine Blood Urine Nitrite Urine Bilirubin Urine Urobilinogen Ur Leukocyte Esterase Urine Osmolality Ur Random Sodium PG Care Time/CCT Total # of Minutes Spent Total Time Spent with Patient: Total time spent is greater than 50% in coordination of care (as documented) at patient's floor/unit and/or counseling patient: Coding Level of Care Code 95412 Subseq Hosp Care Lvl 2 Diagnoses Acute respiratory distress R06.03 COVID-19 U07.1 Mucus plugging of bronchi T17.500A Chronic renal failure, stage 3a N18.31 COPD exacerbation J44.1 Acute hyponatremia E87.1 Candidal diaper rash B37.2; L22 Obstructive sleep apnea G47.33 Atrial fibrillation, permanent I48.21 Chronic diastolic CHF (congestive heart failure) I50.32 CAD (coronary artery disease) I25.10 Diabetes mellitus, type II E11.9 GERD (gastroesophageal reflux disease) K21.9 Hypertension I10 DVT prophylaxis Z29.9 Decubitus ulcer, buttock L89.309
[2021-09-17] MEDS: AMOXICILLIN/CLAVULANATE 875 MG TAB PO SCH (21:46)
[2021-09-18] MEDS ORDERED: POLYETHYLENE (MIRALAX) 17 GM PACK PO PRN (05:09)
[2021-09-18] MEDS: DOCUSATE SODIUM 100 MG CAP PO SCH ×2 (05:31→19:59)
[2021-09-18 07:05] LABS: BUN Creatinine Ratio 29.3 (10-20); Calcium 8.5 mg/dl (8.5-10.1); Creatinine Clr Calc Pharmacy 43.4 ml/min; Est GFR (African American) 56.1 ml/min; Est GFR (Non-African American) 48.4 ml/min; Potassium 4.3 mmol/L (3.5-5.1)
[2021-09-18] MEDS: ALBUT/IPRATROP 3MG/0.5MG NEB 3 ML VIAL INH SCH ×2 (07:22→19:05)
[2021-09-18] MEDS ORDERED: bisacodyL 10 MG SUPP PR STA (07:43)
[2021-09-18] MEDS ORDERED: BUMETANIDE 2 MG in SYRINGE 0 ML IV ONE (08:00)
[2021-09-18] MEDS: LORATADINE 10 MG TAB PO SCH (08:06)
[2021-09-18] MEDS: AMOXICILLIN/CLAVULANATE 875 MG TAB PO SCH ×2 (08:06→17:25)
[2021-09-18] MEDS: PANTOprazole 40 MG TAB PO SCH (08:06)
[2021-09-18] MEDS: ADVANCED PROBIOTIC 1250 MG CAPSULE PO SCH (08:06)
[2021-09-18] MEDS: ASPIRIN 81 MG ECTAB PO SCH (08:06)
[2021-09-18] MEDS: ISOSORBIDE MONO EXTENDED REL 30 MG TABCR PO SCH (08:06)
[2021-09-18] MEDS: guaiFENesin 600 MG TABCR PO SCH ×2 (08:06→20:00)
[2021-09-18] MEDS: ATORVASTATIN 40 MG TAB PO SCH (08:07)
[2021-09-18] MEDS: APIXABAN 5 MG TABLET PO SCH ×2 (08:07→19:58)
[2021-09-18] MEDS: carvediloL 12.5 MG TAB PO SCH ×2 (08:07→20:01)
[2021-09-18] MEDS: INSULIN ASPART PER UNIT SC SCH ×4 (08:09→20:31)
[2021-09-18] MEDS: FLUTICASONE/VILANTEROL 200/25MCG 14 PUFFS/INHALER INH SCH (09:35)
[2021-09-18] MEDS: FLUTICASONE PROPIONATE NA SPR 16 GM BTL SCH (09:36)
[2021-09-18] MEDS: INSULIN GLARGINE SOLOSTAR 100 UNITS/ML 3 ML PEN SC SCH ×2 (09:36→20:31)
[2021-09-18] MEDS: IPRATROPIUM BROMIDE NASAL SPRAY 0.06% 15ML NAE SCH (09:37)
[2021-09-18] MEDS: NYSTATIN POWDER 15GM BTL EXT SCH ×3 (09:37→20:27)
[2021-09-18] MEDS: NYSTATIN SUSP 500,000 U/5 ML UDC PO SCH ×4 (09:37→19:59)
[2021-09-18] MEDS: dexAMETHasone 4 MG in SYRINGE 0 ML IV SCH (09:39)
[2021-09-18] MEDS: HYDROCORTISONE HC 2.5% CRM 30GM TUBE EXT SCH ×2 (13:38→20:02)
--- NOTE | 2021-09-18 14:10 | Hospitalist Progress Note ---
Date of Service September 18, 2021 Assessment & Plan (1) Acute respiratory distress: Plan: Present at admission -- resolved. Was 2nd to bronchitis/mucous plugging/bilateral lower lobe pneumonia. O2 sats stable in RA since admission. No further distress or increased work of breathing. (2) COVID-19: Plan: Recent admission for such (08/31 to 09/11). ~08/31 was the first day of his illness. Thus, he is well past 15 days into the illness. Airborne precautions stopped 09/17/21. He continues to make a nice recovery. CT chest hospital day #1 with b/l lower lobe infiltrates - could be COVID-19 pneumonia vs bacterial. Sputum cx growing staph - augmentin should cover unless it is MRSA or coag neg staph. Cont steroids for COVID, augmentin for staph infection. Cont to wean steroids. Change to 2mg daily starting in am tomorrow. (3) Mucus plugging of bronchi: Plan: SEVERE on CT chest at admission. IMPROVED. HE HAS HAD SIGNIFICANT IMPROVEMENT WITH THIS BY USING THE CHEST PT VIBRATION VEST TWICE DAILY. AT HOME HE WAS UNABLE TO RESOLVE THIS ISSUE WITH MUCOLYTICS AND NEBS ALONE. THUS, HE WOULD BENEFIT SIGNIFICANTLY BY CONTINUING WITH THE VIBRATION VEST WHILE HERE AND OUTSIDE THE HOSPITAL. The mucous plugging likely contributed heavily to his re-admission. Not having the vest would be detrimental to his health & recovery from COVID. (4) Chronic renal failure, stage 3a: Plan: baseline Cr is ~1.3 Cr at admission 1.6 remains 1.3 daily AM bmp (5) COPD exacerbation: Plan: Cont Steroids, bronchodilators, mucolytics, chest PT vest twice daily, flutter valve. See above. Cont home inhalers. Improving very nicely. Cont steroid wean. 4mg daily today, then 2mg tomorrow. (6) Acute hyponatremia: Plan: Na level 130 at time of hospital discharge on 09/11. 131 today. acceptable. Repeat BMP stability. (7) Candidal diaper rash: Plan: cont nystatin powder TID (8) Obstructive sleep apnea: Plan: During the prior hospital stay he was encouraged to use BIPAP and he refused on multiple occasions. (9) Atrial fibrillation, permanent: Plan: Cont coreg BID. Cont eliquis. Controlled. (10) Chronic diastolic CHF (congestive heart failure): Plan: Cont bumex 2mg IV x 1 today. BMP am. LE Edema is approaching baseline. (11) CAD (coronary artery disease): Plan: No evidence of ACS at this time. cont coreg. cont asa. cont statin. (12) Diabetes mellitus, type II: Plan: cont lantus 20 units BID. cont novolog SSI. BSGs ac/hs. hold oral agents from home. (13) GERD (gastroesophageal reflux disease): Plan: PPI daily (14) Hypertension: Plan: Cont coreg Cont imdur Controlled (15) DVT prophylaxis: Plan: Eliquis BID (16) Decubitus ulcer, buttock: Plan: wound care consultation appreciated has considerable candidal component - nystatin powder TID (17) Candidiasis of mouth and esophagus: Plan: has been refractory to nystatin solution alone this, plus the candidal rash in groin/buttocks, would benefit from systemic therapy start diflucan 100mg daily plan 7-10 days of Rx (18) External hemorrhoids: Plan: anusol cream TID scheduled Plan: daughter updated by phone yesterday evening PT, NONA molina appreciated family would like for him to go to rehab following this admission [facility] Swing Bed medically stable for d/c I corresponded with social work - bed available at [place] Monday or Monday?? Admission and Anticipated Discharge Date Admission Date: September 14, 2021 Subjective tele overnight - rate controlled jenise continues to feel well with robust appetite each day his fatigue improves and energy is better cough and sputum are MUCH better sinus drainage improved denies dyspnea has chronic hemorrhoids and these are bothering him did have multiple bowel movements this am per staff; no liquid diarrhea Review of Systems Review of Systems: gen - no fevers, no chills cv - no chest pain; does sleep in chair but he does this at home, too (not true orthopnea); edema of legs is nearing his typical baseline edema pulm - no wheezes GI - no nausea/emesis Physical Exam Physical Exam: gen - sitting in chair, looks great once again today, good spirits, no cough or increased work of breathing mouth - MMM; thrush plaques still present (copious) neck - no JVD sitting upright at 90 degrees heart - irregular, s1 s2, 1/6 NAKIA LLSB lungs - decreased BS bases, otherwise CTA b/l; no wheezing, no rales abd - soft NT ND BS+ ext - 1-2+ edema left foot, <1+ right foot, pulses 2+ b/l psych - a/o x 3 musculo - kyphosis of back Results & Data Results & Data ([facility]) Vital Signs (Past 12 Hours) Vital Signs Temp Pulse Pulse Resp BP Pulse Ox 09/18/21 11:43 37.1 C 91 H 18 122/61 97 09/18/21 07:25 36.4 C L 61 20 157/56 H 97 09/18/21 07:23 50 L 18 97 09/18/21 07:00 47 L 09/18/21 03:02 36.6 C 72 18 138/73 97 Laboratory Results Laboratory Results - last 24 hr 09/17/21 09/17/21 09/17/21 16:12 20:07 23:38 Sodium Potassium Chloride Carbon Dioxide Anion Gap BUN Creatinine Est Cr Clr Drug Dosing Est GFR ( Amer) Est GFR (Non-Af Amer) BUN/Creatinine Ratio Glucose POC Glucose 72 89 201 H Calcium 09/18/21 09/18/21 09/18/21 06:29 07:10 11:17 Sodium 131 L Potassium 4.3 Chloride 94 L Carbon Dioxide 28 Anion Gap 9 BUN 39 H Creatinine 1.33 Est Cr Clr Drug Dosing 43.4 Est GFR ( Amer) 56.1 Est GFR (Non-Af Amer) 48.4 BUN/Creatinine Ratio 29.3 H Glucose 126 H POC Glucose 119 H 171 H Calcium 8.5 PG Care Time/CCT Total # of Minutes Spent Total Time Spent with Patient: Total time spent is greater than 50% in coordination of care (as documented) at patient's floor/unit and/or counseling patient: Coding Level of Care Code 26391 Subseq Hosp Care Lvl 3 Diagnoses Acute respiratory distress R06.03 COVID-19 U07.1 Mucus plugging of bronchi T17.500A Chronic renal failure, stage 3a N18.31 COPD exacerbation J44.1 Acute hyponatremia E87.1 Candidal diaper rash B37.2; L22 Obstructive sleep apnea G47.33 Atrial fibrillation, permanent I48.21 Chronic diastolic CHF (congestive heart failure) I50.32 CAD (coronary artery disease) I25.10 Diabetes mellitus, type II E11.9 GERD (gastroesophageal reflux disease) K21.9 Hypertension I10 DVT prophylaxis Z29.9 Decubitus ulcer, buttock L89.309 Candidiasis of mouth and esophagus B37.81; B37.0 External hemorrhoids K64.4
[2021-09-18] MEDS: FLUCONAZOLE 100 MG TAB PO SCH (14:53)
[2021-09-19] MEDS: ALBUT/IPRATROP 3MG/0.5MG NEB 3 ML VIAL INH SCH ×2 (07:22→19:50)
[2021-09-19] MEDS: INSULIN ASPART PER UNIT SC SCH ×4 (08:24→21:29)
[2021-09-19 08:25] LABS: BUN Creatinine Ratio 30.1 (10-20); Calcium 8.6 mg/dl (8.5-10.1); Est GFR (African American) 68.3 ml/min; Est GFR (Non-African American) 58.9 ml/min; Magnesium 2.2 mg/dl (1.7-2.4); Potassium 4.1 mmol/L (3.5-5.1)
[2021-09-19] MEDS: INSULIN GLARGINE SOLOSTAR 100 UNITS/ML 3 ML PEN SC SCH ×2 (08:25→21:22)
[2021-09-19] MEDS: dexAMETHasone 1 MG TAB PO SCH (08:25)
[2021-09-19] MEDS: NYSTATIN SUSP 500,000 U/5 ML UDC PO SCH ×4 (08:25→21:21)
[2021-09-19] MEDS: ADVANCED PROBIOTIC 1250 MG CAPSULE PO SCH (08:26)
[2021-09-19] MEDS: AMOXICILLIN/CLAVULANATE 875 MG TAB PO SCH ×2 (08:26→17:11)
[2021-09-19] MEDS: PANTOprazole 40 MG TAB PO SCH (08:26)
[2021-09-19] MEDS: ISOSORBIDE MONO EXTENDED REL 30 MG TABCR PO SCH (08:26)
[2021-09-19] MEDS: APIXABAN 5 MG TABLET PO SCH ×2 (08:26→21:22)
[2021-09-19] MEDS: carvediloL 12.5 MG TAB PO SCH ×2 (08:26→21:21)
[2021-09-19] MEDS: FLUCONAZOLE 100 MG TAB PO SCH (08:26)
[2021-09-19] MEDS: ASPIRIN 81 MG ECTAB PO SCH (08:26)
[2021-09-19] MEDS: guaiFENesin 600 MG TABCR PO SCH ×2 (08:26→21:20)
[2021-09-19] MEDS: LORATADINE 10 MG TAB PO SCH (08:26)
[2021-09-19] MEDS: ATORVASTATIN 40 MG TAB PO SCH (08:26)
[2021-09-19] MEDS: FLUTICASONE PROPIONATE NA SPR 16 GM BTL SCH (08:27)
[2021-09-19] MEDS: FLUTICASONE/VILANTEROL 200/25MCG 14 PUFFS/INHALER INH SCH (08:27)
[2021-09-19] MEDS: NYSTATIN POWDER 15GM BTL EXT SCH ×3 (08:27→21:23)
[2021-09-19] MEDS: DOCUSATE SODIUM 100 MG CAP PO SCH ×2 (08:28→21:21)
[2021-09-19] MEDS: HYDROCORTISONE HC 2.5% CRM 30GM TUBE EXT SCH ×3 (08:28→21:22)
[2021-09-19] MEDS: IPRATROPIUM BROMIDE NASAL SPRAY 0.06% 15ML NAE SCH (08:29)
[2021-09-19 08:54] LABS: Vitamin D, 25 Hydrox 19.7 ng/ml (30-100)
[2021-09-19] MEDS ORDERED: BUMETANIDE 2 MG in SYRINGE 0 ML IV ONE (09:00)
[2021-09-19] MEDS ORDERED: ERGOCALCIFEROL 50,000 UNITS 1250 MCG CAP PO ONE (18:37)
--- NOTE | 2021-09-19 18:38 | Hospitalist Progress Note ---
Date of Service September 19, 2021 Assessment & Plan (1) Acute respiratory distress: Plan: Present at admission -- resolved. Was 2nd to bronchitis/mucous plugging/bilateral lower lobe staph aureus pneumonia. O2 sats stable in RA since admission. No further distress or increased work of breathing. (2) COVID-19: Plan: Recent admission for such (08/31 to 09/11). ~08/31 was the first day of his illness. Thus, he is 20+ days into his illness. Airborne precautions stopped 09/17/21. He continues to make a nice recovery. CT chest hospital day #1 with b/l lower lobe infiltrates - COVID-19 pneumonia vs staph aureus pneumonia. Sputum cx grew MSSA - currently on augmentin; previously on Unasyn. Day #6 of antibiotics. Cont steroids for COVID - dexamethasone 2mg today. Wean off next 4-5 days. (3) Mucus plugging of bronchi: Plan: SEVERE on CT chest at admission. IMPROVED. 2nd to COVID pneumonia and MSSA pneumonia. HE HAS HAD SIGNIFICANT IMPROVEMENT WITH THIS BY USING THE CHEST PT VIBRATION VEST TWICE DAILY. AT HOME HE WAS UNABLE TO RESOLVE THIS ISSUE WITH MUCOLYTICS AND NEBS ALONE. THUS, HE WOULD BENEFIT SIGNIFICANTLY BY CONTINUING WITH THE VIBRATION VEST WHILE HERE AND OUTSIDE THE HOSPITAL. The mucous plugging likely contributed heavily to his re-admission. Not having the vest would be detrimental to his health & recovery from COVID. (4) Chronic renal failure, stage 3a: Plan: baseline Cr is ~1.3 Cr at admission 1.6 Cr 1.1 today daily AM bmp (5) COPD exacerbation: Plan: Cont Steroids, bronchodilators, mucolytics, chest PT vest twice daily, flutter valve. See above. Cont home inhalers. Improving / resolving. Cont steroid wean. Change to 2mg of dexamethasone today. 2mg of dexamethasone x 3 days, then 1mg x 3 days, then stop. (6) Acute hyponatremia: Plan: Na level 130 at time of hospital discharge on 09/11. 134 today. Repeat BMP stability. (7) Candidal diaper rash: Plan: cont nystatin powder TID (8) Obstructive sleep apnea: Plan: During the prior hospital stay he was encouraged to use BIPAP and he refused on multiple occasions. (9) Atrial fibrillation, permanent: Plan: Cont coreg BID. Cont eliquis. Controlled. (10) Chronic diastolic CHF (congestive heart failure): Plan: Cont bumex 2mg IV x 1 today. BMP am. LE Edema is approaching baseline. (11) CAD (coronary artery disease): Plan: No evidence of ACS at this time. cont coreg. cont asa. cont statin. (12) Diabetes mellitus, type II: Plan: cont lantus 20 units BID. cont novolog SSI. BSGs ac/hs. hold oral agents from home. (13) GERD (gastroesophageal reflux disease): Plan: PPI daily (14) Hypertension: Plan: Cont coreg Cont imdur Controlled (15) DVT prophylaxis: Plan: Eliquis BID (16) Decubitus ulcer, buttock: Plan: wound care consultation appreciated has considerable candidal component - nystatin powder TID (17) Candidiasis of mouth and esophagus: Plan: has been refractory to nystatin solution alone this, plus the candidal rash in groin/buttocks, would benefit from systemic therapy started diflucan 100mg daily - day #2 of such plan 7-10 days of Rx (18) External hemorrhoids: Plan: anusol cream TID scheduled (19) Vitamin D deficiency: Plan: ergocalciferol 50,000 units once weekly x 8 weeks Plan: daughter updated by phone this evening PT, NONA molina appreciated family would like for him to go to rehab following this admission [facility] medically stable for d/c hopefully [facility] can take him on Monday Admission and Anticipated Discharge Date Admission Date: September 14, 2021 Subjective patient sitting in chair had a good night - slept well cough improving/resolving minimal sputum at this point sinuses feel better no dyspnea eating 100% of meals ambulating reading magazines & newspapers tele - rate-controlled a.fib Review of Systems Review of Systems: gen - no fevers; energy improved cv - no cp, no orthopnea; edema is "about close to normal" pulm - no OJEDA GI - hemorrhoids feel better; no abd pain; no N/V Physical Exam Physical Exam: gen - sitting in chair, looks great, NAD neck - no JVD sitting upright at 90 degrees heart - irregular, s1 s2, 1/6 NAKIA LLSB lungs - decreased BS bases (minimal), otherwise CTA b/l; no wheezing, no rales abd - soft NT ND BS+ ext - 1-2+ edema left foot, <1+ right foot, pulses 2+ b/l psych - a/o x 3 musculo - kyphosis of back Results & Data Results & Data ([facility]) Vital Signs (Past 12 Hours) Vital Signs Temp Pulse Pulse Resp BP Pulse Ox 09/19/21 15:44 36.7 C 83 18 121/68 95 09/19/21 11:46 36.7 C 90 18 133/65 96 09/19/21 08:12 36.4 C L 77 20 116/63 96 09/19/21 07:23 71 18 96 09/19/21 07:00 60 Laboratory Results Laboratory Results - last 24 hr 09/18/21 09/19/21 09/19/21 20:15 07:30 07:46 Sodium 134 L Potassium 4.1 Chloride 95 L Carbon Dioxide 34 H Anion Gap 5 BUN 34 H Creatinine 1.13 Est Cr Clr Drug Dosing 51.0 Est GFR ( Amer) 68.3 Est GFR (Non-Af Amer) 58.9 BUN/Creatinine Ratio 30.1 H Glucose 80 POC Glucose 260 H 98 Calcium 8.6 Magnesium 2.2 Vitamin B12 25-OH Vitamin D Total 09/19/21 09/19/21 09/19/21 07:46 11:25 16:19 Sodium Potassium Chloride Carbon Dioxide Anion Gap BUN Creatinine Est Cr Clr Drug Dosing Est GFR ( Amer) Est GFR (Non-Af Amer) BUN/Creatinine Ratio Glucose POC Glucose 131 H 201 H Calcium Magnesium Vitamin B12 613 25-OH Vitamin D Total 19.7 L PG Care Time/CCT Total # of Minutes Spent Total Time Spent with Patient: Total time spent is greater than 50% in coordination of care (as documented) at patient's floor/unit and/or counseling patient: Coding Level of Care Code 23278 Subseq Hosp Care Lvl 3 Diagnoses Acute respiratory distress R06.03 COVID-19 U07.1 Mucus plugging of bronchi T17.500A Chronic renal failure, stage 3a N18.31 COPD exacerbation J44.1 Acute hyponatremia E87.1 Candidal diaper rash B37.2; L22 Obstructive sleep apnea G47.33 Atrial fibrillation, permanent I48.21 Chronic diastolic CHF (congestive heart failure) I50.32 CAD (coronary artery disease) I25.10 Diabetes mellitus, type II E11.9 GERD (gastroesophageal reflux disease) K21.9 Hypertension I10 DVT prophylaxis Z29.9 Decubitus ulcer, buttock L89.309 Candidiasis of mouth and esophagus B37.81; B37.0 External hemorrhoids K64.4 Vitamin D deficiency E55.9
[2021-09-20 06:33] LABS: Hematocrit (blood only) 32.1 % (42-52); Hemoglobin 10.7 g/dL (14.0-18.0); Mean Corpuscular Hemoglobin 28.5 pg (25-34); Mean Corpuscular Hgb Conc 33.3 g/dL (32-36); Mean Corpuscular Volume 85.4 fL (80-100); Mean Platelet Volume 9.1 fL (7.4-10.4); Platelet Count 168 K/uL (130-400); RDW Coefficient of Variation 14.6 % (11.5-14.5); RDW Standard Deviation 45.6 fL (36.4-46.3); Red Blood Count 3.76 M/uL (4.7-6.1); White Blood Count 11.61 K/uL (4.8-10.8)
[2021-09-20 06:59] LABS: Est GFR (African American) 73.8 ml/min
[2021-09-20 07:00] LABS: BUN Creatinine Ratio 30.2 (10-20); Calcium 8.1 mg/dl (8.5-10.1); Creatinine Clr Calc Pharmacy 54.1 ml/min; Est GFR (Non-African American) 63.7 ml/min
[2021-09-20] MEDS: ALBUT/IPRATROP 3MG/0.5MG NEB 3 ML VIAL INH SCH (07:20)
[2021-09-20] MEDS: CARBOHYDRATES FOR HYPOGLYCEMIA PO PRN ×2 (07:27→07:44)
[2021-09-20] MEDS ORDERED: BUMETANIDE 1 MG TAB PO ONE (08:00)
[2021-09-20] MEDS ORDERED: INSULIN GLARGINE SOLOSTAR 100 UNITS/ML 3 ML PEN SC SCH (09:00)
[2021-09-20] MEDS: AMOXICILLIN/CLAVULANATE 875 MG TAB PO SCH (09:12)
[2021-09-20] MEDS: LORATADINE 10 MG TAB PO SCH (09:12)
[2021-09-20] MEDS: dexAMETHasone 1 MG TAB PO SCH (09:12)
[2021-09-20] MEDS: carvediloL 12.5 MG TAB PO SCH (09:12)
[2021-09-20] MEDS: PANTOprazole 40 MG TAB PO SCH (09:12)
[2021-09-20] MEDS: ASPIRIN 81 MG ECTAB PO SCH (09:13)
[2021-09-20] MEDS: ATORVASTATIN 40 MG TAB PO SCH (09:13)
[2021-09-20] MEDS: NYSTATIN SUSP 500,000 U/5 ML UDC PO SCH ×2 (09:13→12:24)
[2021-09-20] MEDS: ISOSORBIDE MONO EXTENDED REL 30 MG TABCR PO SCH (09:13)
[2021-09-20] MEDS: guaiFENesin 600 MG TABCR PO SCH (09:13)
[2021-09-20] MEDS: FLUCONAZOLE 100 MG TAB PO SCH (09:13)
[2021-09-20] MEDS: ADVANCED PROBIOTIC 1250 MG CAPSULE PO SCH (09:13)
[2021-09-20] MEDS: NYSTATIN POWDER 15GM BTL EXT SCH ×2 (09:14→16:15)
[2021-09-20] MEDS: FLUTICASONE/VILANTEROL 200/25MCG 14 PUFFS/INHALER INH SCH (09:14)
[2021-09-20] MEDS: IPRATROPIUM BROMIDE NASAL SPRAY 0.06% 15ML NAE SCH (09:14)
[2021-09-20] MEDS: DOCUSATE SODIUM 100 MG CAP PO SCH (09:15)
[2021-09-20] MEDS: FLUTICASONE PROPIONATE NA SPR 16 GM BTL SCH (09:15)
[2021-09-20] MEDS: HYDROCORTISONE HC 2.5% CRM 30GM TUBE EXT SCH ×2 (09:15→16:15)
[2021-09-20] MEDS: INSULIN ASPART PER UNIT SC SCH ×2 (09:16→12:27)
[2021-09-20] MEDS: APIXABAN 5 MG TABLET PO SCH (09:16)
--- NOTE | 2021-09-20 15:27 | Discharge Summary ---
Date of Service date of admission - September 14, 2021 date of discharge - September 20, 2021 Admission HPI Per Admitting Provider 86yo male with permanent a.fib, CKD stage 3a, ?COPD, CAD with prior CABG, chronic diastolic CHF, and T2DM - with recent hospitalization from 08/31 to 09/11 for COVID-19 infection/volume overload - presents from home due to ongoing fatigue, poor appetite, difficulty ambulating, cough, sputum production, nasal congestion, constipation, and dyspnea on exertion. Patient was d/c home with his family on Monday and his family reports he had severe weakness the day he got home. On Monday he was modestly improved but still not near his usual baseline. No fevers or chills during his time at home. On Monday he had worsening cough and this ultimately became quite productive of white sputum. He was using his albuterol nebs at home at least twice daily for his symptoms. Over the last few nights he has had to sleep in the chair due to his pulmonary symptoms. Today EMS was ultimately summoned to his home because of the worsening pulmonary symptoms. O2 sats were mid 80s in room air when EMS arrived. O2 was applied (by report 100% nonrebreather) and was given lasix IV by EMS. Upon ER arrival he was given additional treatments including albuterol x 1 and solumedrol 125mg IV x 1. During my bedside assessment he states that the coughing/dyspnea along with fatigue are the most distressing symptoms to him. Principal Diagnosis 1. COVID-19 infection / pneumonia 2. Staph aureus pneumonia 3. Acute respiratory distress 2nd to #1, #2 4. Chronic diastolic CHF 5. Severe candidal rash 6. Oral candidiasis 7. Asthma/COPD with exacerbation Discharge Exam gen - sitting in chair, looks great, NAD neck - no JVD sitting upright at 90 degrees mouth - resolved thrush heart - irregular, s1 s2, 1/6 NAKIA LLSB lungs - decreased BS bases (minimal), otherwise CTA b/l; no wheezing, no rales; no increased work of breathing abd - soft NT ND BS+ ext - 2+ edema left foot and distal leg; 1+ right foot and distal leg; pulses 2+ b/l psych - a/o x 3 musculo - kyphosis of back external rectal exam - hemorrhoid present skin - resolving/nearly resolved candidal rash of b/l groin, buttocks, perineal regions; buttock decubitus ulcer on left, stage 1-2, clean/no drainage psych - a/o x 3 Discharge Data Allergies Allergy/AdvReac Type Severity Reaction Status Date / Time lisinopril AdvReac Intermediate cough Verified 09/14/21 16:49 Consultations PT, OT Speech therapy Wound Care Ordered Studies Chest X-Ray 09/14/21 15:33 XR chest 1V portable CLINICAL HISTORY: Chest Pain. COMPARISON STUDY: 09/06/2021 TECHNIQUE: 1 view of the chest FINDINGS: Single frontal view of the chest demonstrates the cardiomediastinal silhouette to be within normal limits. The patient is status post previous cardiothoracic surgery. The lungs are clear of alveolar opacities. There is no evidence for pleural effusion. There is no evidence for vascular congestion. There is no acute osseous pathology. IMPRESSION: 1. No acute cardiopulmonary disease. ACT 112: Negative or not required by law. Electronically signed by: Franklin Tobar M.D. 09/14/2021 4:[address] 09/14/21 18:29 CT chest diagnostic wo con CT DOSE: 595.95 mGy.cm CLINICAL HISTORY: 86 years-old Male with covid-19, severe cough/hypoxia. Acute cough with congestion. COVID Positive. TECHNIQUE: Multiaxial CT images of the chest were performed without contrast. A dose lowering technique was utilized adhering to the principles of ALARA. COMPARISON: Chest radiograph of same day, CTA chest 12/04/2012 FINDINGS: Heterogeneous thyroid. No lymphadenopathy. Moderate cardiomegaly. Prior median sternotomy with CABG. Extensive [place] coronary artery calc ifications. Atherosclerosis of the thoracic aorta without aneurysm. No pneumothorax, pleural effusion or overt pulmonary edema. Tracheobronchial secretions with bibasilar mucous plugging and subsegmental bibasilar linear consolidation. There are no suspicious pulmonary nodules or masses. 3 mm subpleural solid nodule of the right upper lobe on image 92 is unchanged compatible with benign etiology. Cholecystectomy. No acute process of the imaged upper abdomen. Tiny hiatal hernia. Moderate fecal retention. Unremarkable soft tissues. Degenerative changes of the shoulders and spine. Healed chronic right-sided anterior rib fractures. IMPRESSION: 1. Tracheobronchial secretions with mucous plugging and subsegmental consolidation within the basal lower lobes suggestive of atelectasis. Pneumonia or aspiration pneumonitis could appear similarly. 2. Cardiomegaly without pulmonary edema. 3. Prior median sternotomy and CABG. ACT 112: Negative or not required by law. Electronically signed by: Diaz Chavez M.D. 09/14/2021 9:04 PM Hospital Course (1) Acute respiratory distress: Present at time of arrival in ER -- resolved. Was 2nd to bronchitis/mucous plugging/bilateral lower lobe staph aureus pneumonia in the midst of recent COVID-19 infection/pneumonia. O2 sats stable in RA since admission. No further distress or increased work of breathing. (2) COVID-19: Recent admission for such (08/31 to 09/11). By the time of hospital discharge he was 20+ days into his illness. Airborne precautions stopped 09/17/21. He made a very nice recovery during this stay here. CT chest hospital day #1 with b/l lower lobe infiltrates - COVID-19 pneumonia vs staph aureus pneumonia vs both. Sputum cx grew MSSA - received IV Unasyn starting on hospital day #1, then transitioned to oral augmentin late in his stay. He will complete a few more days of augmentin post-discharge for total of 10 days IV/PO. He received a course of dexamethasone for his COVID while hospitalized. After discharge will take 2 more days of dexamethasone then he will stop. (3) Mucus plugging of bronchi: SEVERE on CT chest at admission. IMPROVED throughout the stay. 2nd to COVID pneumonia and MSSA pneumonia. HE HAD SIGNIFICANT IMPROVEMENT WITH THE MUCOUS PLUGGING BY USING A CHEST PT VIBRATION VEST TWICE DAILY. AT HOME HE WAS UNABLE TO RESOLVE THIS ISSUE WITH MUCOLYTICS AND NEBS ALONE. He would benefit by continuing with the vibration vest outside the hospital. The mucous plugging likely contributed heavily to his re-admission. (4) Chronic renal failure, stage 3a: baseline Cr ~1.3 Cr at admission 1.6 Cr 1 at discharge Repeat BMP in about 3 days post-discharge advised to ensure stability of electrolytes & renal function. (5) COPD exacerbation: Received steroids, bronchodilators, mucolytics, chest PT vest twice daily, flutter valve. He will continue home inhalers as previous. COPD flare Improved/resolved during the stay with measures as noted above. He will finish 2 more days of dexamethasone post-discharge. Patient and his daughter were uncertain if he had ever had PFTs to establish a formal diagnosis of COPD. Thus, I recommend a referral to [facility] in a few weeks post-discharge to establish care, undergo PFTs, etc. (6) Acute hyponatremia: Na level 130 at time of recent hospital discharge on 09/11. This admission his presenting Na level was 131. Na level on 09/20/21 was 131. Hyponatremia is due to CHF & diuretic usage. Recommend repeat BMP within 3 days of discharge to ensure stability. (7) Candidal diaper rash: cont nystatin powder TID (8) Obstructive sleep apnea: During the prior hospital stay he was encouraged to use BIPAP but he refused on multiple occasions. (9) Atrial fibrillation, permanent: Cont coreg BID. Dose was reduced from 25mg BID to 12.5mg BID while here. Cont eliquis. Rates were controlled during this visit. (10) Chronic diastolic CHF (congestive heart failure): He received diuresis daily while hospitalized. Discharge weight was 84.8kg (186 pounds). Exact "dry weight" is uncertain. CXR and CT imaging did not show pulmonary edema. Patient does report LLE>RLE edema on a chronic basis even on the best of days. He will see [facility] - [facility] - for follow-up of CHF shortly after discharge. Bumex dosing at discharge 3mg daily. Daily weights, salt restriction, fluid restriction all recommended. (11) CAD (coronary artery disease): No evidence of ACS during this hospitalization. cont coreg. cont asa. cont statin. cont imdur. (12) Diabetes mellitus, type II: Resume metformin XR 500mg daily. He was on lantus during the visit and I would use such upon transfer to [facility]. Recommend 10 units daily. Given his fluctuating creatinine clearance would STOP his glipizide. Most recent HbA1C was 9.1% in late August 2021. (13) GERD (gastroesophageal reflux disease): PPI daily (14) Hypertension: Cont coreg Cont imdur Cont bumex (15) DVT prophylaxis: Eliquis BID (16) Decubitus ulcer, buttock: wound care consultation completed for the left-sided buttock ulcer - optifoam dressings recommended. has considerable candidal component - nystatin powder TID. (17) Candidiasis of mouth and esophagus: had been refractory to nystatin solution alone started diflucan 100mg daily and received 3 days of such before discharge recommend 4 more doses of diflucan post-discharge which will Rx this plus the buttock/groin candidal rash thrush improved with systemic therapy (18) External hemorrhoids: anusol cream TID scheduled for a few more days post-discharge (19) Vitamin D deficiency: ergocalciferol 50,000 units once weekly x 8 weeks in total 25-Oh vit D level = 19.7 transferring to the rehab program based at [facility] post-discharge Total Time Total Time Spent Total Time Spent (In Minutes): 60 Discharge Plan Discharge Items Patient Disposition: Transfer Assisted Fac Reason For Visit: COVID-19 INFECTION, ACUTE RESPIRATORY DISTRESS Discharge Diagnosis: 1. COVID-19 infection 2. Staph aureus pneumonia 3. Thrush (yeast infection of mouth) - improving 4. Candidal rash of groin/buttocks - improving 5. Small Buttock decubitus ulcer 6. Chronic leg edema 7. Type 2 Diabetes 8. Vitamin D deficiency 9. Atrial fibrillation 10. Asthma with exacerbation 11. Deconditioning 12. Chronic Diastolic Congestive Heart Failure with discharge weight of 84.8 kg (186 pounds) Activity: Resume your previous activity Non-emergency contact: Primary Care Provider and Carton Making Machine Operator Call non-emergency contact if: you have any medication questions, your symptoms worsen and you have a fever Follow-up/Referrals: Ayo Lopez CRNP [Primary Care Provider] - (within 1 week of discharge from [facility] ) Liban Plasencia MD [Physician] - (3-4 weeks - Dr Plasencia or any of his pulmonary partners - dx: [id number] infection, h/o "asthma" ) Palak Swain PA-C [Physician Corking Machine Operator] - ([facility] -- within 1 week for diastolic CHF) Diet: Carb Consistent or DM2 and Heart Healthy Fluids: 1800ml (7 cups) Diet Texture: Easy to Chew Addtl Attending Provider Instructions: Mr Restrepo was hospitalized at [facility] from 09/14/21 to 09/20/21 for COVID-19 infection and Staph aureus pneumonia. He had previously been hospitalized at [facility] - also for COVID-19 infection - from 08/31/21 to 09/11/21. Mr Restrepo improved with IV/Oral antibiotics, IV/Oral steroids, and diuretics. He has been out of airborne isolation since 09/17/21. Recommendations - 1. Labs - repeat CBC, BMP, and magnesium level in 3 days for stability. 2. Fingerstick blood sugars four times daily. 3. If a chest percussion vest for chest PT is available please continue this twice daily at least for another week. 4. Daily standing scale weights. Please call medical lab director if any weight gain of more than 2-3 pounds over 1-2 days is seen. Of note - he has chronic leg edema, much worse on the left, due to prior vein harvest. 5. 25-OH vitamin D level in 2 months (at conclusion of ergocalciferol course). 6. Advise establishing care with [facility] at [facility]. 3-4 week time frame would be acceptable. Patient should have pulmonary function tests, etc. 7. Continue flutter valve and incentive spirometry for another 7-10 days. 8. Buttock decubitus ulcer - please follow instructions as outlined by the [facility] Wound Care Nurse Team for dressing changes. Addtl Theatrical Performer Provider Instructions: Call 911 and go to the Emergency Room if: * You have tightness or pain in your chest that does not go away with rest or Nitroglycerin * You are very short of breath even with rest Call your doctor if any of the following symptoms or problems start or get worse: * Shortness of breath or difficulty breathing * Wake up at night short of breath * Chest pain * Cough * Swelling of your hands, fee, or legs * More fatigued or tired with your normal activity * Palpitations - sudden fast heart beats WEIGHT * Weigh yourself every morning after using the bathroom. * Use the same scale. * Wear the same amount of clothing. * Write your weight down on your chart. * Call your doctor if you gain more than 2-3 pounds in 1-2 days. MEDICATIONS * Use this discharge instruction sheet for instructions. * Take your medications at the time your doctor ordered. * Do not skip a dose of your medicines. * If you miss a dose of medicine, take as soon as possible, but DO NOT DOUBLE A DOSE. * Read your medicine information when you get home. * Know all of the side effects of your medicine. * Call your doctor's office if you have any side effects. * Be sure all of your doctors know what medicine and herbs you take (including cold, flu, and herbal medicine). * Pain Medicine: If you do not get relief from your pain, please call your doctor for help. Take the following with you to your follow-up doctor appointments: * Weight Chart * Medication List * List of questions Do not drink excessive alcohol, beer or wine. Pending Studies at Discharge: No Stand-Alone Forms: My [facility] Skilled Items Patient informed of condition?: Yes DNR: No Discharge Level of Care: Skilled Communicable Disease: No Discharge Prognosis: Improving Lines: None Urinary Catheter: No Medications and DC Order Prescriptions: New fluconazole 100 mg Tablet 100 mg PO QAM 4 Days Qty: 4 RF: 0 nystatin 100,000 unit/mL Suspension 5 ml PO QID 4 Days Qty: 80 RF: 0 hydrocortisone [Proctosol HC] 2.5 % Cream With Perineal Applicator 1 applic EXT BID 5 Days Qty: 1 RF: 0 dexamethasone 1 mg Tablet 2 mg PO QAM 2 Days Qty: 4 RF: 0 nystatin [Nystop] 100,000 unit/gram Powder 1 applic EXT TID 7 Days Qty: 30 RF: 0 insulin glargine [Lantus Solostar U-100 Insulin] 100 unit/mL (3 mL) Insulin Pen 10 unit SC QAM Qty: 1 RF: 0 guaifenesin [Mucinex] 600 mg Tablet Extended Release 12hr 1,200 mg PO Q12 7 Days Qty: 28 RF: 0 Advanced Probiotic 625 mg (10 billion cell) Capsule 2 cap PO DAILY 5 Days Qty: 10 RF: 0 amoxicillin-pot clavulanate 875-125 mg tablet 1 tab PO BID 3 Days Qty: 6 RF: 0 ergocalciferol (vitamin D2) 1,250 mcg (50,000 unit) capsule 1,250 mcg PO .once a week 49 Days RF: 0 bumetanide 1 mg tablet 3 mg PO QAM Qty: 90 RF: 5 Continued ipratropium bromide 0.03 % spray,non-aerosol 2 spray INTRANASAL QAM Qty: 30 RF: 11 (DME) [employer] Ultra Blue Test Strip Strip See Dose Instructions .ROUTE .MEDSUPPLY Qty: 100 RF: 6 (DME) nebulizer accessories Misc See Rx Instructions .ROUTE .MEDSUPPLY Qty: 1 RF: 0 Eliquis 5 mg tablet 5 mg PO BID Qty: 180 RF: 1 Symbicort 160-4.5 mcg/actuation HFA aerosol inhaler 2 puff INHALATION BID Qty: 10.2 RF: 5 aspirin 81 mg tablet,delayed release (DR/EC) 81 mg PO DAILY Qty: 90 RF: 1 metformin 500 mg tablet extended release 24 hr 500 mg PO DAILY Qty: 90 RF: 1 isosorbide mononitrate 30 mg tablet extended release 24 hr 30 mg PO DAILY Qty: 90 RF: 1 atorvastatin 40 mg tablet 40 mg PO DAILY Qty: 90 RF: 1 betamethasone dipropionate 0.05 % cream 1 applic topical DAILY PRN (Reason: skin irritation) Qty: 15 RF: 5 nitroglycerin 0.4 mg tablet, sublingual 0.4 mg SL Q5M PRN (Reason: Chest Pain) Qty: 25 RF: 0 loratadine [Claritin] 10 mg Tablet 10 mg PO DAILY RF: 0 fluticasone propionate 50 mcg/actuation spray,suspension 2 spray INTRANASAL DAILY PRN (Reason: Congestion) RF: 0 ipratropium-albuterol 0.5 mg-3 mg(2.5 mg base)/3 mL solution for nebulization 3 ml INHALATION BID RF: 0 Changed carvedilol 25 mg tablet 12.5 mg PO BID Qty: 180 RF: 1 esomeprazole magnesium [Nexium] 40 mg Capsule,Delayed Release(Dr/Ec) 40 mg PO DAILY Qty: 30 RF: 0 albuterol sulfate [ProAir HFA] 90 mcg/actuation HFA aerosol inhaler 2 puff INHALATION Q4H PRN (Reason: Shortness Of Breath) Qty: 25 RF: 5 Discontinued glipizide 5 mg tablet extended release 24 hr 10 mg PO DAILY Qty: 180 RF: 1 Combivent Respimat 20-100 mcg/actuation mist 1 puff inhalation BID Qty: 4 RF: 0 torsemide 20 mg tablet 60 mg PO DAILY Qty: 90 RF: 0 Discharge Orders: Discharge Order (Routine); Ordered 09/20/21 Ordered By: Juarez Mendoza Admission Data Admit Date/Time: 09/14/21 18:42 Attending Provider: Juarez Mendoza Admit Provider: Juarez Mendoza Primary Care Provider: Ayo Lopez Other Providers: Juarez Mendoza ; [facility] Other Interventions: Discharge Summary Assessment (RN) Last Done: 09/20/21 15:46 Coding Level of Care Code D/C DAY MANAGEMENT >30 MINS Diagnoses Acute respiratory distress R06.03 COVID-19 U07.1 Mucus plugging of bronchi T17.500A Chronic renal failure, stage 3a N18.31 COPD exacerbation J44.1 Acute hyponatremia E87.1 Candidal diaper rash B37.2; L22 Obstructive sleep apnea G47.33 Atrial fibrillation, permanent I48.21 Chronic diastolic CHF (congestive heart failure) I50.32 CAD (coronary artery disease) I25.10 Diabetes mellitus, type II E11.9 GERD (gastroesophageal reflux disease) K21.9 Hypertension I10 DVT prophylaxis Z29.9 Decubitus ulcer, buttock L89.309 Candidiasis of mouth and esophagus B37.81; B37.0 External hemorrhoids K64.4 Vitamin D deficiency E55.9
== END 2021-09-20 17:06 | DRG 177 ==
LOC: ED 15:08 → 2S 18:42

== ENCOUNTER 2022-06-25 10:29 | Inpatient (IN) ==
[2022-06-25] MEDS ORDERED: ALBUT/IPRATROP 3MG/0.5MG NEB 3 ML VIAL NEB STA (10:55)
--- NOTE | 2022-06-25 10:58 | Emergency Department Note ---
Impression & Plan Dyspnea on exertion ADMIT ED Provider Note HPI: The patient is an 87-year-old gentleman with history of heart failure with preserved ejection fraction, coronary artery disease status post CABG, chronic atrial fibrillation on anticoagulation, type 2 diabetes, presents emergency department the chief complaint of exertional dyspnea as well as cough that has been worsening for the past 2 to 3 days. Patient's daughter is at the bedside and assists with history, states that the patient has been having some increasing shortness of breath with exertion over the past 2 days. He is not complain of any chest pain on arrival here to the ED the patient is in no acute distress, he is saturating at 93% on room air, patient is noted to be bradycardic at 42, his daughter at the bedside states this has been an ongoing issue for him and his beta-lita medication dosing was recently reduced. He denies any chest pain. ROS: - Per HPI *Outpatient medications and allergy history reviewed. *Pertinent external medical records reviewed. PE: General: Alert, frail-appearing, no acute distress HEENT: Normocephalic, trachea midline Eyes: Extraocular eye movement is intact, no scleral erythema Pulmonary: Diminished bilaterally without wheezing Cardio: Bradycardic rate and irregular rhythm GI: Abdomen is soft to palpation : No suprapubic tenderness MSK: No evidence of trauma or malformation of the extremities, no edema Skin: No evidence of rash Neuro: Alert, no focal deficits Psychiatric: Cooperative clinical research monitor: (As interpreted by myself): - An order was placed for continuous cardiac monitoring - Patient was noted to be in atrial fibrillation with a rate of 43 EKG: (As interpreted by myself): Rate: 43 Rhythm: Atrial fibrillation with slow ventricular response Intervals: QRS 134 ms, otherwise within normal limits ST changes: No ST elevation Time: 1059 Interventions provided in ED: -DuoNeb breathing treatment, IV Solu-Medrol, aspirin Differential Diagnosis: ACS, pneumonia, viral URI, COVID-19 infection, CHF exacerbation, amongst other potential pathologies. Medical Decision Making: Patient presented to the emergency department with some dyspnea on exertion, cough, he has had some generalized weakness. He presents with his daughter at the bedside who is concerned that the patient's breathing has not been normal over the past 2 days. On arrival here to the ED the patient is saturating well on room air but does display some increased work of breathing with minimal exertion such as getting into the bed. Shortly after arrival IV was established, lab work obtained, patient was placed on registered nurse cardiac. On registered nurse cardiac patient appears to be in slow atrial fibrillation, his daughter states that this has been an ongoing issue for him, his beta-lita therapy (carvedilol) was recently reduced in dosage. He is otherwise hemodynamically stable, lab work shows no leukocytosis, slight anemia with hemoglobin of 12.3, platelet count is within normal limits, venous blood gas shows slight hypercarbia at 57 with slight acidosis with a venous pH of 7.34. Otherwise baseline hyponatremia with a sodium of 130, baseline CKD with creatinine 1.69, troponin is mildly elevated at 21, EKG does not show any acute ischemic changes. On my reassessment following a DuoNeb breathing treatment and IV Solu-Medrol the patient states his breathing is improved, he was able to ambulate here in the ED with some symptomatic dyspnea but he did not have hypoxia. I discussed disposition with the patient and his daughter at the bedside, daughter states preference for admission as she is concerned about his breathing and history of ACS with exertional dyspnea. In discussion patient would like to stay in the hospital for observation. Case was therefore discussed with the on-call hospitalist, patient was placed for admission in stable condition. Consultants: Hospitalist service, Dr. Israel Disposition discussion held by myself with: Patient and daughter at the bedside Diagnosis: 1. Exertional dyspnea 2. History of coronary artery disease, status post 3. Elevated high-sensitivity troponin 4. Bradycardia, chronic, on beta-lita therapy 5. 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) Hypertension Mitral valve insufficiency and aortic valve insufficiency Mucus plugging of bronchi Normocytic anemia Obstructive lung disease Obstructive sleep apnea Reactive airway disease Spinal stenosis Tubular adenoma of colon Vitamin D deficiency Surgical History S/P CABG (coronary artery bypass graft) S/P cardiac catheterization S/P cholecystectomy S/P shoulder surgery Family History Sister Hypertension Colon cancer Other Prostate cancer Stroke Denies family history of Osteoporosis Myocardial infarction Breast cancer Social History Smoking Status: Never smoker Second Hand Exposure: No; Hx Alcohol Use: No Hx Substance Use: No Preferred Language: Russian Communication Ability: Effective Visual Impairment: No Limitations Hearing Ability: Normal 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 Required: No Beliefs That Will Affect Care: None marital status: / Current Living Situation: Family Current Living Situation Comment: Daughter and granddaughter current occupational status: 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[employer] How many Children do You have: 2 Feels Safe at Home: Yes Childhood Exposure to Second-Hand Smoke: No Diet Comment: regular caffeine: Yes (Tea and soda) during the past year weight has: increased > 10 lbs Dental Care, Regularly: No Physical Activity Frequency: Daily Physical Activity Frequency Comment: walking in the house with walker Seatbelt Use: always Sunscreen Use: No Assistive Devices: Cane and Walker Allergies Allergies Allergy/AdvReac Type Severity Reaction Status Date / Time lisinopril AdvReac Intermediate cough Verified 05/16/22 15:21 Home Meds Home Medications Medication Instructions Recorded Confirmed esomeprazole magnesium 40 mg 40 mg PO DAILY PRN Gi Upset 10/07/21 06/25/22 capsule,delayed release (Nexium) Previous Rx's Medication Instructions Recorded aspirin 81 mg tablet,delayed 81 mg PO DAILY #90 tabs 09/03/21 release nitroglycerin 0.4 mg sublingual 0.4 mg sublingual Q5M PRN Chest 10/07/21 tablet Pain #25 tabs blood sugar diagnostic (OneTouch #100 ea 11/15/21 Verio test strips) lancets (Lancets,Thin) #200 ea 11/15/21 ipratropium 0.5 mg-albuterol 3 mg 3 ml inhalation Q8H PRN wheezing 12/01/21 (2.5 mg base)/3 mL nebulization #180 mL soln empagliflozin 25 mg tablet 25 mg PO DAILY #90 tabs 12/08/21 apixaban 5 mg tablet (Eliquis) 5 mg PO BID #180 tabs 01/03/22 lancets #200 ea 01/05/22 metformin 500 mg tablet,extended 500 mg PO DAILY #90 tabs 03/28/22 release 24 hr formoterol fumarate 20 mcg/2 mL 2 ml inhalation BID #120 mL 03/30/22 solution for nebulization fluticasone propionate 50 2 spray intranasal DAILY PRN 04/15/22 mcg/actuation nasal Congestion #16 grams spray,suspension atorvastatin 40 mg tablet 40 mg PO DAILY #90 tabs 04/21/22 isosorbide mononitrate 30 mg 30 mg PO DAILY #90 tabs 04/21/22 tablet,extended release 24 hr bumetanide 2 mg tablet 2 mg PO .COMPLEX #180 tabs 04/22/22 carvedilol 6.25 mg tablet 6.25 mg PO BID #180 tabs 05/16/22 budesonide 0.25 mg/2 mL suspension 0.25 mg (2 mL) inhalation BID #60 05/18/22 for nebulization mL nebulizer accessories #1 ea 05/19/22 linagliptin 5 mg tablet (Tradjenta) 5 mg PO DAILY #90 tabs 06/08/22 spironolactone 25 mg tablet 25 mg PO DAILY #30 tabs 06/23/22 Results & Data (ED) Vital Signs Vital Signs - 24 hr 06/25/22 10:36 06/25/22 11:26 06/25/22 11:26 Temperature 36.7 C 36.8 C Temperature Source Temporal Artery Scan Oral Pulse Rate 42 L Pulse Rate [Apical] 43 L Respiratory Rate 14 20 Respiratory Effort / Characteristics Spontaneous Nasal Congestion Short of Breath SOB on Exertion Respiratory Depth Deep Respiratory Pattern Regular Blood Pressure 133/44 L Blood Pressure [Right Arm] 142/63 H Blood Pressure Mean 73 Blood Pressure Mean [Right Arm] 89 Pulse Oximetry 93 96 96 Oxygen Delivery Method Room Air Room Air Room Air Sepsis Recent Fever Within 48 Hours No Sepsis New/Unexplained Change in Mental Status No Sepsis Action Taken by Nursing No Action Required 06/25/22 12:05 Temperature Temperature Source Pulse Rate 37 L Pulse Rate [Apical] Respiratory Rate Respiratory Effort / Characteristics Respiratory Depth Respiratory Pattern Blood Pressure Blood Pressure [Right Arm] Blood Pressure Mean Blood Pressure Mean [Right Arm] Pulse Oximetry Oxygen Delivery Method Sepsis Recent Fever Within 48 Hours Sepsis New/Unexplained Change in Mental Status Sepsis Action Taken by Nursing Laboratory Data 06/25/22 00:05 06/25/22 11:02 Lab Results 06/25/22 06/25/22 06/25/22 Range/Units 00:05 11:02 11:02 WBC 6.86 (4.8-10.8) K/ul RBC 4.49 L (4.70-6.10) M/uL Hgb 12.3 L (14.0-18.0) g/dl Hct 37.1 L (42.0-52.0) % MCV 82.6 (80.0-100.0) fL MCH 27.4 (25.0-34.0) pg MCHC 33.2 (32.0-36.0) g/dL RDW Std Deviation 42.8 (36.4-46.3) fL RDW Coeff of Roseann 14.2 (11.5-14.5) % Plt Count 176 (130-400) K/uL MPV 9.9 (9.4-12.4) fL Immature Gran % (Auto) 0.4 % Neut % (Auto) 64.1 % Lymph % (Auto) 21.0 % [place] % (Auto) 13.3 % Eos % (Auto) 0.9 % Baso % (Auto) 0.3 % Neut # (Auto) 4.40 (1.40-6.50) K/uL Lymph # (Auto) 1.44 (1.2-3.4) K/uL [place] # (Auto) 0.91 H (0.11-0.59) K/uL Eos # (Auto) 0.06 (0-0.50) K/uL Baso # (Auto) 0.02 (0-0.2) K/uL Immature Gran # (Auto) 0.03 (0.01-0.20) K/uL APTT 36.6 H (21.0-31.0) Seconds PTT Ratio 1.3 VBG pH (7.36-7.41) VBG pCO2 (38-50) mmHg VBG pO2 mmHg VBG HCO3 mmol/L VBG O2 Saturation % VBG Base Excess mEq/L Sodium 130 L (136-145) mmol/L Potassium 4.8 (3.5-5.1) mmol/L Chloride 92 L (98-107) mmol/L Carbon Dioxide 30 (21-32) mmol/L Anion Gap 8 (3-11) BUN 44 H (6-23) mg/dl Creatinine 1.69 H (0.6-1.4) mg/dl Est Cr Clr Drug Dosing 27.8 ml/min Est GFR ( Amer) 41.7 ml/min Est GFR (Non-Af Amer) 36.0 ml/min BUN/Creatinine Ratio 26.0 H (10-20) Glucose 144 H (70-99(Fasting)) mg/dl Calcium 9.3 (8.5-10.1) mg/dl Total Bilirubin 0.8 (0.2-1.0) mg/dl AST 26 (13-39) U/L ALT 20 (7-52) U/L Alkaline Phosphatase 129 H (34-104) U/L Troponin I High Sens 21.0 H (0-20) pg/ml Total Protein 6.3 (6.0-8.3) gm/dl Albumin 3.7 (3.4-5.0) gm/dl Globulin 2.6 (2.5-4.0) gm/dl Albumin/Globulin Ratio 1.4 (0.9-2) Lipase 78 (11-82) U/L SARS-CoV-2 (PCR) (Negative) Influenza Type A (PCR) (Neg) Influenza Type B (PCR) (Neg) RSV (RT-PCR) (Neg) 06/25/22 06/25/22 Range/Units 11:03 11:22 WBC (4.8-10.8) K/ul RBC (4.70-6.10) M/uL Hgb (14.0-18.0) g/dl Hct (42.0-52.0) % MCV (80.0-100.0) fL MCH (25.0-34.0) pg MCHC (32.0-36.0) g/dL RDW Std Deviation (36.4-46.3) fL RDW Coeff of Roseann (11.5-14.5) % Plt Count (130-400) K/uL MPV (9.4-12.4) fL Immature Gran % (Auto) % Neut % (Auto) % Lymph % (Auto) % [place] % (Auto) % Eos % (Auto) % Baso % (Auto) % Neut # (Auto) (1.40-6.50) K/uL Lymph # (Auto) (1.2-3.4) K/uL [place] # (Auto) (0.11-0.59) K/uL Eos # (Auto) (0-0.50) K/uL Baso # (Auto) (0-0.2) K/uL Immature Gran # (Auto) (0.01-0.20) K/uL APTT (21.0-31.0) Seconds PTT Ratio VBG pH 7.34 L (7.36-7.41) VBG pCO2 57 H (38-50) mmHg VBG pO2 21 mmHg VBG HCO3 31 mmol/L VBG O2 Saturation < 60.0 % VBG Base Excess 3.7 mEq/L Sodium (136-145) mmol/L Potassium (3.5-5.1) mmol/L Chloride (98-107) mmol/L Carbon Dioxide (21-32) mmol/L Anion Gap (3-11) BUN (6-23) mg/dl Creatinine (0.6-1.4) mg/dl Est Cr Clr Drug Dosing ml/min Est GFR ( Amer) ml/min Est GFR (Non-Af Amer) ml/min BUN/Creatinine Ratio (10-20) Glucose (70-99(Fasting)) mg/dl Calcium (8.5-10.1) mg/dl Total Bilirubin (0.2-1.0) mg/dl AST (13-39) U/L ALT (7-52) U/L Alkaline Phosphatase (34-104) U/L Troponin I High Sens (0-20) pg/ml Total Protein (6.0-8.3) gm/dl Albumin (3.4-5.0) gm/dl Globulin (2.5-4.0) gm/dl Albumin/Globulin Ratio (0.9-2) Lipase (11-82) U/L SARS-CoV-2 (PCR) NEGATIVE (Negative) Influenza Type A (PCR) Negative (Neg) Influenza Type B (PCR) Negative (Neg) RSV (RT-PCR) Negative (Neg) Administered Medications Discontinued Medications Albuterol (Albut/Ipratrop 3mg/0.5mg Neb 3 Ml Vial) 3 ml NEB NOW STA; Protocol Stop: 06/25/22 10:56 Last Admin: 06/25/22 11:27 Dose: 3 ml Documented By: HARINDER Aspirin (Aspirin Chew 324 Mg) 324 mg PO NOW STA Stop: 06/25/22 12:53 Last Admin: 06/25/22 12:57 Dose: 324 mg Documented By: HARINDER Methylprednisolone (Methylprednisolone 125 Mg/2 Ml Vial) 125 mg IV NOW STA Stop: 06/25/22 12:11 Last Admin: 06/25/22 12:38 Dose: 125 mg Documented By: HARINDER Imaging Data Radiologist's Impression: Chest X-Ray 06/25/22 10:52 XR chest 1V portable CLINICAL HISTORY: Chest pain, nonspecific COMPARISON STUDY: Chest CT September 14, 2021. FINDINGS: Lung volumes are normal. Lungs are clear. There is no pneumothorax or pleural effusion. Cardiomegaly is unchanged. There are median sternotomy wires and clips from bypass grafting. Mediastinal contours are normal. There is no evidence for pulmonary edema. Degenerative changes of both shoulders are incidentally noted. IMPRESSION: No acute cardiopulmonary findings. No change in appearance of the chest. ACT 112: Negative or not required by law. Electronically signed by: Braulio Steve M.D. 06/25/2022 11:41 AM Discharge Plan Visit Data Chief Complaint: Congestion Stated Complaint: CONGESTED, FATIGUE ED Provider: Anshu Mora Discharge Problem: Dyspnea on exertion Forms Stand Alone Forms: [facility] [employer] Prescriptions Prescriptions: No Action aspirin 81 mg tablet,delayed release (DR/EC) 81 mg PO DAILY Qty: 90 1RF (DME) OneTouch Verio test strips Strip See Rx Instructions .Route Qty: 100 5RF Rx Instructions: TEST ONCE PER DAY (DME) lancets [Lancets,Thin] Misc See Rx Instructions .Route Qty: 200 2RF Rx Instructions: As directed Daily ipratropium-albuterol 0.5 mg-3 mg(2.5 mg base)/3 mL solution for nebulization 3 ml INHALATION Q8H PRN (Reason: wheezing) Qty: 180 3RF Rx Instructions: MAY USE UP TO 4 X DAILY IF NEEDED. Dx:COPD J44.9 Jardiance 25 mg tablet 25 mg PO DAILY Qty: 90 2RF Eliquis 5 mg tablet 5 mg PO BID Qty: 180 1RF metformin 500 mg tablet extended release 24 hr 500 mg PO DAILY Qty: 90 1RF formoterol fumarate 20 mcg/2 mL solution for nebulization 2 ml inhalation BID Qty: 120 3RF Rx Instructions: DX:COPD J44.9 fluticasone propionate 50 mcg/actuation spray,suspension 2 spray INTRANASAL DAILY PRN (Reason: Congestion) Qty: 16 5RF atorvastatin 40 mg tablet 40 mg PO DAILY Qty: 90 1RF isosorbide mononitrate 30 mg tablet extended release 24 hr 30 mg PO DAILY Qty: 90 1RF bumetanide 2 mg tablet 2 mg PO .COMPLEX Qty: 180 3RF Rx Instructions: May increase to 3 my daily PRN budesonide 0.25 mg/2 mL suspension for nebulization 0.25 mg inhalation BID Qty: 60 3RF Rx Instructions: DX:COPD J44.9 (DME) nebulizer accessories Misc See Rx Instructions .ROUTE .MEDSUPPLY Qty: 1 0RF Rx Instructions: Use as directed. Needs supplies, mouthpiece, and tubing. Dx: J44.9 Tradjenta 5 mg tablet 5 mg PO DAILY Qty: 90 3RF spironolactone 25 mg tablet 25 mg PO DAILY Qty: 30 11RF carvedilol 6.25 mg tablet 6.25 mg PO BID Qty: 180 3RF esomeprazole magnesium [Nexium] 40 mg capsule,delayed release(DR/EC) 40 mg PO DAILY PRN (Reason: Gi Upset) nitroglycerin 0.4 mg tablet, sublingual 0.4 mg SL Q5M PRN (Reason: Chest Pain) Qty: 25 1RF (DME) lancets Misc See Rx Instructions .Route Qty: 200 3RF Rx Instructions: As directed bid Referrals Referrals: Ayo Lopez CRNP [Primary Care Provider] -
[2022-06-25 11:31] LABS: Basophils # (auto) 0.02 K/uL (0-0.2); Basophils % (auto) 0.3 %; Eosinophils # (auto) 0.06 K/uL (0-0.50); Eosinophils % (auto) 0.9 %; Hematocrit (blood only) 37.1 % (42.0-52.0); Hemoglobin 12.3 g/dl (14.0-18.0); Immature Granulocytes # (auto) 0.03 K/uL (0.01-0.20); Immature Granulocytes % (auto) 0.4 %; Lymphocytes # (auto) 1.44 K/uL (1.2-3.4); Mean Corpuscular Hemoglobin 27.4 pg (25.0-34.0); Mean Corpuscular Hgb Conc 33.2 g/dL (32.0-36.0); Mean Corpuscular Volume 82.6 fL (80.0-100.0); Mean Platelet Volume 9.9 fL (9.4-12.4); Monocytes # (auto) 0.91 K/uL (0.11-0.59); Monocytes % (auto) 13.3 %; Neutrophils % (auto) 64.1 %; Platelet Count 176 K/uL (130-400); RDW Coefficient of Variation 14.2 % (11.5-14.5); RDW Standard Deviation 42.8 fL (36.4-46.3); Red Blood Count 4.49 M/uL (4.70-6.10); White Blood Count 6.86 K/ul (4.8-10.8)
[2022-06-25 11:33] LABS: Base Excess VBG 3.7 mEq/L; HCO3 VBG 31 mmol/L; Oxygen Saturation VBG < 60.0 %; PCO2 VBG 57 mmHg (38-50); PO2 VBG 21 mmHg; pH VBG 7.34 (7.36-7.41)
--- NOTE | 2022-06-25 11:42 | XRay Report ---
XR chest 1V portable CLINICAL HISTORY: Chest pain, nonspecific COMPARISON STUDY: Chest CT September 14, 2021. FINDINGS: Lung volumes are normal. Lungs are clear. There is no pneumothorax or pleural effusion. Car diomegaly is unchanged. There are median sternotomy wires and clips from bypass grafting. Mediastinal contours are normal. There is no evidence for pulmonary edema. Degenerative changes of both shoulder s are incidentally noted. IMPRESSION: No acute cardiopulmonary findings. No change in appearance of the chest. ACT 112: Negative or not required by law. Electronically signed by: Braulio Steve M.D. 06/25/2022 11:41 AM
[2022-06-25 11:51] LABS: Albumin Level 3.7 gm/dl (3.4-5.0); Bilirubin,Total 0.8 mg/dl (0.2-1.0); Calcium 9.3 mg/dl (8.5-10.1); Partial Thromboplastin Ratio 1.3; Partial Thromboplastin Time 36.6 Seconds (21.0-31.0); Potassium 4.8 mmol/L (3.5-5.1)
[2022-06-25 11:58] LABS: Albumin Globulin Ratio 1.4 (0.9-2); Creatinine Clr Calc Pharmacy 27.8 ml/min; Est GFR (African American) 41.7 ml/min; Globulin 2.6 gm/dl (2.5-4.0); Total Protein 6.3 gm/dl (6.0-8.3)
[2022-06-25 12:08] LABS: Influenza A virus by PCR Negative (Neg); Influenza B virus by PCR Negative (Neg); RSV by PCR Negative (Neg); SARS CoV2 RNA(COVID-19) Ceph NEGATIVE (Negative)
[2022-06-25] MEDS ORDERED: methylPREDNISolone 125 MG/2 ML VIAL IV STA (12:10)
[2022-06-25] MEDS ORDERED: ASPIRIN CHEW 324 MG PO STA (12:52)
--- NOTE | 2022-06-25 13:52 | History & Physical Report ---
Date of Service June 25, 2022 Assessment & Plan (1) Bradycardia: Plan: Bradycardia with Chonotropic response from 30s to mid to high 50s with sitting upright from laying position in bed. At rest, patient drops back into the 30s - Monitor on tele - Atropine 0.5mg q3min max 3mg for symmptomatic bradycardia - Consult Cardiology while inpatient given on going symptoms despite carvedilol being reduced to 6.25 (2) Asthma exacerbation: Plan: Wheezing on exam with increasing cough and per patients daughter patient usually responds well to Zithromax - Zithromax 500mg today then 250mg daily for 4 days - Prednisone 40mg daily - duoneb q 4 hours prn wheezing (3) Chronic a-fib: Plan: Chronic continue Eliquis 5mg BID (4) Chronic systolic CHF (congestive heart failure): Plan: Continue medications Trend troponin limited echo to check wall motion Last echo August 2021 EF 55-60% (5) Diabetes mellitus, type II: Plan: Held home medications Lantus 7units BID ISS correction factor 60 carb ratio 19gm (6) Chronic kidney disease: Plan: will continue to monitor renal functions (7) Tracheomalacia: Plan: Hx of tracheomalacia suspected sleep apnea. Patient is not compliant with CPAP at home May trial in the hospital to see if he benefits/tolerates History of Present Illness Chief Complaint: cough, weakness and fatigue Primary Care Provider: AGNES Alvarez Patient is a 87 year old male with a past medical history of CAD with CABG, A- fib on Eliquis, Diabetes II on metformin/linagliptin/empagliflozin, who presented to [facility] 06/25/22 with recurrent exertional dyspnea worsening for 2 to 3 days associated with coughing.Patient is awake resting in bed in NAD. He denies any chest pain and is saturating at 91% on RA. Patient is noted to be bradycardic in the 40s and drops as low as the 30s but maintaining adequate blood pressures. Patient's daughter is at bedside who helps provide the history. She states patient follows with CHF clinic and has a heart rate in the 50s over the past year but over the past few months have noted a decrease in his heart rate in the 40s and his carvedilol was recently decreased to 6.25. Patient also has had his Bumex decreased to 2mg daily due to elevated renal functions and this has not really improved renal functioning. Laboratory data reveals a normal CBC, very minimally elevated troponin of 21 with out any acute EKG changes and no reports of chest pain, creatinine is 1.69 (baseline 1.3-1.5), normal liver transaminases, VBG with mild respiratory acidosis. Covid, flu and RSV all negative. CXR with no acute changes, no pulmonary edema or consolidations. Allergies Allergy/AdvReac Type Severity Reaction Status Date / Time lisinopril AdvReac Intermediate cough Verified 05/16/22 15:21 Home Medications Medication Instructions Recorded Confirmed Type aspirin 81 mg tablet,delayed 81 mg PO DAILY #90 tabs 09/03/21 06/25/22 Rx release esomeprazole magnesium 40 mg 40 mg PO DAILY PRN Gi Upset 10/07/21 06/25/22 History capsule,delayed release (Nexium) nitroglycerin 0.4 mg sublingual 0.4 mg sublingual Q5M PRN Chest 10/07/21 06/25/22 Rx tablet Pain #25 tabs blood sugar diagnostic (OneTouch #100 ea 11/15/21 05/16/22 Rx Verio test strips) lancets (Lancets,Thin) #200 ea 11/15/21 05/16/22 Rx ipratropium 0.5 mg-albuterol 3 mg 3 ml inhalation Q8H PRN wheezing 12/01/21 06/25/22 Rx (2.5 mg base)/3 mL nebulization #180 mL soln empagliflozin 25 mg tablet 25 mg PO DAILY #90 tabs 12/08/21 06/25/22 Rx apixaban 5 mg tablet (Eliquis) 5 mg PO BID #180 tabs 01/03/22 06/25/22 Rx lancets #200 ea 01/05/22 05/16/22 Rx metformin 500 mg tablet,extended 500 mg PO DAILY #90 tabs 03/28/22 06/25/22 Rx release 24 hr formoterol fumarate 20 mcg/2 mL 2 ml inhalation BID #120 mL 03/30/22 06/25/22 Rx solution for nebulization fluticasone propionate 50 2 spray intranasal DAILY PRN 04/15/22 06/25/22 Rx mcg/actuation nasal Congestion #16 grams spray,suspension atorvastatin 40 mg tablet 40 mg PO DAILY #90 tabs 04/21/22 06/25/22 Rx isosorbide mononitrate 30 mg 30 mg PO DAILY #90 tabs 04/21/22 06/25/22 Rx tablet,extended release 24 hr bumetanide 2 mg tablet 2 mg PO .COMPLEX #180 tabs 04/22/22 06/25/22 Rx carvedilol 6.25 mg tablet 6.25 mg PO BID #180 tabs 05/16/22 06/25/22 Rx budesonide 0.25 mg/2 mL suspension 0.25 mg (2 mL) inhalation BID #60 05/18/22 06/25/22 Rx for nebulization mL nebulizer accessories #1 ea 05/19/22 Rx linagliptin 5 mg tablet (Tradjenta) 5 mg PO DAILY #90 tabs 06/08/22 06/25/22 Rx spironolactone 25 mg tablet 25 mg PO DAILY #30 tabs 06/23/22 06/25/22 Rx Past Med/Surg History Medical History Acute hyponatremia Anemia Asthma Atrial fibrillation, permanent CAD (coronary artery disease) Candidiasis of mouth and esophagus Carotid atherosclerosis Chronic diastolic CHF (congestive heart failure) Chronic kidney disease Chronic renal failure, stage 3a COVID-19 Decubitus ulcer, buttock Diabetes mellitus, type II Dyslipidemia External hemorrhoids GERD (gastroesophageal reflux disease) Hematuria (07/03/13) 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) Hypertension Mitral valve insufficiency and aortic valve insufficiency Mucus plugging of bronchi Normocytic anemia Obstructive lung disease Obstructive sleep apnea Reactive airway disease Spinal stenosis Tubular adenoma of colon Vitamin D deficiency Surgical History S/P CABG (coronary artery bypass graft) S/P cardiac catheterization S/P cholecystectomy S/P shoulder surgery Family History Sister Hypertension Colon cancer Other Prostate cancer Stroke Denies family history of Osteoporosis Myocardial infarction Breast cancer Social History Smoking Status: Never smoker Second Hand Exposure: No; Hx Alcohol Use: No Hx Substance Use: No Preferred Language: Icelandic Communication Ability: Effective Visual Impairment: No Limitations Hearing Ability: Normal Button Bradder Required: No Beliefs That Will Affect Care: None marital status: / Current Living Situation: Family Current Living Situation Comment: Daughter and granddaughter current occupational status: 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 All other ROS negative unless stated above Physical Exam Constitutional: well nourished and comfortable; no acute distress ENMT: external ear and nose normal, oropharynx normal Neck: trachea midline, no thyromegaly Respiratory: normal respiratory effort, + cough, able to speak in complete sentences and + audible wheezes; no respiratory distress scattered expiratory wheezing on exam Cardiovascular: Rate/Rhythm: + bradycardic and + irregularly irregular Extremities: + edema; no calf tenderness LLE with more edema than right (this leg had harvest from CABG and per dtr always is more swollen than left) Gastrointestinal (Abdomen): normal bowel sounds, soft, nontender, no hepatosplenomegaly Psychiatric: A+Ox3, euthymic affect Results & Data Results & Data Vital Signs (Past 12 Hours) Vital Signs Temp Pulse Pulse Resp BP BP Pulse Ox 06/25/22 13:20 43 L 17 132/48 L 91 06/25/22 12:05 37 L 06/25/22 11:26 36.8 C 43 L 20 142/63 H 96 06/25/22 11:26 96 06/25/22 10:36 36.7 C 42 L 14 133/44 L 93 O2 Del Method 06/25/22 13:20 Room Air 06/25/22 12:05 06/25/22 11:26 Room Air 06/25/22 11:26 Room Air 06/25/22 10:36 Room Air Laboratory Results reviewed all labs Diagnostic Findings Chest X-Ray 06/25/22 10:52 XR chest 1V portable CLINICAL HISTORY: Chest pain, nonspecific COMPARISON STUDY: Chest CT September 14, 2021. FINDINGS: Lung volumes are normal. Lungs are clear. There is no pneumothorax or pleural effusion. Cardiomegaly is unchanged. There are median sternotomy wires and clips from bypass grafting. Mediastinal contours are normal. There is no evidence for pulmonary edema. Degenerative changes of both shoulders are incidentally noted. IMPRESSION: No acute cardiopulmonary findings. No change in appearance of the chest. ACT 112: Negative or not required by law. Electronically signed by: Braulio Steve M.D. 06/25/2022 11:41 AM Supervising Physician Co-Signing Physician Notes Patient seen and examined, chart reviewed, case discussed with Cathleen Martin PA-C and I agree with the assessment and plan as above except as otherwise noted Labs and images reviewed Patric Restrepo is an 87-year-old male with a past medical history of coronary artery disease with CABG, A-fib on Eliquis, type 2 diabetes mellitus on metformin/linagliptin/empagliflozin, who presented with recurrent exertional dyspnea worsening for 2 to 3 days and with a new cough. Patient has not had any chest pain and is in no acute distress, saturating 93% on room air. He is noted to be bradycardic at 42, carvedilol has recently been reduced by half due to th is. EKG on admission shows A-fib with slow ventricular response and a rate of 43, patient is intermittently as low as the 30s while in the ER but mentating normally and with adequate blood pressure. On review of labs he does not have leukocytosis, VBG is with very mild respiratory acidosis 7.3 /, creatinine is with baseline of around 1.31.5, although recently is 1.7. Admitting creatinine 1.69. AST/ALT are normal. Troponin is with a slight elevation of 21 without chest pain and without ST changes on EKG. Lipase is normal. COVID/flu/RSV are negative. CXR shows no acute findings, and specifically no areas of consolidation and no pulmonary edema. Per family: 2 day sof a cough not improving with humidifier. Congestion, pulse ox in the 80s while ambulating and 1x in the 70s at home. HR has bee destiny the 50s normally for past year but past few months seems to have going lower into the 40s. Went back to 50s after carvedilol decreased. Formoterol/budesonade at home by neb BID. Has flares of wheezing 1x per year improved with Z pack in the past. Doing OK with bumex at home, but Cr jumped a bit and now 2 daily rather than alternating 2-3 mg. Does have trace increased in swelling since decreased. Dry 161 In room with situps urbina shave chronotropic response from 30s to high 50s. PE: Bradycardic with chronotropic response from 30s to mid to high 50s while moving around/doing sit ups in bed. At rest does drop back to the 30s with borderline low diastolic pressure, but patient is mentating normally and asymptomatic. Does have scattered expiratory wheezes on auscultation, no rales/rhonchi or focally diminished regions. Moderate air movement. No JVD, legs bilaterally with mild pitting edema near baseline. Patient did have vein harvest from left leg for his CABG and is chronically slightly more swollen than the right, this has not changed recently. Exertional dyspnea: This is without chest pain, or chest pressure. Patient has a minimally elevated troponin for which a trend and limited echo has been ordered, suspect that this is due to an exacerbation as patient has some wheezing on exam but CXR is otherwise clear and he is not had fevers. Did receive Methylpred load in ER. Patient does not tolerate inhalers well, uses nebulizers at home. Breathing significantly improved following steroids and DuoNeb. We will continue short course of prednisone DuoNebs every 4 hours as needed for wheezing/shortness of breath with respiratory ordered. Given concurrent cough with wheezing will treat with 5-day Z-Chandler. Patient's prior PFTs did not show obstructive disease, consistent with restrictive disease. Bradycardia: This is as low as 30s in bed, patient does have chronotropic response on exam and is mentating normally. Diastolic is borderline low, but with normal systolic pressure. He has had an uptrending creatinine despite reduction in his Bumex, appears relatively euvolemic. We will treat exertional dyspnea and suspected asthma exacerbation above, may be multifactorial with intact but suboptimal chronotropic rate response. Cardiology consulted, unlikely to pursue pacer placement unless patient is symptomatic, hypotensive, or loses control exertional response. History of tracheomalacia, suspected sleep apnea: CPAP nightly as needed for sleep apnea. This was suspected on outpatient evaluations, patient is not compliant and does not use a CPAP at home but may trial in the hospital to see if he benefits/tolerates. If patient tolerates and feels well with this, may be compliant as outpatient and follow-up with sleep study as outpatient. Chronic systolic CHF with CAD and history of CABG: Continue medications as above. Troponin trended. Limited echo for wall motion pending. He has not had anginal symptoms, last echo 2021 was 55 to 60%. Patient does follow with heart failure clinic. A-fib with bradycardic response: With exertional fatigue and dyspnea, patient has had carvedilol decreased as outpatient follow with cardiology. Cardiology consulted while inpatient given ongoing symptoms despite carvedilol being reduced to 6.25 mg. PG Care Time/CCT Total # of Minutes Spent Total Time Spent with Patient: Total time spent is greater than 50% in coordination of care (as documented) at patient's floor/unit and/or counseling patient: Coding Level of Care Code 20530 INT INP/OBS CARE 3/75MIN Diagnoses Bradycardia R00.1 Asthma exacerbation J45.901 Chronic a-fib I48.20 Chronic systolic CHF (congestive heart failure) I50.22 Diabetes mellitus, type II E11.9 Chronic kidney disease N18.9 Tracheomalacia J39.8
--- NOTE | 2022-06-25 16:59 | XCELERA ---
[id number]
[2022-06-25] MEDS ORDERED: ALBUT/IPRATROP 3MG/0.5MG NEB 3 ML VIAL NEB PRN (18:49)
[2022-06-25] MEDS ORDERED: GLUCAGON FOR INJ 1 MG VIAL SQ PRN (18:49)
[2022-06-25] MEDS ORDERED: DEXTROSE 50% 50 ML SYRINGE IV PRN (18:49)
[2022-06-25] MEDS ORDERED: GLUCOSE 10 TAB/TUBE PO PRN (18:49)
[2022-06-25] MEDS ORDERED: NITROGLYCERIN SL 0.4 MG/TAB TAB SL PRN (18:49)
[2022-06-25] MEDS ORDERED: GLUCOSE 40% GEL 15 GM TUBE PO PRN (18:49)
[2022-06-25] MEDS ORDERED: ATROPINE SULFATE 0.1 MG/ML 5ML SYR IV PRN (18:49)
[2022-06-25] MEDS ORDERED: CARBOHYDRATES FOR HYPOGLYCEMIA PO PRN (18:49)
[2022-06-25] MEDS ORDERED: AZITHROMYCIN 250 MG TAB PO ONE (19:30)
[2022-06-25] MEDS: INSULIN ASPART PER UNIT CHARGE SC SCH ×2 (20:06→20:52)
[2022-06-25] MEDS: LANTUS PER UNIT CHARGE SQ SCH (20:33)
[2022-06-25] MEDS ORDERED: APIXABAN 2.5 MG TAB PO SCH (21:00)
[2022-06-26 05:14] LABS: Hematocrit (blood only) 38.4 % (42.0-52.0); Hemoglobin 12.9 g/dl (14.0-18.0); Mean Corpuscular Hemoglobin 27.3 pg (25.0-34.0); Mean Corpuscular Hgb Conc 33.6 g/dL (32.0-36.0); Mean Corpuscular Volume 81.2 fL (80.0-100.0); Mean Platelet Volume 9.8 fL (9.4-12.4); Platelet Count 184 K/uL (130-400); RDW Coefficient of Variation 14.2 % (11.5-14.5); RDW Standard Deviation 41.6 fL (36.4-46.3); Red Blood Count 4.73 M/uL (4.70-6.10); White Blood Count 5.42 K/ul (4.8-10.8)
[2022-06-26 05:24] LABS: BUN Creatinine Ratio 29.3 (10-20); Calcium 9.2 mg/dl (8.5-10.1); Creatinine Clr Calc Pharmacy 26.4 ml/min; Est GFR (African American) 38.4 ml/min; Est GFR (Non-African American) 33.1 ml/min; Potassium 4.9 mmol/L (3.5-5.1)
[2022-06-26 05:30] LABS: Troponin I High Sensitivity 19.6 pg/ml (0-20)
--- NOTE | 2022-06-26 07:35 | Electrocardiogram Report ---
Test Reason : Blood Pressure : / mmHG Vent. Rate : 043 BPM Atrial Rate : 326 BPM P-R Int : 000 ms QRS Dur : 134 ms QT Int : 502 ms P-R-T Axes : 000 -53 -23 degrees QTc Int : 424 ms Poor data quality, interpretation may be adversely affected Atrial fibrillation with slow ventricular response Right bundle branch block Left anterior fascicular block Bifascicular block Minimal voltage criteria for LVH, may be normal variant Abnormal ECG When compared with ECG of 25-NOV-2021 20:11, Vent. rate has decreased BY 31 BPM Confirmed by Davian Elkins ([id number]) on 06/26/2022 7:35:33 AM Referred By: REFERRED SELF Confirmed By:Jake Elkins
[2022-06-26] MEDS: INSULIN ASPART PER UNIT CHARGE SC SCH ×2 (08:19→12:15)
[2022-06-26] MEDS: LANTUS PER UNIT CHARGE SQ SCH (08:20)
[2022-06-26] MEDS ORDERED: AZITHROMYCIN 250 MG TAB PO SCH (09:00)
[2022-06-26] MEDS ORDERED: predniSONE 20 MG TAB PO SCH (09:00)
[2022-06-26] MEDS ORDERED: ASPIRIN 81 MG ECTAB PO SCH (09:00)
[2022-06-26] MEDS ORDERED: ATORVASTATIN 40 MG TAB PO SCH (09:00)
--- NOTE | 2022-06-26 09:43 | Cardiology Consultation ---
Date of Consultation June 26, 2022 Assessment & Plan (1) Bradycardia: (2) Chronic a-fib: (3) Dyspnea on exertion: (4) Heart failure with preserved ejection fraction: (5) CAD (coronary artery disease): (6) Valvular heart disease: Plan 1. Bradycardia: He certainly has an element of bradycardia and significant conduction disease. Also right bundle branch block and left anterior fascicular block on his EKG. It does seem to be some irregularity in his heart rate suggesting that we were seeing is not complete heart block. Curiously, he does not appear to be very symptomatic. He may be a poor historian and I will need to obtain some information from his daughter regarding his activity and perhaps additional symptoms. He seems to be a good candidate for permanent pacemaker based on the benefits of beta-blockade in the setting of his cardiac disease and prior ischemic cardiomyopathy. Alternatively, he could have his carvedilol reduced further or eliminated altogether. No indication for an ICD 2. Coronary disease: No current symptoms suggestive of ischemia or angina. Continue secondary prevention with apixaban, aspirin and atorvastatin 3. Cardiomyopathy: Previously reduced LV systolic function now preserved. He has been maintained on carvedilol, spironolactone and Jardiance. 4. Congestive heart failure: He seems well compensated currently. Lung examination benign. Chest x-ray did not demonstrate pulmonary vascular congestion. He did not report breathing difficulty but it seems that this was noticed by family members. Renal function has been tenuous but he has been maintained on a daily dose of bumetanide. 5. Atrial fibrillation: Permanent. No symptoms. Adequate rate control as noted above. His renal function seems to have declined over the last couple of months. At this point his dose of apixaban should be reduced to 2.5 mg twice daily. 6. Valvular heart disease: He has an element of mild aortic and mitral insufficiency. Not likely to be a clinical concern during the course of his lifetime. History of Present Illness Reason for Consultation: Bradycardia Attending Physician: Sindi Stover MD History of Present Illness The patient is 87-year-old gentleman with a long history of cardiovascular disease to include coronary artery disease status post surgical revascularization, ischemic cardiomyopathy, hypertension and permanent atrial fibrillation who was brought to the hospital over concerns of breathing difficulty. The patient cannot recall why he was brought to the hospital. He did not endorse symptoms of breathing difficulty. He was not complaining of recent chest discomfort, dizziness or palpitations. He claims to be ambulatory around his residence with a walker. He states that he walks around his property frequently and that there are hills on his property. He states that he takes his time getting around but generally does not have any limitations associated with ambulation or activity. He reported walking around his hospital room several times already this morning. This could not be independently verified. His record suggests that he was brought to the hospital for breathing difficulty. He was treated for an asthma exacerbation. He is known to have an element of bradycardia. This was addressed in the outpatient setting with a reduction in his carvedilol dose. Allergies Allergy/AdvReac Type Severity Reaction Status Date / Time lisinopril AdvReac Intermediate cough Verified 05/16/22 15:21 Home Medications Medication Instructions Recorded Confirmed Type aspirin 81 mg tablet,delayed 81 mg PO DAILY #90 tabs 09/03/21 06/25/22 Rx release esomeprazole magnesium 40 mg 40 mg PO DAILY PRN Gi Upset 10/07/21 06/25/22 History capsule,delayed release (Nexium) nitroglycerin 0.4 mg sublingual 0.4 mg sublingual Q5M PRN Chest 10/07/21 06/25/22 Rx tablet Pain #25 tabs blood sugar diagnostic (OneTouch #100 ea 11/15/21 05/16/22 Rx Verio test strips) lancets (Lancets,Thin) #200 ea 11/15/21 05/16/22 Rx ipratropium 0.5 mg-albuterol 3 mg 3 ml inhalation Q8H PRN wheezing 12/01/21 06/25/22 Rx (2.5 mg base)/3 mL nebulization #180 mL soln empagliflozin 25 mg tablet 25 mg PO DAILY #90 tabs 12/08/21 06/25/22 Rx apixaban 5 mg tablet (Eliquis) 5 mg PO BID #180 tabs 01/03/22 06/25/22 Rx lancets #200 ea 01/05/22 05/16/22 Rx metformin 500 mg tablet,extended 500 mg PO DAILY #90 tabs 03/28/22 06/25/22 Rx release 24 hr formoterol fumarate 20 mcg/2 mL 2 ml inhalation BID #120 mL 03/30/22 06/25/22 Rx solution for nebulization fluticasone propionate 50 2 spray intranasal DAILY PRN 04/15/22 06/25/22 Rx mcg/actuation nasal Congestion #16 grams spray,suspension atorvastatin 40 mg tablet 40 mg PO DAILY #90 tabs 04/21/22 06/25/22 Rx isosorbide mononitrate 30 mg 30 mg PO DAILY #90 tabs 04/21/22 06/25/22 Rx tablet,extended release 24 hr bumetanide 2 mg tablet 2 mg PO .COMPLEX #180 tabs 04/22/22 06/25/22 Rx carvedilol 6.25 mg tablet 6.25 mg PO BID #180 tabs 05/16/22 06/25/22 Rx budesonide 0.25 mg/2 mL suspension 0.25 mg (2 mL) inhalation BID #60 05/18/22 06/25/22 Rx for nebulization mL nebulizer accessories #1 ea 05/19/22 Rx linagliptin 5 mg tablet (Tradjenta) 5 mg PO DAILY #90 tabs 06/08/22 06/25/22 Rx spironolactone 25 mg tablet 25 mg PO DAILY #30 tabs 06/23/22 06/25/22 Rx Patient History Medical History (Updated 06/26/22 @ 09:40 by Davian Elkins MD) Acute hyponatremia Anemia Asthma Atrial fibrillation, permanent CAD (coronary artery disease) Candidiasis of mouth and esophagus Carotid atherosclerosis Chronic diastolic CHF (congestive heart failure) Chronic kidney disease Chronic renal failure, stage 3a COVID-19 Decubitus ulcer, buttock Diabetes mellitus, type II Dyslipidemia External hemorrhoids GERD (gastroesophageal reflux disease) Hematuria (07/03/13) 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) Hypertension Mitral valve insufficiency and aortic valve insufficiency Mucus plugging of bronchi Normocytic anemia Obstructive lung disease Obstructive sleep apnea Reactive airway disease Spinal stenosis Tubular adenoma of colon Vitamin D deficiency Surgical History S/P CABG (coronary artery bypass graft) S/P cardiac catheterization S/P cholecystectomy S/P shoulder surgery Family History Sister Hypertension Colon cancer Other Prostate cancer Stroke Denies family history of Osteoporosis Myocardial infarction Breast cancer Social History Smoking Status: Never smoker Second Hand Exposure: No; Do You Dip or Chew Tobacco: No; Hx Alcohol Use: No Hx Substance Use: No Preferred Language: Filipino Communication Ability: Effective Visual Impairment: No Limitations Hearing Ability: Normal Art Specialist Required: No Beliefs That Will Affect Care: None marital status: / Current Living Situation: Family Current Living Situation Comment: Daughter and granddaughter current occupational status: 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 He reports some mild lower extremity edema which she attributes to the vein harvesting from his bypass. He denies difficulty sleeping. He appears to have stable 2 pillow orthopnea. Physical Exam Physical Exam: The patient is alert and oriented. Mood and affect appeared normal. He answered all questions appropriately. He seems forgetful. HEENT: Pupils are equal and reactive to light and accommodation. Extraocular movements are intact. The sclerae are anicteric. Neuro: Cranial nerves intact Lungs: Distant breath sounds. Clear to auscultation bilaterally. He has good air movement without use of accessory muscles. No rales wheezes or rhonchi. Cardiac: Heart demonstrates a slow rate with an irregular rhythm. Normal S1 and S2. No murmurs on examination. Pulses: The patient has palpable radial pulses bilaterally that are equal in intensity Extremities: There was no evidence of hypoperfusion. There is no cyanosis or clubbing. Mild lower extremity, left ankle worse than right. Ichthyosis noted Skin: I did not appreciate any rashes on examination today. Results & Data Vital Signs (Past 12 Hours) Vital Signs Temp Pulse Pulse Resp BP Pulse Ox O2 Del Method 06/26/22 07:44 36.5 C 42 L 18 153/70 H 97 Room Air 03/19/23 03:23 36.4 C L 42 L 14 172/68 H 95 Room Air 06/25/22 21:56 40 L 06/25/22 23:03 36.4 C L 40 L 18 129/52 L 92 Room Air Laboratory Results Abnormal Lab Results 06/25/22 06/25/22 06/25/22 00:05 11:02 11:02 WBC 6.86 RBC 4.49 L Hgb 12.3 L Hct 37.1 L MCV 82.6 MCH 27.4 MCHC 33.2 RDW Std Deviation 42.8 RDW Coeff of Roseann 14.2 Plt Count 176 MPV 9.9 Immature Gran % (Auto) 0.4 Neut % (Auto) 64.1 Lymph % (Auto) 21.0 Dunn % (Auto) 13.3 Eos % (Auto) 0.9 Baso % (Auto) 0.3 Neut # (Auto) 4.40 Lymph # (Auto) 1.44 Dunn # (Auto) 0.91 H Eos # (Auto) 0.06 Baso # (Auto) 0.02 Immature Gran # (Auto) 0.03 APTT 36.6 H PTT Ratio 1.3 VBG pH VBG pCO2 VBG pO2 VBG HCO3 VBG O2 Saturation VBG Base Excess Sodium 130 L Potassium 4.8 Chloride 92 L Carbon Dioxide 30 Anion Gap 8 BUN 44 H Creatinine 1.69 H Est Cr Clr Drug Dosing 27.8 Est GFR ( Amer) 41.7 Est GFR (Non-Af Amer) 36.0 BUN/Creatinine Ratio 26.0 H Glucose 144 H POC Glucose Calcium 9.3 Total Bilirubin 0.8 AST 26 ALT 20 Alkaline Phosphatase 129 H Troponin I High Sens 21.0 H Total Protein 6.3 Albumin 3.7 Globulin 2.6 Albumin/Globulin Ratio 1.4 Lipase 78 SARS-CoV-2 (PCR) Influenza Type A (PCR) Influenza Type B (PCR) RSV (RT-PCR) 06/25/22 06/25/22 06/25/22 11:03 11:22 19:36 WBC RBC Hgb Hct MCV MCH MCHC RDW Std Deviation RDW Coeff of Roseann Plt Count MPV Immature Gran % (Auto) Neut % (Auto) Lymph % (Auto) Dunn % (Auto) Eos % (Auto) Baso % (Auto) Neut # (Auto) Lymph # (Auto) Dunn # (Auto) Eos # (Auto) Baso # (Auto) Immature Gran # (Auto) APTT PTT Ratio VBG pH 7.34 L VBG pCO2 57 H VBG pO2 21 VBG HCO3 31 VBG O2 Saturation < 60.0 VBG Base Excess 3.7 Sodium Potassium Chloride Carbon Dioxide Anion Gap BUN Creatinine Est Cr Clr Drug Dosing Est GFR ( Amer) Est GFR (Non-Af Amer) BUN/Creatinine Ratio Glucose POC Glucose 176 H Calcium Total Bilirubin AST ALT Alkaline Phosphatase Troponin I High Sens Total Protein Albumin Globulin Albumin/Globulin Ratio Lipase SARS-CoV-2 (PCR) NEGATIVE Influenza Type A (PCR) Negative Influenza Type B (PCR) Negative RSV (RT-PCR) Negative 06/25/22 06/26/22 06/26/22 22:30 04:35 04:35 WBC 5.42 RBC 4.73 Hgb 12.9 L Hct 38.4 L MCV 81.2 MCH 27.3 MCHC 33.6 RDW Std Deviation 41.6 RDW Coeff of Roseann 14.2 Plt Count 184 MPV 9.8 Immature Gran % (Auto) Neut % (Auto) Lymph % (Auto) Dunn % (Auto) Eos % (Auto) Baso % (Auto) Neut # (Auto) Lymph # (Auto) Dunn # (Auto) Eos # (Auto) Baso # (Auto) Immature Gran # (Auto) APTT PTT Ratio VBG pH VBG pCO2 VBG pO2 VBG HCO3 VBG O2 Saturation VBG Base Excess Sodium 131 L Potassium 4.9 Chloride 94 L Carbon Dioxide 26 Anion Gap 11 BUN 53 H Creatinine 1.81 H Est Cr Clr Drug Dosing 26.4 Est GFR ( Amer) 38.4 Est GFR (Non-Af Amer) 33.1 BUN/Creatinine Ratio 29.3 H Glucose 200 H POC Glucose Calcium 9.2 Total Bilirubin AST ALT Alkaline Phosphatase Troponin I High Sens 16.9 D 19.6 Total Protein Albumin Globulin Albumin/Globulin Ratio Lipase SARS-CoV-2 (PCR) Influenza Type A (PCR) Influenza Type B (PCR) RSV (RT-PCR) 06/26/22 07:01 WBC RBC Hgb Hct MCV MCH MCHC RDW Std Deviation RDW Coeff of Roseann Plt Count MPV Immature Gran % (Auto) Neut % (Auto) Lymph % (Auto) Dunn % (Auto) Eos % (Auto) Baso % (Auto) Neut # (Auto) Lymph # (Auto) Dunn # (Auto) Eos # (Auto) Baso # (Auto) Immature Gran # (Auto) APTT PTT Ratio VBG pH VBG pCO2 VBG pO2 VBG HCO3 VBG O2 Saturation VBG Base Excess Sodium Potassium Chloride Carbon Dioxide Anion Gap BUN Creatinine Est Cr Clr Drug Dosing Est GFR ( Amer) Est GFR (Non-Af Amer) BUN/Creatinine Ratio Glucose POC Glucose 231 H Calcium Total Bilirubin AST ALT Alkaline Phosphatase Troponin I High Sens Total Protein Albumin Globulin Albumin/Globulin Ratio Lipase SARS-CoV-2 (PCR) Influenza Type A (PCR) Influenza Type B (PCR) RSV (RT-PCR) Diagnostic Findings 1. CABG 3 in 2005: NEUMANN to LAD. SVG to OM. SVG to RCA PL. 2. Nuclear stress 08/16/11: Lateral wall ischemia suggested. EF 38%. 3. Cardiac cath 09/21/11: Prox LAD 50 and 80%; Mid LAD 80%. Small D1 mid 100%. Prox OM1 100%. Prox Cx 50%. OM2 100%. Mid RCA 90%; Distal RCA 99%. NEUMANN to LAD patent. SVG to OM1 patent. SVG to PL 30% in mid portion. EF 45%. Mild MR. LVEDP 19 mmHg. 4. Echo 07/01/13: Mildly dilated LV with moderately reduced systolic function. EF 35%. Global hypokinesis. Mild biatrial dilation. Mild to moderate MR. Mild AI. RVSP 29 mmHg. 5. Echo 11/25/13: Mildly dilated left ventricle with mildly reduced systolic function. EF 50%. Inferior wall appears hypokinetic to akinetic. Type I diastolic dysfunction. Mild biatrial dilation. Mild AI. Mild MR. 6. Carotid duplex 11/25/13: Less than 50% stenosis right ICA. 50-69% stenosis left ICA. Greater than 50% stenosis left external carotid artery. Antegrade flow in bilateral vertebral arteries. 7. Nuclear stress 07/29/2014: Small area of mild ischemia suggested in mid to distal anterior wall. Fixed inferior and inferoseptal defect. EF 54%. Akinetic septum. 8. Echo 07/18/2014: Mildly dilated LV with mildly reduced systolic function. EF 50%. Base to mid inferior and inferolateral darby appear hypokinetic. Mildly reduced RV systolic function. Mild left atrial dilation. Trace AI. 9. Carotid duplex 02/24/2015: 50-69% left ICA. Less than 50% right ICA. 10. Carotid Duplex 08/01/2016: Left ICA 50-69%. Right ICA less than 50%. Antegrade flow bilateral vertebral arteries. 11. Carotid duplex 08/31/2017: Right ICA less than 50%. Left ICA 50-69%. No significant change from July 2016. 12. Echo 10/10/2017: Normal LV size with low-normal systolic function. EF 50- 55%. Hypokinesis to akinesis of the base to mid inferior wall. Inferolateral hypokinesis. Moderate LVH. Type 1 diastolic dysfunction. Moderate left atrial dilation. Mild MR. RVSP 42. 13. Echo 11/16/2018: Normal LV size with low-normal systolic function. EF 50- 55%. Hypokinesis to akinesis of the base to mid inferior wall. Hypokinesis of the inferolateral wall. Mild LVH. Mild left atrial dilation. Mild MR. RVSP 44. AFib. 14. Echo 06/25/2022: Normal LV systolic function with ejection fraction of 60- 65%. Moderate LVH. Borderline left atrial enlargement. Mild aortic regurgitation. Mild mitral regurgitation. RVSP 30-40 mm of mercury PG Care Time/CCT Total # of Minutes Spent Total Time Spent with Patient: Total time spent is greater than 50% in coordination of care (as documented) at patient's floor/unit and/or counseling patient: Coding Level of Care Code 82585 INT INP/OBS CARE 3/75MIN Diagnoses Bradycardia R00.1 Chronic a-fib I48.20 Dyspnea on exertion R06.09 Heart failure with preserved ejection fraction I50.30 CAD (coronary artery disease) I25.10 Valvular heart disease I38
--- NOTE | 2022-06-26 11:56 | Discharge Summary ---
Date of Service June 26, 2022 Admission HPI Per Admitting Provider Patient is a 87 year old male with a past medical history of CAD with CABG, A- fib on Eliquis, Diabetes II on metformin/linagliptin/empagliflozin, who presented to [facility] ED 06/25/22 with recurrent exertional dyspnea worsening for 2 to 3 days associated with coughing.Patient is awake resting in bed in NAD. He denies any chest pain and is saturating at 91% on RA. Patient is noted to be bradycardic in the 40s and drops as low as the 30s but maintaining adequate blood pressures. Patient's daughter is at bedside who helps provide the history. She states patient follows with CHF clinic and has a heart rate in the 50s over the past year but over the past few months have noted a decrease in his heart rate in the 40s and his carvedilol was recently decreased to 6.25. Patient also has had his Bumex decreased to 2mg daily due to elevated renal functions and this has not really improved renal functioning. Laboratory data reveals a normal CBC, very minimally elevated troponin of 21 with out any acute EKG changes and no reports of chest pain, creatinine is 1.69 (baseline 1.3-1.5), normal liver transaminases, VBG with mild respiratory acidosis. Covid, flu and RSV all negative. CXR with no acute changes, no pulmonary edema or consolidations. Principal Diagnosis Bradycardia, Acute asthma excaerbation Discharge Exam The patient is awake, alert and oriented 3, well developed and well nourished, normocephalic and atraumatic, lying in bed and in no acute distress. HEENT--PERRL, EOMI, mucous membranes and oropharynx mildly dry Neck--supple. No JVD. No bruits. Thyroid normal, trachea midline, no adenopathy. Heart--normal S1 and S2. No murmurs, rubs or gallops. Lungs--clear bilaterally, no respiratory distress, no accessory muscle use. Abdomen--normal bowel sounds and soft. Mild epigastric and left sided abdominal pain Extremities--no cyanosis or clubbing. No edema. Dermatologic--normal skin turgor, normal color, no abnormal lymph nodes, no rash. Neurologic--cranial nerves II through XII grossly intact. Rheumatologic--normal range of motion. Psychiatric--normal affect. Discharge Data Allergies Allergy/AdvReac Type Severity Reaction Status Date / Time lisinopril AdvReac Intermediate cough Verified 05/16/22 15:21 Consultations 06/25/22 12:42 ED Decision to Admit Stat 06/25/22 18:49 Consult Cardiology Routine Hospital Course (1) Bradycardia: Bradycardia with Chonotropic response from 30s to mid to high 50s with sitting upright from laying position in bed. At rest, patient drops back into the 30s - Consult Cardiology while inpatient given on going symptoms despite carvedilol being reduced to 3.25 mg bid -Discharge home on the lower dose per cardiology 2 D ECHO did not show any wall motion abnormality (2) Asthma exacerbation: Resolved No wheeze on exam Will continue Azithromycin upon discharge for 4 more days (daughter claims this helps him) (3) Chronic a-fib: Chronic continue Eliquis 5mg BID at home, but will reduce to 2.5mg BID due to poor renal function (4) Chronic systolic CHF (congestive heart failure): Continue medications Trend troponin limited echo to check wall motion Last echo August 2021 EF 55-60% (5) Diabetes mellitus, type II: Held home medications Lantus 7units BID ISS correction factor 60 carb ratio 19gm (6) Chronic kidney disease: will continue to monitor renal functions (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 Patient is not compliant with CPAP at home May trial in the hospital to see if he benefits/tolerates Plan d/c home Total Time Total Time Spent Total Time Spent (In Minutes): 35 Discharge Plan Discharge Items Patient Disposition: Home - Self-Care Reason For Visit: ASTHMA EXACERBATION BRADYCARDIA Discharge Diagnosis: Bradycardia Activity: Resume your previous activity Non-emergency contact: Primary Care Provider and Motor Hotel Manager Call non-emergency contact if: you have any medication questions and your symptoms worsen Follow-up/Referrals: Ayo Lopez CRNP [Primary Care Provider] - Diet: Heart Healthy Addtl Attending Provider Instructions: Please make appointment to follow up with your fish drier Pending Studies at Discharge: No Stand-Alone Forms: My [employer], Smoking Cessation Medications and DC Order Prescriptions: New carvedilol 3.125 mg tablet 3.125 mg PO BID Qty: 60 0RF Rx Instructions: must administer with a meal/food Eliquis 2.5 mg tablet 2.5 mg PO BID Qty: 60 0RF Continued aspirin 81 mg tablet,delayed release (DR/EC) 81 mg PO DAILY Qty: 90 1RF (DME) OneTouch Verio test strips Strip See Rx Instructions .Route Qty: 100 5RF Rx Instructions: TEST ONCE PER DAY (DME) lancets [Lancets,Thin[place] [facility] [place]ructions .Route Qty: 200 2RF Rx Instructions: As directed Daily ipratropium-albuterol 0.5 mg-3 mg(2.5 mg base)/3 mL solution for nebulization 3 ml INHALATION Q8H PRN (Reason: wheezing) Qty: 180 3RF Rx Instructions: MAY USE UP TO 4 X DAILY IF NEEDED. Dx:COPD J44.9 empagliflozin 25 mg tablet 25 mg PO DAILY Qty: 90 2RF metformin 500 mg tablet extended release 24 hr 500 mg PO DAILY Qty: 90 1RF formoterol fumarate 20 mcg/2 mL solution for nebulization 2 ml inhalation BID Qty: 120 3RF Rx Instructions: DX:COPD J44.9 fluticasone propionate 50 mcg/actuation spray,suspension 2 spray INTRANASAL DAILY PRN (Reason: Congestion) Qty: 16 5RF atorvastatin 40 mg tablet 40 mg PO DAILY Qty: 90 1RF isosorbide mononitrate 30 mg tablet extended release 24 hr 30 mg PO DAILY Qty: 90 1RF bumetanide 2 mg tablet 2 mg PO .COMPLEX Qty: 180 3RF Rx Instructions: May increase to 3 my daily PRN budesonide 0.25 mg/2 mL suspension for nebulization 0.25 mg inhalation BID Qty: 60 3RF Rx Instructions: DX:COPD J44.9 (DME) [place]bulizer accessories [facility] [place] Rx Instructions .ROUTE .MEDSUPPLY Qty: 1 0RF Rx Instructions: Use as directed. Needs supplies, mouthpiece, and tubing. Dx: J44.9 Tradjenta 5 mg tablet 5 mg PO DAILY Qty: 90 3RF spironolactone 25 mg tablet 25 mg PO DAILY Qty: 30 11RF esomeprazole magnesium [Nexium] 40 mg capsule,delayed release(DR/EC) 40 mg PO DAILY PRN (Reason: Gi Upset) nitroglycerin 0.4 mg tablet, sublingual 0.4 mg SL Q5M PRN (Reason: Chest Pain) Qty: 25 1RF (DME[facility] See Rx Instructions .Route Qty: 200 3RF Rx Instructions: As directed bid Discontinued Eliquis 5 mg tablet 5 mg PO BID Qty: 180 1RF carvedilol 6.25 mg tablet 6.25 mg PO BID Qty: 180 3RF Discharge Orders: Discharge Order (Routine); Ordered 06/26/22 Ordered By: Sindi Stover Admission Data Admit Date/Time: 06/25/22 15:58 Attending Provider: Sindi Stover Admit Provider: Henrik Israel Primary Care Provider: Ayo Lopez Other Providers: Henrik Israel ; Davian Elkins Coding Level of Care Code 22150 INP/OBS DISCH >30 MIN Diagnoses Bradycardia R00.1 Asthma exacerbation J45.901 Chronic a-fib I48.20 Chronic systolic CHF (congestive heart failure) I50.22 Diabetes mellitus, type II E11.9 Chronic kidney disease N18.9 Tracheomalacia J39.8 Time Spent (min) 35
[2022-06-27 08:10] LABS: Estimated Average Glucose 206 mg/dl; Hemoglobin A1C 8.8 % (4.5-5.6)
== END 2022-06-26 13:12 | disposition home or self-care (01) | DRG 309 ==
LOC: ED 10:29 → SUATTDRO 15:58 → 2S 15:58

== ENCOUNTER 2023-05-30 10:37 | Inpatient (IN) ==
--- NOTE | 2023-05-30 11:16 | Emergency Department Note ---
Impression & Plan Wound, open, leg, Anemia, Fluid overload, Acute kidney injury superimposed on CKD ED Provider Note Provider: Graham Rubalcava MD DATE OF SERVICE: 05/30/2023 CHIEF COMPLAINT: Leg swelling, wounds, weakness HISTORY OF PRESENT ILLNESS: Patient is a 87-year-old gentleman past medical history of CKD, A-fib and CHF on Eliquis, CAD with CABG, chronic leg swelling and wounds referred from the wound clinic today. Seen here for the first time at wound clinic at our facility. Has been following with [place] [facility]. Referred due to significant wounds of the lower legs and including to the left thigh and buttock region. Excoriated with pain at times. Daughter states last several days has been more lethargic and weak and having difficulty walking. More than they can care for at home. No fevers. No falls. Denies chest pain or worsening shortness of breath. Has been on significant doses of diuretic. Recently established with nephrology. Follows with CHF clinic. Recently stopped spironolactone due to elevated potassium. Daughters have occasionally used a little bit of oxycodone at home for pain. Did take some NSAID earlier for pain by report. PAST MEDICAL HISTORY: As noted above MEDICATIONS: Reviewed home medications SOCIAL HISTORY: Lives with daughter at home PHYSICAL EXAM: GENERAL: alert and oriented in no acute distress on stretcher but thinks he is in [facility] Head: normocephalic and atraumatic EYES: No injection, discharge or icterus. NECK: Trachea midline. ENT: Mucous membranes pink and moist. LUNGS: Airway patent. No retractions. Breath sounds clear with diminished bases HEART: Regular bradycardic rate and rhythm. No chest wall tenderness ABDOMEN: Soft and non-tender, without guarding or rebound. SKIN: Acyanotic, warm, dry lower extremities below EXTREMITIES: 2+ edema of the lower extremities. Bandaging in place. Excoriated wounds of the lower legs extending towards the right buttock region. Stage I- II. Not significantly purulent. Some weeping serous drainage in the lower legs. NEUROLOGICAL: Moving all extremities no aphasia. No facial droop or slurred speech. EK bpm sinus bradycardia. No PVC. No acute ST segment elevation with a left axis, QTc of 401, and some lateral T wave inversions/ST changes. CONTINUOUS CARDIAC MONITORING: was ordered and showed a heart rate of 40 bpm in sinus bradycardia Patient's laboratory studies and imaging reviewed. Differential includes Infection, fluid overload, metabolic abnormality, hypo/hyperglycemia, electrolyte disturbance, anemia, hypoxia, cardiac sources, intracerebral event, toxicologic, neurologic, as well as other pathologies. IMPRESSION/MEDICAL DECISION MAKING: While not in hypoxic respiratory failure or distress is complaining of pain intermittently in the legs with wounds. Reviewed wound care note with significant wounds documented in photo there. Does not appear somewhat cellulitic. Will check a white blood cell count procalcitonin but not sure these are superinfected is much as irritated and causing him discomfort. Have been using some and attempted fluid overload with Bumex at home seem to have not been that effective. Will check and see if his renal function has worsened given some increased lethargy. No falls. No significant focal weakness I doubt acute intracranial bleed. No hallucinations reported by daughter. Doubt CVA. Doubt meningitis. Blood with no significant ketosis. Normal platelet count. No anemia at 7.3 from baseline previously around 11 about 2 months ago. Troponin slightly downtrending from previous. BNP somewhat elevated but similar to previous. Negative COVID testing. Hemoccult stool ordered. Will give a dose of Protonix. Type and screen ordered. Chest x-ray with a slightly worse on the right pleural effusion. Family have not noted any bloody or black stools. Has been using some NSAIDs by the report. Electrolytes minimal hyperkalemia 5.3 with some mild hyponatremia of 128. These are stable or slightly improved to 1 from 5 days ago. Creatinine slightly worse at 2.7 and BUN elevated 105. Unclear how much of this is related to fluid status versus possibly mild GI bleed. Albumin somewhat low. Will give a dose of albumin to try to help with intravascular volume. Will bring into the hospital. Hospitalist team contacted and daughter is updated. Slight improvement of pain with small dose of fentanyl here. DIAGNOSIS: Fluid overload, CHF, SUKI on CKD, anemia, leg wounds, chronic hyponatremia DISPOSITION: Hospitalist will evaluate Daughter is agreeable with this plan. Past Med/Surg History Medical History Stage 3b chronic kidney disease Fever Chronic kidney disease Vitamin D deficiency External hemorrhoids Candidiasis of mouth and esophagus Mucus plugging of bronchi Decubitus ulcer, buttock Chronic renal failure, stage 3a Acute hyponatremia COVID-19 (~01/17/23) Obstructive sleep apnea Atrial fibrillation, permanent Chronic diastolic CHF (congestive heart failure) CAD (coronary artery disease) Carotid atherosclerosis Mitral valve insufficiency and aortic valve insufficiency Spinal stenosis Tubular adenoma of colon Normocytic anemia Diabetes mellitus, type II GERD (gastroesophageal reflux disease) Hypertension Dyslipidemia Anemia Obstructive lung disease Reactive airway disease Asthma Hematuria (07/03/13) 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) Surgical History S/P shoulder surgery S/P cholecystectomy S/P cardiac catheterization S/P CABG (coronary artery bypass graft) Family History Sister Hypertension Colon cancer Other Prostate cancer Stroke Denies family history of Osteoporosis Myocardial infarction Breast cancer Social History Smoking Status: Never smoker Second Hand Exposure: No; Do You Dip or Chew Tobacco: No; Hx Alcohol Use: No Hx Substance Use: No Preferred Language: Maltese Communication Ability: Effective Visual Impairment: No Limitations Hearing Ability: Normal Sample Body Builder Required: No Beliefs That Will Affect Care: None marital status: / Current Living Situation: Family Current Living Situation Comment: Daughter and granddaughter current occupational status: 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[employer] How many Children do You have: 2 Feels Safe at Home: Yes Childhood Exposure to Second-Hand Smoke: No Diet: regular Diet Comment: regular caffeine: Yes (Tea and soda) during the past year weight has: increased > 10 lbs Dental Care, Regularly: No Physical Activity Frequency: Daily Physical Activity Frequency Comment: walking in the house with walker Seatbelt Use: always Sunscreen Use: No Assistive Devices: Denture - Upper, Denture - Lower and Walker Allergies Allergies Allergy/AdvReac Type Severity Reaction Status Date / Time lisinopril AdvReac Intermediate cough Verified 05/30/23 09:12 Home Meds Home Medications Medication Instructions Recorded Confirmed esomeprazole magnesium 40 mg 40 mg PO DAILY PRN Gi Upset 10/07/21 05/30/23 capsule,delayed release (Nexium) bumetanide 2 mg tablet 4 mg PO BID 05/30/23 05/30/23 nystatin 100,000 unit/gram topical 1 applic topical TID PRN .FLARES 05/30/23 05/30/23 cream nystatin 100,000 unit/gram topical 1 applic topical BID PRN 05/30/23 05/30/23 powder .IRRITATION Previous Rx's Medication Instructions Recorded nitroglycerin 0.4 mg sublingual 0.4 mg sublingual Q5M PRN Chest 10/07/21 tablet Pain #25 tabs lancets (Lancets,Thin) #200 ea 11/15/21 lancets #200 ea 01/05/22 nebulizer accessories #1 ea 05/19/22 formoterol fumarate 20 mcg/2 mL 2 ml inhalation BID #120 mL 09/22/22 solution for nebulization budesonide 0.25 mg/2 mL suspension 0.25 mg (2 mL) inhalation BID #120 10/03/22 for nebulization mL blood sugar diagnostic (OneTouch #100 ea 01/09/23 Verio test strips) compressor, for nebulizer #1 ea 01/09/23 metformin 500 mg tablet,extended 500 mg PO DAILY #90 tabs 01/09/23 release 24 hr fluticasone propionate 50 2 spray intranasal DAILY PRN 01/30/23 mcg/actuation nasal Congestion #16 grams spray,suspension apixaban 2.5 mg tablet (Eliquis) 2.5 mg PO BID #60 tabs 03/20/23 atorvastatin 40 mg tablet 40 mg PO DAILY #90 tabs 04/05/23 isosorbide mononitrate 30 mg 30 mg PO DAILY #90 tabs 04/05/23 tablet,extended release 24 hr ipratropium 0.5 mg-albuterol 3 mg 3 ml inhalation Q8H PRN wheezing 04/20/23 (2.5 mg base)/3 mL nebulization #180 mL soln triamcinolone acetonide 0.025 % 1 applic topical BID PRN dry skin 05/18/23 topical ointment #454 grams linagliptin 5 mg tablet (Tradjenta) 5 mg PO DAILY #90 tabs 05/25/23 Results & Data (ED) Vital Signs Vital Signs - 24 hr 05/30/23 10:43 05/30/23 10:54 05/30/23 11:31 Temperature 36.8 C Temperature Source Temporal Artery Scan Pulse Rate 47 L 45 L Respiratory Rate 18 15 Respiratory Effort / Characteristics Non-Labored Spontaneous Respiratory Depth Normal Respiratory Pattern Regular Blood Pressure 172/103 H 171/54 H Blood Pressure Mean 126 93 Blood Pressure Position Lying Pulse Oximetry 100 99 Oxygen Delivery Method Room Air Room Air Room Air Sepsis Recent Fever Within 48 Hours No Sepsis New/Unexplained Change in Mental Status N/A Sepsis Action Taken by Nursing No Action Required 05/30/23 12:01 05/30/23 12:32 Temperature Temperature Source Pulse Rate 45 L 45 L Respiratory Rate 16 Respiratory Effort / Characteristics Respiratory Depth Respiratory Pattern Blood Pressure 167/45 H Blood Pressure Mean 85 Blood Pressure Position Pulse Oximetry 94 Oxygen Delivery Method Room Air Sepsis Recent Fever Within 48 Hours Sepsis New/Unexplained Change in Mental Status Sepsis Action Taken by Nursing Laboratory Data 05/30/23 10:51 05/30/23 10:51 Lab Results 05/30/23 05/30/23 05/30/23 Range/Units 10:51 10:51 11:10 WBC 10.55 (4.8-10.8) K/ul RBC 2.82 L (4.70-6.10) M/uL Hgb 7.3 L (14.0-18.0) g/dl Hct 23.8 L (42.0-52.0) % MCV 84.4 (80.0-100.0) fL MCH 25.9 (25.0-34.0) pg MCHC 30.7 L (32.0-36.0) g/dL RDW Std Deviation 44.2 (36.4-46.3) fL RDW Coeff of Roseann 14.4 (11.5-14.5) % Plt Count 279 (130-400) K/uL MPV 8.7 L (9.4-12.4) fL Immature Gran % (Auto) 0.7 % Neut % (Auto) 76.4 % Lymph % (Auto) 10.2 % Shackelford % (Auto) 11.5 % Eos % (Auto) 1.0 % Baso % (Auto) 0.2 % Neut # (Auto) 8.06 H (1.40-6.50) K/uL Lymph # (Auto) 1.08 L (1.20-3.40) K/uL [place]ord # (Auto) 1.21 H (0.11-0.59) K/uL Eos # (Auto) 0.11 (0.00-0.50) K/uL Baso # (Auto) 0.02 (0.00-0.20) K/uL Immature Gran # (Auto) 0.07 (0.01-0.20) K/uL Polychromasia 1+ Hypochromasia Present PT 13.4 H (9.0-12.0) Seconds INR 1.2 H (0.9-1.1) Sodium 128 L (136-145) mmol/L Potassium 5.3 H (3.5-5.1) mmol/L Chloride 95 L (98-107) mmol/L Carbon Dioxide 23 (21-32) mmol/L Anion Gap 10 (3-11) BUN 105 H (6-23) mg/dl Creatinine 2.77 H (0.6-1.4) mg/dl Est Cr Clr Drug Dosing 18.9 ml/min Est GFR ( Amer) 22.8 ml/min Est GFR (Non-Af Amer) 19.7 ml/min BUN/Creatinine Ratio 37.9 H (10-20) Glucose 132 H (70-99(Fasting)) mg/dl Calcium 8.2 L (8.6-10.3) mg/dl Magnesium 2.6 H (1.7-2.4) mg/dl Iron Cancelled TIBC Cancelled Unsaturated IBC Cancelled Transferrin % Sat Cancelled Ferritin Cancelled Total Bilirubin 0.5 (0.2-1.0) mg/dl AST 10 L (13-39) U/L ALT 6 L (7-52) U/L Alkaline Phosphatase 136 H (34-104) U/L Total Creatine Kinase 23 L (30-223) U/L Troponin I High Sens 30.0 H Cancelled (0-20) pg/ml B-Natriuretic Peptide 525 H (0-100) pg/ml Total Protein 5.7 L (6.0-8.3) gm/dl Albumin 3.2 L (3.4-5.0) gm/dl Globulin 2.5 (2.5-4.0) gm/dl Albumin/Globulin Ratio 1.3 (0.9-2) Procalcitonin 0.37 (0-0.5) ng/ml TSH 1.002 (0.300-4.500) uIu/ml SARS-CoV-2, RNA, NAAT NEGATIVE (NEGATIVE) Administered Medications Albumin Human (Albumin 25%) 25 gm in 100 mls @ 50 mls/hr IV ONE ONE Stop: 05/30/23 14:21 Last Admin: 05/30/23 12:33 Dose: 50 mls/hr Documented By: NUHA Discontinued Medications Fentanyl Citrate (Fentanyl Citrate Pf 100 Mcg/2 Ml Vial) 25 mcg IV NOW STA Stop: 05/30/23 11:16 Last Admin: 05/30/23 11:43 Dose: 25 mcg Documented By: GRANT Pantoprazole Sodium 80 mg/ (Dextrose) 120 mls @ 480 mls/hr IV ONE STA Stop: 05/30/23 12:21 Last Admin: 05/30/23 12:42 Dose: 480 mls/hr Documented By: NUHA Imaging Data Radiologist's Impression: Chest X-Ray 05/30/23 11:02 XR chest 1V portable HISTORY: Weakness. COMPARISON: Chest 03/13/2023. FINDINGS: The heart remains enlarged. There are poststernotomy changes. No pneumothorax. Small right pleural effusion has progressed. There is mild central pulmonary vascular congestion without overt edema. Left basilar linear densities favor subsegmental atelectasis. Degenerative changes within the shoulders. No new focal lung consolidations to suggest a pneumonia. IMPRESSION: 1. Small right pleural effusion has progressed. 2. Cardiomegaly and mild congestive change. ACT 112: Negative or not required by law. Electronically signed by: Carlos Moreira M.D. 05/30/2023 11:56 AM Discharge Plan Visit Data Chief Complaint: Swelling/Edema to Extremity Stated Complaint: FLUID RETENTION ED Provider: Graham Rubalcava Discharge Problem: Wound, open, leg, Anemia, Fluid overload, Acute kidney injury superimposed on CKD Patient Disposition: Being Evaluated by Hospitalist Condition: Fair Forms Stand Alone Forms: My [facility] [employer] Prescriptions Prescriptions: No Action bumetanide 2 mg tablet 4 mg PO BID Rx Instructions: Takw AM & AFTERNOON (DME) lancets [Lancets,Thin] Misc See Rx Instructions .Route Qty: 200 2RF Rx Instructions: As directed Daily (DME) nebulizer accessories Misc See Rx Instructions .ROUTE .MEDSUPPLY Qty: 1 0RF Rx Instructions: Use as directed. Needs supplies, mouthpiece, and tubing. Dx: J44.9 formoterol fumarate 20 mcg/2 mL solution for nebulization 2 ml inhalation BID Qty: 120 11RF Rx Instructions: DX:COPD J44.9 budesonide 0.25 mg/2 mL suspension for nebulization 0.25 mg inhalation BID Qty: 120 11RF Rx Instructions: DX:COPD J44.9 metformin 500 mg tablet extended release 24 hr 500 mg PO DAILY Qty: 90 1RF fluticasone propionate 50 mcg/actuation spray,suspension 2 spray INTRANASAL DAILY PRN (Reason: Congestion) Qty: 16 5RF Eliquis 2.5 mg tablet 2.5 mg PO BID Qty: 60 5RF atorvastatin 40 mg tablet 40 mg PO DAILY Qty: 90 1RF isosorbide mononitrate 30 mg tablet extended release 24 hr 30 mg PO DAILY Qty: 90 1RF triamcinolone acetonide 0.025 % ointment 1 applic topical BID PRN (Reason: dry skin) Qty: 454 2RF Tradjenta 5 mg tablet 5 mg PO DAILY Qty: 90 3RF Hold Instructions: periods for hypoglycemia ipratropium-albuterol 0.5 mg-3 mg(2.5 mg base)/3 mL solution for nebulization 3 ml INHALATION Q8H PRN (Reason: wheezing) Qty: 180 0RF Rx Instructions: MAY USE UP TO 4 X DAILY IF NEEDED. Dx:COPD J44.9 (DME) OneTouch Verio test strips Strip See Rx Instructions .Route Qty: 100 5RF Rx Instructions: TEST ONCE PER DAY (DME) compressor, for nebulizer Device See Rx Instructions .Route Qty: 1 0RF Rx Instructions: As directed as needed esomeprazole magnesium [Nexium] 40 mg capsule,delayed release(DR/EC) 40 mg PO DAILY PRN (Reason: Gi Upset) nitroglycerin 0.4 mg tablet, sublingual 0.4 mg SL Q5M PRN (Reason: Chest Pain) Qty: 25 1RF (DME) lancets Misc See Rx Instructions .Route Qty: 200 3RF Rx Instructions: As directed bid nystatin 100,000 unit/gram cream 1 applic topical TID PRN (Reason: .FLARES) Rx Instructions: until rash healed nystatin 100,000 unit/gram powder 1 applic topical BID PRN (Reason: .IRRITATION) Referrals Referrals: Ayo Lopez CRNP [Primary Care Provider] - Discharge Problem: Wound, open, leg Qualifiers: Encounter type: initial encounter Laterality: unspecified laterality Qualified Code(s): S81.809A - Unspecified open wound, unspecified lower leg, initial encounter Anemia Qualifiers: Anemia type: unspecified type Qualified Code(s): D64.9 - Anemia, unspecified Fluid overload Qualifiers: Hypervolemia type: unspecified Qualified Code(s): E87.70 - Fluid overload, unspecified
[2023-05-30] MEDS: fentaNYL citrate PF 100 MCG/2 ML VIAL IV STA (11:43)
[2023-05-30 11:49] LABS: Basophils # (auto) 0.02 K/uL (0.00-0.20); Basophils % (auto) 0.2 %; Eosinophils # (auto) 0.11 K/uL (0.00-0.50); Hematocrit (blood only) 23.8 % (42.0-52.0); Hemoglobin 7.3 g/dl (14.0-18.0); Immature Granulocytes # (auto) 0.07 K/uL (0.01-0.20); Immature Granulocytes % (auto) 0.7 %; Lymphocytes # (auto) 1.08 K/uL (1.20-3.40); Lymphocytes % (auto) 10.2 %; Mean Corpuscular Hemoglobin 25.9 pg (25.0-34.0); Mean Corpuscular Hgb Conc 30.7 g/dL (32.0-36.0); Mean Corpuscular Volume 84.4 fL (80.0-100.0); Mean Platelet Volume 8.7 fL (9.4-12.4); Monocytes # (auto) 1.21 K/uL (0.11-0.59); Monocytes % (auto) 11.5 %; Neutrophils # (auto) 8.06 K/uL (1.40-6.50); Neutrophils % (auto) 76.4 %; Platelet Count 279 K/uL (130-400); RDW Coefficient of Variation 14.4 % (11.5-14.5); RDW Standard Deviation 44.2 fL (36.4-46.3); Red Blood Count 2.82 M/uL (4.70-6.10); White Blood Count 10.55 K/ul (4.8-10.8)
--- NOTE | 2023-05-30 11:58 | XRay Report ---
XR chest 1V portable HISTORY: Weakness. COMPARISON: Chest 03/13/2023. FINDINGS: The heart remains enlarged. There are poststernotomy changes. No pneumothorax. Small right pleural effusion has progressed. There is mild central pulmonary vascular congestion without overt ed meagan. Left basilar linear densities favor subsegmental atelectasis. Degenerative changes within the sh oulders. No new focal lung consolidations to suggest a pneumonia. IMPRESSION: 1. Small right pleural effusion has progressed. 2. Cardiomegaly and mild congestive change. ACT 112: Negative or not required by law. Electronically signed by: Carlos Moreira M.D. 05/30/2023 11:56 AM
[2023-05-30 12:07] LABS: Thyroid Stimulating Hormone 1.002 uIu/ml (0.300-4.500)
[2023-05-30 12:11] LABS: Albumin Level 3.2 gm/dl (3.4-5.0); Bilirubin,Total 0.5 mg/dl (0.2-1.0); Calcium 8.2 mg/dl (8.6-10.3); INR 1.2 (0.9-1.1); Magnesium 2.6 mg/dl (1.7-2.4); Potassium 5.3 mmol/L (3.5-5.1); Prothrombin Time 13.4 Seconds (9.0-12.0)
[2023-05-30 12:17] LABS: Albumin Globulin Ratio 1.3 (0.9-2); BUN Creatinine Ratio 37.9 (10-20); Creatinine Clr Calc Pharmacy 18.9 ml/min; Est GFR (African American) 22.8 ml/min; Est GFR (Non-African American) 19.7 ml/min; Globulin 2.5 gm/dl (2.5-4.0); Total Protein 5.7 gm/dl (6.0-8.3)
[2023-05-30 12:19] LABS: Hypochromasia Present; Polychromasia 1+
[2023-05-30] MEDS: ALBUMIN 25% 25 GM/100 ML VIAL IV ONE (12:33)
[2023-05-30] MEDS: PANTOprazole 80 MG in DEXTROSE 5% 100 ML IV STA (12:42)
--- NOTE | 2023-05-30 12:46 | History & Physical Report ---
Date of Service May 30, 2023 Assessment & Plan (1) Acute kidney injury superimposed on CKD: Plan: -Admit to med/tele on pulse oximetry -Currently hemodynamically stable and stable on RA when awake -Sent to the ED from the wound care clinic this am after being found to have progressive swelling, new anemia with Hgb of 7.3, and suki on CKD -Cr today is 2.77, baseline Cr. normally near 1.7-1.8 -BUN elevated at 105 -At this time the etiology of his progressive renal failure is likely multifactorial including increased NSAID use over the past 2 weeks, increased diuretic dosing due to volume overload with decreased oral intake, and progression on his chronic medical issues -Potassium elevated at 5.3 with mag of 2.6, and sodium of 128 -Will obtain CT of the abd/pelvis wo con for further exam of his renal system and possible GI bleed -Nephrology consult placed, appreciate their assistance, will hold further diuresis until initial workup is back as he is stable -Will place garsia cath now and obtain UA with urine electrolytes for close monitoring and conitnued workup -Will repeat CMP and mag this evening -Avoid nephrotoxic agents -Will hold Imdur until rest of workup is back -Will need to hold chemical DVT PPX until occult bleed is ruled out, continue wraps BL for now -NPO until initial workup is back -Q6h CBC, AM CMP, Mag, PT/INR (2) Anemia: Plan: -Hgb down to 7.3 today with HCT and MCHC falling as well since March of 2023 -No obvious GI bleed per family and on exam but cannot rule this out yet as the patient has been on Eliquis and has been taking increased doses of NSAID's over the past 2 weeks -Will follow fecal occult blood and CT abd/pelvis ordered on admission -Given 80 mg IV pantoprazole in the ED, will continue with 40 mg IV BID for now -Blood consent obtained on admission, type/screen ordered by ED -Will monitor CBC q6h, will transfuse as needed -Monitor for volume overload if needing to transfuse (3) Hyperkalemia: Plan: -K+ noted to be 5.3 today -No acute T wave changes on ECG -Likely due to renal failure -Will give 1gm IV calcium gluconate with 5 units Insulin and 50 mL IV dextrose now -Will repeat 4 hour potassium later today and start oral regimen if needed -Continue to monitor on tele (4) Fluid overload: Plan: -Follow Renal workup -BNP elevated in the 500's but no significant volume on CXR -Will obtain repeat TTE as his last was approximately 1 year ago -Nephrology consulted -Monitor intake/output and daily weights (5) Wound, open, leg: Plan: -Chronic BL LE wounds and sacral wounds due to venous stasis and immobility -Extensive imaging obtained at wound clinic this am, see H&P for details -Does not appear to be infected -Wound care consult placed -Turn and position Q2h (6) 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: Plan: -See open wound of leg plan (7) Hypertension: Plan: -Stable monitor BP closely with tentative volume status (8) Hyponatremia: Plan: -Sodium at 128 today -Was noted to be 126 on 05/25/23 -Likely multifactorial including renal disease, volume overload, and diuretic use -Workup has been started on admission, hold IV fluids and diuretics until workup is back -Nephrology consulted (9) Elevated troponin: Plan: -Initial high sen trop elevated at 30 -No chest pain or acute ST segment or T-wave changes -Likely due to demand and falsely elevated due to renal function -Will monitor on tele, trend trop, and repeat TTE (10) CAD (coronary artery disease): Plan: -Denies chest pain -Conitnue statin (11) Diabetes mellitus, type II: Plan: -Hold oral meds -Monitor BSG q6h while NPO, goal is 110-160 -Start CF 50 q6h for now -Pharmacy glycemic consult placed (12) Chronic a-fib: Plan: -Rate controlled -Holding Eliquis for now with possible occult bleed -Not on rate or rhythm limiting meds -Monitor on tele (13) Obstructive sleep apnea: Plan: -Is non-compliant with HS CPAP per family -Stable on RA when awake -PRN O2 ordered Plan The patient was discussed with Dr. Israel at the time of the admission History of Present Illness Chief Complaint: full body swelling Primary Care Provider: AGNES Alvarez Patric is an 88 year old male with a PMH significant for Stage 3B CKD baseline creatinine 1.7-1.8 mg/dl, systolic/diastolic CHF (LVEF WNL as of 06/25/22), atrial fibrillation (on Eliquis), multivessel CAD status post CABG 3, ischemic cardiomyopathy, aortic and mitral regurgitation, hypertension, DMII, ch ronic BL LE swelling with venous stasis ulcers who was sent to the [facility] ED from the wound care clinic due to concerns for progressive swelling including his upper extremities. He remained stable in the ED. Labs were significant for a Hgb of 7.3 (down from 11 as of 03/13/23), RBC of 2.82, HCT of 23, MCHC of 30, MCV of 84, INR of 1.2, Cr of 2.77, BUN of 105, sodium of 128, potassium of 5.3, calcium of 8.2, mag of 2.6, initial high sen trop of 30, BNP of 525, and covid 19 negative. Chest xray was read as "1. Small right pleural effusion has progressed. 2. Cardiomegaly and mild congestive change.". Prior to admission the patient was given 80 mg IV pantoprazole, 25 mcg Iv fentanyl, and 25 mg albumin. At the time of the exam the patient was sitting in bed in no acute distress, he does appear fatigued and weak. History was mainly obtained from his daughters who were sitting bedside. They state that they were seen at the Wound Care Clinic this am for initial intake exam for his chronic BL LE and sacral ulcers. The wound clinic sent him to the ED due to his new anemia and worsening renal function. They state that the patient has been having a progressive clinical decline since March. Increased weakness, decreased PO intake, significant LE edema and increased LE pain due to swelling. They state that his LE pain has been worse over the past 2 weeks. Because of this he has been requiring frequent doses of NSAID's, especially at night. They deny the patient having recent fever or chills, they deny joslyn bloody BM's but can't confirm for sure he has been without melena as he usually flushes the toilet before they can see. When asked, the patient denies chest pain, cough, SOB, abd pain, nausea, vomiting, dysuria hematuria. His Daughters state that the patient has been urinating less frewuently over the past 48-72 hours. He has not had recent falls or trauma. We discussed code status, they explain that he has a DNR/DNI, both daughters are his POA's. They also clearly state that the patient would NOT want dialysis if his renal function were to continue to decline. Please refer to Dr. Israel's attestation for any changes to the treatment plan Allergies Allergy/AdvReac Type Severity Reaction Status Date / Time lisinopril AdvReac Intermediate cough Verified 05/30/23 09:12 Home Medications Medication Instructions Recorded Confirmed Type esomeprazole magnesium 40 mg 40 mg PO DAILY PRN Gi Upset 10/07/21 05/30/23 History capsule,delayed release (Nexium) nitroglycerin 0.4 mg sublingual 0.4 mg sublingual Q5M PRN Chest 10/07/21 05/30/23 Rx tablet Pain #25 tabs lancets (Lancets,Thin) #200 ea 11/15/21 05/30/23 Rx lancets #200 ea 01/05/22 05/30/23 Rx nebulizer accessories #1 ea 05/19/22 05/30/23 Rx formoterol fumarate 20 mcg/2 mL 2 ml inhalation BID #120 mL 09/22/22 05/30/23 Rx solution for nebulization budesonide 0.25 mg/2 mL suspension 0.25 mg (2 mL) inhalation BID #120 10/03/22 05/30/23 Rx for nebulization mL blood sugar diagnostic (OneTouch #100 ea 01/09/23 05/30/23 Rx Verio test strips) compressor, for nebulizer #1 ea 01/09/23 05/30/23 Rx metformin 500 mg tablet,extended 500 mg PO DAILY #90 tabs 01/09/23 05/30/23 Rx release 24 hr fluticasone propionate 50 2 spray intranasal DAILY PRN 01/30/23 05/30/23 Rx mcg/actuation nasal Congestion #16 grams spray,suspension apixaban 2.5 mg tablet (Eliquis) 2.5 mg PO BID #60 tabs 03/20/23 05/30/23 Rx atorvastatin 40 mg tablet 40 mg PO DAILY #90 tabs 04/05/23 05/30/23 Rx isosorbide mononitrate 30 mg 30 mg PO DAILY #90 tabs 04/05/23 05/30/23 Rx tablet,extended release 24 hr ipratropium 0.5 mg-albuterol 3 mg 3 ml inhalation Q8H PRN wheezing 04/20/23 05/30/23 Rx (2.5 mg base)/3 mL nebulization #180 mL soln triamcinolone acetonide 0.025 % 1 applic topical BID PRN dry skin 05/18/2305/30 Rx topical ointment #454 grams linagliptin 5 mg tablet (Tradjenta) 5 mg PO DAILY #90 tabs 05/25/23 05/30/23 Rx bumetanide 2 mg tablet 4 mg PO BID 05/30/23 05/30/23 History nystatin 100,000 unit/gram topical 1 applic topical TID PRN .FLARES 05/30/23 05/30/23 History cream nystatin 100,000 unit/gram topical 1 applic topical BID PRN 05/30/23 05/30/23 History powder .IRRITATION Past Med/Surg History Medical History Stage 3b chronic kidney disease Fever Chronic kidney disease Vitamin D deficiency External hemorrhoids Candidiasis of mouth and esophagus Mucus plugging of bronchi Decubitus ulcer, buttock Chronic renal failure, stage 3a Acute hyponatremia COVID-19 (~01/17/23) Obstructive sleep apnea Atrial fibrillation, permanent Chronic diastolic CHF (congestive heart failure) CAD (coronary artery disease) Carotid atherosclerosis Mitral valve insufficiency and aortic valve insufficiency Spinal stenosis Tubular adenoma of colon Normocytic anemia Diabetes mellitus, type II GERD (gastroesophageal reflux disease) Hypertension Dyslipidemia Anemia Obstructive lung disease Reactive airway disease Asthma Hematuria (07/03/13) 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) Surgical History S/P shoulder surgery S/P cholecystectomy S/P cardiac catheterization S/P CABG (coronary artery bypass graft) Family History Sister Hypertension Colon cancer Other Prostate cancer Stroke Denies family history of Osteoporosis Myocardial infarction Breast cancer Social History Smoking Status: Never smoker Second Hand Exposure: No; Do You Dip or Chew Tobacco: No; Hx Alcohol Use: No Hx Substance Use: No Preferred Language: Croatian Communication Ability: Effective Visual Impairment: No Limitations Hearing Ability: Normal Vp Care Management Required: No Beliefs That Will Affect Care: None marital status: / Current Living Situation: Family Current Living Situation Comment: Daughter and granddaughter current occupational status: 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[employer] How many Children do You have: 2 Other Information That Helps Us Care for You: No Feels Safe at Home: Yes Safety Concerns: Feels Safe At This Time Childhood Exposure to Second-Hand Smoke: No Diet: regular Diet Comment: regular caffeine: Yes (Tea and soda) during the past year weight has: increased > 10 lbs Dental Care, Regularly: No Physical Activity Frequency: Daily Physical Activity Frequency Comment: walking in the house with walker Seatbelt Use: always Sunscreen Use: No Assistive Devices: Denture - Upper and Denture - Lower Physical Exam Physical Exam: Physical Exam: General: In no acute distress, stated age, chronically ill appearing and fatigued HEENT: Normocephalic, atraumatic, no scleral icterus, pupils around round, symmetrical, and reactive to light, dry mucus membranes, trachea midline, no thyromegaly Chest/Pulm: No respiratory distress, symmetrical chest expansion, decreased breath sounds in the BL lower lung kessler but otherwise CTA Cardiac: irregular rate and rhythm, no murmurs noted Abdomen: Negative for ascites and bruising, normoactive bowel sounds, soft, non-tender to palpation throughout Musculoskeletal: No acute trauma, BL LE's are currently wrapped due to wound care clinic visit prior to ED arrival please see wound care H&P for details and images Extremities: Patient with symmetric swelling in the BL upper extremities with symmetric radial pulses, BL LE's are currently wrapped but patient with intact sensation and motor function on exam Skin: please see wound care H&P from 05/30/23 for detailed images Neuro: Alert and oriented to person, place, month, year, and president, no focal defects, no tremors noted Psych: No acute distress, fatigued but calm answers questions appropriately and is cooperative during the exam Results & Data Results & Data Vital Signs (Past 12 Hours) Vital Signs Temp Pulse Resp BP Pulse Ox O2 Del Method 05/30/23 12:32 45 L 05/30/23 12:01 45 L 16 167/45 H 94 Room Air 05/30/23 11:31 45 L 15 171/54 H 99 Room Air 05/30/23 10:54 100 Room Air 05/30/23 10:43 36.8 C 47 L 18 172/103 H Room Air Laboratory Results Abnormal lab results 05/30/23 Range/Units 10:51 RBC 2.82 L (4.70-6.10) M/uL Hgb 7.3 L (14.0-18.0) g/dl Hct 23.8 L (42.0-52.0) % MCHC 30.7 L (32.0-36.0) g/dL MPV 8.7 L (9.4-12.4) fL Reticulocyte % (Auto) 2.95 H (0.50-2.00) % Neut # (Auto) 8.06 H (1.40-6.50) K/uL Lymph # (Auto) 1.08 L (1.20-3.40) K/uL Archer # (Auto) 1.21 H (0.11-0.59) K/uL PT 13.4 H (9.0-12.0) Seconds INR 1.2 H (0.9-1.1) Sodium 128 L (136-145) mmol/L Potassium 5.3 H (3.5-5.1) mmol/L Chloride 95 L (98-107) mmol/L BUN 105 H (6-23) mg/dl Creatinine 2.77 H (0.6-1.4) mg/dl BUN/Creatinine Ratio 37.9 H (10-20) Glucose 132 H (70-99(Fasting)) mg/dl Calcium 8.2 L (8.6-10.3) mg/dl Magnesium 2.6 H (1.7-2.4) mg/dl Transferrin % Sat 11 L (20-50) % AST 10 L (13-39) U/L ALT 6 L (7-52) U/L Alkaline Phosphatase 136 H (34-104) U/L Total Creatine Kinase 23 L (30-223) U/L Troponin I High Sens 30.0 H (0-20) pg/ml B-Natriuretic Peptide 525 H (0-100) pg/ml Total Protein 5.7 L (6.0-8.3) gm/dl Albumin 3.2 L (3.4-5.0) gm/dl Diagnostic Findings Chest X-Ray 05/30/23 11:02 XR chest 1V portable HISTORY: Weakness. COMPARISON: Chest 03/13/2023. FINDINGS: The heart remains enlarged. There are poststernotomy changes. No pneumothorax. Small right pleural effusion has progressed. There is mild central pulmonary vascular congestion without overt edema. Left basilar linear densities favor subsegmental atelectasis. Degenerative changes within the shoulders. No new focal lung consolidations to suggest a pneumonia. IMPRESSION: 1. Small right pleural effusion has progressed. 2. Cardiomegaly and mild congestive change. ACT 112: Negative or not required by law. Electronically signed by: Carlos Moreira M.D. 05/30/2023 11:56 AM ECG Additional Comments: Afib without acute ST segment or T-wave changes compared to last ECG on 02/02/23 Code Status & VTE Plan Code Status DNR/DNI VTE Prophylaxis Plan VTE Prophylaxis will be ordered: Yes Supervising Physician Co-Signing Physician Notes Patient seen and examined, chart reviewed, case discussed with Saad Balbuena PA-C and I agree with the assessment and plan as above except as otherwise noted Labs and images reviewed 88-year-old male with a history of CKD 3, CHF with reduced ejection fraction normalized 06/2022, A-fib on Eliquis, multivessel CAD, hypertension, DM 2 who presents on referral from wound care clinic with progressive swelling of his upper extremities, anemia of 7.3 from 11, hyperkalemia, and congestive change with pleural effusion on x-ray. Patient has extensive wounds as noted in wound care photos. Patient denies chest pain/dyspnea. Has been oliguric for the last few days. Presents with SUKI on CKD with creatinine of 2.77 from baseline of around 1.8. No retroperitoneal or pelvic hematomas are noted. Patient likely with severe loss of oncotic pressure with both hypoalbuminemia and anemia. Does not show evidence of pulmonary edema although does have pleural effusion and hyponatremia. Patient is iron deficient with a transferrin saturation of 11%. He received albumin 25 g x 1 while in the ER. Patient is unsure of if he has had GI bleeding denies bright red blood but does not generally look his bowel movements and is not sure if he has had dark melanic bowel movements. Suspect patient is intravascularly depleted with extensive third spacing and loss of oncotic pressure. Patient has a history of coronary disease and with evidence of demand ischemia versus clearance with an elevated troponin of 32. Recommended to have a hemoglobin transfusion threshold of 8 rather than 7, as such we will transfuse 1 unit and continue to trend With concurrent total volume overload will diurese with unit. If hemodynamically stable and not receiving additional blood, recommend iron transfusions 300 mg daily x 3. PPI twice daily IV, monitor all stools PG Care Time/CCT Total # of Minutes Spent Total Time Spent with Patient: Total time spent is greater than 50% in coordination of care (as documented) at patient's floor/unit and/or counseling patient: Coding [place] [address] INT INP/OBS CARE 375MIN Patient Type Established Medical Decision Making High Complexity Diagnoses Acute kidney injury superimposed on CKD N17.9; N18.9 Anemia D64.9 Anemia type: unspecified type Hyperkalemia E87.5 Fluid overload E87.70 Hypervolemia type: unspecified Wound, open, leg S81.809A Encounter type: initial encounter Laterality: unspecified laterality 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 L89.323 Hypertension I10 Hyponatremia E87.1 Elevated troponin R79.89 CAD (coronary artery disease) I25.10 Diabetes mellitus, type II E11.9 Diabetes mellitus complication status: with circulatory complication Diabetes mellitus intermediate card tender insulin use: without intermediate card tender use Chronic a-fib I48.20 Obstructive sleep apnea G47.33 (2) Anemia Anemia type: unspecified type Qualified Code(s): D64.9 - Anemia, unspecified (4) Fluid overload Hypervolemia type: unspecified Qualified Code(s): E87.70 - Fluid overload, unspecified (5) Wound, open, leg Encounter type: initial encounter Laterality: unspecified laterality Qualified Code(s): S81.809A - Unspecified open wound, unspecified lower leg, initial encounter (11) Diabetes mellitus, type II Diabetes mellitus complication status: with circulatory complication Diabetes mellitus intermediate card tender insulin use: without intermediate card tender use
[2023-05-30] MEDS ORDERED: NALOXONE HCL 0.4 MG/1 ML VIAL/CARP IV PRN (13:17)
[2023-05-30 13:26] LABS: Reticulocyte % 2.95 % (0.50-2.00)
[2023-05-30] MEDS ORDERED: STAT IV/IM STA (13:29)
[2023-05-30] MEDS ORDERED: CARBOHYDRATES FOR HYPOGLYCEMIA PO PRN (13:33)
[2023-05-30] MEDS ORDERED: DEXTROSE 50% 50 ML SYRINGE IV PRN (13:33)
[2023-05-30] MEDS ORDERED: GLUCOSE 10 TAB/TUBE PO PRN (13:33)
[2023-05-30] MEDS ORDERED: PHARMACY GLYCEMIC MGMT CONSULT PRN (13:33)
[2023-05-30] MEDS ORDERED: GLUCAGON FOR INJ 1 MG VIAL SQ PRN (13:33)
[2023-05-30] MEDS ORDERED: GLUCOSE 40% GEL 15 GM TUBE PO PRN (13:33)
[2023-05-30 13:34] LABS: Ferritin 39.4 ng/ml (8-388)
[2023-05-30] MEDS ORDERED: INSULIN ASPART PER UNIT CHARGE SC SCH (13:45)
--- NOTE | 2023-05-30 13:53 | Pharmacy Report ---
Pharmacy Glycemic Short Note 2 - Date of Service May 30, 2023 - Glycemic Short BSG Results (Last 24 hours): 05/30/23 10:51 Glucose 132 H OUTPATIENT ANTIDIABETIC REGIMEN: * Metformin 500 mg PO daily * Tradjenta 5 mg PO daily HbA1c: 6.6% (01/04/23) ASSESSMENT: * KOBY is an 88 year old male who presents to ED today with progressive swelling of extremities * Patient with well-controlled T2DM as an outpatient on oral medications * Potassium of 5.3 mmol/L - given IV insulin w/ D50W bolus * NPO at this time. Will give conservative initial insulin regimen. PLAN FOR INPATIENT GLYCEMIC CONTROL: * Hold outpatient oral diabetes medications * Basal insulin * hold * Reassess need for basal in AM * Bolus insulin * NovoLog per scale ACHS or Q6hrs while NPO * Goal Range: Low 120 mg/dL - High 150 mg/dL * Correction Factor: 35 mg/dL/unit * Nutritional / Prandial insulin per carb ratio of 1 unit per 12 grams CHO consumed
[2023-05-30] MEDS: HYDROmorphone INJ 0.5 MG/0.5 ML SYR IV PRN (14:05)
[2023-05-30] MEDS: INSULIN HUMAN REGULAR PER UNIT 5 UNITS in SYRINGE 4.95 ML IV ONE (14:06)
[2023-05-30] MEDS: DEXTROSE 50% 50 ML SYRINGE IV STA (14:06)
[2023-05-30] MEDS: CALCIUM GLUCONATE 10% 1,000 MG in SODIUM CHLOR 0.9% MINI-B 50 ML IV ONE (14:09)
--- NOTE | 2023-05-30 14:09 | CT Scan Report ---
ABDOMEN AND PELVIS CT WITHOUT CONTRAST CT DOSE: 1206.09 mGy.cm HISTORY: Anemia unknown origin, acute on chronic kidney disease. TECHNIQUE: Multiaxial CT images of the abdomen and pelvis were performed without contrast. A dose lo wering technique was utilized adhering to the principles of ALARA. COMPARISON STUDY: Abdomen and pelvis CT 06/17/2021. FINDINGS: There is a small right pleural effusion. Right lower lobe densities favor compressive atele ctasis from the pleural effusions. The left lung base is clear. No pneumoperitoneum. No pneumatosis. No acute fractures. There are poststernotomy changes. The heart remains enlarged. Decreased density w ithin the blood pool consistent the patient's history of anemia. Tiny fat-containing umbilical hernia . Small fat-containing bilateral inguinal hernias. Prior cholecystectomy. The unenhanced liver, splee n, adrenal glands, and pancreas are unremarkable. There is a stable 17 mm left parapelvic renal cyst. No renal or ureteral stones. No hydronephrosis. Calcified plaque within the normal caliber abdominal aorta. No retroperitoneal or pelvic hematoma. No lymphadenopathy identified. Moderate to severe blad rolando distention. No bladder wall thickening. Normal prostate gland. Suboptimal evaluation for bowel pa thology due to the lack of intravenous and oral contrast. However, there is no definite bowel wall th ickening or obstruction. Normal appendix. Colonic diverticulosis. No evidence for acute diverticuliti s. Mild body wall edema. Stable small hypodense lesion within the lower pole of the right kidney. Thi s is incompletely characterized on this noncontrast study but favors a cyst. IMPRESSION: 1. Small right pleural effusion. 2. Decreased density within the blood pool consistent with the patient's history of anemia. 3. No retroperitoneal or pelvic hematoma. 4. Distended bladder. 5. No bowel wall thickening or obstruction. 6. Additional findings as described above. ACT 112: Negative or not required by law. Electronically signed by: Carlos Moreira M.D. 05/30/2023 2:08 PM
[2023-05-30 14:57] LABS: Potassium Random Urine 19.8 mmol/L
[2023-05-30] MEDS: INSULIN ASPART PER UNIT CHARGE SC SCH (15:13)
[2023-05-30] MEDS ORDERED: NON-FORMULARY MEDICATION (Esomeprazole Magnesium [Nexium] 40 mg capsule,delayed release(DR PO PRN (15:33)
[2023-05-30] MEDS ORDERED: FLUTICASONE PROPIONATE NA SPR 16 GM BTL PRN (15:33)
[2023-05-30] MEDS ORDERED: ALBUT/IPRATROP 3MG/0.5MG NEB 3 ML VIAL INH PRN (15:33)
[2023-05-30 16:03] LABS: Folate (Folic Acid),Ser orPlas 5.61 ng/ml (>5.38)
[2023-05-30 16:54] LABS: Appearance Urine Cloudy (Clear); Bacteria Urine Automated Negative (Negative); Bilirubin Urine Negative (Negative); Blood Urine Negative (Negative); Color Urine Orange; Epithelial Cell Urine Auto 0-5 /lpf (0-5); Glucose Urine UA Negative (Negative); Ketones Urine Negative (Negative); Leukocyte Esterase Urine Negative (Negative); Nitrite Urine Negative (Negative); Protein Urine Negative (Negative); RBC Urine Automated 0-4 /hpf (0-4); Specific Gravity Urine 1.013 (1.000-1.030); Urobilinogen Urine Negative (Negative)
--- NOTE | 2023-05-30 17:51 | Nephrology Consultation ---
Date of Consultation May 30, 2023 Assessment & Plan (1) Acute kidney injury superimposed on CKD: * Clinically suspect 3rd spacing of volume related to hypoalbuminemia and pulmonary HTN * Recommend avoiding aggressive diuresis as patient may be preload dependent * Hold Bumex tonight, place Hernández catheter, monitor I&O's/wt * Patient has significant azotemia and worsening renal function. Office notes indicate that HD is not c/w with his goals of care. Therefore, continue conservative medical management * PRP, urinalysis in am (2) Hyponatremia: * Chronic, asymptomatic. Baseline Na 126-130 mmol/L (3) Anemia: * Will order iron studies (4) Hypertension: * Start Amlodipine 2.5 mg daily (5) Wound, open, leg: (6) 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: (7) Atrial fibrillation with slow ventricular response: History of Present Illness Reason for Consultation: SUKI/CKD Attending Physician: Henrik Israel MD History of Present Illness Mr. Restrepo is an 88 year old white male who is seen at the request of [facility] Hospitalist Service for evaluation of SUKI/CKD. Information for the HPI is obtained via direct patient interview and review of the medical record. HPI is summarized as follows: Mr. Restrepo has CKD stage G3b/A1 (moderate impairment). Baseline Cr has been 1.5-1.8 w/ EGFR 33 cc/min. His primary Lead Java Software Engineer is Dr. Argueta. Prior evaluation has revealed no proteinuria, bland urine sediment. Abdominal CT was negative for renal mass/stone or obstruction. Renal impairment has been attributed to microvascular disease and hypertensive nephrosclerosis. Mr. Restrepo's medical history is also significant for AODM, HTN, ASCVD s/p CABG, and permanent atrial fibrillation. Mr. Restrepo is cared for in both the [facility] CHF clinic and Nephrology office. He has mild pulmonary HTN and R heart failure. He has been on Bumex 4 mg daily with a target weight of 80 kg (176 lbs). Recently he was seen in the Nephrology office and noted to have worsening LE swelling. Bumex was increased to 4 mg po BID. Mr. Restrepo has developed ulcerative lesions on both legs and a pressure ulcer on his L thigh and buttock. He was seen at the wound clinic today and referred to [facility] EMD due to painful non healing wounds and worsening kidney dysfunction. EMD note indicates that patient lives at home with his daughter. He has required a significant amount of NSAID therapy due to his painful ulcers. It has become difficult to care for him at home because he has become increasingly lethargic and has difficulty ambulating. 05/25/23 Nephrology OV note indicates that Dr. Argueta has discussed [employer] w/ patient and his family. They do not feel that HD will improve Mr. Restrepo's quality of life. Nephrology consultation has been requested to assist w/ diuretic management Allergies Allergy/AdvReac Type Severity Reaction Status Date / Time lisinopril AdvReac Intermediate cough Verified 05/30/23 09:12 Home Medications Medication Instructions Recorded Confirmed Type esomeprazole magnesium 40 mg 40 mg PO DAILY PRN Gi Upset 10/07/21 05/30/23 History capsule,delayed release (Nexium) nitroglycerin 0.4 mg sublingual 0.4 mg sublingual Q5M PRN Chest 10/07/21 05/30/23 Rx tablet Pain #25 tabs lancets (Lancets,Thin) #200 ea 11/15/21 05/30/23 Rx lancets #200 ea 01/05/22 05/30/23 Rx nebulizer accessories #1 ea 05/19/22 05/30/23 Rx formoterol fumarate 20 mcg/2 mL 2 ml inhalation BID #120 mL 09/22/22 05/30/23 Rx solution for nebulization budesonide 0.25 mg/2 mL suspension 0.25 mg (2 mL) inhalation BID #120 10/03/22 05/30/23 Rx for nebulization mL blood sugar diagnostic (OneTouch #100 ea 01/09/23 05/30/23 Rx Verio test strips) compressor, for nebulizer #1 ea 01/09/23 05/30/23 Rx metformin 500 mg tablet,extended 500 mg PO DAILY #90 tabs 01/09/23 05/30/23 Rx release 24 hr fluticasone propionate 50 2 spray intranasal DAILY PRN 01/30/23 05/30/23 Rx mcg/actuation nasal Congestion #16 grams spray,suspension apixaban 2.5 mg tablet (Eliquis) 2.5 mg PO BID #60 tabs 03/20/23 05/30/23 Rx atorvastatin 40 mg tablet 40 mg PO DAILY #90 tabs 04/05/23 05/30/23 Rx isosorbide mononitrate 30 mg 30 mg PO DAILY #90 tabs 04/05/23 05/30/23 Rx tablet,extended release 24 hr ipratropium 0.5 mg-albuterol 3 mg 3 ml inhalation Q8H PRN wheezing 04/20/23 05/30/23 Rx (2.5 mg base)/3 mL nebulization #180 mL soln triamcinolone acetonide 0.025 % 1 applic topical BID PRN dry skin 05/18/23 05/30/23 Rx topical ointment #454 grams linagliptin 5 mg tablet (Tradjenta) 5 mg PO DAILY #90 tabs 05/25/23 05/30/23 Rx bumetanide 2 mg tablet 4 mg PO BID 05/30/23 05/30/23 History nystatin 100,000 unit/gram topical 1 applic topical TID PRN .FLARES 05/30/23 05/30/23 History cream nystatin 100,000 unit/gram topical 1 applic topical BID PRN 05/30/23 05/30/23 History powder .IRRITATION Patient History Medical History Stage 3b chronic kidney disease Fever Chronic kidney disease Vitamin D deficiency External hemorrhoids Candidiasis of mouth and esophagus Mucus plugging of bronchi Decubitus ulcer, buttock Chronic renal failure, stage 3a Acute hyponatremia COVID-19 (~01/17/23) Obstructive sleep apnea Atrial fibrillation, permanent Chronic diastolic CHF (congestive heart failure) CAD (coronary artery disease) Carotid atherosclerosis Mitral valve insufficiency and aortic valve insufficiency Spinal stenosis Tubular adenoma of colon Normocytic anemia Diabetes mellitus, type II GERD (gastroesophageal reflux disease) Hypertension Dyslipidemia Anemia Obstructive lung disease Reactive airway disease Asthma Hematuria (07/03/13) 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) Surgical History S/P shoulder surgery S/P cholecystectomy S/P cardiac catheterization S/P CABG (coronary artery bypass graft) Family History Sister Hypertension Colon cancer Other Prostate cancer Stroke Denies family history of Osteoporosis Myocardial infarction Breast cancer Social History Smoking Status: Never smoker Second Hand Exposure: No; Do You Dip or Chew Tobacco: No; Hx Alcohol Use: No Hx Substance Use: No Preferred Language: Thai Communication Ability: Effective Visual Impairment: No Limitations Hearing Ability: Normal Wax Ball Molder Required: No Beliefs That Will Affect Care: None marital status: / Current Living Situation: Family Current Living Situation Comment: Daughter and granddaughter current occupational status: 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[employer] How many Children do You have: 2 Other Information That Helps Us Care for You: No Feels Safe at Home: Yes Safety Concerns: Feels Safe At This Time Childhood Exposure to Second-Hand Smoke: No Diet: regular Diet Comment: regular caffeine: Yes (Tea and soda) during the past year weight has: increased > 10 lbs Dental Care, Regularly: No Physical Activity Frequency: Daily Physical Activity Frequency Comment: walking in the house with walker Seatbelt Use: always Sunscreen Use: No Assistive Devices: Denture - Upper and Denture - Lower Review of Systems Constitutional: no fever Eyes: no worsening vision Ear, Nose, Mouth, Throat: no problem reported Respiratory: no cough and no dyspnea Cardiovascular: no chest pain Gastrointestinal: no abdominal pain, no nausea, no vomiting and no diarrhea/loose stools Physical Exam Constitutional: + frail appearing; not in distress Eyes: PERRL, conjunctivae normal, anicteric sclerae ENMT: Mouth: + dry oral mucous membranes Neck: trachea midline, no thyromegaly Respiratory: normal respiratory effort, lungs clear to auscultation Cardiovascular: Rate/Rhythm: + irregularly irregular Vessels: no JVD Extremities: + edema Dependent edema of the arms, swelling of the calves and feet. No edema of upper arms or thighs Gastrointestinal (Abdomen): normal bowel sounds, soft, nontender, no hepatosplenomegaly Skin: both calves wrapped w/ Kerlix gauze Neurologic: awake (poor historian) Speech / Cognition: normal speech Psychiatric: Affect: euthymic affect Results & Data Vital Signs (Past 12 Hours) Vital Signs Temp Pulse Resp BP Pulse Ox Pulse Ox O2 Del Method 05/30/23 15:46 93 05/30/23 15:06 44 L 05/30/23 14:53 46 L 16 171/55 H 94 Room Air 05/30/23 13:01 42 L 15 162/48 H 94 Room Air 05/30/23 12:32 45 L 05/30/23 12:31 46 L 12 167/50 H 94 Room Air 05/30/23 12:01 45 L 16 167/45 H 94 Room Air 05/30/23 11:31 45 L 15 171/54 H 99 Room Air 05/30/23 10:54 100 Room Air 05/30/23 10:43 36.8 C 47 L 18 172/103 H Room Air O2 Del Method 05/30/23 15:46 Room Air 05/30/23 15:06 05/30/23 14:53 05/30/23 13:01 05/30/23 12:32 05/30/23 12:31 05/30/23 12:01 05/30/23 11:31 05/30/23 10:54 05/30/23 10:43 Laboratory Results Laboratory Results WBC 10.55 K/ul (4.8-10.8) 05/30/23 10:51 RBC 2.82 M/uL (4.70-6.10) L 05/30/23 10:51 Hgb 7.3 g/dl (14.0-18.0) L 05/30/23 10:51 Hct 23.8 % (42.0-52.0) L 05/30/23 10:51 MCV 84.4 fL (80.0-100.0) 05/30/23 10:51 MCH 25.9 pg (25.0-34.0) 05/30/23 10:51 MCHC 30.7 g/dL (32.0-36.0) L 05/30/23 10:51 RDW Std Deviation 44.2 fL (36.4-46.3) 05/30/23 10:51 RDW Coeff of Roseann 14.4 % (11.5-14.5) 05/30/23 10:51 Plt Count 279 K/uL (130-400) 05/30/23 10:51 MPV 8.7 fL (9.4-12.4) L 05/30/23 10:51 Immature Gran % (Auto) 0.7 % 05/30/23 10:51 Neut % (Auto) 76.4 % 05/30/23 10:51 Lymph % (Auto) 10.2 % 05/30/23 10:51 Robeson % (Auto) 11.5 % 05/30/23 10:51 Eos % (Auto) 1.0 % 05/30/23 10:51 Baso % (Auto) 0.2 % 05/30/23 10:51 Reticulocyte % (Auto) 2.95 % (0.50-2.00) H 05/30/23 10:51 Reticulocyte % (Auto) Cancelled 05/30/23 10:51 Neut # (Auto) 8.06 K/uL (1.40-6.50) H 05/30/23 10:51 Lymph # (Auto) 1.08 K/uL (1.20-3.40) L 05/30/23 10:51 Robeson # (Auto) 1.21 K/uL (0.11-0.59) H 05/30/23 10:51 Eos # (Auto) 0.11 K/uL (0.00-0.50) 05/30/23 10:51 Baso # (Auto) 0.02 K/uL (0.00-0.20) 05/30/23 10:51 Reticulocyte # 0.080 10^6/uL (0.020-0.100) 05/30/23 10:51 Reticulocyte # Cancelled 05/30/23 10:51 Immature Gran # (Auto) 0.07 K/uL (0.01-0.20) 05/30/23 10:51 Polychromasia 1+ 05/30/23 10:51 Hypochromasia Present 05/30/23 10:51 PT 13.4 Seconds (9.0-12.0) H 05/30/23 10:51 INR 1.2 (0.9-1.1) H 05/30/23 10:51 Sodium 128 mmol/L (136-145) L 05/30/23 10:51 Potassium 4.9 mmol/L (3.5-5.1) 05/30/23 15:02 Chloride 95 mmol/L (98-107) L 05/30/23 10:51 Carbon Dioxide 23 mmol/L (21-32) 05/30/23 10:51 Anion Gap 10 (3-11) 05/30/23 10:51 BUN 105 mg/dl (6-23) H 05/30/23 10:51 Creatinine 2.77 mg/dl (0.6-1.4) H 05/30/23 10:51 Est Cr Clr Drug Dosing 18.9 ml/min 05/30/23 10:51 Est GFR ( Amer) 22.8 ml/min 05/30/23 10:51 Est GFR (Non-Af Amer) 19.7 ml/min 05/30/23 10:51 BUN/Creatinine Ratio 37.9 (10-20) H 05/30/23 10:51 Glucose 132 mg/dl (70-99(Fasting)) H 05/30/23 10:51 POC Glucose 179 mg/dl (70-99) H 05/30/23 14:44 Osmolality 303 mOsm/kg (280-300) H 05/30/23 15:02 Calcium 8.2 mg/dl (8.6-10.3) L 05/30/23 10:51 Ionized Calcium 1.19 mmol/L (1.12-1.32) 05/30/23 15:02 Magnesium 2.6 mg/dl (1.7-2.4) H 05/30/23 10:51 Iron 38 mcg/dl (35-175) 05/30/23 10:51 Iron Cancelled 05/30/23 10:51 TIBC 351 mcg/dl (250-450) 05/30/23 10:51 TIBC Cancelled 05/30/23 10:51 Unsaturated IBC 313 mcg/dl (155-355) 05/30/23 10:51 Unsaturated IBC Cancelled 05/30/23 10:51 Transferrin % Sat 11 % (20-50) L 05/30/23 10:51 Transferrin % Sat Cancelled 05/30/23 10:51 Ferritin 39.4 ng/ml (8-388) 05/30/23 10:51 Ferritin Cancelled 05/30/23 10:51 Total Bilirubin 0.5 mg/dl (0.2-1.0) 05/30/23 10:51 AST 10 U/L (13-39) L 05/30/23 10:51 ALT 6 U/L (7-52) L 05/30/23 10:51 Alkaline Phosphatase 136 U/L (34-104) H 05/30/23 10:51 Total Creatine Kinase 23 U/L (30-223) L 05/30/23 10:51 Troponin I High Sens 32.7 pg/ml (0-20) H 05/30/23 16:49 B-Natriuretic Peptide 525 pg/ml (0-100) H 05/30/23 10:51 Total Protein 5.7 gm/dl (6.0-8.3) L 05/30/23 10:51 Albumin 3.2 gm/dl (3.4-5.0) L 05/30/23 10:51 Globulin 2.5 gm/dl (2.5-4.0) 05/30/23 10:51 Albumin/Globulin Ratio 1.3 (0.9-2) 05/30/23 10:51 Vitamin B12 267 pg/ml (180-914) 05/30/23 15:02 Folate 5.61 ng/ml (>5.38) 05/30/23 15:02 Procalcitonin 0.37 ng/ml (0-0.5) 05/30/23 10:51 TSH 1.002 uIu/ml (0.300-4.500) 05/30/23 10:51 Urine Color [place] 05/30/23 16:25 Urine Appearance Cloudy (Clear) A 05/30/23 16:25 Urine pH 5.0 (4.5-7.5) 05/30/23 16:25 Ur Specific [place] 1.013 (1.000-1.030) 05/30/23 16:25 Urine Protein Negative (Negative) 05/30/23 16:25 Urine Glucose (UA) Negative (Negative) 05/30/23 16:25 Urine Ketones Negative (Negative) 05/30/23 16:25 Urine Blood Negative (Negative) 05/30/23 16:25 Urine Nitrite Negative (Negative) 05/30/23 16:25 Urine Bilirubin Negative (Negative) 05/30/23 16:25 Urine Urobilinogen Negative (Negative) 05/30/23 16:25 Ur Leukocyte Esterase Negative (Negative) 05/30/23 16:25 Urine WBC (Auto) 1-5 /hpf (0-5) 05/30/23 16:25 Urine RBC (Auto) 0-4 /hpf (0-4) 05/30/23 16:25 U Hyaline Cast (Auto) 1-5 /lpf (0-5) 05/30/23 16:25 U Epithel Cells (Auto) 0-5 /lpf (0-5) 05/30/23 16:25 Urine Bacteria (Auto) Negative (Negative) 05/30/23 16:25 Urine Osmolality 319 mOsm/kg (500-800) L 05/30/23 14:28 Ur Random Sodium 65 mmol/L 05/30/23 14:28 Ur Random Potassium 19.8 mmol/L 05/30/23 14:28 SARS-CoV-2, RNA, NAAT NEGATIVE (NEGATIVE) 05/30/23 11:10 Blood Type O Positive 05/30/23 12:24 Antibody Screen NEGATIVE 05/30/23 12:24 Impressions Chest X-Ray 05/30/23 11:02 XR chest 1V portable HISTORY: Weakness. COMPARISON: Chest 03/13/2023. FINDINGS: The heart remains enlarged. There are poststernotomy changes. No pneumothorax. Small right pleural effusion has progressed. There is mild central pulmonary vascular congestion without overt edema. Left basilar linear densities favor subsegmental atelectasis. Degenerative changes within the shoulders. No new focal lung consolidations to suggest a pneumonia. IMPRESSION: 1. Small right pleural effusion has progressed. 2. Cardiomegaly and mild congestive change. ACT 112: Negative or not required by law. Electronically signed by: Carlos Moreira M.D. 05/30/2023 11:56 AM Abdomen/Pelvis CT 05/30/23 13:[address] WITHOUT CONTRAST CT DOSE: 1206.09 mGy.cm HISTORY: Anemia unknown origin, acute on chronic kidney disease. TECHNIQUE: Multiaxial CT images of the abdomen and pelvis were performed without contrast. A dose lowering technique was utilized adhering to the principles of ALARA. COMPARISON STUDY: Abdomen and pelvis CT 06/17/2021. FINDINGS: There is a small right pleural effusion. Right lower lobe densities favor compressive atelectasis from the pleural effusions. The left lung base is clear. No pneumoperitoneum. No pneumatosis. No acute fractures. There are poststernotomy changes. The heart remains enlarged. Decreased density within the blood pool consistent the patient's history of anemia. Tiny fat-containing umbilical hernia. Small fat-containing bilateral inguinal hernias. Prior cholecystectomy. The unenhanced liver, spleen, adrenal glands, and pancreas are unremarkable. There is a stable 17 mm left parapelvic renal cyst. No renal or ureteral stones. No hydronephrosis. Calcified plaque within the normal caliber abdominal aorta. No retroperitoneal or pelvic hematoma. No lymphadenopathy identified. Moderate to severe bladder distention. No bladder wall thickening. Normal prostate gland. Suboptimal evaluation for bowel pathology due to the lack of intravenous and oral contrast. However, there is no definite bowel wall thickening or obstruction. Normal appendix. Colonic diverticulosis. No evidence for acute diverticulitis. Mild body wall edema. Stable small hypodense lesion within the lower pole of the right kidney. This is incompletely characterized on this noncontrast study but favors a cyst. IMPRESSION: 1. Small right pleural effusion. 2. Decreased density within the blood pool consistent with the patient's history of anemia. 3. No retroperitoneal or pelvic hematoma. 4. Distended bladder. 5. No bowel wall thickening or obstruction. 6. Additional findings as described above. ACT 112: Negative or not required by law. Electronically signed by: Carlos Moreira M.D. 05/30/2023 2:08 PM PG Care Time/CCT Total # of Minutes Spent Total Time Spent with Patient: Total time spent is greater than 50% in coordination of care (as documented) at patient's floor/unit and/or counseling patient: Coding Level of Care Code 10946 IN/OBS CONSULT LVL 5,80M Diagnoses Acute kidney injury superimposed on CKD N17.9; N18.9 Hyponatremia E87.1 Anemia D64.9 Anemia type: unspecified type Hypertension I10 Wound, open, leg S81.809A Encounter type: initial encounter Laterality: unspecified laterality 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
--- NOTE | 2023-05-30 18:03 | XCELERA ---
[id number]
[2023-05-30] MEDS ORDERED: SODIUM CHLORIDE 0.9% 250 ML IV PRN (18:27)
[2023-05-30 19:26] LABS: Hematocrit (blood only) 21.1 % (42.0-52.0); Hemoglobin 6.6 g/dl (14.0-18.0); Mean Corpuscular Hemoglobin 26.1 pg (25.0-34.0); Mean Corpuscular Hgb Conc 31.3 g/dL (32.0-36.0); Mean Corpuscular Volume 83.4 fL (80.0-100.0); Mean Platelet Volume 8.5 fL (9.4-12.4); Platelet Count 215 K/uL (130-400); RDW Coefficient of Variation 14.5 % (11.5-14.5); Red Blood Count 2.53 M/uL (4.70-6.10); White Blood Count 9.86 K/ul (4.8-10.8)
[2023-05-30 19:39] LABS: Albumin Globulin Ratio 1.2 (0.9-2); BUN Creatinine Ratio 37.5 (10-20); Bilirubin,Total 0.7 mg/dl (0.2-1.0); Calcium 8.4 mg/dl (8.6-10.3); Creatinine Clr Calc Pharmacy 18.7 ml/min; Est GFR (African American) 22.5 ml/min; Est GFR (Non-African American) 19.4 ml/min; Globulin 2.5 gm/dl (2.5-4.0); Magnesium 2.5 mg/dl (1.7-2.4); Potassium 5.5 mmol/L (3.5-5.1); Total Protein 5.5 gm/dl (6.0-8.3)
[2023-05-30] MEDS: FORMOTEROL 20 MCG/2 ML VIAL INH SCH (20:22)
[2023-05-30] MEDS: BUDESONIDE 0.25 MG/2 ML VIAL (PULMICORT) INH SCH (20:22)
[2023-05-30] MEDS: BUMETANIDE 2 MG in SYRINGE 0 ML IV ONE (20:33)
[2023-05-30] MEDS: amLODIPine BESYLATE 5 MG TAB PO SCH (20:33)
[2023-05-30] MEDS: ACETAMINOPHEN 1,000 MG/100 ML VIAL IV PRN (22:09)
[2023-05-30] MEDS: ACETAMINOPHEN 500 MG TAB PO ONE (22:53)
[2023-05-31] MEDS: PANTOprazole 40 MG in SYRINGE 0 ML IV SCH (00:23)
[2023-05-31 01:22] LABS: Hematocrit (blood only) 22.4 % (42.0-52.0); Hemoglobin 6.9 g/dl (14.0-18.0); Mean Corpuscular Hemoglobin 25.7 pg (25.0-34.0); Mean Corpuscular Hgb Conc 30.8 g/dL (32.0-36.0); Mean Corpuscular Volume 83.3 fL (80.0-100.0); Mean Platelet Volume 8.4 fL (9.4-12.4); Platelet Count 205 K/uL (130-400); RDW Coefficient of Variation 14.6 % (11.5-14.5); RDW Standard Deviation 44.3 fL (36.4-46.3); Red Blood Count 2.69 M/uL (4.70-6.10); White Blood Count 9.46 K/ul (4.8-10.8)
[2023-05-31] MEDS ORDERED: SODIUM CHLORIDE 0.9% 250 ML IV PRN (01:23)
[2023-05-31 07:25] LABS: Basophils # (auto) 0.01 K/uL (0.00-0.20); Basophils % (auto) 0.1 %; Eosinophils # (auto) 0.24 K/uL (0.00-0.50); Eosinophils % (auto) 2.4 %; Hematocrit (blood only) 25.4 % (42.0-52.0); Hemoglobin 8.1 g/dl (14.0-18.0); Immature Granulocytes # (auto) 0.04 K/uL (0.01-0.20); Immature Granulocytes % (auto) 0.4 %; Lymphocytes # (auto) 1.74 K/uL (1.20-3.40); Lymphocytes % (auto) 17.5 %; Mean Corpuscular Hemoglobin 26.5 pg (25.0-34.0); Mean Corpuscular Hgb Conc 31.9 g/dL (32.0-36.0); Mean Platelet Volume 8.8 fL (9.4-12.4); Monocytes # (auto) 1.22 K/uL (0.11-0.59); Monocytes % (auto) 12.3 %; Neutrophils # (auto) 6.68 K/uL (1.40-6.50); Neutrophils % (auto) 67.3 %; Platelet Count 229 K/uL (130-400); RDW Coefficient of Variation 14.9 % (11.5-14.5); RDW Standard Deviation 45.2 fL (36.4-46.3); Red Blood Count 3.06 M/uL (4.70-6.10); White Blood Count 9.93 K/ul (4.8-10.8)
[2023-05-31 07:43] LABS: Albumin Globulin Ratio 1.4 (0.9-2); Albumin Level 3.1 gm/dl (3.4-5.0); BUN Creatinine Ratio 40.1 (10-20); Bilirubin,Total 0.8 mg/dl (0.2-1.0); Calcium 8.6 mg/dl (8.6-10.3); Creatinine Clr Calc Pharmacy 17.3 ml/min; Est GFR (African American) 23.3 ml/min; Est GFR (Non-African American) 20.1 ml/min; Globulin 2.2 gm/dl (2.5-4.0); Magnesium 2.6 mg/dl (1.7-2.4); Potassium 5.8 mmol/L (3.5-5.1); Total Protein 5.3 gm/dl (6.0-8.3)
[2023-05-31 07:51] LABS: INR 1.2 (0.9-1.1); Prothrombin Time 13.1 Seconds (9.0-12.0)
[2023-05-31] MEDS: ISOSORBIDE MONO EXTENDED REL 30 MG TABCR PO SCH (07:56)
[2023-05-31] MEDS: ATORVASTATIN 40 MG TAB PO SCH (07:56)
[2023-05-31 08:00] LABS: Estimated Average Glucose 151 mg/dl; Hemoglobin A1C 6.9 % (4.5-5.6)
[2023-05-31] MEDS ORDERED: STAT IV/IM STA (08:00)
--- NOTE | 2023-05-31 08:00 | Hospitalist Progress Note ---
Date of Service May 31, 2023 Assessment & Plan (1) Acute kidney injury superimposed on CKD: Plan: Sent to the ED from the wound care clinic this am after being found to have progressive swelling, new anemia with Hgb of 7.3, and suki on CKD BUN/Cr elevated to 105/2.77 w/ baseline Cr 1.7-1.8 in the setting of NSAID use/diuretics/decreased PO intake CTAP w/o evidence for retroperitoneal bleed/pelvic hematoma Given hx CAD/CAGB, transfusion threshold decreased to <7 -- repeat hgb 6.6 last evening s/p 2u PRBC Hgb 8.1 on repeat (was given bumex 2mg IV last evening) ECHO w/ normal LV systolic function/EF, however mold AR, mild MR, mild-mod TR. RVSP elevated 50-60mmHg. RV systolic function reduced Garsia in place, UOP acceptable Cr still elevated to 2.72 however clearer yellow in garsia. UA w/o evidence for infection PPI IV BID ordered and continued Holding Eliquis in setting of anemia at present time., fecal occult ordered (denied blood but does not visualize) Iron panel w/ low trans % sat-- venofer IV ordered per nephrology Nephrology consult in place, assistance appreciated K 5.8, no plans for HD per prior wishes. Will provide additional IV insulin/dextrose/calcium gluconate. Additional 2mg IV bumex provided to assist w/ gentle diuresis --> Discussed w/ Dr Castro and suspect combination of R sided HF, low albumin and anemia contributing. Also discussed his LE appears w/ possible cellulitis/drainage. --> RN to obtain culture but starting empiric Ceftriaxone IV and will monitor. Wound RN on consult as well Pain control -- dilaudid 0.25mg IV - changed to q2h as needed Na stable 130 Avoid NSAIDs/nephrotoxins, renal dose meds as able Repeat labs this afternoon w/ renal panel/H&H Did discuss w/ patient and family, does NOT want HD. Continued discussions about palliative medicine, consult placed (may need to cancel/outpatient follow up) Continued inpatient stay PT/OT consults to be undertaken -- discussed w/ daughter Funmi (works in [place]), doesn't think able to accomodate at home. Alerted CM for further discussions (they live in [place], preference on somewhere in [place]). She and sister have POA. She will be up to see patient this afternoon (2) Wound, open, leg: Plan: Chronic BL LE wounds and sacral wounds due to venous stasis and immobility , sent over by wound care provider - imaging in chart - see H&P for details Turn/position q2h APPEARING INFECTED 05/31, Patient w/ PAIN on exam, LE drainage w/ purulent drainage and warmth. WBC wnl however borderline w/ L shift Starting Ceftriaxone IV for SSTI infection, wound RN to see this afternoon Asked RN to obtain cx from drainage - f/u cx/adjustment to abx as indicated Diuretics per nephrology as outlined Pain control - Dilaudid increased frequency to q2h as needed (only suspect will use when needed, had been ordred q6h) Continue to monitor (3) Anemia: Plan: Hgb 7.3, decreasing since 03/2023 No obvious GIB but cannot r/o. CTAP w/o acute finding as above, also recent NSAID use w/ his eliquis Eliquis on hold, rates controlled on telemetry and will continue to monitor s/p 2u PRBC, Venofer ordered per nephrology as didn't tolerate the PRBC very well Continues on PPI BID, fecal occult ordered Monitor H&H on repeat (4) Hyperkalemia: Plan: 5.3 on admit, given 1gm IV calcium/5u IV insulin and amp D5 No acute T waves changes on inital EKG but does appear to have some conduction delay on monitor/peaked T waves Additional calcium gluconate/insulin/dextrose this morning for K 5.8 Lokemla started per nephrology Renal dose meds/avoid nephrotoxins as able Continued telemetry monitoring Repeat labs this afternoon (5) Fluid overload: Plan: suspect R heart failure w/ low albumin/anemia contributing Repeat SEBASTIAN as above, nephrology on consult Given 2mg IV bumex w/ PRBC last evening, additional 05/31 per nephrology UOP acceptable and will monitor (6) 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 chronic levels Multifactorial as above TSH 1.0, wnl Bumex/PRBC as above Repeat Na 130 today and tx as outlined Monitor repeat BMP (9) Elevated troponin: Plan: Initial high sen trop elevated at 30, repeat 31.8, 32.7 and relatively flat. Suspect 2nd to above, demand ischemia in setting of SUKI/possible LE cellulitis infection and anemia PRBC/Venofer/diuretics as outlined DENIES CHEST PAIN AT PRESENT Repeat ECHO w/o wma EKG w/ CP Continued telemetry monitoring (10) CAD (coronary artery disease): Plan: Denies chest pain at present Remains on statin, eliquis on hold as above for anemia/fecal occult pending Not on BB suspected due to resting HR w/ afib in the 40-50s Continued telemetry monitoring (11) Diabetes mellitus, type II: Plan: Holding oral meds, BSG AC/HS while inpatient and pharmacy has been consulted for assistance. Appreciated (12) Chronic a-fib: Plan: Rate controlled, rates in 40-50s Holding Eliquis for now with possible occult bleed Not on rate or rhythm limiting meds Monitor on tele (13) Obstructive sleep apnea: Plan: Is non-compliant with HS CPAP per family -- should be encouraged however On room air, supplemental O2 as needed to maintain sats Plan continued inpatient stay, repeat labs this afternoon. appreciate recs/assistance from nephrology starting abx for possible LE cellulitis PT/OT consults to be undertaken -- per discussion w/ daughter Funmi, likely too much to handle for her at home. Updated CM and she will be in patient room after done working at 1:30 and can have further discussions about possible placement at discharge pending continued inpatient course. Patient is DNR/DNI, daughters POA. Not interested in HD. If labs fail to have improvement, will need ongoing discussions. Palliative consult placed but could be considered for outpt f/u pending decisions/discussions. Admission and Anticipated Discharge Date Admission Date: May 30, 2023 Supervising Physician Co-Signing Physician Notes The patient was not seen by me. The chart was reviewed. Case discussed with CELESTINO Cobos. Agree with assessment and plan Subjective Eval this morning, having some significant pain to his backside. Getting dose IV Tylenol. Discussed HD if needed, he does endorse this is NOT something he would want. Discussed medications to help with things and continued monitoring but if not effective what next steps would be/palliative approach. He is not sure if he is ready for this conversation and discussed I spoke with his daughter and we will have continued conversations. Turned in bed and backside very painful. He is wanting to get up out of bed. Legs wrapped and seeping, painful. Will discuss w/ supervising provider about coverage for cellulitis. Physical Exam Physical Exam: General: 88yo male, chronically ill appearing/fatigued/generalized pallor, sitting up in bed, wanting to get out of bed, reporting buttocks pain Heent: head atraumatic, hat in place, normocephalic, +JVD, trachea midline, slightly dry mm Resp: even/unlabored, diminished in the bases, no obvious wheezing/crackles, on room air CV: irregularly irregular, rates 40-50s on telemetry, +systolic murmur, +2-3+ LE edema, +UE edema bilaterally GI: +BS, soft/slight distension/edema, nontender : garsia draining clear/slightly concentrated yellow urine MSK/Neuro: generalized weakness but nonfocal, no slurred speech/facial droop, answering questions appropriately, follows commands as able Psych: AOx3, cooperative with care Skin:b/l LEs with wraps/kerlix in place, white/yellow purulant drainage seeping through dressing to RLE (RN to swab for culture), +warmth, +tenderness Results & Data Results & Data Vital Signs (Past 12 Hours) Vital Signs Temp Pulse Pulse Pulse Resp BP BP 05/31/23 07:52 36.5 C 49 L 20 168/67 H 05/31/23 07:26 44 L 16 05/31/23 05:45 36.8 C 44 L 18 136/62 05/31/23 04:45 36.7 C 44 L 17 130/55 L 05/31/23 03:45 36.1 C L 44 L 18 138/52 L 05/31/23 03:15 36.6 C 44 L 18 143/62 H 05/31/23 03:00 36.8 C 44 L 18 144/51 H 05/31/23 02:48 36.8 C 44 L 18 130/46 L 05/31/23 00:32 05/31/23 00:15 36.7 C 45 L 16 163/64 H 05/30/23 23:41 36.4 C L 154/47 H 05/30/23 23:31 36.4 C L 154/47 H 05/30/23 23:29 36.4 C L 45 L 16 154/47 H 05/30/23 23:05 36.6 C 51 L 18 183/64 H 05/30/23 23:03 44 L 16 154/63 H 05/30/23 23:03 44 L 16 154/63 H 05/30/23 22:54 44 L 16 149/44 H 05/30/23 22:54 44 L 16 149/44 H 05/30/23 22:48 44 L 13 05/30/23 22:47 45 L 05/30/23 22:41 36.6 C 51 L 16 183/64 H 05/30/23 22:41 36.6 C 51 L 16 183/64 H 05/30/23 22:30 47 L 13 05/30/23 22:15 43 L 14 05/30/23 22:01 45 L 14 170/46 H 05/30/23 21:30 41 L 16 155/51 H 05/30/23 21:00 37.4 C 40 L 16 164/62 H 05/30/23 20:46 48 L 16 05/30/23 20:46 171/50 H 05/30/23 20:45 44 L 15 05/30/23 20:45 37 C 44 L 14 171/50 H 05/30/23 20:30 47 L 15 05/30/23 20:30 183/58 H 05/30/23 20:30 36.6 C 47 L 18 183/58 H 05/30/23 20:29 42 L 15 05/30/23 20:29 174/64 H 05/30/23 20:23 49 L 14 05/30/23 20:15 45 L 14 Pulse Ox O2 Del Method O2 Flow Rate 05/31/23 07:52 94 Room Air 05/31/23 07:26 94 Room Air 05/31/23 05:45 91 05/31/23 04:45 92 05/31/23 03:45 91 05/31/23 03:15 92 05/31/23 03:00 90 05/31/23 02:48 94 05/31/23 00:32 Room Air 05/31/23 00:15 95 05/30/23 23:41 05/30/23 23:31 05/30/23 23:29 94 05/30/23 23:05 100 Nasal Cannula 2 05/30/23 23:03 95 05/30/23 23:03 95 Room Air 05/30/23 22:54 100 05/30/23 22:54 96 Room Air 05/30/23 22:48 05/30/23 22:47 05/30/23 22:41 100 05/30/23 22:41 100 Nasal Cannula 2 05/30/23 22:30 99 2 05/30/23 22:15 99 2 05/30/23 22:01 99 Room Air 05/30/23 21:30 99 Nasal Cannula 2 05/30/23 21:00 05/30/23 20:46 100 2 05/30/23 20:46 05/30/23 20:45 100 2 05/30/23 20:45 98 2 05/30/23 20:30 98 2 05/30/23 20:30 05/30/23 20:30 99 2 05/30/23 20:29 100 2 05/30/23 20:29 05/30/23 20:23 99 Nasal Cannula 2 05/30/23 20:15 100 2 Laboratory Results 05/31/23 05/31/23 05/30/23 Range/Units 07:00 00:46 20:38 WBC 9.93 9.46 (4.8-10.8) K/ul RBC 3.06 L 2.69 L (4.70-6.10) M/uL Hgb 8.1 L 6.9 L* (14.0-18.0) g/dl Hct 25.4 L 22.4 L (42.0-52.0) % MCV 83.0 83.3 (80.0-100.0) fL MCH 26.5 25.7 (25.0-34.0) pg MCHC 31.9 L 30.8 L (32.0-36.0) g/dL RDW Std Deviation 45.2 44.3 (36.4-46.3) fL RDW Coeff of Roseann 14.9 H 14.6 H (11.5-14.5) % Plt Count 229 205 (130-400) K/uL MPV 8.8 L 8.4 L (9.4-12.4) fL Immature Gran % (Auto) 0.4 % Neut % (Auto) 67.3 % Lymph % (Auto) 17.5 % Robeson % (Auto) 12.3 % Eos % (Auto) 2.4 % Baso % (Auto) 0.1 % Reticulocyte % (Auto) (0.50-2.00) % Neut # (Auto) 6.68 H (1.40-6.50) K/uL Lymph # (Auto) 1.74 (1.20-3.40) K/uL Robeson # (Auto) 1.22 H (0.11-0.59) K/uL Eos # (Auto) 0.24 (0.00-0.50) K/uL Baso # (Auto) 0.01 (0.00-0.20) K/uL Reticulocyte # (0.020-0.100) 10^6/uL Immature Gran # (Auto) 0.04 (0.01-0.20) K/uL Polychromasia Hypochromasia PT 13.1 H (9.0-12.0) Seconds INR 1.2 H (0.9-1.1) Sodium 130 L (136-145) mmol/L Potassium 5.8 H (3.5-5.1) mmol/L Chloride 96 L (98-107) mmol/L Carbon Dioxide 25 (21-32) mmol/L Anion Gap 9 (3-11) BUN 109 H (6-23) mg/dl Creatinine 2.72 H (0.6-1.4) mg/dl Est Cr Clr Drug Dosing 17.3 ml/min Est GFR ( Amer) 23.3 ml/min Est GFR (Non-Af Amer) 20.1 ml/min BUN/Creatinine Ratio 40.1 H (10-20) Glucose 93 (70-99(Fasting)) mg/dl POC Glucose 104 H (70-99) mg/dl Estimat Average Glucose 151 mg/dl Hemoglobin A1c 6.9 H (4.5-5.6) % Osmolality (280-300) mOsm/kg Calcium 8.6 (8.6-10.3) mg/dl Ionized Calcium (1.12-1.32) mmol/L Magnesium 2.6 H (1.7-2.4) mg/dl Iron 40 (35-175) mcg/dl TIBC 303 (250-450) mcg/dl Unsaturated IBC 263 (155-355) mcg/dl Transferrin % Sat 13 L (20-50) % Ferritin (8-388) ng/ml Total Bilirubin 0.8 (0.2-1.0) mg/dl AST 9 L (13-39) U/L ALT 6 L (7-52) U/L Alkaline Phosphatase 106 H (34-104) U/L Total Creatine Kinase (30-223) U/L Troponin I High Sens (0-20) pg/ml B-Natriuretic Peptide (0-100) pg/ml Total Protein 5.3 L (6.0-8.3) gm/dl Albumin 3.1 L (3.4-5.0) gm/dl Globulin 2.2 L (2.5-4.0) gm/dl Albumin/Globulin Ratio 1.4 (0.9-2) Vitamin B12 (180-914) pg/ml Folate (>5.38) ng/ml Procalcitonin (0-0.5) ng/ml TSH (0.300-4.500) uIu/ml Urine Color Urine Appearance (Clear) Urine pH (4.5-7.5) Ur Specific Hooks (1.000-1.030) Urine Protein (Negative) Urine Glucose (UA) (Negative) Urine Ketones (Negative) Urine Blood (Negative) Urine Nitrite (Negative) Urine Bilirubin (Negative) Urine Urobilinogen (Negative) Ur Leukocyte Esterase (Negative) Urine WBC (Auto) (0-5) /hpf Urine RBC (Auto) (0-4) /hpf U Hyaline Cast (Auto) (0-5) /lpf U Epithel Cells (Auto) (0-5) /lpf Urine Bacteria (Auto) (Negative) Urine Osmolality (500-800) mOsm/kg Ur Random Sodium mmol/L Ur Random Potassium mmol/L SARS-CoV-2, RNA, NAAT (NEGATIVE) Blood Type Blood Type Recheck Antibody Screen Crossmatch 05/30/23 05/30/23 05/30/23 Range/Units 18:59 16:49 16:25 WBC 9.86 (4.8-10.8) K/ul RBC 2.53 L (4.70-6.10) M/uL Hgb 6.6 L* (14.0-18.0) g/dl Hct 21.1 L (42.0-52.0) % MCV 83.4 (80.0-100.0) fL MCH 26.1 (25.0-34.0) pg MCHC 31.3 L (32.0-36.0) g/dL RDW Std Deviation 44.0 (36.4-46.3) fL RDW Coeff of Roseann 14.5 (11.5-14.5) % Plt Count 215 (130-400) K/uL MPV 8.5 L (9.4-12.4) fL Immature Gran % (Auto) % Neut % (Auto) % Lymph % (Auto) % Robeson % (Auto) % Eos % (Auto) % Baso % (Auto) % Reticulocyte % (Auto) (0.50-2.00) % Neut # (Auto) (1.40-6.50) K/uL Lymph # (Auto) (1.20-3.40) K/uL Robeson # (Auto) (0.11-0.59) K/uL Eos # (Auto) (0.00-0.50) K/uL Baso # (Auto) (0.00-0.20) K/uL Reticulocyte # (0.020-0.100) 10^6/uL Immature Gran # (Auto) (0.01-0.20) K/uL Polychromasia Hypochromasia PT (9.0-12.0) Seconds INR (0.9-1.1) Sodium 129 L (136-145) mmol/L Potassium 5.5 H (3.5-5.1) mmol/L Chloride 95 L (98-107) mmol/L Carbon Dioxide 25 (21-32) mmol/L Anion Gap 9 (3-11) BUN 105 H (6-23) mg/dl Creatinine 2.80 H (0.6-1.4) mg/dl Est Cr Clr Drug Dosing 18.7 ml/min Est GFR ( Amer) 22.5 ml/min Est GFR (Non-Af Amer) 19.4 ml/min BUN/Creatinine Ratio 37.5 H (10-20) Glucose 95 (70-99(Fasting)) mg/dl POC Glucose (70-99) mg/dl Estimat Average Glucose mg/dl Hemoglobin A1c (4.5-5.6) % Osmolality (280-300) mOsm/kg Calcium 8.4 L (8.6-10.3) mg/dl Ionized Calcium (1.12-1.32) mmol/L Magnesium 2.5 H (1.7-2.4) mg/dl Iron (35-175) mcg/dl TIBC (250-450) mcg/dl Unsaturated IBC (155-355) mcg/dl Transferrin % Sat (20-50) % Ferritin (8-388) ng/ml Total Bilirubin 0.7 (0.2-1.0) mg/dl AST 8 L (13-39) U/L ALT 6 L (7-52) U/L Alkaline Phosphatase 110 H (34-104) U/L Total Creatine Kinase (30-223) U/L Troponin I High Sens 32.7 H (0-20) pg/ml B-Natriuretic Peptide (0-100) pg/ml Total Protein 5.5 L (6.0-8.3) gm/dl Albumin 3.0 L (3.4-5.0) gm/dl Globulin 2.5 (2.5-4.0) gm/dl Albumin/Globulin Ratio 1.2 (0.9-2) Vitamin B12 (180-914) pg/ml Folate (>5.38) ng/ml Procalcitonin (0-0.5) ng/ml TSH (0.300-4.500) uIu/ml Urine Color Harlan Urine Appearance Cloudy A (Clear) Urine pH 5.0 (4.5-7.5) Ur Specific Hooks 1.013 (1.000-1.030) Urine Protein Negative (Negative) Urine Glucose (UA) Negative (Negative) Urine Ketones Negative (Negative) Urine Blood Negative (Negative) Urine Nitrite Negative (Negative) Urine Bilirubin Negative (Negative) Urine Urobilinogen Negative (Negative) Ur Leukocyte Esterase Negative (Negative) Urine WBC (Auto) 1-5 (0-5) /hpf Urine RBC (Auto) 0-4 (0-4) /hpf U Hyaline Cast (Auto) 1-5 (0-5) /lpf U Epithel Cells (Auto) 0-5 (0-5) /lpf Urine Bacteria (Auto) Negative (Negative) Urine Osmolality (500-800) mOsm/kg Ur Random Sodium mmol/L Ur Random Potassium mmol/L SARS-CoV-2, RNA, NAAT (NEGATIVE) Blood Type Blood Type Recheck O Positive Antibody Screen Crossmatch 05/30/23 05/30/23 05/30/23 Range/Units 15:02 14:44 14:28 WBC (4.8-10.8) K/ul RBC (4.70-6.10) M/uL Hgb (14.0-18.0) g/dl Hct (42.0-52.0) % MCV (80.0-100.0) fL MCH (25.0-34.0) pg MCHC (32.0-36.0) g/dL RDW Std Deviation (36.4-46.3) fL RDW Coeff of Roseann (11.5-14.5) % Plt Count (130-400) K/uL MPV (9.4-12.4) fL Immature Gran % (Auto) % Neut % (Auto) % Lymph % (Auto) % Robeson % (Auto) % Eos % (Auto) % Baso % (Auto) % Reticulocyte % (Auto) (0.50-2.00) % Neut # (Auto) (1.40-6.50) K/uL Lymph # (Auto) (1.20-3.40) K/uL Robeson # (Auto) (0.11-0.59) K/uL Eos # (Auto) (0.00-0.50) K/uL Baso # (Auto) (0.00-0.20) K/uL Reticulocyte # (0.020-0.100) 10^6/uL Immature Gran # (Auto) (0.01-0.20) K/uL Polychromasia Hypochromasia PT (9.0-12.0) Seconds INR (0.9-1.1) Sodium (136-145) mmol/L Potassium 4.9 (3.5-5.1) mmol/L Chloride (98-107) mmol/L Carbon Dioxide (21-32) mmol/L Anion Gap (3-11) BUN (6-23) mg/dl Creatinine (0.6-1.4) mg/dl Est Cr Clr Drug Dosing ml/min Est GFR ( Amer) ml/min Est GFR (Non-Af Amer) ml/min BUN/Creatinine Ratio (10-20) Glucose (70-99(Fasting)) mg/dl POC Glucose 179 H (70-99) mg/dl Estimat Average Glucose mg/dl Hemoglobin A1c (4.5-5.6) % Osmolality 303 H (280-300) mOsm/kg Calcium (8.6-10.3) mg/dl Ionized Calcium 1.19 (1.12-1.32) mmol/L Magnesium (1.7-2.4) mg/dl Iron (35-175) mcg/dl TIBC (250-450) mcg/dl Unsaturated IBC (155-355) mcg/dl Transferrin % Sat (20-50) % Ferritin (8-388) ng/ml Total Bilirubin (0.2-1.0) mg/dl AST (13-39) U/L ALT (7-52) U/L Alkaline Phosphatase (34-104) U/L Total Creatine Kinase (30-223) U/L Troponin I High Sens 31.8 H (0-20) pg/ml B-Natriuretic Peptide (0-100) pg/ml Total Protein (6.0-8.3) gm/dl Albumin (3.4-5.0) gm/dl Globulin (2.5-4.0) gm/dl Albumin/Globulin Ratio (0.9-2) Vitamin B12 267 (180-914) pg/ml Folate 5.61 (>5.38) ng/ml Procalcitonin (0-0.5) ng/ml TSH (0.300-4.500) uIu/ml Urine Color Urine Appearance (Clear) Urine pH (4.5-7.5) Ur Specific Hooks (1.000-1.030) Urine Protein (Negative) Urine Glucose (UA) (Negative) Urine Ketones (Negative) Urine Blood (Negative) Urine Nitrite (Negative) Urine Bilirubin (Negative) Urine Urobilinogen (Negative) Ur Leukocyte Esterase (Negative) Urine WBC (Auto) (0-5) /hpf Urine RBC (Auto) (0-4) /hpf U Hyaline Cast (Auto) (0-5) /lpf U Epithel Cells (Auto) (0-5) /lpf Urine Bacteria (Auto) (Negative) Urine Osmolality 319 L (500-800) mOsm/kg Ur Random Sodium 65 mmol/L Ur Random Potassium 19.8 mmol/L SARS-CoV-2, RNA, NAAT (NEGATIVE) Blood Type Blood Type Recheck Antibody Screen Crossmatch 05/30/23 05/30/23 05/30/23 Range/Units 12:24 11:10 10:51 WBC (4.8-10.8) K/ul RBC (4.70-6.10) M/uL Hgb (14.0-18.0) g/dl Hct (42.0-52.0) % MCV (80.0-100.0) fL MCH (25.0-34.0) pg MCHC (32.0-36.0) g/dL RDW Std Deviation (36.4-46.3) fL RDW Coeff of Roseann (11.5-14.5) % Plt Count (130-400) K/uL MPV (9.4-12.4) fL Immature Gran % (Auto) % Neut % (Auto) % Lymph % (Auto) % Robeson % (Auto) % Eos % (Auto) % Baso % (Auto) % Reticulocyte % (Auto) (0.50-2.00) % Neut # (Auto) (1.40-6.50) K/uL Lymph # (Auto) (1.20-3.40) K/uL Robeson # (Auto) (0.11-0.59) K/uL Eos # (Auto) (0.00-0.50) K/uL Baso # (Auto) (0.00-0.20) K/uL Reticulocyte # (0.020-0.100) 10^6/uL Immature Gran # (Auto) (0.01-0.20) K/uL Polychromasia Hypochromasia PT (9.0-12.0) Seconds INR (0.9-1.1) Sodium (136-145) mmol/L Potassium (3.5-5.1) mmol/L Chloride (98-107) mmol/L Carbon Dioxide (21-32) mmol/L Anion Gap (3-11) BUN (6-23) mg/dl Creatinine (0.6-1.4) mg/dl Est Cr Clr Drug Dosing ml/min Est GFR ( Amer) ml/min Est GFR (Non-Af Amer) ml/min BUN/Creatinine Ratio (10-20) Glucose (70-99(Fasting)) mg/dl POC Glucose (70-99) mg/dl Estimat Average Glucose mg/dl Hemoglobin A1c (4.5-5.6) % Osmolality (280-300) mOsm/kg Calcium (8.6-10.3) mg/dl Ionized Calcium (1.12-1.32) mmol/L Magnesium (1.7-2.4) mg/dl Iron (35-175) mcg/dl TIBC (250-450) mcg/dl Unsaturated IBC (155-355) mcg/dl Transferrin % Sat (20-50) % Ferritin (8-388) ng/ml Total Bilirubin (0.2-1.0) mg/dl AST (13-39) U/L ALT (7-52) U/L Alkaline Phosphatase (34-104) U/L Total Creatine Kinase (30-223) U/L Troponin I High Sens Cancelled (0-20) pg/ml B-Natriuretic Peptide 525 H (0-100) pg/ml Total Protein 5.7 L (6.0-8.3) gm/dl Albumin 3.2 L (3.4-5.0) gm/dl Globulin 2.5 (2.5-4.0) gm/dl Albumin/Globulin Ratio 1.3 (0.9-2) Vitamin B12 (180-914) pg/ml Folate (>5.38) ng/ml Procalcitonin 0.37 (0-0.5) ng/ml TSH 1.002 (0.300-4.500) uIu/ml Urine Color Urine Appearance (Clear) Urine pH (4.5-7.5) Ur Specific Hooks (1.000-1.030) Urine Protein (Negative) Urine Glucose (UA) (Negative) Urine Ketones (Negative) Urine Blood (Negative) Urine Nitrite (Negative) Urine Bilirubin (Negative) Urine Urobilinogen (Negative) Ur Leukocyte Esterase (Negative) Urine WBC (Auto) (0-5) /hpf Urine RBC (Auto) (0-4) /hpf U Hyaline Cast (Auto) (0-5) /lpf U Epithel Cells (Auto) (0-5) /lpf Urine Bacteria (Auto) (Negative) Urine Osmolality (500-800) mOsm/kg Ur Random Sodium mmol/L Ur Random Potassium mmol/L SARS-CoV-2, RNA, NAAT NEGATIVE (NEGATIVE) Blood Type O Positive Blood Type Recheck Antibody Screen NEGATIVE Crossmatch See Detail 05/30/23 05/30/23 05/30/23 Range/Units 10:51 10:51 10:51 WBC (4.8-10.8) K/ul RBC (4.70-6.10) M/uL Hgb (14.0-18.0) g/dl Hct (42.0-52.0) % MCV (80.0-100.0) fL MCH (25.0-34.0) pg MCHC (32.0-36.0) g/dL RDW Std Deviation (36.4-46.3) fL RDW Coeff of Roseann (11.5-14.5) % Plt Count (130-400) K/uL MPV (9.4-12.4) fL Immature Gran % (Auto) % Neut % (Auto) % Lymph % (Auto) % Robeson % (Auto) % Eos % (Auto) % Baso % (Auto) % Reticulocyte % (Auto) (0.50-2.00) % Neut # (Auto) (1.40-6.50) K/uL Lymph # (Auto) (1.20-3.40) K/uL Robeson # (Auto) (0.11-0.59) K/uL Eos # (Auto) (0.00-0.50) K/uL Baso # (Auto) (0.00-0.20) K/uL Reticulocyte # (0.020-0.100) 10^6/uL Immature Gran # (Auto) (0.01-0.20) K/uL Polychromasia Hypochromasia PT (9.0-12.0) Seconds INR (0.9-1.1) Sodium (136-145) mmol/L Potassium (3.5-5.1) mmol/L Chloride (98-107) mmol/L Carbon Dioxide (21-32) mmol/L Anion Gap (3-11) BUN (6-23) mg/dl Creatinine (0.6-1.4) mg/dl Est Cr Clr Drug Dosing ml/min Est GFR ( Amer) ml/min Est GFR (Non-Af Amer) ml/min BUN/Creatinine Ratio (10-20) Glucose (70-99(Fasting)) mg/dl POC Glucose (70-99) mg/dl Estimat Average Glucose mg/dl Hemoglobin A1c (4.5-5.6) % Osmolality (280-300) mOsm/kg Calcium (8.6-10.3) mg/dl Ionized Calcium (1.12-1.32) mmol/L Magnesium (1.7-2.4) mg/dl Iron (35-175) mcg/dl TIBC (250-450) mcg/dl Unsaturated IBC Cancelled (155-355) mcg/dl Transferrin % Sat Cancelled 11 L (20-50) % Ferritin Cancelled 39.4 (8-388) ng/ml Total Bilirubin 0.5 (0.2-1.0) mg/dl AST 10 L (13-39) U/L ALT 6 L (7-52) U/L Alkaline Phosphatase 136 H (34-104) U/L Total Creatine Kinase 23 L (30-223) U/L Troponin I High Sens 30.0 H (0-20) pg/ml B-Natriuretic Peptide (0-100) pg/ml Total Protein (6.0-8.3) gm/dl Albumin (3.4-5.0) gm/dl Globulin (2.5-4.0) gm/dl Albumin/Globulin Ratio (0.9-2) Vitamin B12 (180-914) pg/ml Folate (>5.38) ng/ml Procalcitonin (0-0.5) ng/ml TSH (0.300-4.500) uIu/ml Urine Color Urine Appearance (Clear) Urine pH (4.5-7.5) Ur Specific Hooks (1.000-1.030) Urine Protein (Negative) Urine Glucose (UA) (Negative) Urine Ketones (Negative) Urine Blood (Negative) Urine Nitrite (Negative) Urine Bilirubin (Negative) Urine Urobilinogen (Negative) Ur Leukocyte Esterase (Negative) Urine WBC (Auto) (0-5) /hpf Urine RBC (Auto) (0-4) /hpf U Hyaline Cast (Auto) (0-5) /lpf U Epithel Cells (Auto) (0-5) /lpf Urine Bacteria (Auto) (Negative) Urine Osmolality (500-800) mOsm/kg Ur Random Sodium mmol/L Ur Random Potassium mmol/L SARS-CoV-2, RNA, NAAT (NEGATIVE) Blood Type Blood Type Recheck Antibody Screen Crossmatch 05/30/23 05/30/23 05/30/23 Range/Units 10:51 10:51 10:51 WBC (4.8-10.8) K/ul RBC (4.70-6.10) M/uL Hgb (14.0-18.0) g/dl Hct (42.0-52.0) % MCV (80.0-100.0) fL MCH (25.0-34.0) pg MCHC (32.0-36.0) g/dL RDW Std Deviation (36.4-46.3) fL RDW Coeff of Roseann (11.5-14.5) % Plt Count (130-400) K/uL MPV (9.4-12.4) fL Immature Gran % (Auto) % Neut % (Auto) % Lymph % (Auto) % Robeson % (Auto) % Eos % (Auto) % Baso % (Auto) % Reticulocyte % (Auto) (0.50-2.00) % Neut # (Auto) (1.40-6.50) K/uL Lymph # (Auto) (1.20-3.40) K/uL Robeson # (Auto) (0.11-0.59) K/uL Eos # (Auto) (0.00-0.50) K/uL Baso # (Auto) (0.00-0.20) K/uL Reticulocyte # Cancelled (0.020-0.100) 10^6/uL Immature Gran # (Auto) 0.07 (0.01-0.20) K/uL Polychromasia 1+ Hypochromasia Present PT 13.4 H (9.0-12.0) Seconds INR 1.2 H (0.9-1.1) Sodium 128 L (136-145) mmol/L Potassium 5.3 H (3.5-5.1) mmol/L Chloride 95 L (98-107) mmol/L Carbon Dioxide 23 (21-32) mmol/L Anion Gap 10 (3-11) BUN 105 H (6-23) mg/dl Creatinine 2.77 H (0.6-1.4) mg/dl Est Cr Clr Drug Dosing 18.9 ml/min Est GFR ( Amer) 22.8 ml/min Est GFR (Non-Af Amer) 19.7 ml/min BUN/Creatinine Ratio 37.9 H (10-20) Glucose 132 H (70-99(Fasting)) mg/dl POC Glucose (70-99) mg/dl Estimat Average Glucose mg/dl Hemoglobin A1c (4.5-5.6) % Osmolality (280-300) mOsm/kg Calcium 8.2 L (8.6-10.3) mg/dl Ionized Calcium (1.12-1.32) mmol/L Magnesium 2.6 H (1.7-2.4) mg/dl Iron Cancelled 38 (35-175) mcg/dl TIBC Cancelled 351 (250-450) mcg/dl Unsaturated IBC 313 (155-355) mcg/dl Transferrin % Sat (20-50) % Ferritin (8-388) ng/ml Total Bilirubin (0.2-1.0) mg/dl AST (13-39) U/L ALT (7-52) U/L Alkaline Phosphatase (34-104) U/L Total Creatine Kinase (30-223) U/L Troponin I High Sens (0-20) pg/ml B-Natriuretic Peptide (0-100) pg/ml Total Protein (6.0-8.3) gm/dl Albumin (3.4-5.0) gm/dl Globulin (2.5-4.0) gm/dl Albumin/Globulin Ratio (0.9-2) Vitamin B12 (180-914) pg/ml Folate (>5.38) ng/ml Procalcitonin (0-0.5) ng/ml TSH (0.300-4.500) uIu/ml Urine Color Urine Appearance (Clear) Urine pH (4.5-7.5) Ur Specific Hooks (1.000-1.030) Urine Protein (Negative) Urine Glucose (UA) (Negative) Urine Ketones (Negative) Urine Blood (Negative) Urine Nitrite (Negative) Urine Bilirubin (Negative) Urine Urobilinogen (Negative) Ur Leukocyte Esterase (Negative) Urine WBC (Auto) (0-5) /hpf Urine RBC (Auto) (0-4) /hpf U Hyaline Cast (Auto) (0-5) /lpf U Epithel Cells (Auto) (0-5) /lpf Urine Bacteria (Auto) (Negative) Urine Osmolality (500-800) mOsm/kg Ur Random Sodium mmol/L Ur Random Potassium mmol/L SARS-CoV-2, RNA, NAAT (NEGATIVE) Blood Type Blood Type Recheck Antibody Screen Crossmatch 05/30/23 05/30/23 Range/Units 10:51 10:51 WBC 10.55 (4.8-10.8) K/ul RBC 2.82 L (4.70-6.10) M/uL Hgb 7.3 L (14.0-18.0) g/dl Hct 23.8 L (42.0-52.0) % MCV 84.4 (80.0-100.0) fL MCH 25.9 (25.0-34.0) pg MCHC 30.7 L (32.0-36.0) g/dL RDW Std Deviation 44.2 (36.4-46.3) fL RDW Coeff of Roseann 14.4 (11.5-14.5) % Plt Count 279 (130-400) K/uL MPV 8.7 L (9.4-12.4) fL Immature Gran % (Auto) 0.7 % Neut % (Auto) 76.4 % Lymph % (Auto) 10.2 % Robeson % (Auto) 11.5 % Eos % (Auto) 1.0 % Baso % (Auto) 0.2 % Reticulocyte % (Auto) Cancelled 2.95 H (0.50-2.00) % Neut # (Auto) 8.06 H (1.40-6.50) K/uL Lymph # (Auto) 1.08 L (1.20-3.40) K/uL Robeson # (Auto) 1.21 H (0.11-0.59) K/uL Eos # (Auto) 0.11 (0.00-0.50) K/uL Baso # (Auto) 0.02 (0.00-0.20) K/uL Reticulocyte # 0.080 (0.020-0.100) 10^6/uL Immature Gran # (Auto) (0.01-0.20) K/uL Polychromasia Hypochromasia PT (9.0-12.0) Seconds INR (0.9-1.1) Sodium (136-145) mmol/L Potassium (3.5-5.1) mmol/L Chloride (98-107) mmol/L Carbon Dioxide (21-32) mmol/L Anion Gap (3-11) BUN (6-23) mg/dl Creatinine (0.6-1.4) mg/dl Est Cr Clr Drug Dosing ml/min Est GFR ( Amer) ml/min Est GFR (Non-Af Amer) ml/min BUN/Creatinine Ratio (10-20) Glucose (70-99(Fasting)) mg/dl POC Glucose (70-99) mg/dl Estimat Average Glucose mg/dl Hemoglobin A1c (4.5-5.6) % Osmolality (280-300) mOsm/kg Calcium (8.6-10.3) mg/dl Ionized Calcium (1.12-1.32) mmol/L Magnesium (1.7-2.4) mg/dl Iron (35-175) mcg/dl TIBC (250-450) mcg/dl Unsaturated IBC (155-355) mcg/dl Transferrin % Sat (20-50) % Ferritin (8-388) ng/ml Total Bilirubin (0.2-1.0) mg/dl AST (13-39) U/L ALT (7-52) U/L Alkaline Phosphatase (34-104) U/L Total Creatine Kinase (30-223) U/L Troponin I High Sens (0-20) pg/ml B-Natriuretic Peptide (0-100) pg/ml Total Protein (6.0-8.3) gm/dl Albumin (3.4-5.0) gm/dl Globulin (2.5-4.0) gm/dl Albumin/Globulin Ratio (0.9-2) Vitamin B12 (180-914) pg/ml Folate (>5.38) ng/ml Procalcitonin (0-0.5) ng/ml TSH (0.300-4.500) uIu/ml Urine Color Urine Appearance (Clear) Urine pH (4.5-7.5) Ur Specific Hooks (1.000-1.030) Urine Protein (Negative) Urine Glucose (UA) (Negative) Urine Ketones (Negative) Urine Blood (Negative) Urine Nitrite (Negative) Urine Bilirubin (Negative) Urine Urobilinogen (Negative) Ur Leukocyte Esterase (Negative) Urine WBC (Auto) (0-5) /hpf Urine RBC (Auto) (0-4) /hpf U Hyaline Cast (Auto) (0-5) /lpf U Epithel Cells (Auto) (0-5) /lpf Urine Bacteria (Auto) (Negative) Urine Osmolality (500-800) mOsm/kg Ur Random Sodium mmol/L Ur Random Potassium mmol/L SARS-CoV-2, RNA, NAAT (NEGATIVE) Blood Type Blood Type Recheck Antibody Screen Crossmatch Diagnostic Findings Chest X-Ray 05/30/23 11:02 XR chest 1V portable HISTORY: Weakness. COMPARISON: Chest 03/13/2023. FINDINGS: The heart remains enlarged. There are poststernotomy changes. No pneumothorax. Small right pleural effusion has progressed. There is mild central pulmonary vascular congestion without overt edema. Left basilar linear densities favor subsegmental atelectasis. Degenerative changes within the shoulders. No new focal lung consolidations to suggest a pneumonia. IMPRESSION: 1. Small right pleural effusion has progressed. 2. Cardiomegaly and mild congestive change. ACT 112: Negative or not required by law. Electronically signed by: Carlos Moreira M.D. 05/30/2023 11:56 AM Abdomen/Pelvis CT 05/30/23 13:[address] WITHOUT CONTRAST CT DOSE: 1206.09 mGy.cm HISTORY: Anemia unknown origin, acute on chronic kidney disease. TECHNIQUE: Multiaxial CT images of the abdomen and pelvis were performed without contrast. A dose lowering technique was utilized adhering to the principles of ALARA. COMPARISON STUDY: Abdomen and pelvis CT 06/17/2021. FINDINGS: There is a small right pleural effusion. Right lower lobe densities favor compressive atelectasis from the pleural effusions. The left lung base is clear. No pneumoperitoneum. No pneumatosis. No acute fractures. There are poststernotomy changes. The heart remains enlarged. Decreased density within the blood pool consistent the patient's history of anemia. Tiny fat-containing umbilical hernia. Small fat-containing bilateral inguinal hernias. Prior cholecystectomy. The unenhanced liver, spleen, adrenal glands, and pancreas are unremarkable. There is a stable 17 mm left parapelvic renal cyst. No renal or ureteral stones. No hydronephrosis. Calcified plaque within the normal caliber abdominal aorta. No retroperitoneal or pelvic hematoma. No lymphadenopathy identified. Moderate to severe bladder distention. No bladder wall thickening. Normal prostate gland. Suboptimal evaluation for bowel pathology due to the lack of intravenous and oral contrast. However, there is no definite bowel wall thickening or obstruction. Normal appendix. Colonic diverticulosis. No evidence for acute diverticulitis. Mild body wall edema. Stable small hypodense lesion within the lower pole of the right kidney. This is incompletely characterized on this noncontrast study but favors a cyst. IMPRESSION: 1. Small right pleural effusion. 2. Decreased density within the blood pool consistent with the patient's history of anemia. 3. No retroperitoneal or pelvic hematoma. 4. Distended bladder. 5. No bowel wall thickening or obstruction. 6. Additional findings as described above. ACT 112: Negative or not required by law. Electronically signed by: Carlos Moreira M.D. 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 Hypertension I10 Hyponatremia E87.1 Elevated troponin R79.89 CAD (coronary artery disease) I25.10 Diabetes mellitus, type II E11.9 Diabetes mellitus complication status: with circulatory complication Diabetes mellitus correction insulin use: without intermediate manager use Chronic a-fib I48.20 Obstructive sleep apnea G47.33 (2) Wound, open, leg Encounter type: initial encounter Laterality: unspecified laterality Qualified Code(s): S81.809A - Unspecified open wound, unspecified lower leg, initial encounter (3) Anemia Anemia type: unspecified type Qualified Code(s): D64.9 - Anemia, unspecified (5) Fluid overload Hypervolemia type: unspecified Qualified Code(s): E87.70 - Fluid overload, unspecified (11) Diabetes mellitus, type II Diabetes mellitus complication status: with circulatory complication Diabetes mellitus intermediate manager insulin use: without correction use
[2023-05-31] MEDS: INSULIN HUMAN REGULAR PER UNIT 10 UNITS in SYRINGE 9.9 ML IV ONE (08:55)
[2023-05-31] MEDS: DEXTROSE 50% 50 ML SYRINGE IV ONE (08:55)
[2023-05-31] MEDS: CALCIUM GLUCONATE 10% 1,000 MG in SODIUM CHLOR 0.9% MINI-B 50 ML IV ONE (08:55)
[2023-05-31] MEDS: INSULIN ASPART PER UNIT CHARGE SC SCH (09:01)
--- NOTE | 2023-05-31 09:02 | Pharmacy Report ---
Pharmacy Glycemic Short Note 2 - Date of Service May 31, 2023 - Glycemic Short BSG Results (Last 24 hours): 05/30/23 05/30/23 05/30/23 10:51 14:44 18:59 Glucose 132 H 95 POC Glucose 179 H 05/30/23 05/31/23 05/31/23 20:38 07:00 08:11 Glucose 93 POC Glucose 104 H 116 H OUTPATIENT ANTIDIABETIC REGIMEN: * Metformin 500 mg PO daily * Tradjenta 5 mg PO daily HbA1c: 6.6% (01/04/23) ASSESSMENT: 05/31/23: * BSGs reasonably well-controlled yesterday w/ no insulin besides IV bolus w/ D50W for hyperkalemia treatment * Fasting BSG of 116 mg/dL this morning - consider low-dose basal scale this evening * Diet advanced to clear liquid diet * Additional IV insulin bolus w/ D50W given this morning for potassium of 5.8 mmol/L 05/30/23: * KOBY is an 88 year old male who presents to ED today with progressive swelling of extremities * Patient with well-controlled T2DM as an outpatient on oral medications * Potassium of 5.3 mmol/L - given IV insulin w/ D50W bolus * NPO at this time. Will give conservative initial insulin regimen. PLAN FOR INPATIENT GLYCEMIC CONTROL: * Hold outpatient oral diabetes medications * Basal insulin * Lantus scale to provide 0-5 units SC HS (see EHR for details) * Bolus insulin * NovoLog per scale ACHS or Q6hrs while NPO * Goal Range: Low 120 mg/dL - High 150 mg/dL * Correction Factor: 35 mg/dL/unit * Nutritional / Prandial insulin per carb ratio of 1 unit per 12 grams CHO consumed
--- NOTE | 2023-05-31 09:05 | Nephrology Progress Note ---
Date of Service May 31, 2023 Assessment & Plan (1) Acute kidney injury superimposed on CKD: Plan: * Clinically suspect 3rd spacing of volume related to hypoalbuminemia and pulmonary HTN * Cr stable at 2.7 overnight. Patient is nonoliguric * Serum K mildly elevated this am. Will start Lokelma 10 g po TID x 3 doses * Will provide 2 mg Bumex IV x1 to encourage gentle diuresis * Avoid aggressive diuresis as patient is likely preload dependent * Patient has significant azotemia and advanced renal dysfunction. Office notes indicate that HD is not c/w with his goals of care. Therefore, continue conservative medical management * PRP, urinalysis in am (2) Hyponatremia: Plan: * Chronic, asymptomatic. 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 Restrepo was evaluated in his hospital room this morning. He c/o pain from the ulcerative lesions on his legs and buttock. He denied dyspnea, angina or uremic symptoms Review of Systems Constitutional: no fever Eyes: no worsening vision Ear, Nose, Mouth, Throat: no problem reported Respiratory: no cough and no dyspnea Cardiovascular: no chest pain Gastrointestinal: no abdominal pain, no nausea, no vomiting and no diarrhea/loose stools Physical Exam Constitutional: + frail appearing; not in distress Eyes: PERRL, conjunctivae normal, anicteric sclerae ENMT: Mouth: + dry oral mucous membranes Neck: trachea midline, no thyromegaly Respiratory: normal respiratory effort, lungs clear to auscultation Cardiovascular: Rate/Rhythm: + irregularly irregular Vessels: no JVD Extremities: + edema Gastrointestinal (Abdomen): normal bowel sounds, soft, nontender, no hepatosplenomegaly Neurologic: awake (poor historian) Speech / Cognition: normal speech Psychiatric: Affect: euthymic affect Results & Data Vital Signs (Past 12 Hours) Vital Signs Temp Pulse Pulse Pulse Resp BP BP 05/31/23 07:52 36.5 C 49 L 20 168/67 H 05/31/23 07:26 44 L 16 05/31/23 05:45 36.8 C 44 L 18 136/62 05/31/23 04:45 36.7 C 44 L 17 130/55 L 05/31/23 03:45 36.1 C L 44 L 18 138/52 L 05/31/23 03:15 36.6 C 44 L 18 143/62 H 05/31/23 03:00 36.8 C 44 L 18 144/51 H 05/31/23 02:48 36.8 C 44 L 18 130/46 L 05/31/23 00:32 05/31/23 00:15 36.7 C 45 L 16 163/64 H 05/30/23 23:41 36.4 C L 154/47 H 05/30/23 23:31 36.4 C L 154/47 H 05/30/23 23:29 36.4 C L 45 L 16 154/47 H 05/30/23 23:05 36.6 C 51 L 18 183/64 H 05/30/23 23:03 44 L 16 154/63 H 05/30/23 23:03 44 L 16 154/63 H 05/30/23 22:54 44 L 16 149/44 H 05/30/23 22:54 44 L 16 149/44 H 05/30/23 22:48 44 L 13 05/30/23 22:47 45 L 05/30/23 22:41 36.6 C 51 L 16 183/64 H 05/30/23 22:41 36.6 C 51 L 16 183/64 H 05/30/23 22:30 47 L 13 05/30/23 22:15 43 L 14 05/30/23 22:01 45 L 14 170/46 H 05/30/23 21:30 41 L 16 155/51 H Pulse Ox O2 Del Method O2 Flow Rate 05/31/23 07:52 94 Room Air 05/31/23 07:26 94 Room Air 05/31/23 05:45 91 05/31/23 04:45 92 05/31/23 03:45 91 05/31/23 03:15 92 05/31/23 03:00 90 05/31/23 02:48 94 05/31/23 00:32 Room Air 05/31/23 00:15 95 02/20/24 23:41 05/30/23 23:31 05/30/23 23:29 94 05/30/23 23:05 100 Nasal Cannula 2 05/30/23 23:03 95 05/30/23 23:03 95 Room Air 05/30/23 22:54 100 05/30/23 22:54 96 Room Air 05/30/23 22:48 05/30/23 22:47 05/30/23 22:41 100 05/30/23 22:41 100 Nasal Cannula 2 05/30/23 22:30 99 2 05/30/23 22:15 99 2 05/30/23 22:01 99 Room Air 05/30/23 21:30 99 Nasal Cannula 2 Laboratory Results Laboratory Results - last 24 hr 05/30/23 05/30/23 05/30/23 10:51 10:51 10:51 WBC 10.55 RBC 2.82 L Hgb 7.3 L Hct 23.8 L MCV 84.4 MCH 25.9 MCHC 30.7 L RDW Std Deviation 44.2 RDW Coeff of Roseann 14.4 Plt Count 279 MPV 8.7 L Immature Gran % (Auto) 0.7 Neut % (Auto) 76.4 Lymph % (Auto) 10.2 [place] % (Auto) 11.5 Eos % (Auto) 1.0 Baso % (Auto) 0.2 Reticulocyte % (Auto) 2.95 H Cancelled Neut # (Auto) 8.06 H Lymph # (Auto) 1.08 L [place] # (Auto) 1.21 H Eos # (Auto) 0.11 Baso # (Auto) 0.02 Reticulocyte # 0.080 Cancelled Immature Gran # (Auto) 0.07 Polychromasia 1+ Hypochromasia Present PT 13.4 H INR 1.2 H Sodium 128 L Potassium 5.3 H Chloride 95 L Carbon Dioxide 23 Anion Gap 10 BUN 105 H Creatinine 2.77 H Est Cr Clr Drug Dosing 18.9 Est GFR ( Amer) 22.8 Est GFR (Non-Af Amer) 19.7 BUN/Creatinine Ratio 37.9 H Glucose 132 H POC Glucose Estimat Average Glucose Hemoglobin A1c Osmolality Calcium 8.2 L Ionized Calcium Magnesium 2.6 H Iron 38 TIBC Unsaturated IBC Transferrin % Sat Ferritin Total Bilirubin AST ALT Alkaline Phosphatase Lactate Dehydrogenase Total Creatine Kinase Troponin I High Sens B-Natriuretic Peptide Total Protein Albumin Globulin Albumin/Globulin Ratio Vitamin B12 Folate Procalcitonin TSH Urine Color Urine Appearance Urine pH Ur Specific [place] Urine Protein Urine Glucose (UA) Urine Ketones Urine Blood Urine Nitrite Urine Bilirubin Urine Urobilinogen Ur Leukocyte Esterase Urine WBC (Auto) Urine RBC (Auto) U Hyaline Cast (Auto) U Epithel Cells (Auto) Urine Bacteria (Auto) Urine Osmolality Ur Random Sodium Ur Random Potassium SARS-CoV-2, RNA, NAAT Blood Type Blood Type Recheck Antibody Screen Crossmatch 05/30/23 05/30/23 05/30/23 10:51 10:51 10:51 WBC RBC Hgb Hct MCV MCH MCHC RDW Std Deviation RDW Coeff of Roseann Plt Count MPV Immature Gran % (Auto) Neut % (Auto) Lymph % (Auto) [place] % (Auto) Eos % (Auto) Baso % (Auto) Reticulocyte % (Auto) Neut # (Auto) Lymph # (Auto) [place] # (Auto) Eos # (Auto) Baso # (Auto) Reticulocyte # Immature Gran # (Auto) Polychromasia Hypochromasia PT INR Sodium Potassium Chloride Carbon Dioxide Anion Gap BUN Creatinine Est Cr Clr Drug Dosing Est GFR ( Amer) Est GFR (Non-Af Amer) BUN/Creatinine Ratio Glucose POC Glucose Estimat Average Glucose Hemoglobin A1c Osmolality Calcium Ionized Calcium Magnesium Iron Cancelled TIBC 351 Cancelled Unsaturated IBC 313 Cancelled Transferrin % Sat 11 L Ferritin Total Bilirubin AST ALT Alkaline Phosphatase Lactate Dehydrogenase Total Creatine Kinase Troponin I High Sens B-Natriuretic Peptide Total Protein Albumin Globulin Albumin/Globulin Ratio Vitamin B12 Folate Procalcitonin TSH Urine Color Urine Appearance Urine pH Ur Specific [place] Urine Protein Urine Glucose (UA) Urine Ketones Urine Blood Urine Nitrite Urine Bilirubin Urine Urobilinogen Ur Leukocyte Esterase Urine WBC (Auto) Urine RBC (Auto) U Hyaline Cast (Auto) U Epithel Cells (Auto) Urine Bacteria (Auto) Urine Osmolality Ur Random Sodium Ur Random Potassium SARS-CoV-2, RNA, NAAT Blood Type Blood Type Recheck Antibody Screen Crossmatch 05/30/23 05/30/23 05/30/23 10:51 10:51 10:51 WBC RBC Hgb Hct MCV MCH MCHC RDW Std Deviation RDW Coeff of Roseann Plt Count MPV Immature Gran % (Auto) Neut % (Auto) Lymph % (Auto) [place] % (Auto) Eos % (Auto) Baso % (Auto) Reticulocyte % (Auto) Neut # (Auto) Lymph # (Auto) [place] # (Auto) Eos # (Auto) Baso # (Auto) Reticulocyte # Immature Gran # (Auto) Polychromasia Hypochromasia PT INR Sodium Potassium Chloride Carbon Dioxide Anion Gap BUN Creatinine Est Cr Clr Drug Dosing Est GFR ( Amer) Est GFR (Non-Af Amer) BUN/Creatinine Ratio Glucose POC Glucose Estimat Average Glucose Hemoglobin A1c Osmolality Calcium Ionized Calcium Magnesium Iron TIBC Unsaturated IBC Transferrin % Sat Cancelled Ferritin 39.4 Cancelled Total Bilirubin 0.5 AST 10 L ALT 6 L Alkaline Phosphatase 136 H Lactate Dehydrogenase Total Creatine Kinase 23 L Troponin I High Sens 30.0 H Cancelled B-Natriuretic Peptide 525 H Total Protein 5.7 L Albumin 3.2 L Globulin 2.5 Albumin/Globulin Ratio 1.3 Vitamin B12 Folate Procalcitonin 0.37 TSH 1.002 Urine Color Urine Appearance Urine pH Ur Specific [place] Urine Protein Urine Glucose (UA) Urine Ketones Urine Blood Urine Nitrite Urine Bilirubin Urine Urobilinogen Ur Leukocyte Esterase Urine WBC (Auto) Urine RBC (Auto) U Hyaline Cast (Auto) U Epithel Cells (Auto) Urine Bacteria (Auto) Urine Osmolality Ur Random Sodium Ur Random Potassium SARS-CoV-2, RNA, NAAT Blood Type Blood Type Recheck Antibody Screen Crossmatch 05/30/23 05/30/23 05/30/23 11:10 12:24 14:28 WBC RBC Hgb Hct MCV MCH MCHC RDW Std Deviation RDW Coeff of Roseann Plt Count MPV Immature Gran % (Auto) Neut % (Auto) Lymph % (Auto) [place] % (Auto) Eos % (Auto) Baso % (Auto) Reticulocyte % (Auto) Neut # (Auto) Lymph # (Auto) [place] # (Auto) Eos # (Auto) Baso # (Auto) Reticulocyte # Immature Gran # (Auto) Polychromasia Hypochromasia PT INR Sodium Potassium Chloride Carbon Dioxide Anion Gap BUN Creatinine Est Cr Clr Drug Dosing Est GFR ( Amer) Est GFR (Non-Af Amer) BUN/Creatinine Ratio Glucose POC Glucose Estimat Average Glucose Hemoglobin A1c Osmolality Calcium Ionized Calcium Magnesium Iron TIBC Unsaturated IBC Transferrin % Sat Ferritin Total Bilirubin AST ALT Alkaline Phosphatase Lactate Dehydrogenase Total Creatine Kinase Troponin I High Sens B-Natriuretic Peptide Total Protein Albumin Globulin Albumin/Globulin Ratio Vitamin B12 Folate Procalcitonin TSH Urine Color Urine Appearance Urine pH Ur Specific [place] Urine Protein Urine Glucose (UA) Urine Ketones Urine Blood Urine Nitrite Urine Bilirubin Urine Urobilinogen Ur Leukocyte Esterase Urine WBC (Auto) Urine RBC (Auto) U Hyaline Cast (Auto) U Epithel Cells (Auto) Urine Bacteria (Auto) Urine Osmolality 319 L Ur Random Sodium 65 Ur Random Potassium 19.8 SARS-CoV-2, RNA, NAAT NEGATIVE Blood Type O Positive Blood Type Recheck Antibody Screen NEGATIVE Crossmatch See Detail 05/30/23 05/30/23 05/30/23 14:44 15:02 16:25 WBC RBC Hgb Hct MCV MCH MCHC RDW Std Deviation RDW Coeff of Roseann Plt Count MPV Immature Gran % (Auto) Neut % (Auto) Lymph % (Auto) [place] % (Auto) Eos % (Auto) Baso % (Auto) Reticulocyte % (Auto) Neut # (Auto) Lymph # (Auto) [place] # (Auto) Eos # (Auto) Baso # (Auto) Reticulocyte # Immature Gran # (Auto) Polychromasia Hypochromasia PT INR Sodium Potassium 4.9 Chloride Carbon Dioxide Anion Gap BUN Creatinine Est Cr Clr Drug Dosing Est GFR ( Amer) Est GFR (Non-Af Amer) BUN/Creatinine Ratio Glucose POC Glucose 179 H Estimat Average Glucose Hemoglobin A1c Osmolality 303 H Calcium Ionized Calcium 1.19 Magnesium Iron TIBC Unsaturated IBC Transferrin % Sat Ferritin Total Bilirubin AST ALT Alkaline Phosphatase Lactate Dehydrogenase Total Creatine Kinase Troponin I High Sens 31.8 H B-Natriuretic Peptide Total Protein Albumin Globulin Albumin/Globulin Ratio Vitamin B12 267 Folate 5.61 Procalcitonin TSH Urine Color [place] Urine Appearance Cloudy A Urine pH 5.0 Ur Specific [place] 1.013 Urine Protein Negative Urine Glucose (UA) Negative Urine Ketones Negative Urine Blood Negative Urine Nitrite Negative Urine Bilirubin Negative Urine Urobilinogen Negative Ur Leukocyte Esterase Negative Urine WBC (Auto) 1-5 Urine RBC (Auto) 0-4 U Hyaline Cast (Auto) 1-5 U Epithel Cells (Auto) 0-5 Urine Bacteria (Auto) Negative Urine Osmolality Ur Random Sodium Ur Random Potassium SARS-CoV-2, RNA, NAAT Blood Type Blood Type Recheck Antibody Screen Crossmatch 05/30/23 05/30/23 05/30/23 16:49 18:59 20:38 WBC 9.86 RBC 2.53 L Hgb 6.6 L* Hct 21.1 L MCV 83.4 MCH 26.1 MCHC 31.3 L RDW Std Deviation 44.0 RDW Coeff of Roseann 14.5 Plt Count 215 MPV 8.5 L Immature Gran % (Auto) Neut % (Auto) Lymph % (Auto) [place] % (Auto) Eos % (Auto) Baso % (Auto) Reticulocyte % (Auto) Neut # (Auto) Lymph # (Auto) [place] # (Auto) Eos # (Auto) Baso # (Auto) Reticulocyte # Immature Gran # (Auto) Polychromasia Hypochromasia PT INR Sodium 129 L Potassium 5.5 H Chloride 95 L Carbon Dioxide 25 Anion Gap 9 BUN 105 H Creatinine 2.80 H Est Cr Clr Drug Dosing 18.7 Est GFR ( Amer) 22.5 Est GFR (Non-Af Amer) 19.4 BUN/Creatinine Ratio 37.5 H Glucose 95 POC Glucose 104 H Estimat Average Glucose Hemoglobin A1c Osmolality Calcium 8.4 L Ionized Calcium Magnesium 2.5 H Iron TIBC Unsaturated IBC Transferrin % Sat Ferritin Total Bilirubin 0.7 AST 8 L ALT 6 L Alkaline Phosphatase 110 H Lactate Dehydrogenase Total Creatine Kinase Troponin I High Sens 32.7 H B-Natriuretic Peptide Total Protein 5.5 L Albumin 3.0 L Globulin 2.5 Albumin/Globulin Ratio 1.2 Vitamin B12 Folate Procalcitonin TSH Urine Color Urine Appearance Urine pH Ur Specific [place] Urine Protein Urine Glucose (UA) Urine Ketones Urine Blood Urine Nitrite Urine Bilirubin Urine Urobilinogen Ur Leukocyte Esterase Urine WBC (Auto) Urine RBC (Auto) U Hyaline Cast (Auto) U Epithel Cells (Auto) Urine Bacteria (Auto) Urine Osmolality Ur Random Sodium Ur Random Potassium SARS-CoV-2, RNA, NAAT Blood Type Blood Type Recheck O Positive Antibody Screen Crossmatch 05/31/23 05/31/23 05/31/23 00:46 07:00 07:08 WBC 9.46 9.93 RBC 2.69 L 3.06 L Hgb 6.9 L* 8.1 L Hct 22.4 L 25.4 L MCV 83.3 83.0 MCH 25.7 26.5 MCHC 30.8 L 31.9 L RDW Std Deviation 44.3 45.2 RDW Coeff of Roseann 14.6 H 14.9 H Plt Count 205 229 MPV 8.4 L 8.8 L Immature Gran % (Auto) 0.4 Neut % (Auto) 67.3 Lymph % (Auto) 17.5 [place] % (Auto) 12.3 Eos % (Auto) 2.4 Baso % (Auto) 0.1 Reticulocyte % (Auto) Neut # (Auto) 6.68 H Lymph # (Auto) 1.74 [place] # (Auto) 1.22 H Eos # (Auto) 0.24 Baso # (Auto) 0.01 Reticulocyte # Immature Gran # (Auto) 0.04 Polychromasia Hypochromasia PT 13.1 H INR 1.2 H Sodium 130 L Potassium 5.8 H Chloride 96 L Carbon Dioxide 25 Anion Gap 9 BUN 109 H Creatinine 2.72 H Est Cr Clr Drug Dosing 17.3 Est GFR ( Amer) 23.3 Est GFR (Non-Af Amer) 20.1 BUN/Creatinine Ratio 40.1 H Glucose 93 POC Glucose Estimat Average Glucose 151 Hemoglobin A1c 6.9 H Osmolality Calcium 8.6 Ionized Calcium Magnesium 2.6 H Iron 40 TIBC 303 Unsaturated IBC 263 Transferrin % Sat 13 L Ferritin Total Bilirubin 0.8 AST 9 L ALT 6 L Alkaline Phosphatase 106 H Lactate Dehydrogenase 137 Total Creatine Kinase Troponin I High Sens B-Natriuretic Peptide Total Protein 5.3 L Albumin 3.1 L Globulin 2.2 L Albumin/Globulin Ratio 1.4 Vitamin B12 Folate Procalcitonin TSH Urine Color Urine Appearance Urine pH Ur Specific [place] Urine Protein Urine Glucose (UA) Urine Ketones Urine Blood Urine Nitrite Urine Bilirubin Urine Urobilinogen Ur Leukocyte Esterase Urine WBC (Auto) Urine RBC (Auto) U Hyaline Cast (Auto) U Epithel Cells (Auto) Urine Bacteria (Auto) Urine Osmolality Ur Random Sodium Ur Random Potassium SARS-CoV-2, RNA, NAAT Blood Type Blood Type Recheck Antibody Screen Crossmatch 05/31/23 08:11 WBC RBC Hgb Hct MCV MCH MCHC RDW Std Deviation RDW Coeff of Roseann Plt Count MPV Immature Gran % (Auto) Neut % (Auto) Lymph % (Auto) [place] % (Auto) Eos % (Auto) Baso % (Auto) Reticulocyte % (Auto) Neut # (Auto) Lymph # (Auto) [place] # (Auto) Eos # (Auto) Baso # (Auto) Reticulocyte # Immature Gran # (Auto) Polychromasia Hypochromasia PT INR Sodium Potassium Chloride Carbon Dioxide Anion Gap BUN Creatinine Est Cr Clr Drug Dosing Est GFR ( Amer) Est GFR (Non-Af Amer) BUN/Creatinine Ratio Glucose POC Glucose 116 H Estimat Average Glucose Hemoglobin A1c Osmolality Calcium Ionized Calcium Magnesium Iron TIBC Unsaturated IBC Transferrin % Sat Ferritin Total Bilirubin AST ALT Alkaline Phosphatase Lactate Dehydrogenase Total Creatine Kinase Troponin I High Sens B-Natriuretic Peptide Total Protein Albumin Globulin Albumin/Globulin Ratio Vitamin B12 Folate Procalcitonin TSH Urine Color Urine Appearance Urine pH Ur Specific [place] Urine Protein Urine Glucose (UA) Urine Ketones Urine Blood Urine Nitrite Urine Bilirubin Urine Urobilinogen Ur Leukocyte Esterase Urine WBC (Auto) Urine RBC (Auto) U Hyaline Cast (Auto) U Epithel Cells (Auto) Urine Bacteria (Auto) Urine Osmolality Ur Random Sodium Ur Random Potassium SARS-CoV-2, RNA, NAAT Blood Type Blood Type Recheck Antibody Screen Crossmatch PG Care Time/CCT Total # of Minutes Spent Total Time Spent with Patient: Total time spent is greater than 50% in coordination of care (as documented) at patient's floor/unit and/or counseling patient: Coding Level of Care Code 74302 SUB INP/OBS CARE 3/50MIN Diagnoses Acute kidney injury superimposed on CKD N17.9; N18.9 Hyponatremia E87.1 Anemia D64.9 Anemia type: unspecified type Hypertension I10 Wound, open, leg S81.809A Encounter type: initial encounter Laterality: unspecified laterality 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
[2023-05-31 09:31] LABS: Appearance Urine Cloudy (Clear); Bacteria Urine Automated Negative (Negative); Bilirubin Urine Negative (Negative); Blood Urine Trace (Negative); Color Urine Yellow; Glucose Urine UA Negative (Negative); Ketones Urine Negative (Negative); Leukocyte Esterase Urine 2+ (Negative); Nitrite Urine Negative (Negative); Protein Urine Negative (Negative); Specific Gravity Urine 1.014 (1.000-1.030); Urobilinogen Urine Negative (Negative); WBC Urine Automated >30 /hpf (0-5)
[2023-05-31] MEDS: BUMETANIDE 2 MG in SYRINGE 0 ML IV ONE (11:24)
[2023-05-31] MEDS: SODIUM ZIRCONIUM CYCLOSILICATE 10 GM PACKET PO SCH (11:25)
[2023-05-31] MEDS: IRON SUCROSE 300 MG in SODIUM CHLORIDE 0.9% 250 ML IV SCH (12:00)
[2023-05-31] MEDS: HYDROmorphone INJ 0.5 MG/0.5 ML SYR IV PRN (12:56)
[2023-05-31] MEDS: cefTRIAXone SODIUM 1,000 MG in DEXTROSE 5 % MINI-B 50 ML IV SCH (13:22)
[2023-05-31 14:53] LABS: Hematocrit (blood only) 24.1 % (42.0-52.0); Hemoglobin 7.7 g/dl (14.0-18.0); Mean Corpuscular Hemoglobin 26.6 pg (25.0-34.0); Mean Corpuscular Volume 83.1 fL (80.0-100.0); Mean Platelet Volume 8.8 fL (9.4-12.4); Platelet Count 221 K/uL (130-400); RDW Coefficient of Variation 14.9 % (11.5-14.5); White Blood Count 9.96 K/ul (4.8-10.8)
[2023-05-31 15:05] LABS: BUN Creatinine Ratio 38.6 (10-20); Calcium 8.3 mg/dl (8.6-10.3); Creatinine Clr Calc Pharmacy 16.8 ml/min; Est GFR (African American) 22.5 ml/min; Est GFR (Non-African American) 19.4 ml/min; Potassium 5.3 mmol/L (3.5-5.1)
[2023-05-31] MEDS: CYANOCOBALAMIN (B-12) 500 MCG TABLET PO SCH (17:03)
[2023-05-31] MEDS: CHOLECALCIFEROL 125 MCG (5,000 UNITS) TAB PO SCH (17:03)
[2023-05-31] MEDS: LANTUS PER UNIT CHARGE SC SCH (21:08)
[2023-05-31] MEDS: PANTOprazole 40 MG TAB PO SCH (21:10)
[2023-06-01 06:12] LABS: Basophils # (auto) 0.01 K/uL (0.00-0.20); Basophils % (auto) 0.1 %; Eosinophils # (auto) 0.22 K/uL (0.00-0.50); Eosinophils % (auto) 2.1 %; Hematocrit (blood only) 25.5 % (42.0-52.0); Immature Granulocytes # (auto) 0.06 K/uL (0.01-0.20); Immature Granulocytes % (auto) 0.6 %; Lymphocytes # (auto) 0.78 K/uL (1.20-3.40); Lymphocytes % (auto) 7.6 %; Mean Corpuscular Hemoglobin 26.7 pg (25.0-34.0); Mean Corpuscular Hgb Conc 31.4 g/dL (32.0-36.0); Mean Platelet Volume 8.8 fL (9.4-12.4); Monocytes # (auto) 0.91 K/uL (0.11-0.59); Monocytes % (auto) 8.8 %; Neutrophils # (auto) 8.33 K/uL (1.40-6.50); Neutrophils % (auto) 80.8 %; Platelet Count 208 K/uL (130-400); White Blood Count 10.31 K/ul (4.8-10.8)
[2023-06-01 06:34] LABS: Albumin Globulin Ratio 1.3 (0.9-2); Albumin Level 2.9 gm/dl (3.4-5.0); BUN Creatinine Ratio 39.1 (10-20); Bilirubin,Total 0.7 mg/dl (0.2-1.0); Calcium 8.5 mg/dl (8.6-10.3); Creatinine Clr Calc Pharmacy 17.3 ml/min; Est GFR (African American) 23.4 ml/min; Est GFR (Non-African American) 20.2 ml/min; Globulin 2.2 gm/dl (2.5-4.0); Magnesium 2.8 mg/dl (1.7-2.4); Potassium 4.8 mmol/L (3.5-5.1); Total Protein 5.1 gm/dl (6.0-8.3)
[2023-06-01 06:35] LABS: INR 1.2 (0.9-1.1); Prothrombin Time 13.5 Seconds (9.0-12.0)
--- NOTE | 2023-06-01 07:58 | Hospitalist Progress Note ---
Date of Service June 01, 2023 Assessment & Plan (1) Acute kidney injury superimposed on CKD: Plan: Sent to the ED from the wound care clinic this am after being found to have progressive swelling, new anemia with Hgb of 7.3, and suki on CKD BUN/Cr elevated to 105/2.77 w/ baseline CKD 3a w/ Cr 1.7-1.8 in the setting of NSAID use/diuretics/decreased PO intake CTAP w/o evidence for retroperitoneal bleed/pelvic hematoma Given hx CAD/CAGB, transfusion threshold decreased to <7 s/p 2u PRBC for hgb 6.6 GIven bumex 2mg IV w/ PRBC, additional 2mg IV on 05/31 and holding further per nephrology for today ECHO w/ normal LV systolic function/EF, however mold AR, mild MR, mild-mod TR. RVSP elevated 50-60mmHg. RV systolic function reduced Garsia in place, UOP acceptable Cr still elevated to 2.71 however clearer yellow in garsia. UA w/o evidence for infection No further diuretics per nephrology for 06/01 as appearing actually more euvolemic today, still w/ edema 2nd to third spacing/low albumin (does have more moist mm today, was dry yesterday afternoon) Nephrology on consult - patient does NOT want HD, clearly expressed wishes (had sister on HD in end, bad experience reported) * BUN/Cr 106/2.71 and not worse, making urine. Garsia in place * No further diuretics for today as outlined * Amlodipine increased to 5mg daily for BP control K NORMALIZED, now 4.8, Lokemla discontinued. Na stable 131 Vitamin D checked, LOW - replacement ordered Avoid NSAIDS/nephrotoxins, renal dose meds as able RPR in AM ANEMIA/GIB Eliquis remains on hold s/p 2u PRBC as outlined Iron panel w/ low trans % sat --> Venofer IV ordered (day 2) B12 borderline 267, PO supplementation started. Folate borderline 5.61 and could consider supplementaiton as well +fecal occult testing from today, 06/01 PPI IV BID ordered on admission. Was initially changed by supervising provider to ONCE daily however given concerns for underlying GI bleeding w/ Eliquis use was changed back to BID but made PO as able to tolerate oral and preventing additional IV/volume LLE Cellulitis/suspected infection Ceftriaxone IV started 05/31 for LLE/possible cellulitis, wound care consulted and on EHOB mattress. Pain control w/ improvement in symptoms at present time -- Cx from LLE pending * Continues on Ceftriaxone for now * WBC slightly higher but afebrile. Monitor cx from LLE/adjustment to abx as indicated. * No personal/prior hx MRSA reported. OR cx w/ gram positive cocci on initial GS however cx growing staph species as well as few gram negative bacilli and will monitor/adjust abx as needed. May need to consider cefepime but will continue current abx for now Pain control Turn/reposition q2h PT/OT evals to be undertaken, eventual need for placement was discussed as unsafe for return home/family unable to care for him in current state (daughters share POA). CM following/referrals sent. Palliative consult to be undertaken in AM for goals of care. Updated soo Hurtado 06/01 regarding plan of care, agrees Continued inpatient stay Monitor labs on repeat/appreciate nephrology assistance (2) Wound, open, leg: Plan: Chronic BL LE wounds and sacral wounds due to venous stasis and immobility , sent over by wound care provider - imaging in chart - see H&P for details SEE ABOVE (3) Anemia: Plan: see above (4) Hyperkalemia: Plan: Up to 5.8 on 05/31 and provided additional ca gluconate/insulin/dextrose and lokemla scheduled TID per nephrology No acute T waves changes on inital EKG but does appear to have some conduction delay on monitor/peaked T waves Afib on tele, rates 40-60s, did dip to 30s overnight/asymptomatic K NORMALIZED, 4.8 on AM labs Lokemla discontinued by nephrology and will continue to monitor BMP in AM Renal dose meds/avoid nephrotoxins as able Continued tele monitoring (5) Fluid overload: Plan: suspect R heart failure w/ low albumin/anemia contributing Repeat SEBASTIAN as above, nephrology on consult and no further bumex for today and will monitor. 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 chronic levels on admission Multifactorial as above TSH 1.0, wnl Checked T4/t3 given deven. T3 slightly low but discussed w/ supervising provider and would not start supplementation Bumex/PRBC/PPI as above Repeat Na stable 131 and will monitor (9) Elevated troponin: Plan: Initial high sen trop elevated at 30, repeat 31.8, 32.7 and relatively flat. Suspect 2nd to above, demand ischemia in setting of SUKI/possible LE cellulitis infection and anemia PRBC/Venofer/diuretics as outlined Repeat ECHO w/o wma EKG w/ CP DENIES CHEST PAIN AT PRESENT Continued telemetry monitoring (10) CAD (coronary artery disease): Plan: Denies chest pain presently Remains on statin, eliquis on hold as above for anemia/fecal occult testing Not on BB suspected due to resting HR w/ afib in the 40-50s ontinued telemetry monitoring (11) Diabetes mellitus, type II: Plan: Holding oral meds, BSG AC/HS while inpatient and pharmacy has been consulted for assistance. Appreciated (12) Chronic a-fib: Plan: Rate controlled/deven, rates in 40-50s Holding Eliquis for now w/ + fecal occult testing as above Not on any rate limiting agents Monitor on tele (13) Obstructive sleep apnea: Plan: Is non-compliant with HS CPAP per family -- should be encouraged however has declined prior. can f/u discussions presently on room air and reports breathing improved compared to day prior Supplemental O2 as needed (14) CKD (chronic kidney disease), stage III: Plan: acute on chronic CKD w/ elevated Cr on admission as outlined #1 renal function not worse, holding diuretics. renal dose meds/avoid nephrotoxins as able bmp in am (15) Acute on chronic heart failure with preserved ejection fraction: Plan: as outlined above, no further bumex for today per discussion with nephrology (was provided 2mg IV 05/31 for gentle diuresis, was provided 2mg IV w/ PRBC on admission) ECHO as outlined above Doesn't appear significantly volume overloaded at present, does have some third spacing/low albumin (did get albumin on admission) Diuretics at discretion of nephrology, appreciate assistance (16) Vitamin D deficiency: Plan: checked given CKD -- LOW at 17.3 PO supplementation started 05/31, continued - would continue at dc (17) Occult blood positive stool: Plan: + testing as above, Gay remains on hold. unlikely any intervention and attempting to medically manage at present and remains on PPI BID GI consulted for completeness/further recommendations Plan Patient is DNR/DNI, daughters POA. Not interested in HD Updated daughter Funmi 06/01 (her and sister share POA) -- to have palliative meeting for goals of care 06/02 continued inpatient stay will need placement at dc if able to remain medically stable w/ medical management GI consulted given + fecal occult, continue PPI BID, estefanyqujose remaining on hold continue abx for LE cellulitis, f/u CXs/adjustment to abx as needed Admission and Anticipated Discharge Date Admission Date: May 30, 2023 Supervising Physician Co-Signing Physician Notes The patient was not seen by me. The chart was reviewed. Case discussed with CELESTINO Cobos. Agree with assessment and plan Subjective Evaluated this morning, sitting up in bed, reports feeling much better today to high buttocks/legs. Pain controlled with ordered medications. Currently getting venofer infusion, hemoglobin stable but discussed fecal occult and continue to hold/PPI therapy and GI consult but unlikely of any intervention in current state. Denies chest pain/difficulty breathing. No sputum production. Nephrology holding off further diuretics, making urine and continuing to monitor as appearing more euvoluemic, less cracked/dry mm today. Updated daughter Funmi in hallway regarding lab findings/fecal occult//plan moving forward. CM following/referrals sent. Discussed likely not stable if going to be stabilized until over the weekend and having time to work on looking into placement. Questions/concerns addressed at this time. Physical Exam Physical Exam: General: 88yo male, chronically ill appearing/fatigued/generalized pallor, sitting up in bed, wanting to get out of bed, reporting buttocks pain Heent: head atraumatic, hat in place, normocephalic, +JVD, trachea midline, slightly dry mm Resp: even/unlabored, diminished in the bases, no obvious wheezing/crackles, on room air CV: irregularly irregular, rates 40-50s on telemetry, +systolic murmur, +2-3+ LE edema, +UE edema bilaterally GI: +BS, soft/slight distension/edema, nontender : garsia draining clear/slightly concentrated yellow urine MSK/Neuro: generalized weakness but nonfocal, no slurred speech/facial droop, answering questions appropriately, follows commands as able Psych: AOx3, cooperative with care Skin:b/l LEs with wraps/kerlix in place, white/yellow purulant drainage seeping through dressing to RLE (RN to swab for culture), +warmth, +tenderness Results & Data Results & Data Vital Signs (Past 12 Hours) Vital Signs Temp Pulse Pulse Pulse Resp BP Pulse Ox 06/01/23 07:46 36.7 C 43 L 16 172/66 H 94 06/01/23 07:18 68 16 92 06/01/23 03:24 36.5 C 42 L 18 162/61 H 93 05/31/23 23:58 36.5 C 43 L 18 155/62 H 93 05/31/23 23:47 42 L 05/31/23 20:37 42 L 16 95 O2 Del Method 06/01/23 07:46 Room Air 06/01/23 07:18 Room Air 06/01/23 03:24 Room Air 05/31/23 23:58 Room Air 05/31/23 23:47 05/31/23 20:37 Room Air PG Care Time/CCT Total # of Minutes Spent Total Time Spent with Patient: Total time spent is greater than 50% in coordination of care (as documented) at patient's floor/unit and/or counseling patient: Coding Level of Care Code 39879 SUB INP/OBS CARE 3/50MIN Diagnoses Acute kidney injury superimposed on CKD N17.9; N18.9 Wound, open, leg S81.809A Encounter type: initial encounter Laterality: unspecified laterality Anemia D64.9 Anemia type: unspecified type Hyperkalemia E87.5 Fluid overload E87.70 Hypervolemia type: unspecified 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 L89.323 Hypertension I10 Hyponatremia E87.1 Elevated troponin R79.89 CAD (coronary artery disease) I25.10 Diabetes mellitus, type II E11.9 Diabetes mellitus complication status: with circulatory complication Diabetes mellitus termite exterminator helper insulin use: without termite exterminator helper use Chronic a-fib I48.20 Obstructive sleep apnea G47.33 CKD (chronic kidney disease), stage III N18.30 Acute on chronic heart failure with preserved ejection fraction I50.33 Vitamin D deficiency E55.9 Occult blood positive stool R19.5 (2) Wound, open, leg Encounter type: initial encounter Laterality: unspecified laterality Qualified Code(s): S81.809A - Unspecified open wound, unspecified lower leg, initial encounter (3) Anemia Anemia type: unspecified type Qualified Code(s): D64.9 - Anemia, unspecified (5) Fluid overload Hypervolemia type: unspecified Qualified Code(s): E87.70 - Fluid overload, unspecified (11) Diabetes mellitus, type II Diabetes mellitus complication status: with circulatory complication Diabetes mellitus termite exterminator helper insulin use: without termite exterminator helper use
--- NOTE | 2023-06-01 08:51 | Nephrology Progress Note ---
Date of Service June 01, 2023 Assessment & Plan (1) Acute kidney injury superimposed on CKD: Plan: * 3rd spacing of volume related to hypoalbuminemia and pulmonary HTN. Patient now appears euvolemic to volume contracted * Cr stable at 2.7 overnight. Patient is nonoliguric * Avoid aggressive diuresis as patient is likely preload dependent * Patient has significant azotemia and advanced renal dysfunction. Office notes indicate that HD is not c/w with his goals of care. Therefore, continue conservative medical management * PRP, urinalysis in am (2) Hyponatremia: Plan: * Chronic, asymptomatic. Baseline Na 126-130 mmol/L (3) Anemia: Plan: * Transfused 1 unit PRBC 05/30/23 and 1 unit PRBC 05/31/23 * 05/31/23 iron saturation 21%, ferritin 39 * Venofer 300 mg IV daily (Day #2 of 4) * FOBT + 06/01/23. 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 Restrepo was evaluated in his hospital room this morning. He c/o pain from the ulcerative lesions on his legs and buttock. He denied dyspnea, angina or uremic symptoms Review of Systems Constitutional: no fever Eyes: no worsening vision Ear, Nose, Mouth, Throat: no problem reported Respiratory: no cough and no dyspnea Cardiovascular: no chest pain Gastrointestinal: no abdominal pain, no nausea, no vomiting and no diarrhea/loose stools Physical Exam Constitutional: + frail appearing; not in distress Eyes: PERRL, conjunctivae normal, anicteric sclerae ENMT: Mouth: + dry oral mucous membranes Neck: trachea midline, no thyromegaly Respiratory: normal respiratory effort, lungs clear to auscultation Cardiovascular: Rate/Rhythm: + irregularly irregular Vessels: no JVD Extremities: + edema (trace) Gastrointestinal (Abdomen): normal bowel sounds, soft, nontender, no hepatosplenomegaly Neurologic: awake (poor historian) Speech / Cognition: normal speech Psychiatric: Affect: euthymic affect Results & Data Vital Signs (Past 12 Hours) Vital Signs Temp Pulse Pulse Pulse Resp BP Pulse Ox 06/01/23 07:46 36.7 C 43 L 16 172/66 H 94 06/01/23 07:18 68 16 92 06/01/23 03:24 36.5 C 42 L 18 162/61 H 93 05/31/23 23:58 36.5 C 43 L 18 155/62 H 93 05/31/23 23:47 42 L O2 Del Method 06/01/23 07:46 Room Air 06/01/23 07:18 Room Air 06/01/23 03:24 Room Air 05/31/23 23:58 Room Air 05/31/23 23:47 Laboratory Results Laboratory Results - last 24 hr 05/30/23 05/31/23 05/31/23 12:24 07:08 12:12 WBC RBC Hgb Hct MCV MCH MCHC RDW Std Deviation RDW Coeff of Roseann Plt Count MPV Immature Gran % (Auto) Neut % (Auto) Lymph % (Auto) [place] % (Auto) Eos % (Auto) Baso % (Auto) Neut # (Auto) Lymph # (Auto) [place] # (Auto) Eos # (Auto) Baso # (Auto) Immature Gran # (Auto) PT INR Sodium Potassium Chloride Carbon Dioxide Anion Gap BUN Creatinine Est Cr Clr Drug Dosing Est GFR ( Amer) Est GFR (Non-Af Amer) BUN/Creatinine Ratio Glucose POC Glucose 111 H Calcium Magnesium Total Bilirubin AST ALT Alkaline Phosphatase Lactate Dehydrogenase 137 Total Protein Albumin Globulin Albumin/Globulin Ratio 25-OH Vitamin D Total Urine Color Urine Appearance Urine pH Ur Specific [place] Urine Protein Urine Glucose (UA) Urine Ketones Urine Blood Urine Nitrite Urine Bilirubin Urine Urobilinogen Ur Leukocyte Esterase Urine WBC (Auto) Urine RBC (Auto) U Hyaline Cast (Auto) U Epithel Cells (Auto) Urine Bacteria (Auto) Crossmatch See Detail 05/31/23 05/31/23 05/31/23 14:23 17:07 20:14 WBC 9.96 RBC 2.90 L Hgb 7.7 L Hct 24.1 L MCV 83.1 MCH 26.6 MCHC 32.0 RDW Std Deviation 45.0 RDW Coeff of Roseann 14.9 H Plt Count 221 MPV 8.8 L Immature Gran % (Auto) Neut % (Auto) Lymph % (Auto) [place] % (Auto) Eos % (Auto) Baso % (Auto) Neut # (Auto) Lymph # (Auto) [place] # (Auto) Eos # (Auto) Baso # (Auto) Immature Gran # (Auto) PT INR Sodium 128 L Potassium 5.3 H Chloride 95 L Carbon Dioxide 22 Anion Gap 11 BUN 108 H Creatinine 2.80 H Est Cr Clr Drug Dosing 16.8 Est GFR ( Amer) 22.5 Est GFR (Non-Af Amer) 19.4 BUN/Creatinine Ratio 38.6 H Glucose 138 H POC Glucose 157 H 126 H Calcium 8.3 L Magnesium Total Bilirubin AST ALT Alkaline Phosphatase Lactate Dehydrogenase Total Protein Albumin Globulin Albumin/Globulin Ratio 25-OH Vitamin D Total 17.3 L Urine Color Urine Appearance Urine pH Ur Specific [place] Urine Protein Urine Glucose (UA) Urine Ketones Urine Blood Urine Nitrite Urine Bilirubin Urine Urobilinogen Ur Leukocyte Esterase Urine WBC (Auto) Urine RBC (Auto) U Hyaline Cast (Auto) U Epithel Cells (Auto) Urine Bacteria (Auto) Crossmatch 05/31/23 06/01/23 06/01/23 Unknown 05:34 08:21 WBC 10.31 RBC 3.00 L Hgb 8.0 L Hct 25.5 L MCV 85.0 MCH 26.7 MCHC 31.4 L RDW Std Deviation 46.0 RDW Coeff of Roseann 15.0 H Plt Count 208 MPV 8.8 L Immature Gran % (Auto) 0.6 Neut % (Auto) 80.8 Lymph % (Auto) 7.6 [place] % (Auto) 8.8 Eos % (Auto) 2.1 Baso % (Auto) 0.1 Neut # (Auto) 8.33 H Lymph # (Auto) 0.78 L [place] # (Auto) 0.91 H Eos # (Auto) 0.22 Baso # (Auto) 0.01 Immature Gran # (Auto) 0.06 PT 13.5 H INR 1.2 H Sodium 131 L Potassium 4.8 Chloride 97 L Carbon Dioxide 25 Anion Gap 9 BUN 106 H Creatinine 2.71 H Est Cr Clr Drug Dosing 17.3 Est GFR ( Amer) 23.4 Est GFR (Non-Af Amer) 20.2 BUN/Creatinine Ratio 39.1 H Glucose 109 H POC Glucose 130 H Calcium 8.5 L Magnesium 2.8 H Total Bilirubin 0.7 AST 10 L ALT 6 L Alkaline Phosphatase 103 Lactate Dehydrogenase Total Protein 5.1 L Albumin 2.9 L Globulin 2.2 L Albumin/Globulin Ratio 1.3 25-OH Vitamin D Total Urine Color Yellow Urine Appearance Cloudy A Urine pH 5.0 Ur Specific [place] 1.014 Urine Protein Negative Urine Glucose (UA) Negative Urine Ketones Negative Urine Blood Trace H Urine Nitrite Negative Urine Bilirubin Negative Urine Urobilinogen Negative Ur Leukocyte Esterase 2+ H Urine WBC (Auto) >30 H Urine RBC (Auto) 5-10 H U Hyaline Cast (Auto) 5-10 H U Epithel Cells (Auto) 10-20 H Urine Bacteria (Auto) Negative Crossmatch PG Care Time/CCT Total # of Minutes Spent Total Time Spent with Patient: Total time spent is greater than 50% in coordination of care (as documented) at patient's floor/unit and/or counseling patient: Coding Level of Care Code 27944 SUB INP/OBS CARE 3/50MIN Diagnoses Acute kidney injury superimposed on CKD N17.9; N18.9 Hyponatremia E87.1 Anemia D64.9 Anemia type: unspecified type Hypertension I10 Wound, open, leg S81.809A Encounter type: initial encounter Laterality: unspecified laterality 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
[2023-06-01] MEDS ORDERED: PANTOprazole 40 MG TAB PO SCH (09:00)
--- NOTE | 2023-06-01 10:14 | Palliative Care Consultation ---
Date of Consultation June 02, 2023 Assessment & Plan (1) Generalized pain: (2) Pain associated with wound: (3) Weakness generalized: (4) Intermittent confusion: (5) Palliative care by specialist: Met with pt/family. Provided overview of Palliative Medicine, a subspecialty that provides specialized medical care for people living with a serious illness by offering a focus on quality of life. Palliative Medicine is often conflated with hospice: I advised patient/family that Palliative and hospice can be partners but we are not the same. It is important to understand the difference so that we may be informed, and not afraid. Palliative Medicine works to improve QOL through reduction of symptom burden/more control over their illness, for both the patient and family. Palliative medicine clinicians are board certified, specially-trained and another member of the patient's medical care team. We of ten provide an extra layer of support because our care is based on the needs of the patient, not the prognosis; as such, it's appropriate at any age/advancing stage of a serious illness and can be provided along with curative treatment. Palliative Medicine clinicians are also trained in advanced communication methodologies, to facilitate complex discussions about advanced illness planning, which are needed to help assure that the treatment choices match the patient's goals, aka delivering Goal Concordant care. Finally, we discussed that hospice is a visiting nurse service that focuses on care delivered at the very end of life for patients with terminal illness, with life expectancy less than 6 month. (6) Advanced care planning/counseling discussion: See #7 (7) Discussion about advance care planning held with family member: Met with pt and family then again with family in meeting room Patient and family meeting x 15min bedside face to face then family in waiting room x 45 min face to face With everyone's consent and voluntary participation we discussed the medical issues to date. He is very clear he does not want HD or aggressive care He is worried about pain issues and feels this has not been improving. When asked if he would like more attention and focus on comfort/QOL with better pain mgt he replied yes Family share that they are no longer able to meet his needs at home, needs max assist with all ADLs, does not get OOB or chair without assist, they both work 10-12 hr days and for those times he is alone at home and stays in his chair or bed, no in home assistance. He is very high risk for falls. He is socially isolated. He has not been taking much PO for about a year and strength on steady decline. He cannot assist with transfers. He has become more than they can physically manage. He needs comfort focused care in SNF. They would like to discuss how that would look and options for same as well as costs. We discussed that he is transitioning from a process of living to a process of dying given the changes he has been experiencing and the overall persistent decline. HD will not improve his QOL or fix/reverse/cure the underlying comorbid issues. He has what he and family believe is already a poor QOL and he does not want a lower baseline. Multiple organ systems are failing: kidney, HF with rising RV systolic, increased fluid volume overload, skin breakdown with ulcerations and BLE wound, buttock wound, increasing FTT, weakness, Declining PS,etc Family admit they cannot care for him safely at home Would like comfort care at [facility], understand this may mean a "trial" of rehab for SNF coverage before MA is approved and he can convert to LTC and have hospice added. In d/w CM, [facility] can offer bed for either rehab trial or comfort but until MA approved, comfort care will be %390/day OOP. Family is thinking about this. We spoke about transitioning focus to comfort, QOL and sx mgt They are all in agreement the following was agreed upon: Comfort Care Discharge Summary & Plan of Care For Correction/SNF/[facility]IE Patient Name: Patric Restrepo Comfort plan of care agreed upon by: pt and family/Dtr Lyubov Discussed with Patient/Family on: 06/02/23 Copy of this plan will be/has been given to:SNF Comfort plan of care parameters: 1. Patient/Family want hospice added to their care. 2. NO rehab/PT/OT unless a trial of rehab is required to faciltate placement 3. End of Life care only - focus on comfort 4. NO escalation of care: do not increase oxygen, escalate therapies, etc. The focus is on comfort through end of life, assure this is accomplished with aggressive symptom management (i.e. relief of dyspnea, pain, etc.) 5. NO return to hospital 6. NO labs, imaging, surgery 7. Oral intake as desired for comfort and pleasure: NO dietary restrictions 8. If difficulty urinating/commode/bedpan, ok to place Hernández catheter for comfort/hygiene/skin protection AND/OR Continue Hernández catheter for comfort/hygiene/skin protection 9. NO: calorie counts, artificial nutrition, feeding tubes or IV fluids Medications to continue are noted on discharge summary. Provider to contact if any questions about comfort plan of care: Hospice [employer] Supervisor or designee Plan ACP as outlined above Move to LE[employer] today, orders written. SNF DC plan of care as documented above Will work on improving his pain and sx ng through the weekend as this remains suboptimally controlled Likely dc to SNF early nest week if he remains stable and symptoms are under better control Primary team and CM aware Thank you for allowing us to participate in the ongoing care of this patient. Please don't hesitate to call or page with any additional concerns. Dr. Peggy Mccoy DNP Director, Palliative Care History of Present Illness Reason for Consultation: On 05/31/23 @ 11:22 Mariela Hilton Wrote To Peggy Mccoy goals of care, does NOT want HD Attending Physician: Ismael Burgos MD History of Present Illness 88yo male with SUKI on CKD, hypoalbuminemia ad PH, desires only conservative mgt and has consistently been refusing HD for many years in OP nephrology visits He was sent to ED from wound clinic when there was signif worse edema noted to left lower extremity with a wound that has not been healing. Now with inc purulent drainage and warmth, started ceftriaxone yesterday Underlying CAD, CABG hx Chronically anemic ECHO w/ normal LV systolic function/EF, however mold AR, mild MR, mild-mod TR. RVSP elevated 50-60mmHg. RV systolic function reduced He has a Stage III decubitus left buttock, A fib with slow ventricular response and an open wound of his leg which has developed cellulitis He is awake but intermittently confused He tells me he has trouble following long or complicated conversations. He is aware he had end stage kidney disease He is absolutely sure he does not want HD He states he desires a more minimalized plan of care, more about pain mgt and comfort. Dtrs Genesis and Shena at bedside, granddaughter He has a very poor appetite, tells me he does not feel much hunger and when he does he has not wanted much more than broth daughters confirm some worsening memory issues and cognitive deficits He lives with Genesis and has been sedentary for the past year, does not get out of his chair or bed for 10+ hours. Does not have caregiver support outside of when family is there but Genesis works 10hr shifts and Shena works long days as well. Allergies Allergy/AdvReac Type Severity Reaction Status Date / Time lisinopril AdvReac Intermediate cough Verified 05/30/23 09:12 Home Medications Medication Instructions Recorded Confirmed Type esomeprazole magnesium 40 mg 40 mg PO DAILY PRN Gi Upset 10/07/21 05/30/23 History capsule,delayed release (Nexium) nitroglycerin 0.4 mg sublingual 0.4 mg sublingual Q5M PRN Chest 10/07/21 05/30/23 Rx tablet Pain #25 tabs lancets (Lancets,Thin) #200 ea 11/15/21 05/30/23 Rx lancets #200 ea 01/05/22 05/30/23 Rx nebulizer accessories #1 ea 05/19/22 05/30/23 Rx formoterol fumarate 20 mcg/2 mL 2 ml inhalation BID #120 mL 09/22/22 05/30/23 Rx solution for nebulization budesonide 0.25 mg/2 mL suspension 0.25 mg (2 mL) inhalation BID #120 10/03/22 05/30/23 Rx for nebulization mL blood sugar diagnostic (OneTouch #100 ea 01/09/23 05/30/23 Rx Verio test strips) compressor, for nebulizer #1 ea 01/09/23 05/30/23 Rx metformin 500 mg tablet,extended 500 mg PO DAILY #90 tabs 01/09/23 05/30/23 Rx release 24 hr fluticasone propionate 50 2 spray intranasal DAILY PRN 01/30/23 05/30/23 Rx mcg/actuation nasal Congestion #16 grams spray,suspension apixaban 2.5 mg tablet (Eliquis) 2.5 mg PO BID #60 tabs 03/20/23 05/30/23 Rx atorvastatin 40 mg tablet 40 mg PO DAILY #90 tabs 04/05/23 05/30/23 Rx isosorbide mononitrate 30 mg 30 mg PO DAILY #90 tabs 04/05/23 05/30/23 Rx tablet,extended release 24 hr ipratropium 0.5 mg-albuterol 3 mg 3 ml inhalation Q8H PRN wheezing 04/20/23 05/30/23 Rx (2.5 mg base)/3 mL nebulization #180 mL soln triamcinolone acetonide 0.025 % 1 applic topical BID PRN dry skin 05/18/23 05/30/23 Rx topical ointment #454 grams linagliptin 5 mg tablet (Tradjenta) 5 mg PO DAILY #90 tabs 05/25/23 05/30/23 Rx bumetanide 2 mg tablet 4 mg PO BID 05/30/23 05/30/23 History nystatin 100,000 unit/gram topical 1 applic topical TID PRN .FLARES 05/30/23 05/30/23 History cream nystatin 100,000 unit/gram topical 1 applic topical BID PRN 05/30/23 05/30/23 Hi story powder .IRRITATION spironolactone 25 mg tablet 25 mg PO 06/01/23 History Patient History Medical History (Updated 06/02/23 @ 12:20 by Peggy Mccoy DNP) Discussion about advance care planning held with family member Advanced care planning/counseling discussion Palliative care by specialist Pain associated with wound Generalized pain Intermittent confusion Weakness generalized Vitamin D deficiency Stage 3b chronic kidney disease Fever Chronic kidney disease External hemorrhoids Candidiasis of mouth and esophagus Mucus plugging of bronchi Decubitus ulcer, buttock Chronic renal failure, stage 3a Acute hyponatremia COVID-19 (~01/17/23) Obstructive sleep apnea Atrial fibrillation, permanent Chronic diastolic CHF (congestive heart failure) CAD (coronary artery disease) Carotid atherosclerosis Mitral valve insufficiency and aortic valve insufficiency Spinal stenosis Tubular adenoma of colon Normocytic anemia Diabetes mellitus, type II GERD (gastroesophageal reflux disease) Hypertension Dyslipidemia Anemia Obstructive lung disease Reactive airway disease Asthma Hematuria (07/03/13) 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) Surgical History S/P shoulder surgery S/P cholecystectomy S/P cardiac catheterization S/P CABG (coronary artery bypass graft) Family History Sister Hypertension Colon cancer Other Prostate cancer Stroke Denies family history of Osteoporosis Myocardial infarction Breast cancer Social History Smoking Status: Never smoker Second Hand Exposure: No; Do You Dip or Chew Tobacco: No; Hx Alcohol Use: No Hx Substance Use: No Preferred Language: Sri Lankan Communication Ability: Effective Visual Impairment: No Limitations Hearing Ability: Normal Airset Molder Required: No Beliefs That Will Affect Care: Mormon marital status: / Current Living Situation: Family Current Living Situation Comment: Daughter and granddaughter current occupational status: 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[employer] How many Children do You have: 2 Feels Safe at Home: Yes Childhood Exposure to Second-Hand Smoke: No Diet: regular Diet Comment: regular caffeine: Yes (Tea and soda) during the past year weight has: increased > 10 lbs Dental Care, Regularly: No Physical Activity Frequency: Daily Physical Activity Frequency Comment: walking in the house with walker Seatbelt Use: always Sunscreen Use: No Assistive Devices: Denture - Upper, Denture - Lower and Walker Review of Systems Review of Systems: All systems reviewed & are unremarkable except as noted in Subjective Physical Exam Physical Exam: Semi reclined in bed Awake but forgetful, easily distracted and unable to follow prolonged discussion Bitemp wasting PERRLA Neck supple, no gross stridor Mild inc resp effort with conversational dyspnea DIminished breath sounds S1S2, no JVD Abd soft, mild distension, BS+ BLE with wounds/ulcerating, dressings intact with some seepage noted Buttocks + dressing Skin otherwise pale, cool to touch BLE edema +2-3 BUE (hands) +1-2 Strength is diminished, +generalized weakness Results & Data Vital Signs (Past 12 Hours) Vital Signs Temp Pulse Pulse Pulse Resp BP Pulse Ox 06/01/23 07:46 36.7 C 43 L 16 172/66 H 94 06/01/23 07:18 68 16 92 06/01/23 03:24 36.5 C 42 L 18 162/61 H 93 05/31/23 23:58 36.5 C 43 L 18 155/62 H 93 05/31/23 23:47 42 L O2 Del Method 06/01/23 07:46 Room Air 06/01/23 07:18 Room Air 06/01/23 03:24 Room Air 05/31/23 23:58 Room Air 05/31/23 23:47 Laboratory Results data reviewed Diagnostic Findings data reviewed PG Care Time/CCT Total # of Minutes Spent Total Time Spent with Patient: Total time spent is greater than 50% in coordination of care (as documented) at patient's floor/unit and/or counseling patient: I spent 120 minutes overall addressing this case: 15 min in medical data review/discussion with referring provider(s) and/or preparation for the visit 15 min in direct interaction with the patient/exam 60 min in Advance Care Planning/Goals of Care discussions as detailed above in note (must be >16min) 15 min in subsequent review and synthesis of assessment and plan 15 min communicating with other providers regarding the patient's case: care mgt, primary team Advanced Care Planning 28212 Advanced Care Planning 30 Min 51557 Advanced Care Planning Additional 30 [place] [address] IN/OBS CONSULT LVL 5,80M Patient Type New History Comprehensive Exam Comprehensive Medical Decision Making High Complexity Diagnoses Generalized pain R52 Pain associated with wound T14.8XXA; R52 Weakness generalized R53.1 Intermittent confusion R41.0 Palliative care by specialist Z51.5 Advanced care planning/counseling discussion Z71.89 Discussion about advance care planning held with family member Z71.0 Additional Codes Advanced Care Planning - 35956 Advanced Care Planning 30 Min: 34301 Advanced Care Planning 30 Min ([id number]) Advanced Care Planning - 50946 Advanced Care Planning Additional 30 Min: 01881 Advanced Care Planning Additional 30 Min ([id number])
--- NOTE | 2023-06-01 11:55 | Gastrointestinal Consultation ---
Date of Consultation June 01, 2023 Assessment & Plan (1) Occult blood positive stool: GI was asked to see the patient for occult blood positive stool. I discussed the case with Dr. Nieto who helped advise on plan. - would keep the patient on protonix 40mg po BID. - we had discussed whether or not he would want anything such as a colonoscopy or egd to evaluate his occult blood positive stools. Patient and his daughter do not want any invasive GI testing done given his age and overall health. Supervising Physician Co-Signing Physician Notes I saw the patient and agree with the findings as documented by Raffi Rausch History of Present Illness Reason for Consultation: positive fecal occult blood / anemia, SUKI on CKD, eliquis on hold Requesting Physician: Bry Hilton PA-C Attending Physician: Ismael Burgos MD History of Present Illness Patient is an 87 year old gentleman with a past medical history of CKD, A-fib and CHF on Eliquis, CAD with CABG, chronic leg swelling and wounds sent to the ED after being seen in the wound clinic due to significant wounds of the lower legs including to the left thigh and buttock region. GI was consulted for stools being positive for occult blood. Patient's daughter was at bedside and helped provide history. Patient had recently been using nsaids for pain related to his wounds. He tells me he typically has 2 bowel movements daily and has not noticed any blood in the stools or melena. Per nursing, stools were somewhat darker. otherwise, GI ros are unremarkable. Patient and daughter are not interested in any invasive GI work up given his age and overall health. Allergies Allergy/AdvReac Type Severity Reaction Status Date / Time lisinopril AdvReac Intermediate cough Verified 05/30/23 09:12 Home Medications Medication Instructions Recorded Confirmed Type esomeprazole magnesium 40 mg 40 mg PO DAILY PRN Gi Upset 10/07/21 05/30/23 History capsule,delayed release (Nexium) nitroglycerin 0.4 mg sublingual 0.4 mg sublingual Q5M PRN Chest 10/07/21 05/30/23 Rx tablet Pain #25 tabs lancets (Lancets,Thin) #200 ea 11/15/21 05/30/23 Rx lancets #200 ea 01/05/22 05/30/23 Rx nebulizer accessories #1 ea 05/19/22 05/30/23 Rx formoterol fumarate 20 mcg/2 mL 2 ml inhalation BID #120 mL 09/22/22 05/30/23 Rx solution for nebulization budesonide 0.25 mg/2 mL suspension 0.25 mg (2 mL) inhalation BID #120 10/03/22 05/30/23 Rx for nebulization mL blood sugar diagnostic (OneTouch #100 ea 01/09/23 05/30/23 Rx Verio test strips) compressor, for nebulizer #1 ea 01/09/23 05/30/23 Rx metformin 500 mg tablet,extended 500 mg PO DAILY #90 tabs 01/09/23 05/30/23 Rx release 24 hr fluticasone propionate 50 2 spray intranasal DAILY PRN 01/30/23 05/30/23 Rx mcg/actuation nasal Congestion #16 grams spray,suspension apixaban 2.5 mg tablet (Eliquis) 2.5 mg PO BID #60 tabs 03/20/23 05/30/23 Rx atorvastatin 40 mg tablet 40 mg PO DAILY #90 tabs 04/05/23 05/30/23 Rx isosorbide mononitrate 30 mg 30 mg PO DAILY #90 tabs 04/05/23 05/30/23 Rx tablet,extended release 24 hr ipratropium 0.5 mg-albuterol 3 mg 3 ml inhalation Q8H PRN wheezing 04/20/23 05/30/23 Rx (2.5 mg base)/3 mL nebulization #180 mL soln triamcinolone acetonide 0.025 % 1 applic topical BID PRN dry skin 05/18/23 05/30/23 Rx topical ointment #454 grams linagliptin 5 mg tablet (Tradjenta) 5 mg PO DAILY #90 tabs 05/25/23 05/30/23 Rx bumetanide 2 mg tablet 4 mg PO BID 05/30/23 05/30/23 History nystatin 100,000 unit/gram topical 1 applic topical TID PRN .FLARES 05/30/23 05/30/23 History cream nystatin 100,000 unit/gram topical 1 applic topical BID PRN 05/30/23 05/30/23 History powder .IRRITATION Patient History Medical History (Updated 06/01/23 @ 12:01 by Yvan Robles PA-C) Vitamin D deficiency Stage 3b chronic kidney disease Fever Chronic kidney disease External hemorrhoids Candidiasis of mouth and esophagus Mucus plugging of bronchi Decubitus ulcer, buttock Chronic renal failure, stage 3a Acute hyponatremia COVID-19 (~01/17/23) Obstructive sleep apnea Atrial fibrillation, permanent Chronic diastolic CHF (congestive heart failure) CAD (coronary artery disease) Carotid atherosclerosis Mitral valve insufficiency and aortic valve insufficiency Spinal stenosis Tubular adenoma of colon Normocytic anemia Diabetes mellitus, type II GERD (gastroesophageal reflux disease) Hypertension Dyslipidemia Anemia Obstructive lung disease Reactive airway disease Asthma Hematuria (07/03/13) 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) Surgical History S/P shoulder surgery S/P cholecystectomy S/P cardiac catheterization S/P CABG (coronary artery bypass graft) Family History Sister Hypertension Colon cancer Other Prostate cancer Stroke Denies family history of Osteoporosis Myocardial infarction Breast cancer Social History Smoking Status: Never smoker Second Hand Exposure: No; Do You Dip or Chew Tobacco: No; Hx Alcohol Use: No Hx Substance Use: No Preferred Language: Senegalese Communication Ability: Effective Visual Impairment: No Limitations Hearing Ability: Normal Passenger Rate Clerk Required: No Beliefs That Will Affect Care: None marital status: / Current Living Situation: Family Current Living Situation Comment: Daughter and granddaughter current occupational status: 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 do You have: 2 Feels Safe at Home: Yes Childhood Exposure to Second-Hand Smoke: No Diet: regular Diet Comment: regular caffeine: Yes (Tea and soda) during the past year weight has: increased > 10 lbs Dental Care, Regularly: No Physical Activity Frequency: Daily Physical Activity Frequency Comment: walking in the house with walker Seatbelt Use: always Sunscreen Use: No Assistive Devices: Denture - Upper, Denture - Lower and Walker Review of Systems Review of Systems: All systems reviewed & are unremarkable except as noted in HPI & below Physical Exam Physical Exam: Patient declined further Physical exam. Constitutional: WD/WN, vitals as above Respiratory: normal respiratory effort Psychiatric: Orientation: alert and oriented x 3 Results & Data Vital Signs (Past 12 Hours) Vital Signs Temp Pulse Pulse Resp BP Pulse Ox O2 Del Method 06/01/23 07:46 98.1 F 43 L 16 172/66 H 94 Room Air 06/01/23 07:18 68 16 92 Room Air 06/01/23 03:24 97.7 F 42 L 18 162/61 H 93 Room Air 05/31/23 23:58 97.7 F 43 L 18 155/62 H 93 Room Air PG Care Time/CCT Total # of Minutes Spent Total Time Spent with Patient: Total time spent is greater than 50% in coordination of care (as documented) at patient's floor/unit and/or counseling patient: Coding Level of Care Code 64728 INT INP/OBS CARE MIN Diagnoses Occult blood positive stool R19.5
[2023-06-01] MEDS: amLODIPine BESYLATE 5 MG TAB PO ONE (12:29)
[2023-06-01] MEDS ORDERED: ACETAMINOPHEN 500 MG TAB PO PRN (17:34)
--- NOTE | 2023-06-01 18:02 | Communication Note ---
Date of Service: June 01, 2023 Confirmed with daughter patient had been taking metformin 500mg daily prior to admission and had been taking spironolactone 25mg daily (which was not on med rec, added) up until the day prior to admission. She reports that Enedina from CHF clinic rec to hold the spironolactone at that time day prior to admit and wanted them to f/u with [facility]/PCP about stopping his metformin. Discussed spironolactone STOPPED, likely contributed to elevated K and would not resume at discharge. Would also DISCONTINUE metformin josefina given worsened renal function
[2023-06-02 05:23] LABS: Basophils # (auto) 0.01 K/uL (0.00-0.20); Basophils % (auto) 0.1 %; Eosinophils # (auto) 0.31 K/uL (0.00-0.50); Eosinophils % (auto) 2.7 %; Hematocrit (blood only) 24.9 % (42.0-52.0); Hemoglobin 8.1 g/dl (14.0-18.0); Immature Granulocytes # (auto) 0.06 K/uL (0.01-0.20); Immature Granulocytes % (auto) 0.5 %; Lymphocytes # (auto) 1.12 K/uL (1.20-3.40); Lymphocytes % (auto) 9.7 %; Mean Corpuscular Hemoglobin 27.1 pg (25.0-34.0); Mean Corpuscular Hgb Conc 32.5 g/dL (32.0-36.0); Mean Corpuscular Volume 83.3 fL (80.0-100.0); Mean Platelet Volume 8.8 fL (9.4-12.4); Monocytes % (auto) 9.5 %; Neutrophils # (auto) 8.93 K/uL (1.40-6.50); Neutrophils % (auto) 77.5 %; Platelet Count 213 K/uL (130-400); RDW Coefficient of Variation 15.3 % (11.5-14.5); RDW Standard Deviation 45.7 fL (36.4-46.3); Red Blood Count 2.99 M/uL (4.70-6.10); White Blood Count 11.53 K/ul (4.8-10.8)
[2023-06-02 05:29] LABS: Albumin Globulin Ratio 1.2 (0.9-2); Albumin Level 2.8 gm/dl (3.4-5.0); BUN Creatinine Ratio 40.3 (10-20); Bilirubin,Total 0.6 mg/dl (0.2-1.0); Calcium 8.4 mg/dl (8.6-10.3); Creatinine Clr Calc Pharmacy 18.6 ml/min; Est GFR (African American) 25.4 ml/min; Est GFR (Non-African American) 21.9 ml/min; Globulin 2.3 gm/dl (2.5-4.0); Magnesium 2.8 mg/dl (1.7-2.4); Potassium 4.5 mmol/L (3.5-5.1); Total Protein 5.1 gm/dl (6.0-8.3)
[2023-06-02 05:50] LABS: INR 1.2 (0.9-1.1); Prothrombin Time 13.2 Seconds (9.0-12.0)
--- NOTE | 2023-06-02 07:35 | Hospitalist Progress Note ---
Date of Service June 02, 2023 Assessment & Plan (1) Comfort measures only status: Plan: Had discussed wound cx w/ daughter/switching abx to Cefepime, however was able to have meeting with palliative this morning 06/02 to discuss goals of care/poor prognosis and poor quality of life at present time given patient wishes to NOT have any HD given his advanced acute on chronic CKD w/ associated heart failure We did initially switch to Cefepime, got one dose, however family and patient wanting to focus on comfort and ABx DISCONTINUED. No further medications except for comfort. Patient/family ok w/ no further breathing treatments as they have not been effective for symptom control Supplemental O2 as needed for comfort Dilaudid 0.5mg IV prn, haldol prn, robinul IV prn, ativan and tylenol made available Patient comfortable during encounter/evaluation w/ family at bedside following pallitive discussion Diet as tolerated/wanted. Remaining inpatient however did discuss w/ family and CM if remaining relatively stable could look into placement for hospice/palliative care this upcoming week however will continue to monitor over weekend. Patient and family ok w/ passing in hospital if has more rapid decline over this weekend. (2) Acute kidney injury superimposed on CKD: Plan: Sent to the ED from the wound care clinic this am after being found to have progressive swelling, new anemia with Hgb of 7.3, and suki on CKD OF NOTE, PATIENT WAS ALSO ON SPIRONOLACTONE 25mg DAILY as well as METFORMIN prior to admission as well, likely worsening hyperkalemia on admission BUN/Cr elevated to 105/2.77 w/ baseline CKD 3a w/ Cr 1.7-1.8 in the setting of NSAID use/diuretics/decreased PO intake CTAP w/o evidence for retroperitoneal bleed/pelvic hematoma Given hx CAD/CAGB, transfusion threshold decreased to <7 s/p 2u PRBC for hgb 6.6 GIven bumex 2mg IV w/ PRBC, additional 2mg IV on 05/31 and held further ECHO w/ normal LV systolic function/EF, however mold AR, mild MR, mild-mod TR. RVSP elevated 50-60mmHg. RV systolic function reduced Garsia in place Cr to 2.5 today,making urine. AMlodipine 5mg daily for BP as able to take K stabilized MOVING TOWARDS COMFORT ABOVE, Venofer cancelled, renal medications (3) Wound, open, leg: Plan: Chronic BL LE wounds and sacral wounds due to venous stasis and immobility , sent over by wound care provider - imaging in chart - see H&P for details Cx obtained 05/31, Ceftriaxone started Cx now w/ MSSA/pseudomonas and changed to Cefepime and given one dose cautiously w/ plans to switch to FLQ for tomorrow if WBC improved however moving towards comfort and patient/family NOT wanting further abx continued EHOB mattress, turn/reposition for comfort Pain control as above (4) Anemia: Plan: Eliquis on hold on admission s/p 2u PRBC B12 PO replacement started for B12 237. Folate 5.6 +FECAL OCCULT blood testing 06/01, GI consulted and remained on PPI PO Have been given Venofer x 3 doses, discontinuing further meds per wishes as above moving to comfort (5) Hyperkalemia: Plan: K to max 5.8, Lokelma x 3 doses, IV meds w/ dextrose/insulin/ca gluconate provided x 2 prior and normalized/K wnl on repeat No further Lokelma/meds as above (6) Fluid overload: Plan: 2nd to RHF, low albumin, anemia, underlying GIB. 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 chronic levels on admission Multifactorial as above TSH 1.0, wnl Checked T4/t3 given deven. T3 slightly low but discussed w/ supervising provider and would not start supplementation Bumex/PRBC/PPI as above, now discontinued. Na 132 on last check. No further lab draws (10) Elevated troponin: Plan: Initial high sen trop elevated at 30, repeat 31.8, 32.7 and relatively flat. Suspect 2nd to above, demand ischemia in setting of SUKI/possible LE cellulitis infection and anemia PRBC/Venofer/diuretics as outlined Repeat ECHO w/o wma EKG w/ CP DENIES CHEST PAIN AT PRESENT Continued telemetry monitoring -- now stopping given comfort (11) CAD (coronary artery disease): Plan: Denies chest pain presently Remains on statin, eliquis on hold as above for anemia/fecal occult + Not on BB suspected due to resting HR w/ afib in the 40-50s (12) Diabetes mellitus, type II: Plan: Holding oral meds, BSG AC/HS while inpatient and pharmacy has been consulted for assistance. Appreciated --> stopping additional medications, diet as tolerated per wishes (13) Chronic a-fib: Plan: Rate controlled/deven, rates in 40-50s. Eliquis held, +FOCB testing. Now discontinued (14) Obstructive sleep apnea: Plan: Is non-compliant with HS CPAP per family -- should be encouraged however has declined prior. can f/u discussions presently on room air and reported breathing improved compared to day prior NEBS stopped Supplemental O2 as needed, 90% on RA presently (15) CKD (chronic kidney disease), stage III: Plan: acute on chronic CKD w/ elevated Cr on admission as outlined #1 renal function not worse and actually improved w/ holding diuretics No further lab checks -- meds as above for comfort w/ Dilaudid rather than morphine given underlying renal impairment (16) Acute on chronic heart failure with preserved ejection fraction: Plan: as outlined above, no further bumex for today per discussion with nephrology (was provided 2mg IV 05/31 for gentle diuresis, was provided 2mg IV w/ PRBC on admission) ECHO as outlined above Doesn't appear significantly volume overloaded at present however w/ some third spacing/low albumin (did get albumin on admission) No further diuretics, home meds now discontinued (17) Vitamin D deficiency: Plan: checked given CKD -- LOW at 17.3 PO supplementation started 05/31, continued -- now stopped (18) Occult blood positive stool: Plan: + testing as above, Eliquis remains on hold. unlikely any intervention and attempting to medically manage at present and remains on PPI BID GI consulted for completeness/further recommendations no intervention, wanting PPI/meds discontinued (19) Weakness generalized: Plan: as above, moving towards comfort Plan Patient is DNR/DNI, daughters POA. Not interested in HD POAs Funmi/Shena updated at bedside, on board w/ comfort care. CM updated and following Continued inpatient stay. Pending status through weekend/if relatively stable and wanting closer to home CM working on arrangements. Otherwise will continue inpatient during this time - suspect limited time given discontinuation of medications as outlined in plan Downgrade off telemetry Admission and Anticipated Discharge Date Admission Date: May 30, 2023 Supervising Physician Co-Signing Physician Notes The patient was not seen by me. The chart was reviewed. Case discussed with CELESTINO Cobos. Agree with assessment and plan Subjective Eval this morning, had meeting with palliative. Daughters/granddaughters at bedside. Decision to move to comfort measures only given poor prognosis/quality of life. Palliative placing orders, family agrees w/ patient to stop further abx/etc as well. CM to discuss dispo planning if remaining stable but if further/worsened rapid decline will remain inpatient. Pain meds increased this morning, he reports he is currently comfortable. No CP/increased SOB and breathing stable on room air at present. Will update Dr Castro given transition to comfort. Questions/concerns addressed at this time. Physical Exam Physical Exam: General: 88yo male, chronically ill appearing/fatigued/generalized pallor, sitting up in bed, appearing comfortable and reports just got something for pain, NAD, family at bedside (2 daughters, 1 granddaughter) Head atraumatic, normocephalic, hat in place, +JVD, trachea midline, slightly dry mm Resp: even/unlabored, diminished in the bases but no w/r, on room air CV: irregularly irregular, rates 40-50s, +systolic murmur, +lower/upper extremity edema (not worse) GI: +BS, soft/nontender ; garsia draining clear/slightly concentrated urine MSK/Neuro: generalized weakness but non focal, no slurred speech, answering questions appropriately Psych: alert to person, place/events, intermittent confusion at times/sleeping w/ medication Skin: b/l LE w/ wraps, no further drainage (see wound RN pictures) Results & Data Results & Data Vital Signs (Past 12 Hours) Vital Signs Temp Pulse Pulse Pulse Resp BP Pulse Ox 06/02/23 07:31 47 L 18 90 06/02/23 04:02 36.7 C 47 L 18 136/60 93 06/01/23 23:00 45 L 06/01/23 22:43 36.7 C 43 L 18 149/62 H 92 06/01/23 19:49 44 L 18 92 O2 Del Method 06/02/23 07:31 Room Air 06/02/23 04:02 Room Air 06/01/23 23:00 06/01/23 22:43 Room Air 06/01/23 19:49 Room Air Laboratory Results 06/02/23 06/02/23 06/01/23 Range/Units 08:18 04:50 20:36 WBC 11.53 H (4.8-10.8) K/ul RBC 2.99 L (4.70-6.10) M/uL Hgb 8.1 L (14.0-18.0) g/dl Hct 24.9 L (42.0-52.0) % MCV 83.3 (80.0-100.0) fL MCH 27.1 (25.0-34.0) pg MCHC 32.5 (32.0-36.0) g/dL RDW Std Deviation 45.7 (36.4-46.3) fL RDW Coeff of Roseann 15.3 H (11.5-14.5) % Plt Count 213 (130-400) K/uL MPV 8.8 L (9.4-12.4) fL Immature Gran % (Auto) 0.5 % Neut % (Auto) 77.5 % Lymph % (Auto) 9.7 % Leake % (Auto) 9.5 % Eos % (Auto) 2.7 % Baso % (Auto) 0.1 % Neut # (Auto) 8.93 H (1.40-6.50) K/uL Lymph # (Auto) 1.12 L (1.20-3.40) K/uL Leake # (Auto) 1.10 H (0.11-0.59) K/uL Eos # (Auto) 0.31 (0.00-0.50) K/uL Baso # (Auto) 0.01 (0.00-0.20) K/uL Immature Gran # (Auto) 0.06 (0.01-0.20) K/uL PT 13.2 H (9.0-12.0) Seconds INR 1.2 H (0.9-1.1) Sodium 132 L (136-145) mmol/L Potassium 4.5 (3.5-5.1) mmol/L Chloride 98 (98-107) mmol/L Carbon Dioxide 26 (21-32) mmol/L Anion Gap 8 (3-11) BUN 102 H (6-23) mg/dl Creatinine 2.53 H (0.6-1.4) mg/dl Est Cr Clr Drug Dosing 18.6 ml/min Est GFR ( Amer) 25.4 ml/min Est GFR (Non-Af Amer) 21.9 ml/min BUN/Creatinine Ratio 40.3 H (10-20) Glucose 108 H (70-99(Fasting)) mg/dl POC Glucose 110 H 159 H (70-99) mg/dl Calcium 8.4 L (8.6-10.3) mg/dl Magnesium 2.8 H (1.7-2.4) mg/dl Total Bilirubin 0.6 (0.2-1.0) mg/dl AST 9 L (13-39) U/L ALT 6 L (7-52) U/L Alkaline Phosphatase 104 (34-104) U/L Total Protein 5.1 L (6.0-8.3) gm/dl Albumin 2.8 L (3.4-5.0) gm/dl Globulin 2.3 L (2.5-4.0) gm/dl Albumin/Globulin Ratio 1.2 (0.9-2) 06/01/23 Range/Units 17:53 WBC (4.8-10.8) K/ul RBC (4.70-6.10) M/uL Hgb (14.0-18.0) g/dl Hct (42.0-52.0) % MCV (80.0-100.0) fL MCH (25.0-34.0) pg MCHC (32.0-36.0) g/dL RDW Std Deviation (36.4-46.3) fL RDW Coeff of Roseann (11.5-14.5) % Plt Count (130-400) K/uL MPV (9.4-12.4) fL Immature Gran % (Auto) % Neut % (Auto) % Lymph % (Auto) % Leake % (Auto) % Eos % (Auto) % Baso % (Auto) % Neut # (Auto) (1.40-6.50) K/uL Lymph # (Auto) (1.20-3.40) K/uL Leake # (Auto) (0.11-0.59) K/uL Eos # (Auto) (0.00-0.50) K/uL Baso # (Auto) (0.00-0.20) K/uL Immature Gran # (Auto) (0.01-0.20) K/uL PT (9.0-12.0) Seconds INR (0.9-1.1) Sodium (136-145) mmol/L Potassium (3.5-5.1) mmol/L Chloride (98-107) mmol/L Carbon Dioxide (21-32) mmol/L Anion Gap (3-11) BUN (6-23) mg/dl Creatinine (0.6-1.4) mg/dl Est Cr Clr Drug Dosing ml/min Est GFR ( Amer) ml/min Est GFR (Non-Af Amer) ml/min BUN/Creatinine Ratio (10-20) Glucose (70-99(Fasting)) mg/dl POC Glucose 151 H (70-99) mg/dl Calcium (8.6-10.3) mg/dl Magnesium (1.7-2.4) mg/dl Total Bilirubin (0.2-1.0) mg/dl AST (13-39) U/L ALT (7-52) U/L Alkaline Phosphatase (34-104) U/L Total Protein (6.0-8.3) gm/dl Albumin (3.4-5.0) gm/dl Globulin (2.5-4.0) gm/dl Albumin/Globulin Ratio (0.9-2) PG Care Time/CCT Total # of Minutes Spent Total Time Spent with Patient: Total time spent is greater than 50% in coordination of care (as documented) at patient's floor/unit and/or counseling patient: Coding Level of Care Code 10635 SUB INP/OBS CARE 3/50MIN Diagnoses Comfort measures only status Z51.5 Acute kidney injury superimposed on CKD N17.9; N18.9 Wound, open, leg S81.913S Encounter type: initial encounter Laterality: unspecified laterality Anemia D64.9 Anemia type: unspecified type Hyperkalemia E87.5 Fluid overload E87.70 Hypervolemia type: unspecified 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 L89.323 Hypertension I10 Hyponatremia E87.1 Elevated troponin R79.89 CAD (coronary artery disease) I25.10 Diabetes mellitus, type II E11.9 Diabetes mellitus complication status: with circulatory complication Diabetes mellitus alf insulin use: without field support specialist use Chronic a-fib I48.20 Obstructive sleep apnea G47.33 CKD (chronic kidney disease), stage III N18.30 Acute on chronic heart failure with preserved ejection fraction I50.33 Vitamin D deficiency E55.9 Occult blood positive stool R19.5 Weakness generalized R53.1 (3) Wound, open, leg Encounter type: initial encounter Laterality: unspecified laterality Qualified Code(s): S81.809A - Unspecified open wound, unspecified lower leg, initial encounter (4) Anemia Anemia type: unspecified type Qualified Code(s): D64.9 - Anemia, unspecified (6) Fluid overload Hypervolemia type: unspecified Qualified Code(s): E87.70 - Fluid overload, unspecified (12) Diabetes mellitus, type II Diabetes mellitus complication status: with circulatory complication Diabetes mellitus field support specialist insulin use: without field support specialist use
[2023-06-02] MEDS: amLODIPine BESYLATE 5 MG TAB PO SCH (08:14)
[2023-06-02] MEDS: HYDROmorphone INJ 0.5 MG/0.5 ML SYR IV PRN ×2 (08:17→12:45)
[2023-06-02] MEDS: HYDROmorphone INJ 0.5 MG/0.5 ML SYR ONE (08:54)
--- NOTE | 2023-06-02 08:55 | Nephrology Progress Note ---
Date of Service June 02, 2023 Assessment & Plan (1) Acute kidney injury superimposed on CKD: Plan: * 3rd spacing of volume related to hypoalbuminemia and pulmonary HTN. Patient has low EAV and is clinically volume contracted * Cr has improved from 2.8 to 2.5 over last 3 days. He remains nonoliguric off diuretic therapy * Avoid aggressive diuresis as patient is likely preload dependent * Patient has significant azotemia and advanced renal dysfunction. Office notes indicate that HD is not c/w with his goals of care. Therefore, continue conservative medical management. Family to meet w/ Palliative Care today * PRP, urinalysis in am (2) Hyponatremia: Plan: * Stable. Patient has chronic, asymptomatic hyponatremia w/ baseline Na 126-130 mmol/L (3) Anemia: Plan: * Transfused 1 unit PRBC 05/30/23 and 1 unit PRBC 05/31/23 * 05/31/23 iron saturation 21%, ferritin 39 * Venofer 300 mg IV daily (Day #3 of 4) * FOBT + 06/01/23. Gastroenterology recommended PPI therapy. 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 Restrepo was evaluated in his hospital room this morning. His daughters Shena and Funmi were present at the time of my evaluation. Mr. Restrepo c/o pain from the ulcerative lesions on his legs and buttock. He denied dyspnea, angina or uremic symptoms Review of Systems Constitutional: no fever Eyes: no worsening vision Ear, Nose, Mouth, Throat: no problem reported Respiratory: no cough and no dyspnea Cardiovascular: no chest pain Gastrointestinal: no abdominal pain, no nausea, no vomiting and no diarrhea/loose stools Physical Exam Constitutional: + frail appearing; not in distress Eyes: PERRL, conjunctivae normal, anicteric sclerae ENMT: Mouth: + dry oral mucous membranes Neck: trachea midline, no thyromegaly Respiratory: normal respiratory effort, lungs clear to auscultation Cardiovascular: Rate/Rhythm: + irregularly irregular Vessels: no JVD Ex tremities: + edema (trace) Gastrointestinal (Abdomen): normal bowel sounds, soft, nontender, no hepatosplenomegaly Neurologic: awake (poor historian) Speech / Cognition: normal speech Psychiatric: Affect: euthymic affect Results & Data Vital Signs (Past 12 Hours) Vital Signs Temp Pulse Pulse Resp BP Pulse Ox O2 Del Method 06/02/23 07:31 47 L 18 90 Room Air 06/02/23 04:02 36.7 C 47 L 18 136/60 93 Room Air 06/01/23 23:00 45 L 06/01/23 22:43 36.7 C 43 L 18 149/62 H 92 Room Air Laboratory Results Laboratory Results - last 24 hr 06/01/23 06/01/23 06/01/23 08:36 12:35 17:53 WBC RBC Hgb Hct MCV MCH MCHC RDW Std Deviation RDW Coeff of Roseann Plt Count MPV Immature Gran % (Auto) Neut % (Auto) Lymph % (Auto) Hartley % (Auto) Eos % (Auto) Baso % (Auto) Neut # (Auto) Lymph # (Auto) Hartley # (Auto) Eos # (Auto) Baso # (Auto) Immature Gran # (Auto) PT INR Sodium Potassium Chloride Carbon Dioxide Anion Gap BUN Creatinine Est Cr Clr Drug Dosing Est GFR ( Amer) Est GFR (Non-Af Amer) BUN/Creatinine Ratio Glucose POC Glucose 193 H 151 H Calcium Magnesium Total Bilirubin AST ALT Alkaline Phosphatase Total Protein Albumin Globulin Albumin/Globulin Ratio Free T4 0.98 Free T3 2.25 L Stool Occult Bld Scrn 06/01/23 06/01/23 06/02/23 20:36 Unknown 04:50 WBC 11.53 H RBC 2.99 L Hgb 8.1 L Hct 24.9 L MCV 83.3 MCH 27.1 MCHC 32.5 RDW Std Deviation 45.7 RDW Coeff of Roseann 15.3 H Plt Count 213 MPV 8.8 L Immature Gran % (Auto) 0.5 Neut % (Auto) 77.5 Lymph % (Auto) 9.7 Hartley % (Auto) 9.5 Eos % (Auto) 2.7 Baso % (Auto) 0.1 Neut # (Auto) 8.93 H Lymph # (Auto) 1.12 L Hartley # (Auto) 1.10 H Eos # (Auto) 0.31 Baso # (Auto) 0.01 Immature Gran # (Auto) 0.06 PT 13.2 H INR 1.2 H Sodium 132 L Potassium 4.5 Chloride 98 Carbon Dioxide 26 Anion Gap 8 BUN 102 H Creatinine 2.53 H Est Cr Clr Drug Dosing 18.6 Est GFR ( Amer) 25.4 Est GFR (Non-Af Amer) 21.9 BUN/Creatinine Ratio 40.3 H Glucose 108 H POC Glucose 159 H Calcium 8.4 L Magnesium 2.8 H Total Bilirubin 0.6 AST 9 L ALT 6 L Alkaline Phosphatase 104 Total Protein 5.1 L Albumin 2.8 L Globulin 2.3 L Albumin/Globulin Ratio 1.2 Free T4 Free T3 Stool Occult Bld Scrn Positive A 06/02/23 08:18 WBC RBC Hgb Hct MCV MCH MCHC RDW Std Deviation RDW Coeff of Roseann Plt Count MPV Immature Gran % (Auto) Neut % (Auto) Lymph % (Auto) Hartley % (Auto) Eos % (Auto) Baso % (Auto) Neut # (Auto) Lymph # (Auto) Hartley # (Auto) Eos # (Auto) Baso # (Auto) Immature Gran # (Auto) PT INR Sodium Potassium Chloride Carbon Dioxide Anion Gap BUN Creatinine Est Cr Clr Drug Dosing Est GFR ( Amer) Est GFR (Non-Af Amer) BUN/Creatinine Ratio Glucose POC Glucose 110 H Calcium Magnesium Total Bilirubin AST ALT Alkaline Phosphatase Total Protein Albumin Globulin Albumin/Globulin Ratio Free T4 Free T3 Stool Occult Bld Scrn PG Care Time/CCT Total # of Minutes Spent Total Time Spent with Patient: Total time spent is greater than 50% in coordination of care (as documented) at patient's floor/unit and/or counseling patient: Coding Level of Care Code 57828 SUB INP/OBS CARE 3/50MIN Diagnoses Acute kidney injury superimposed on CKD N17.9; N18.9 Hyponatremia E87.1 Anemia D64.9 Anemia type: unspecified type Hypertension I10 Wound, open, leg S81.809A Encounter type: initial encounter Laterality: unspecified laterality 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
[2023-06-02] MEDS: CEFEPIME 2,000 MG in SYRINGE 0 ML IV ONE (10:01)
[2023-06-02] MEDS ORDERED: haloperidoL 1 MG TAB PO PRN (10:13)
--- NOTE | 2023-06-02 12:51 | Palliative Family Discussion ---
Date of Service June 02, 2023 Patient Directed Conference Time of [id number] Participants: Peggy Mccoy DNP Patient participation: yes Patient Support System: yes, dtrs Genesis and Shena - they are POAs Other Healthcare Provider Participation: None Meeting Location: bedside and also then in family waiting room Advanced Directive available: yes] If yes, descriptors: DNR/DNI, comfort focus, no Abtx, no HD, no ROB, no aggressive or escalating care A family meeting was held for HESHAM [employer]. This meeting was necessary for determining the appropriate course of treatment. Topics of Discussion Met with pt and family then again with family in meeting room Patient and family meeting x 15min bedside face to face then family in waiting room x 45 min face to face With everyone's consent and voluntary participation we discussed the medical issues to date. He is very clear he does not want HD or aggressive care He is worried about pain issues and feels this has not been improving. When asked if he would like more attention and focus on comfort/QOL with better pain mgt he replied yes Family share that they are no longer able to meet his needs at home, needs max assist with all ADLs, does not get OOB or chair without assist, they both work 10-12 hr days and for those times he is alone at home and stays in his chair or bed, no in home assistance. He is very high risk for falls. He is socially isolated. He has not been taking much PO for about a year and strength on steady decline. He cannot assist with transfers. He has become more than they can physically manage. He needs comfort focused care in SNF. They would like to discuss how that would look and options for same as well as costs. We discussed that he is transitioning from a process of living to a process of dying given the changes he has been experiencing and the overall persistent decline. HD will not improve his QOL or fix/reverse/cure the underlying comorbid issues. He has what he and family believe is already a poor QOL and he does not want a lower baseline. Multiple organ systems are failing: kidney, HF with rising RV systolic, increased fluid volume overload, skin breakdown with ulcerations and BLE wound, buttock wound, increasing FTT, weakness, Declining PS,etc Family admit they cannot care for him safely at home Would like comfort care at [facility], understand this may mean a "trial" of rehab for SNF coverage before MA is approved and he can convert to LTC and have hospice added. In d/w CM, [facility] can offer bed for either rehab trial or comfort but until MA approved, comfort care will be %390/day OOP. Family is thinking about this. We spoke about transitioning focus to comfort, QOL and sx mgt They are all in agreement the following was agreed upon: Comfort Care Discharge Summary & Plan of Care For Shelter/SNF/PCH/AMIE Patient Name: Hesham Means Comfort plan of care agreed upon by: pt and family/Dtr Lyubov Discussed with Patient/Family on: 06/02/23 Copy of this plan will be/has been given to:SNF Comfort plan of care parameters: 1. Patient/Family want hospice added to their care. 2. NO rehab/PT/OT unless a trial of rehab is required to faciltate placement 3. End of Life care only - focus on comfort 4. NO escalation of care: do not increase oxygen, escalate therapies, etc. The focus is on comfort through end of life, assure this is accomplished with aggressive symptom management (i.e. relief of dyspnea, pain, etc.) 5. NO return to hospital 6. NO labs, imaging, surgery 7. Oral intake as desired for comfort and pleasure: NO dietary restrictions 8. If difficulty urinating/commode/bedpan, ok to place Hernández catheter for comfort/hygiene/skin protection AND/OR Continue Hernández catheter for comfort/hygiene/skin protection 9. NO: calorie counts, artificial nutrition, feeding tubes or IV fluids Medications to continue are noted on discharge summary. Provider to contact if any questions about comfort plan of care: [facility] or designee TS 60min in face to face ACP separate from initial consult of same day [facility] HIGH, end of life and hospice discussions Thank you for allowing us to participate in the ongoing care of this patient. Please don't hesitate to call or page with any additional concerns. Dr. Peggy Mccoy DNP Director, Palliative Care
[2023-06-02] MEDS: LORazepam 0.5 MG in SYRINGE 0.25 ML IV PRN (18:37)
[2023-06-02] MEDS ORDERED: CEFEPIME 1,000 MG in SYRINGE 0 ML IV SCH (20:00)
--- NOTE | 2023-06-03 08:32 | Hospitalist Progress Note ---
Date of Service June 03, 2023 Assessment & Plan (1) Comfort measures only status: Plan: Had discussed wound cx w/ daughter/switching abx to Cefepime, however was able to have meeting with palliative this morning 06/02 to discuss goals of care/poor prognosis and poor quality of life at present time given patient wishes to NOT have any HD given his advanced acute on chronic CKD w/ associated heart failure We did initially switch to Cefepime, got one dose, however family and patient wanting to focus on comfort and ABx DISCONTINUED. No further medications except for comfort. Patient/family ok w/ no further breathing treatments as they have not been effective for symptom control Supplemental O2 as needed for comfort Dilaudid 0.5mg IV prn, haldol prn, robinul IV prn, ativan and tylenol made available Patient comfortable during encounter/evaluation w/ family at bedside following pallitive discussion Diet as tolerated/wanted. Remaining inpatient however did discuss w/ family and CM if remaining relatively stable could look into placement for hospice/palliative care this upcoming week however will continue to monitor over weekend. Patient and family ok w/ passing in hospital if has more rapid decline over this weekend. 06/03 -- Utilizing IV Dilaudid several doses, one dose IV ativan. Reports feeling comfortable. Garsia w/ continued UOP. Diet as tolerated. --Discussed w/ family expectant course/monitoring over weekend and reason for not doing additional labs and gauging stability for transport/dc to facility this upcoming week by exam but if continued decline over the weekend would be remaining inpatient. Family updated in room with patient AM 06/03 (2) Acute kidney injury superimposed on CKD: Plan: Sent to the ED from the wound care clinic this am after being found to have progressive swelling, new anemia with Hgb of 7.3, and suki on CKD OF NOTE, PATIENT WAS ALSO ON SPIRONOLACTONE 25mg DAILY as well as METFORMIN prior to admission as well, likely worsening hyperkalemia on admission BUN/Cr elevated to 105/2.77 w/ baseline CKD 3a w/ Cr 1.7-1.8 in the setting of NSAID use/diuretics/decreased PO intake CTAP w/o evidence for retroperitoneal bleed/pelvic hematoma Given hx CAD/CAGB, transfusion threshold decreased to <7 s/p 2u PRBC for hgb 6.6 GIven bumex 2mg IV w/ PRBC, additional 2mg IV on 05/31 and held further ECHO w/ normal LV systolic function/EF, however mold AR, mild MR, mild-mod TR. RVSP elevated 50-60mmHg. RV systolic function reduced Garsia in place, Cr was to 2.5.. K stabilized Amlodipine continued as able to take/wanting to take if any assistance w/ esophageal dysmotility/swallowing. Diet as able No further venofer/lab draws/renal meds as comfort now as able (3) Wound, open, leg: Plan: Chronic BL LE wounds and sacral wounds due to venous stasis and immobility , sent over by wound care provider - imaging in chart - see H&P for details Cx obtained 05/31, Ceftriaxone started Cx now w/ MSSA/pseudomonas and changed to Cefepime and given one dose cautiously w/ plans to switch to FLQ for tomorrow if WBC improved however moving towards comfort and patient/family NOT wanting further abx continued EHOB mattress, turn/reposition for comfort Pain control as above (4) Anemia: Plan: Eliquis on hold on admission s/p 2u PRBC B12 PO replacement started for B12 237 (now discontinued) Folate 5.6 +FECAL OCCULT blood testing 06/01, GI consulted and remained on PPI PO Had been given Venofer x 3 doses, discontinuing further meds per wishes as above moving to comfort (5) Hyperkalemia: Plan: K to max 5.8, Lokelma x 3 doses, IV meds w/ dextrose/insulin/ca gluconate provided x 2 prior and normalized/K wnl on repeat No further Lokelma/meds/labs draws as above (6) Fluid overload: Plan: 2nd to RHF, low albumin, anemia, underlying GIB. 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 bp 147/66 but do not need to keep checking (9) Hyponatremia: Plan: Na 128 w. chronic levels on admission Multifactorial as above TSH 1.0, wnl Checked T4/t3 given deven. T3 slightly low but discussed w/ supervising provider and would not start supplementation Bumex/PRBC/PPI as above, now discontinued. Na 132 on last check. No further lab draws (10) Elevated troponin: Plan: Initial high sen trop elevated at 30, repeat 31.8, 32.7 and relatively flat. Suspect 2nd to above, demand ischemia in setting of SUKI/possible LE cellulitis infection and anemia PRBC/Venofer/diuretics as outlined Repeat ECHO w/o wma EKG w/ CP DENIES CHEST PAIN AT PRESENT Dc'd telemetry monitoring (11) CAD (coronary artery disease): Plan: Denies chest pain presently Remained on statin initially, eliquis on hold as above for anemia/fecal occult + Not on BB suspected due to resting HR w/ afib in the 40-50s meds discontinued (12) Diabetes mellitus, type II: Plan: Holding oral meds, BSG AC/HS while inpatient and pharmacy has been consulted for assistance. Appreciated --> stopping additional medications, diet as tolerated per wishes (13) Chronic a-fib: Plan: Rate controlled/deven, rates in 40-50s. Eliquis held, +FOCB testing. Now discontinued (14) Obstructive sleep apnea: Plan: Is non-compliant with HS CPAP per family -- should be encouraged however has declined prior. can f/u discussions presently on room air and reported breathing improved compared to day prior NEBS stopped Supplemental O2 as needed for comfort, 90% on RA presently (15) CKD (chronic kidney disease), stage III: Plan: acute on chronic CKD w/ elevated Cr on admission as outlined #1 renal function not worse and actually improved w/ holding diuretics No further lab checks -- meds as above for comfort w/ Dilaudid rather than morphine given underlying renal impairment (16) Acute on chronic heart failure with preserved ejection fraction: Plan: as outlined above, no further bumex for today per discussion with nephrology (was provided 2mg IV 05/31 for gentle diuresis, was provided 2mg IV w/ PRBC on admission) ECHO as outlined above Doesn't appear significantly volume overloaded at present however w/ some third spacing/low albumin (did get albumin on admission) however expectant worsening off his home meds/etc as above (17) Vitamin D deficiency: Plan: checked given CKD -- LOW at 17.3 PO supplementation started 05/31 -- now stopped (18) Occult blood positive stool: Plan: + testing as above, Gay remains on hold. unlikely any intervention and attempting to medically manage at present and remains on PPI BID GI consulted for completeness/further recommendations no intervention, wanting PPI/meds discontinued (19) Weakness generalized: Plan: as above, moving towards comfort Plan Patient is DNR/DNI, daughters POA. Not interested in HD POAs Funmi/Shena updated at bedside 06/02, on board w/ comfort care. CM updated and following. Updated Funmi at bedside 06/03, continued inpatient stay Pending status through weekend/if relatively stable and wanting closer to home CM working on arrangements. Otherwise will continue inpatient during this time - suspect limited time given discontinuation of medications as outlined in plan Admission and Anticipated Discharge Date Admission Date: May 30, 2023 Supervising Physician Co-Signing Physician Notes The patient was not seen by me. The chart was reviewed. Case discussed with CELESTINO Cobos. Agree with assessment and plan Subjective Eval this morning, resting in bed. Reports pain controlled at present, thinks doing ok. Daughter and granddaughter at bedside. Discussed no labs/monitoring based on physical exam over weekend prior to making determination on Monday about stability for dc if that is the case but remaining inpatient for now. Breathing stable - did have a little coughing w/ PO intake. To be allowed as wanted/tolerated. Going to get strawberry milkshake this afternoon. Garsia w/ yellow but concentrated urine. TO change dressings as needed for comfort/saturation. Questions/concerns addressed at this time. Physical Exam Physical Exam: General: 88yo chronically ill appearing male, resting in bed, fatigued appearing , provided sip of tea, family at bedside Head atraumatic, normocephalic, mm slightly dry (improved w/ sip of fluids) Resp even/unlabored however diminished in the bases, faint exp wheeze, no rales, on room air CV: irregularly irregular, rates 40s, +systolic murmur, LE edema around bas brady/not worse GI: +BS/soft/nt : garsia w/ concentrated but yellow urine MSK/Neuro: generalized weakness but nonfocal, follows commands as able Psych: alert to person/place/event, fatigued appearing Skin: b/l LE in wraps (see wound RN pictures from day prior) Results & Data Results & Data Vital Signs (Past 12 Hours) Vital Signs O2 Del Method 06/03/23 02:00 Room Air PG Care Time/CCT Total # of Minutes Spent Total Time Spent with Patient: Total time spent is greater than 50% in coordination of care (as documented) at patient's floor/unit and/or counseling patient: Coding Level of Care Code 11951 SUB INP/OBS CARE 2/35MIN Diagnoses Comfort measures only status Z51.5 Acute kidney injury superimposed on CKD N17.9; N18.9 Wound, open, leg S81.809A Encounter type: initial encounter Laterality: unspecified laterality Anemia D64.9 Anemia type: unspecified type Hyperkalemia E87.5 Fluid overload E87.70 Hypervolemia type: unspecified 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 L89.323 Hypertension I10 Hyponatremia E87.1 Elevated troponin R79.89 CAD (coronary artery disease) I25.10 Diabetes mellitus, type II E11.9 Diabetes mellitus complication status: with circulatory complication Diabetes mellitus mcfp insulin use: without mcfp use Chronic a-fib I48.20 Obstructive sleep apnea G47.33 CKD (chronic kidney disease), stage III N18.30 Acute on chronic heart failure with preserved ejection fraction I50.33 Vitamin D deficiency E55.9 Occult blood positive stool R19.5 Weakness generalized R53.1 (3) Wound, open, leg Encounter type: initial encounter Laterality: unspecified laterality Qualified Code(s): S81.809A - Unspecified open wound, unspecified lower leg, initial encounter (4) Anemia Anemia type: unspecified type Qualified Code(s): D64.9 - Anemia, unspecified (6) Fluid overload Hypervolemia type: unspecified Qualified Code(s): E87.70 - Fluid overload, unspecified (12) Diabetes mellitus, type II Diabetes mellitus complication status: with circulatory complication Diabetes mellitus appellate court clerk insulin use: without mcfp use
[2023-06-03] MEDS: LORazepam 0.5 MG in SYRINGE 0.25 ML IV SCH (21:37)
[2023-06-03] MEDS: HYDROmorphone INJ 0.5 MG/0.5 ML SYR IV SCH (21:37)
--- NOTE | 2023-06-04 02:34 | Communication Note ---
Family requesting Ativan and Dilaudid be changed from prn to scheduled. Pt is currently on comfort measures. While Mr. Restrepo is able to communicate he is not alert or orientated. Family notes that he is unable to ask for medications, but they note that he has been complaining of pain and has periods where he is agitated. Daughter was at bedside. Spoke with her and discussed risk of s edation and she understood. She said the current doses of medications have worked well for both pain and agitation without significant sedating effects. Order updated. Date of Service: June 04, 2023
--- NOTE | 2023-06-04 11:24 | Hospitalist Progress Note ---
Date of Service June 04, 2023 Assessment & Plan (1) Comfort measures only status: Plan: Had discussed wound cx w/ daughter/switching abx to Cefepime, however was able to have meeting with palliative this morning 06/02 to discuss goals of care/poor prognosis and poor quality of life at present time given patient wishes to NOT have any HD given his advanced acute on chronic CKD w/ associated heart failure We did initially switch to Cefepime, got one dose, however family and patient wanting to focus on comfort and ABx DISCONTINUED. No further medications except for comfort. Patient/family ok w/ no further breathing treatments as they have not been effective for symptom control Supplemental O2 as needed for comfort Dilaudid 0.5mg IV prn, haldol prn, robinul IV prn, ativan and tylenol made available Patient comfortable during encounter/evaluation w/ family at bedside following pallitive discussion Diet as tolerated/wanted. Remaining inpatient however did discuss w/ family and CM if remaining relatively stable could look into placement for hospice/palliative care this upcoming week however will continue to monitor over weekend. Patient and family ok w/ passing in hospital if has more rapid decline over this weekend. 06/03 -- Utilizing IV Dilaudid several doses, one dose IV ativan. Reports feeling comfortable. Garsia w/ continued UOP. Diet as tolerated. --Discussed w/ family expectant course/monitoring over weekend and reason for not doing additional labs and gauging stability for transport/dc to facility this upcoming week by exam but if continued decline over the weekend would be remaining inpatient. Family updated in room with patient AM 06/03 06/04 --> Medications for Ativan/Dilaudid made scheduled for comfort given decreased mentation/ability to ask for medications. Appearing comfortable during encounter with family at bedside. Support provided during this time. Grandson coming to see him from [facility] this evening. No PO intake has been accomplished w/ decreased mentation --> Discussed w/ family will plan to continue inpatient stay and expectant passing away in hospital in next 24/48hours (2) Acute kidney injury superimposed on CKD: Plan: as above, no further meds/interventions as moving to comfort (3) Wound, open, leg: Plan: EHOB mattress, turn/reposition as needed for comfort. abx since discontinued for +wound cx earlier in stay Pain control as above (4) Anemia: Plan: Eliquis on hold on admission, given 2u PRBC and PO B12 replacement. 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 Lokemla/meds provided upfront w/ normalization in K but further interventions stopped/did not want to consider HD Comfort measures (6) Fluid overload: Plan: 2nd to RHF, low albumin, anemia, underlying GIB. 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 chronic levels on admission Multifactorial as above TSH 1.0, wnl Checked T4/t3 given deven. T3 slightly low but discussed w/ supervising provider and would not start supplementation Bumex/PRBC/PPI as above, now discontinued. Na 132 on last check. No further lab draws (10) Elevated troponin: Plan: Initial high sen trop elevated at 30, repeat 31.8, 32.7 and relatively flat. Suspect 2nd to above, demand ischemia in setting of SUKI/possible LE cellulitis infection and anemia PRBC/Venofer/diuretics as outlined Repeat ECHO w/o wma EKG w/ CP DENIES CHEST PAIN AT PRESENT Dc'd telemetry monitoring (11) CAD (coronary artery disease): Plan: Denies chest pain presently Remained on statin initially, eliquis on hold as above for anemia/fecal occult + Not on BB suspected due to resting HR w/ afib in the 40-50s meds discontinued (12) Diabetes mellitus, type II: Plan: Holding oral meds, BSG AC/HS while inpatient and pharmacy has been consulted for assistance. Appreciated --> stopped additional medications, diet as tolerated per wishes - no intake (13) Chronic a-fib: Plan: Rate controlled/deven, rates in 40-50s. Eliquis held, +FOCB testing. Now discontinued (14) Obstructive sleep apnea: Plan: Is non-compliant with HS CPAP per family -- should be encouraged however has declined prior. can f/u discussions presently on room air and reported breathing improved compared to day prior NEBS stopped Supplemental O2 as needed for comfort, on RA presently (15) CKD (chronic kidney disease), stage III: Plan: acute on chronic CKD w/ elevated Cr on admission as outlined #1 renal function not worse and actually improved w/ holding diuretics No further lab checks -- meds as above for comfort w/ Dilaudid rather than morphine given underlying renal impairment (16) Acute on chronic heart failure with preserved ejection fraction: Plan: as outlined above, no further bumex for today per discussion with nephrology (was provided 2mg IV 05/31 for gentle diuresis, was provided 2mg IV w/ PRBC on admission) ECHO as outlined above Didn't appear significantly volume overloaded however w/ some third spacing/low albumin (did get albumin on admission) however expectant worsening off his home meds/etc as above (17) Vitamin D deficiency: Plan: checked given CKD -- LOW at 17.3 PO supplementation started 05/31 -- now stopped (18) Occult blood positive stool: Plan: + testing as above, Eliquis remains on hold. unlikely any intervention and attempting to medically manage at present and remains on PPI BID GI consulted for completeness/further recommendations no intervention, wanting PPI/meds discontinued (19) Weakness generalized: Plan: as above, moving towards comfort Plan continued inpatient stay. family w/ POA x 2 updated at bedside w/ granddaughter present. support provided likely will pass in the hospital Admission and Anticipated Discharge Date Admission Date: May 30, 2023 Supervising Physician Co-Signing Physician Notes The patient was not seen by me. The chart was reviewed. Case discussed with CELESTINO Cobos. Agree with assessment and plan Subjective Evaluated this morning, family at bedside. Medications scheduled, appearing comfortable. Decreased level of consciousness, just given ativan about 5 minutes prior. Breathing stable/unlabored. Grandson coming from [facility] this afternoon. No PO intake. Decreased UOP. Discussed expectant course/likely do not expect more than 24-48 hours at this time and will continue inpatient stay. Support provided. Questions addressed. Physical Exam Physical Exam: General: 88yo chronically ill appearing male, sleeping in bed, decreased mentation due to medications for comfort but in no acute distress, family at bedside mm dry, trachea midline, no increased secretions, pupils equal in size/reactive to light resp even/unlabored, RR 14, on room air, no distress cv irregularly irregular, rates 40s, baseline LE edema garsia w/ decreased output but still yellow urine at present time Psych; not alert, allowed to sleep PG Care Time/CCT Total # of Minutes Spent Total Time Spent with Patient: Total time spent is greater than 50% in coordination of care (as documented) at patient's floor/unit and/or counseling patient: Coding Level of Care Code 80654 SUB INP/OBS CARE 2/35MIN Diagnoses Comfort measures only status Z51.5 Acute kidney injury superimposed on CKD N17.9; N18.9 Wound, open, leg S81.809A Encounter type: initial encounter Laterality: unspecified laterality Anemia D64.9 Anemia type: unspecified type Hyperkalemia E87.5 Fluid overload E87.70 Hypervolemia type: unspecified 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 L89.323 Hypertension I10 Hyponatremia E87.1 Elevated troponin R79.89 CAD (coronary artery disease) I25.10 Diabetes mellitus, type II E11.9 Diabetes mellitus complication status: with circulatory complication Diabetes mellitus retirement insulin use: without terminal block assembler use Chronic a-fib I48.20 Obstructive sleep apnea G47.33 CKD (chronic kidney disease), stage III N18.30 Acute on chronic heart failure with preserved ejection fraction I50.33 Vitamin D deficiency E55.9 Occult blood positive stool R19.5 Weakness generalized R53.1 (3) Wound, open, leg Encounter type: initial encounter Laterality: unspecified laterality Qualified Code(s): S81.809A - Unspecified open wound, unspecified lower leg, in itial encounter (4) Anemia Anemia type: unspecified type Qualified Code(s): D64.9 - Anemia, unspecified (6) Fluid overload Hypervolemia type: unspecified Qualified Code(s): E87.70 - Fluid overload, unspecified (12) Diabetes mellitus, type II Diabetes mellitus complication status: with circulatory complication Diabetes mellitus retirement insulin use: without terminal block assembler use
[2023-06-04] MEDS: HYDROmorphone INJ 0.5 MG/0.5 ML SYR IV SCH (17:58)
[2023-06-04] MEDS: LORazepam 0.5 MG in SYRINGE 0.25 ML IV PRN (20:03)
--- NOTE | 2023-06-05 08:21 | Hospitalist Progress Note ---
Date of Service June 05, 2023 Assessment & Plan Admission and Anticipated Discharge Date Admission Date: May 30, 2023 Subjective Eval this morning, family at bedside. Increased needs overnight/moaning this morning. Discussed w/ palliative and starting dilaudid drip. Patient w/ mottling of the lower extremities, not responsive. Breathing unlabored however having some agonal breathing at times/apnea at times. Some oral secretions and will have nursing provide does of rubinol as well. Discussed course/to alert of any distress or need for adjustment to medications but suspect 24 hours or less. PG Care Time/CCT Total # of Minutes Spent Total Time Spent with Patient: Total time spent is greater than 50% in coordination of care (as documented) at patient's floor/unit and/or counseling patient: Coding
[2023-06-05] MEDS ORDERED: HYDROmorphone INJ 0.5 MG/0.5 ML SYR IV PRN (08:36)
[2023-06-05] MEDS ORDERED: HYDROmorphone BOLUS from BAG IV PRN (09:24)
[2023-06-05] MEDS: HYDROmorphone/NSS 100 MG/100 ML BAG IV STA (10:32)
[2023-06-05] MEDS: GLYCOPYRROLATE 0.2 MG/ML VIAL IV PRN (10:35)
--- NOTE | 2023-06-05 11:30 | Discharge Summary ---
Date of Service June 05, 2023 Admission HPI Per Admitting Provider Patric is an 88 year old male with a PMH significant for Stage 3B CKD baseline creatinine 1.7-1.8 mg/dl, systolic/diastolic CHF (LVEF WNL as of 06/25/22), atrial fibrillation (on Eliquis), multivessel CAD status post CABG 3, ischemic cardiomyopathy, aortic and mitral regurgitation, hypertension, DMII, chronic BL LE swelling with venous stasis ulcers who was sent to the [facility] ED from the wound care clinic due to concerns for progressive swelling including his upper extremities. He remained stable in the ED. Labs were significant for a Hgb of 7.3 (down from 11 as of 03/13/23), RBC of 2.82, HCT of 23, MCHC of 30, MCV of 84, INR of 1.2, Cr of 2.77, BUN of 105, sodium of 128, potassium of 5.3, calcium of 8.2, mag of 2.6, initial high sen trop of 30, BNP of 525, and covid 19 negative. Chest xray was read as "1. Small right pleural effusion has progressed. 2. Cardiomegaly and mild congestive change.". Prior to admission the patient was given 80 mg IV pantoprazole, 25 mcg Iv fentanyl, and 25 mg albumin. At the time of the exam the patient was sitting in bed in no acute distress, he does appear fatigued and weak. History was mainly obtained from his daughters who were sitting bedside. They state that they were seen at the [facility] this am for initial intake exam for his chronic BL LE and sacral ulcers. The wound clinic sent him to the ED due to his new anemia and worsening renal function. They state that the patient has been having a progressive clinical decline since March. Increased weakness, decreased PO intake, significant LE edema and increased LE pain due to swelling. They state that his LE pain has been worse over the past 2 weeks. Because of this he has been requiring frequent doses of NSAID's, especially at night. They deny the patient having recent fever or chills, they deny joslyn bloody BM's but can't confirm for sure he has been without melena as he usually flushes the toilet before they can see. When asked, the patient denies chest pain, cough, SOB, abd pain, nausea, vomiting, dysuria hematuria. His Daughters state that the patient has been urinating less frewuently over the past 48-72 hours. He has not had recent falls or trauma. We discussed code status, they explain that he has a DNR/DNI, both daughters are his POA's. They also clearly state that the patient would NOT want dialysis if his renal function were to continue to decline. Please refer to Dr. Israel's attestation for any changes to the treatment plan Principal Diagnosis Cardiorenal syndrome in setting of right sided heart failure, hyperkalemia, acute on chronic CKD Discharge Exam no response to verbal/physical stimuli pupils fixed/dilated no pulses, no heart sounds, no respirations Discharge Data Allergies Allergy/AdvReac Type Severity Reaction Status Date / Time lisinopril AdvReac Intermediate cough Verified 05/30/23 09:12 Consultations 05/30/23 12:22 ED Decision to Admit Stat 05/30/23 13:11 Consult Nephrology Routine 05/31/23 11:21 Consult Palliative Care Routine 06/01/23 11:35 Consult Gastroenterology Routine Ordered Studies Chest X-Ray 05/30/23 11:02 XR chest 1V portable HISTORY: Weakness. COMPARISON: Chest 03/13/2023. FINDINGS: The heart remains enlarged. There are poststernotomy changes. No pneumothorax. Small right pleural effusion has progressed. There is mild central pulmonary vascular congestion without overt edema. Left basilar linear densities favor subsegmental atelectasis. Degenerative changes within the shoulders. No new focal lung consolidations to suggest a pneumonia. IMPRESSION: 1. Small right pleural effusion has progressed. 2. Cardiomegaly and mild congestive change. ACT 112: Negative or not required by law. Electronically signed by: Carlos Moreira M.D. 05/30/2023 11:56 AM Abdomen/Pelvis CT 05/30/23 13:[address] WITHOUT CONTRAST CT DOSE: 1206.09 mGy.cm HISTORY: Anemia unknown origin, acute on chronic kidney disease. TECHNIQUE: Multiaxial CT images of the abdomen and pelvis were performed without contrast. A dose lowering technique was utilized adhering to the principles of ALARA. COMPARISON STUDY: Abdomen and pelvis CT 06/17/2021. FINDINGS: There is a small right pleural effusion. Right lower lobe densities favor compressive atelectasis from the pleural effusions. The left lung base is clear. No pneumoperitoneum. No pneumatosis. No acute fractures. There are poststernotomy changes. The heart remains enlarged. Decreased density within the blood pool consistent the patient's history of anemia. Tiny fat-containing umbilical hernia. Small fat-containing bilateral inguinal hernias. Prior cholecystectomy. The unenhanced liver, spleen, adrenal glands, and pancreas are unremarkable. There is a stable 17 mm left parapelvic renal cyst. No renal or ureteral stones. No hydronephrosis. Calcified plaque within the normal caliber abdominal aorta. No retroperitoneal or pelvic hematoma. No lymphadenopathy identified. Moderate to severe bladder distention. No bladder wall thickening. Normal prostate gland. Suboptimal evaluation for bowel pathology due to the lack of intravenous and oral contrast. However, there is no definite bowel wall thickening or obstruction. Normal appendix. Colonic diverticulosis. No evidence for acute diverticulitis. Mild body wall edema. Stable small hypodense lesion within the lower pole of the right kidney. This is incompletely characterized on this noncontrast study but favors a cyst. IMPRESSION: 1. Small right pleural effusion. 2. Decreased density within the blood pool consistent with the patient's history of anemia. 3. No retroperitoneal or pelvic hematoma. 4. Distended bladder. 5. No bowel wall thickening or obstruction. 6. Additional findings as described above. ACT 112: Negative or not required by law. Electronically signed by: Carlos Moreira M.D. 05/30/2023 2:08 PM Hospital Course (1) Acute kidney injury superimposed on CKD: Sent to the ED from the wound care clinic after being found to have progressive swelling, new anemia with Hgb of 7.3, and suki on CKD w/ hyperkalemia in patient who expressed wishes AGAINST dialysis. Nephrology was consulted, medications were provided to improve renal function/electrolytes, PRBC/Venofer and antibiotics without significant improvement and further discussion with wishes/quality of life and consultation with palliative care to make patient comfort measures only. Patient was transitioned to medications for comfort/further medications discontinued and patient was made comfortable during this time with dilaudid/ativan/robinul as needed and family was at bedside during his passing and reported he appeared to be very comfortable and at rest during this time. (2) Comfort measures only status: As above, initially did receive treatment but given poor prognosis and likely need for HD without patient wanting to do so and was allowed to be made comfortable as above (3) Wound, open, leg: w/ cellulitis/drainage abx initially/switched to cefepime given cx but made comfort as above (4) Anemia: Eliquis on hold on admission, given 2u PRBC and PO B12 replacement. 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 Lokemla/meds provided upfront w/ normalization in K but further interventions stopped/did not want to consider HD Comfort measures (6) Fluid overload: 2nd to RHF, low albumin, anemia, underlying GIB. 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 chronic levels on admission Multifactorial as above TSH 1.0, wnl Checked T4/t3 given deven. T3 slightly low but discussed w/ supervising provider and would not start supplementation Bumex/PRBC/PPI as above, now discontinued. Na 132 on last check. No further lab draws (10) Elevated troponin: Initial high sen trop elevated at 30, repeat 31.8, 32.7 and relatively flat. Suspect 2nd to above, demand ischemia in setting of SUKI/possible LE cellulitis infection and anemia PRBC/Venofer/diuretics as outlined Repeat ECHO w/o wma DENIED CHEST PAIN, tele monitoring discontinued as above (11) CAD (coronary artery disease): as above (12) Diabetes mellitus, type II: as above (13) Chronic a-fib: Rate controlled/deven, rates in 40-50s. Eliquis held, +FOCB testing. Now discontinued (14) Obstructive sleep apnea: o2 as needed for comfort (15) CKD (chronic kidney disease), stage III: as above (16) Acute on chronic heart failure with preserved ejection fraction: as above (17) Vitamin D deficiency: as above (18) Occult blood positive stool: (19) Weakness generalized: Total Time Total Time Spent Total Time Spent (In Minutes): 45 Discharge Plan Discharge Items Patient Disposition: Other Date/Time: 06/05/23 11:05 Supervising Physician Co-Signing Physician Notes The patient was not seen by me. The chart was reviewed. Case discussed with CELESTINO Cobos. 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
--- NOTE | 2023-06-05 11:34 | Death Pronouncement Note ---
Date of Service June 05, 2023 Pronouncement Note Admission Date May 30, 2023 Date and Time of Date of : 06/05/23 Time of : 11:05 Preliminary Cause of (1) Acute kidney injury superimposed on CKD: Additional Comments: patient admitted w/ progressive LE edema/cellulitis and progressive renal failure/hyperkalemia with wishes AGAINST dialysis. Medications were attempted to correct medically however given quality of life/overall prognosis and further discussion with patient/family/palliative care and was made comfort measures only and medications/antibiotics and labs/etc were stopped and medications were used to keep Patric comfortable during the end of his life and eventually was placed on a drip and was surrounded by family and passed comfortably with them at bedside. 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: (8) Hypertension: (9) Hyponatremia: (10) Elevated troponin: (11) CAD (coronary artery disease): (12) Diabetes mellitus, type II: Diabetes mellitus complication status: with circulatory complication Diabetes mellitus senior care insulin use: without senior care use (13) Chronic a-fib: (14) Obstructive sleep apnea: (15) CKD (chronic kidney disease), stage III: (16) Acute on chronic heart failure with preserved ejection fraction: (17) Vitamin D deficiency: (18) Occult blood positive stool: (19) Weakness generalized: Additional Data Confirmation of : no pulse, no respirations, no heart sounds and pupils fixed and dilated Pronouncement Performed By: Advanced Practice Provider (CHERIE) Family: at bedside Attending/PCP notified?: Yes Attending physician: Ismael Burgos MD Was code activated?: No Autopsy requested?: No
== END 2023-06-05 13:04 | disposition expired | DRG 682 ==
LOC: ED 10:37 → EDINP 12:38 → SUATTDRO 12:38 → 2W 15:33 → 3W 06-03 01:58